=== PATIENT | male | born 1945 | race Caucasian/White ===

== ENCOUNTER 2019-01-04 09:28 | Emergency (ER) | payer BC ==
[2019-01-04 09:51] VITALS: BP 131/72
--- NOTE | 2019-01-04 10:51 | UC ---
Back Pain HPI - HPI Summary HPI Summary: For the past 2 weeks or so he's had gradually increasing symptoms. When he gets up and walks he gets a numbness in his right shoulder blade which quickly becomes pain. He does okay if he is sitting and resting. He has no weakness of his right hand or arm but it does aggravate it some to move it around. He has no other complaint. - History of Current Complaint Chief Complaint: UCUpperExtremity Stated Complaint: RIGHT SHOULDER PAIN Time Seen by Provider: 01/04/19 09:39 Hx Obtained From: Patient, Family/Mushroom Packer Onset/Duration: Gradual Onset Timing: Constant, Lasting Days Severity Initially: Mild Severity Currently: Moderate Pain Intensity: 5 Back Pain: Is Discrete @ - Right posterior shoulder blade Aggravating Factor(s): Movement, Walking Alleviating Factor(s): Rest Associated Signs And Symptoms: Positive: Negative - Allergies/Home Medications Allergies/Adverse Reactions: Allergies Allergy/AdvReac Type Severity Reaction Status Date / Time Ooylwex-Hfq-Ijn Reductase Allergy Muscle Ache Verified 01/04/19 09:51 Inhibitor Home Medications: Home Medications Carvedilol TAB* [Coreg TAB*] 3.125 mg PO BID 01/04/19 [History Confirmed ] Furosemide TAB* [Lasix TAB*] 20 mg PO BID 01/04/19 [History Confirmed 01/04/19] Lisinopril 20 mg PO DAILY 01/04/19 [History Confirmed 01/04/19] Warfarin TAB(*) [Coumadin TAB(*)] 5 mg PO DAILY 01/04/19 [History Confirmed 07/24] PMH/Surg Hx/FS Hx/Imm Hx Cardiovascular History: Cardiac Disease, Hypertension, Atrial Fibrillation - Surgical History Surgical History: None - Social History Alcohol Use: None Substance Use Type: None Smoking Status (MU): Former Smoker Type: Cigarettes Amount Used/How Often: 3 ppd Length of Time of Smoking/Using Tobacco: since age 13 When Did the Patient Quit Smoking/Using Tobacco: 2003 Review of Systems All Other Systems Reviewed And Are Negative: Yes Constitutional: Positive: Negative Skin: Positive: Negative Motor: Positive: Negative Neurovascular: Positive: Negative Musculoskeletal: Positive: Arthralgia, Other: Neurological: Positive: Negative Physical Exam - Summary Physical Exam Summary: Is nontoxic in appearance with stable vitals Triage Information Reviewed: Yes Appearance: Well-Appearing Vital Signs: Initial Vital Signs Temp 97.4 F 01/04/19 09:41 Pulse 86 01/04/19 09:41 Resp 24 01/04/19 09:41 BP 131/72 01/04/19 09:41 Pulse Ox 92 01/04/19 09:41 Vital Signs Reviewed: Yes Neck exam: Other - Some restricted movement Respiratory Exam: Normal Cardiovascular Exam: Normal Musculoskeletal Exam: Other - He's got some mild tenderness and spasm in the rhomboids on the right. Neurological Exam: Normal Diagnostics - Radiology CT cervical spine Radiology Interpretation Completed By: Radiologist Summary of Radiographic Findings: Significant degenerative disc disease. Back Pain Course/Dx - Course Course Of Treatment: I think this is a cervical radiculopathy and I'm going to give him a short steroid burst to try to give him some relief. - Differential Dx/Diagnosis Provider Diagnosis: Cervical radiculopathy Discharge - Sign-Out/Discharge Documenting (check all that apply): Patient Departure All imaging exams completed and their final reports reviewed: Yes - Discharge Plan Condition: Stable Disposition: HOME Patient Education Materials: Cervical Radiculopathy (ED) Referrals: Jacob Dalton MD [Primary Care Provider] - - Billing Disposition and Condition Condition: STABLE Disposition: Home
== END 2019-01-04 11:42 | disposition home or self-care (01) ==
LOC: UCCORT 09:28
DX: M54.12 Radiculopathy, cervical region (principal); I11.9 Hypertensive heart disease without heart failure; I48.91 Unspecified atrial fibrillation; Z79.01 Long term (current) use of anticoagulants; Z87.891 Personal history of nicotine dependence
CPT/HCPCS: 72125; 99202; G0463

== ENCOUNTER 2019-04-05 17:33 | Emergency (ER) | payer BC, MEDICARE ==
--- OUTSIDE RECORDS SUMMARY | 2019-04-05 18:03 | XMS REPORT | Summary of Care ---
:1945 Author Organization [facility] Address [address] [address] Care Team Providers Name Role Phone Jacob Dalton MD Primary Care Provider Reason for Referral MRI/CAT/PET Scan (Routine) Status Reason Specialty Diagnoses / Referred By Referred To Procedures Contact Contact Pending Review Diagnoses Acute midline thoracic back pain Magdi Tejeda MD Procedures MR THORACIC SPINE WO CONTRAST [address] [place] [address] [place] [address] Reason for Visit Reason Comments New Patient Right shoulder blade pain. DOI: Yrs Patient states 3-4 wks ago right shoulder pain got increasingly worse. CT of cervical spine on [facility]. Patient wanting to discuss injections. Refer to Department Only (Routine) Status Reason Specialty Diagnoses / Referred By Contact Referred To Contact Procedures Closed Orthopedics Diagnoses Acute pain of right shoulder Laquita Sim PA-C [address] [place] [address] Encounter Details Date Type Department Care Team Description 02/11/2019 Office Visit [facility] - Magdi Tejeda MD Acute midline thoracic back pain (Primary Dx); [address] Acute pain of right shoulder [address] [facility] [place], [place] [id number] [place] [address] [phone] Allergies Active Allergy Reactions Severity Noted Date Comments No Known Drug Allergy 07/25/2007 documented as of this encounter (statuses as of 02/11/2019) Medications Medication Sig Dispensed Refills Start Date End Date Status acetaminophen (TYLENOL) Take 650 mg by 0 Active 325 MG Oral Tab mouth EVERY FOUR HOURS NEEDED for Pain. lisinopril (PRINIVIL, TAKE ONE TABLET 90 Tab 1 09/07/2018 Active ZESTRIL) 20 MG Oral Tab BY MOUTH EVERY DAY furosemide (LASIX) 20 TAKE TWO TABLETS 120 Tab 1 10/09/2018 Active MG Oral Tab BY MOUTH EVERY DAY carvedilol (COREG) TAKE ONE TABLET 60 Tab 2 12/05/2018 Active 3.125 MG Oral Tab BY MOUTH TWICE A DAY warfarin (COUMADIN) 5 Take 0.5-1 Tabs 180 Tab 3 01/24/2019 Active MG Oral TabIndications: by mouth DAILY. Acute thromboembolism As directed which of deep veins of lower is 2.5mg Zoila. 5mg extremity, unspecified remaining days of laterality (HCC) week HYDROcodone-acetaminoph Take 1 Tab by 28 Tab 0 01/24/2019 Active en (NORCO) 5-325 MG mouth EVERY SIX Oral Tab HOURS NEEDED (shoulder pain). Max Daily Amount: 4 Tabs. HYDROcodone-acetaminoph Take 1 Tab by 40 Tab 0 01/31/2019 Active en (NORCO) 5-325 MG mouth EVERY SIX Oral Tab HOURS NEEDED (pain). Max Daily Amount: 4 Tabs. documented as of this encounter (statuses as of 02/11/2019) Active Problems Problem Noted Date Acute thromboembolism of deep veins of lower extremity, unspecified 09/22/2016 laterality Mixed hyperlipidemia 11/20/2011 Acute thromboembolism of deep veins of lower extremity 07/25/2007 Overview: On Coumadin Therapy. Update referral 3.10.10. 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 07/09/2007 Overview: Managed by: [facility] Referring Provider: Frank Indication: Acute thromboembolism of deep veins of lower extremity, unspecified laterality Target Range: 2.0-3.0 Duration: Indefinite Additional factors influencing anticoagulation: Tylenol increases warfarin effect Pt is at Q8W INR interval per MD order 09/14/12 09/08/17 Resume 1M INRs due to dose change Updated Referral: 04/16/14, 08/2015, 09/22/16, 11/2017, 11/07/18 Updated ACS Orders: 05/26/14, 09/02/15, 10/25/16, 11/16/17, 12/12/18 BMI 40.0-44.9, adult Overview: This patient's BMI This patient's BMI has been calculated and is above average, and BMI management plan is completed. General patient education discussion including: weight loss link to reduction of r isk factors for cardiac and other diseases, importance of long-term maintenance treatment in weight loss, and accomplish with exercise as tolerated and diet control documented as of this encounter (statuses as of 02/11/2019) Resolved Problems Problem Noted Date Resolved Date Encounter for therapeutic drug monitoring 01/12/2010 07/21/2010 Leg ulcer 01/13/2009 03/17/2010 Tobacco Abuse 07/25/2007 03/17/2010 Abnormal Chest X-Ray 07/25/2007 03/17/2010 Benign neoplasm of colon 07/25/2007 03/17/2010 documented as of this encounter (statuses as of 02/11/2019) Immunizations Name Administration Dates Next Due Influenza (IM) Preservative Free 02/27/2013 Influenza Vaccine High Dose 02/07/2018, 01/20/2017, 02/18/2016, 03/18/2015 Influenza Vaccine Whole 03/13/2014, 12/28/2010, 04/04/2009 Influenza Virus Vaccine - Whole 03/23/2007 Influenza Virus Vaccine Pres Free 6-35 03/17/2010 Months PNEUMOCOCCAL POLYSACCHARIDE VACCINE 11/07/2011 Pneumococcal Conjugate(13 Valent) 03/18/2015 ZOSTER (ZOSTAVAX) VACCINE 02/27/2013 documented as of this encounter Social History Tobacco Use Types Packs/Day Years Used Date Former Smoker Smokeless Tobacco: Never Used Alcohol Use Drinks/Week oz/Week Comments Not Asked Sex Assigned at Date Recorded Not on file Job Start Date Occupation Industry Not on file Not on file Not on file Travel History Travel Start Travel End No recent travel history available. documented as of this encounter Last Filed Vital Signs Vital Sign Reading Time Taken Comments Blood Pressure 125/74 02/11/2019 3:07 PM EDT Pulse 94 02/11/2019 3:07 PM EDT Temperature - - Respiratory Rate - - Oxygen Saturation - - Inhaled Oxygen Concentration - - Weight 142.4 kg (314 lb) 02/11/2019 3:07 PM EDT Height 180.3 cm (5' 11") 02/11/2019 3:07 PM EDT Body Mass Index 43.79 02/11/2019 3:07 PM EDT documented in this encounter Progress Notes Magdi Tejeda MD - 02/11/2019 3:15 PM EDT Name: Ranjit Barragan : 1945 Date of Service: 02/11/2019 Referring Provider: Laquita Sim Primary Care Provider: Jacob Dalton Chief Complaint Patient presents with New Patient Right shoulder blade pain. DOI: Yrs Patient states 3-4 wks ago right shoulder pain got increasingly worse. CT of cervical spine on [facility]. Patient wanting to discuss injections. 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 carvedilol (COREG) 3.125 MG Oral Tab TAKE ONE TABLET BY MOUTH TWICE A DAY furosemide (LASIX) 20 MG Oral Tab TAKE TWO TABLETS BY MOUTH EVERY DAY HYDROcodone-acetaminophen (NORCO) 5-325 MG Oral Tab Take 1 Tab by mouth EVERY SIX HOURS NEEDED (shoulder pain). Max Daily Amount: 4 Tabs. HYDROcodone-acetaminophen (NORCO) 5-325 MG Oral Tab Take 1 Tab by mouth EVERY SIX HOURS NEEDED (pain). Max Daily Amount: 4 Tabs. lisinopril (PRINIVIL, ZESTRIL) 20 MG Oral Tab TAKE ONE TABLET BY MOUTH EVERY DAY warfarin (COUMADIN) 5 MG Oral Tab Take 0.5-1 Tabs by mouth DAILY. As directed which is 2.5mg Zoila. 5mg remaining days of week No current facility-administered medications for this visit. Allergies Allergen Reactions No Known Drug Allergy Social History Socioeconomic History Marital status: Spouse name: Not on file Number of children: Not on file Years of education: Not on file Highest education level: Not on file Occupational History Not on file Social Needs Financial resource strain: Not on file Food insecurity: Worry: Not on file Inability: Not on file Transportation needs: Medical: Not on file Non-medical: Not on file Tobacco Use Smoking status: Former Smoker Smokeless tobacco: Never Used Substance and Sexual Activity Alcohol use: Not on file Drug use: Not on file Sexual activity: Not on file Lifestyle Physical activity: Days per week: Not on file Minutes per session: Not on file Stress: Not on file Relationships Social connections: Talks on phone: Not on file Gets together: Not on file Attends scientologist service: Not on file Active member of club or organization: Not on file Attends meetings of clubs or organizations: Not on file Relationship status: Not on file Intimate partner violence: Fear of current or ex partner: Not on file Emotionally abused: Not on file Physically abused: Not on file Forced sexual activity: Not on file Other Topics Concern Not on file Social History Narrative Not on file Family History Problem Relation Age of Onset Hypertension Unknown Breast Cancer Sister ROS: Review of systems intake completed by clinical staff. I have reviewed and agree with their documentation. 73-year-old man(goes by Juan) referred by Denisa Sim for evaluation of mid thoracic midline back pain with approximately 3 weeks of acute pain. Has had chronic pain in this region but has never been disabling. No radicular symptoms. Seen at [place] urgent [facility] where a CAT scan was done. This shows cervical spondylosis with foraminal stenosis. Extension increases the pain. No help from course of oral prednisone. On chronic anticoagulation for DVT.. No shortness of breath. Physical exam shows an overweight man in no acute distress. Alert and oriented. Thoracic spine grossly normal. No point tenderness. Good range of motion. Grossly no focal motor or sensory abnormalities. X-rays of the thoracic spine suggest possible compression fracture mid thoracic spine. Discussion: Unclear if etiology is primarily orthopedic. Will order MRI of thoracic spine. However, cannot rule out other etiology such as vascular or pulmonary . Impression: ICD-9-CM ICD-10-CM 1. Acute pain of right shoulder 719.41 M25.511 REFER TO ORTHOPEDICS Author: Magdi Tejeda MD 02/11/2019 15:23 This record contains sections created with voice recognition software. It has been electronically signed. A reasonable attempt at proofreading has been made. Please call with any questions or corrections. documented in this encounter Plan of Treatment Name Type Priority Associated Diagnoses Order Schedule MR THORACIC SPINE WO Imaging Routine Acute midline thoracic Expected: 02/11, CONTRAST back pain Expires: 02/11/2020 Health Maintenance Due Date Last Done Comments HIV SCREENING 1959 AAA SCREENING/SURVEILLANCE 2009 ZOSTER IMMUNIZATION SERIES 04/24/2013 02/27/2013 (2 of 3) MEDICARE ANNUAL WELLNESS 02/17/2017 02/18/2016, 02/18/2016, VISIT 02/18/2016, Additional history exists DEPRESSION SCREENING 03/24/2018 03/24/2017 INFLUENZA VACCINE (#1) 2019 02/07/2018, 01/20/2017, 02/18/2016, Additional history exists FALL RISK ASSESSMENT 06/19/2019 06/19/2018, 06/19/2018 LIPID DISORDER SCREENING 06/19/2019 06/19/2018, 02/18/2016, 01/13/2015, Additional history exists PNEUMOCOCCAL 65+YRS Completed 03/18/2015, 11/07/2011 HEPATITIS C SCREENING Completed 06/19/2018 HPV IMMUNIZATION SERIES Aged Out No longer eligible based on patient's age to complete this topic MENINGOCOCCAL VACCINE IMM Aged Out No longer eligible based on patient's age to complete this topic documented as of this encounter Goals Goal Patient Goal Associated Recent Patient-Stated? Author Type Problems Progress Blood Pressure Blood Pressure 125/74 No Krystle, < 150/90 (02/11/2019 MD Jacob 3:07 PM EDT) Note: This is an individualized treatment (blood pressure) goal for Ranjit Barragan: Displayed above (on the left) is your goal for blood pressure control. Your most recent blood pressure is also shown above, on the right. You should try to achieve blood pressures that are lower than your goal listed above (on the left). Unit - lb < 250 Result Component No Jacob Dalton MD Take all prescribed medications as directed Self-management No Jacob Dalton MD Note: This is an individualized self-management goal for Ranjit Barragan: Please take all prescribed medications as directed. 1. Do not skip doses. If you cannot afford your medications, talk with your doctor. 2. Use a pill reminder system such as a pill box if needed. Your pharmacist can help you with this. 3. Contact your Pharmacy 5 days before your medication runs out. If you cannot take your medications for any reasons, talk with your doctor. 4. Please bring all of your medication bottles and inhalers (or a list of all your medications/inhalers) with you to every visit. Potential barriers to meeting all of your care plan goals will continue to be addressed on an ongoing basis. documented as of this encounter Results Not on filedocumented in this encounter Visit Diagnoses Diagnosis Acute midline thoracic back pain - Primary Acute pain of right shoulder documented in this encounter Insurance Payer Benefit Plan / Subscriber ID Effective Dates Phone Address Type Group [employer] EX[employer]US xxxxxxxxxxxx 2015-Present [employer] MEDICARE BLUE PPO [phone] Guarantor Name Account Type Relation to Date of Phone Billing Address Patient PriRanjit bolanos Personal/Famil 1945 [address] (Home) [address] [phone] [place], [place] (Work) [id number] documented as of this encounter
--- OUTSIDE RECORDS SUMMARY | 2019-04-05 18:03 | XMS REPORT | Summary of Care ---
:1945 Author Organization [facility] Address [address] [place] [address] Care Team Providers Name Role Phone Jacob Dalton MD Primary Care Provider Reason for Referral MRI/CAT/PET Scan (Routine) Status Reason Specialty Diagnoses / Referred By Referred To Procedures Contact Contact Pending Review Diagnoses Lung mass Jacob Dalton MD Procedures CT CHEST WITHOUT IV CONTRAST [address] [place] [address] Reason for Visit Reason Comments Follow Up pt presents for follow up Breathing Problem pt still having SOB, worse for past month Encounter Details Date Type Department Care Team Description 02/19/2019 Office Visit [facility] Jacob Dalton MD Lung mass (Primary Dx); Practice [address] [facility] Edema, unspecified type ; [address] [place] [address] Neoplasm ; [place] [address] Chronic combined systolic and diastolic congestive heart failure (HCC); [phone] 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 lisinopril (PRINIVIL, TAKE ONE 90 Tab 1 09/07/2018 Active ZESTRIL) 20 MG Oral TABLET BY Tab MOUTH EVERY DAY carvedilol (COREG) TAKE ONE 60 Tab 2 12/05/2018 Active 3.125 MG Oral Tab TABLET BY MOUTH TWICE A DAY warfarin (COUMADIN) 5 Take 0.5-1 180 Tab 3 01/24/2019 Active MG Oral Tabs by mouth TabIndications: Acute DAILY. As thromboembolism of directed which deep veins of lower is 2.5mg Zoila. extremity, 5mg remaining unspecified days of week laterality (HCC) furosemide (LASIX) 20 TAKE TWO 120 Tab 1 02/18/2019 Active MG Oral Tab TABLETS BY MOUTH EVERY DAY morphine 15 MG Oral Take 1 Tab by 40 Tab 0 02/19/2019 Active Tab mouth EVERY SIX HOURS NEEDED (pain). Max Daily Amount: 60 mg. HYDROcodone-acetamino Take 1 Tab by 28 Tab 0 01/24/2019 Discontinued phen (NORCO) 5-325 MG mouth EVERY 9 Oral Tab SIX HOURS NEEDED (shoulder pain). Max Daily Amount: 4 Tabs. HYDROcodone-acetamino Take 1 Tab by 40 Tab 0 01/31/2019 Discontinued phen (NORCO) 5-325 MG mouth EVERY 9 Oral Tab SIX HOURS NEEDED (pain). Max Daily Amount: 4 Tabs. tramadol (ULTRAM) 50 Take 1-2 Tabs 42 Tab 0 02/11/2019 Discontinued MG Oral Tab by mouth EVERY 9 EIGHT HOURS NEEDED (back pain). Max Daily Amount: 300 mg. documented as of this encounter (statuses as of 02/19/2019) Active Problems Problem Noted Date Acute thromboembolism of deep veins of lower extremity, unspecified 09/22/2016 laterality Mixed hyperlipidemia 11/20/2011 Acute thromboembolism of deep veins of lower extremity 07/25/2007 Overview: On Coumadin Therapy. Update referral 3.10.10. 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 07/09/2007 Overview: Managed by: [facility] Referring Provider: Frank Indication: Acute thromboembolism of [...] as of this encounter (statuses as of 02/19/2019) Resolved Problems Problem Noted Date Resolved Date Encounter for therapeutic drug monitoring 01/12/2010 07/21/2010 Leg ulcer 01/13/2009 03/17/2010 Tobacco Abuse 07/25/2007 03/17/2010 Abnormal Chest X-Ray 07/25/2007 03/17/2010 Benign neoplasm of colon 07/25/2007 03/17/2010 documented as of this encounter (statuses as of 02/19/2019) Immunizations Name Administration Dates Next Due Influenza [...] Sign Reading Time Taken Comments Blood Pressure 108/62 02/19/2019 4:37 PM EDT Pulse 93 02/19/2019 4:37 PM EDT Temperature - - Respiratory Rate - - Oxygen Saturation 90% 02/19/2019 4:37 PM EDT Inhaled Oxygen Concentration - - Weight 139.7 kg (308 lb) 02/19/2019 4:37 PM EDT Height 180.3 cm (5' 11") 02/19/2019 4:37 PM EDT Body Mass Index 42.96 02/19/2019 4:37 PM EDT documented in this encounter Progress Notes Jacob Dalton MD - 02/19/2019 4:20 PM EDT PATIENT: Ranjit Barragan : 1945 DATE OF SERVICE: 02/19/2019 CHIEF COMPLAINT: Chief Complaint Patient presents with Follow Up pt presents for follow up Breathing Problem pt still having SOB, worse for past month Subjective HISTORY OF PRESENT ILLNESS: Ranjit Barragan is a 73-y.o. male. Been having right scapula pain for couple months First stop was ER and a CT c spine done Showing neuroforaminal narrowing and spinal stenosis . Saw PD and then Dr Tejeda last week who ordered a thoracic spine x ray Since it showed a RUL mass he asked me to follow up. It is fairly constant Feels numb , the recliner feels the best , . Can flare during his sleep , associated with SOB but that has been an ongoing issue blamed on fluid overload. He tried norco but after few days it makes him agitated, same with ultram. 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 carvedilol (COREG) 3.125 MG Oral Tab TAKE ONE TABLET BY MOUTH TWICE A DAY furosemide (LASIX) 20 MG Oral Tab TAKE TWO TABLETS BY MOUTH EVERY DAY lisinopril (PRINIVIL, ZESTRIL) 20 MG Oral Tab TAKE ONE TABLET BY MOUTH EVERY DAY morphine 15 MG Oral Tab Take 1 Tab by mouth EVERY SIX HOURS NEEDED ( pain). Max Daily Amount: 60 mg. warfarin (COUMADIN) 5 MG Oral Tab Take 0.5-1 Tabs by mouth DAILY. As directed which is 2.5mg Zoila. 5mg remaining days of week No current facility-administered medications for this visit. Allergies Allergen Reactions Statins Swelling No Known Drug Allergy Social History Socioeconomic [...] file Gets together: Not on file Attends confucianist service: Not on file Active member of [...] file Social History Narrative Not on file Over the last 2 weeks, have you been feeling down, depressed, anxious, or hopeless?: 1 Over the past 2 weeks, have you felt little interest or pleasure in doing things ?: 3 Trouble falling or staying asleep, or sleeping too much?: 3 Feeling tired or having little energy?: 3 Poor appetite or overeating?: 3 Feeling bad about yourself or that you are a failure or have let yourself or your family down?: 2 Trouble concentrating on things, such as reading the newspaper or watching TV?: 1 Moving or speaking so slowly that other people notice OR being fidgety and restless?: 3 Thoughts that you would be better off or of hurting yourself in some way?: 1 PHQ-9 TOTAL SCORE: 20 How difficult have these problems made it for you to do your work, take care of things at home or get along with people?: Extremely difficult In the past 2 years, have you felt depressed or sad most days, even if you felt ok?: No REVIEW OF SYSTEMS: ROS Objective PHYSICAL EXAM: VITALS: BP 108/62 (BP Location: Left arm, Patient Position: Sitting) | Pulse 93 | Ht 5' 11" (1.803 m) | Wt 308 lb (139.7 kg) | SpO2 90% | BMI 42.96 kg/m Body mass index is 42.96 kg/m. Physical Exam Constitutional: He does not appear ill. Neck: Neck supple. Cardiovascular: Normal rate and regular rhythm. Pulmonary/Chest: Effort normal. Crackles bases Musculoskeletal: Stasis changes edema is down Lymphadenopathy: He has no cervical adenopathy. Psychiatric: He has a normal mood and affect. Vitals reviewed. ASSESSMENT / IMPRESSION: ICD-9-CM ICD-10-CM 1. Lung mass suspect lung cancer as worse case scenario. No labs done yet Too late to do here today will do in [place] , will get a CT We discussed biopsy vs straight to oncology The issue is pain control He not tolerate the codeine and ultram perhaps will tolerate morphine . Advantage is help with anxiety and SOB. Also inexpensive. Fentanyl ? But that is $$ 786.[address] CHEST WITHOUT IV CONTRAST COMPREHENSIVE METABOLIC PANEL CBC WITH DIFFERENTIAL PROTHROMBIN TIME PARTIAL THROMBOPLASTIN TIME 2. Edema, unspecified type 782.3 R60.9 PROTHROMBIN TIME 3. Neoplasm 239.9 D49.9 PARTIAL THROMBOPLASTIN TIME 4. Chronic combined systolic and diastolic congestive heart failure (HCC) stay on diuretics for qoq473.42 I50.42 428.0 5. 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 V58.61 Z79.01 Plan Author: Jacob Dalton MD 02/19/2019 19:23 documented in this encounter Plan of Treatment Date Type Specialty Care Team Description 02/22/2019 Ancillary Procedure Radiology 02/22/2019 AntiCoag Anticoagulation 02/27/2019 Office Visit Orthopedics Magdi Tejeda MD [address] [place] [address] [phone] Name Type Priority Associated Diagnoses Order Schedule CT CHEST WITHOUT IV Imaging Routine Lung mass Expected: CONTRAST 02/19/2019, Expires: 02/19/2020 COMPREHENSIVE METABOLIC Lab Routine Lung mass Expected: PANEL 02/19/2019 (Approximate), Expires: 02/20/2020 CBC WITH DIFFERENTIAL Lab Routine Lung mass Expected: 02/19/2019 (Approximate), Expires: 02/20/2020 PROTHROMBIN TIME Lab Routine Edema, unspecified type Ordered: 02/19/2019 Lung mass PARTIAL THROMBOPLASTIN Lab Routine Neoplasm Ordered: 02/19/2019 TIME Lung mass Health Maintenance Due Date Last Done Comments HIV SCREENING 1959 AAA SCREENING/SURVEILLANCE 2009 ZOSTER IMMUNIZATION SERIES 04/24/2013 02/27/2013 (2 of 3) MEDICARE ANNUAL WELLNESS 02/17/2017 02/18/2016, 02/18/2016, VISIT 02/18/2016, Additional history exists INFLUENZA VACCINE (#1) 2019 02/07/2018, 01/20/2017, 02/18/2016, Additional history exists FALL RISK ASSESSMENT 06/19/2019 06/19/2018, 06/19/2018 LIPID DISORDER SCREENING 06/19/2019 06/19/2018, 02/18/2016, 01/13/2015, Additional history exists DEPRESSION SCREENING 02/20/2020 02/19/2019, 02/19/2019 PNEUMOCOCCAL 65+YRS Completed 03/18/2015, 11/07/2011 HEPATITIS C SCREENING Completed 06/19/2018 HPV IMMUNIZATION SERIES Aged Out No longer eligible based on patient's age to complete this topic MENINGOCOCCAL VACCINE IMM Aged Out No longer eligible based on patient's age to complete this topic documented as of this encounter Goals Goal Patient Goal Associated Recent Patient-Stated? Author Type Problems Progress Blood Pressure Blood Pressure 108/62 No Krystle, < 150/90 (02/19/2019 MD Jacob 4:37 PM EDT) Note: This is an individualized [...] filedocumented in this encounter Visit Diagnoses Diagnosis Lung mass - Primary Swelling, mass, or lump in chest Edema, unspecified type Neoplasm Neoplasm of unspecified nature, site unspecified Chronic combined systolic and diastolic congestive heart failure (HCC) Chronic combined systolic and diastolic heart failure [facility]DC current use of anticoagulant therapy documented in this encounter Insurance Payer Benefit Plan / Subscriber ID Effective Dates Phone Address Type Group [employer]US MEDICARE EXCELLUS xxxxxxxxxxxx 2015-Present [employer] MEDICARE BLUE PPO [phone]) Guarantor Name Account Type Relation to Date of Phone Billing Address Patient Ranjit Barragan Personal/Famil 1945 [place] [address] (Home) [address] [phone] [place], [place] (Work) [id number] documented as of this encounter
--- OUTSIDE RECORDS SUMMARY | 2019-04-05 18:03 | XMS REPORT | Continuity of Care Document ---
:1945 External Reference #:[id number] Author Name Thuy Laurent PA-C Address [address] [place] [address] Care Team Providers Name Role Phone Facundo Velasquez MD Care Team Information [employer] [phone] Jacob Dalton MD Care Team Information [employer] [phone] Problems Active Problems Provider Date Essential hypertension Thuy Laurent PA-C Onset: 03/24/2019 Dysphagia Thuy Laurent PA-C Onset: 03/13/2019 Social History Type Date Description Comments Sex Unknown Tobacco Use Start: Unknown End: Unknown Patient is a former smoker Smoking Status Reviewed: 03/13/19 Patient is a former smoker Allergies, Adverse Reactions, Alerts Active Allergies Reaction Severity Comments Date Statins 03/13/2019 Medications Active Medications SIG Qnty Indications Ordering Provider Date Fentanyl Kolton Meyers MD 25mcg/HR Patches 72HR Enoxaparin Sodium Inject 1 Syringe Unknown Two Times A Day 100mg/ml Solution For 30 Days Starting On 03/03/19 Celecoxib Take One Capsule Unknown 100mg By Mouth Twice A Capsules Day For 30 Days as Needed Gabapentin Facundo Velasquez MD 300mg Capsules Carvedilol Jacob Dalton MD 3.125mg Tablets Lisinopril Take One Tablet By Unknown 20mg Tablets Mouth Every Day Omeprazole 1 by mouth every Unknown 20mg day Capsules DR Cadet Description No Information Available Vital Signs Date Vital Result Comment 03/13/2019 2:21pm BP Systolic 120 mmHg BP Diastolic 78 mmHg Heart Rate 83 /min Results Test Date Facility Test Result H/L Range Note CMP(!) 02/20/2019 [facility] Sodium(!) <pending> Potassium(!) <pending> Chloride Serum/Plasma(!) <pending> Carbon Dioxide Ser/Plasm(!) <pending> BUN - Urea Nitrogen(!) <pending> Calcium Ser/Plasma Mass/Vol(!) <pending> Creatinine Serum Mass/Vol(!) <pending> Glucose Serum(!) <pending> BUN/Creatinine Ratio(!) <pending> Albumin Serum/Plasma(!) <pending> Alkaline Phosphatase(!) <pending> Bilirubin Total Mass/Vol(!) <pending> Ast - Sgot <pending> Alt - SGPT <pending> Protein Total <pending> Laboratory test 02/20/2019 [facility] Inr(!) <pending> finding CBC W/Auto 02/20/2019 [facility] White Blood Count <pending> Differential(!) Ser Auto CNT RBC Red Blood Count <pending> Hemoglobin Blood <pending> Hematocrit <pending> MCV (Corpuscular Volume) <pending> MCH (Corpuscular Hemoglobin) <pending> MCHC (Corpuscular Hemog Conc) <pending> RDW <pending> Platelet Count Blood Auto CNT <pending> MPV <pending> Lymph% <pending> Gulf% <pending> Neutrophil % <pending> Absolute Lymphocytes <pending> Absolute Monocytes <pending> Absolute Neutrophils <pending> Procedures Description No Information Available Medical Devices Description No Information Available Encounters Description No Information Available Assessments Date Code Description Provider 03/13/2019 R13.10 Dysphagia, unspecified Thuy Laurent PA-C Plan of Treatment No Information Available Functional Status Description No Information Available Mental Status Description No Information Available Referrals Description No Information Available
--- NOTE | 2019-04-05 18:13 | ED ---
HPI Chest Pain - HPI Summary HPI Summary: 73 year old male presents to the ED with a chief complaint of chest pressure and associated SOB starting 3 weeks ago, gradually worsening until it became unbearable today. Patient started chemo for his lung cancer 5 days ago. He has been doing cancer radiation every day for the last 5 days. Patient reports taking Lovenox. He denies fever. Patient has a history of HTN, lung cancer, [place], and anxiety. He quit smoking 15 years ago. He does not drink alcohol. Medications reviewed. Allergies noted. - History of Current Complaint Chief Complaint: EDChestWallPain Time Seen by Provider: 04/05/19 17:56 Hx Obtained From: Patient Onset/Duration: Started Weeks Ago Timing: Constant Initial Severity: Mild Current Severity: Severe Pain Intensity: 7 Pain Scale Used: 0-10 Numeric Chest Pain Location: Diffuse Chest Pain Radiates: No Character: Pressure/Squeezing Associated Signs and Symptoms: Positive: Chest Pain, Anxiety, Shortness of Breath. Negative: Fever - Allergy/Home Medications Allergies/Adverse Reactions: Allergies Allergy/AdvReac Type Severity Reaction Status Date / Time Rgcnmje-Mla-Brj Reductase Allergy Muscle Ache Verified 03/11/19 13:54 Inhibitor Home Medications: Home Medications Enoxaparin(*) [Lovenox(*)] 100 mg SUBCUT Q12HR 04/05/19 [History Confirmed 04/05] LORazepam TAB(*) [Ativan 0.5 MG TAB (*)] 0.5 mg PO ONCE PRN 04/05/19 [History Confirmed 04/05/19] Lisinopril TAB* [Prinivil TAB*] 20 mg PO DAILY 04/05/19 [History Confirmed 04/05] Omeprazole CAP (NF) [Prilosec CAP* 20 MG] 20 mg PO DAILY 04/05/19 [History Confirmed 04/05/19] Ondansetron TAB* [Zofran 4 MG Tab*] 4 mg PO Q4HR PRN 04/05/19 [History Confirmed 04/05/19] Prochlorperazine TAB* [Compazine Tab*] 10 mg PO Q8H PRN 04/05/19 [History Confirmed 04/05/19] fentaNYL PATCH 50 MCG/HR* [Duragesic PATCH 50 Mcg/Hr*] 50 mcg TRANSDERM Q72H [History Confirmed 04/05/19] oxyCODONE TAB* [Roxycodone TAB 5 mg*] 10 mg PO ONCE PRN 04/05/19 [History Confirmed 04/05/19] PMH/Surg Hx/FS Hx/Imm Hx Cardiovascular History: Reports: Hx Hypertension - Cancer History Cancer Type, Location and Year: SKIN CA Infectious Disease History: No Infectious Disease History: Denies: Traveled Outside the [place] in Last 30 Days - Family History Known Family History: Positive: Hypertension - Social History Alcohol Use: None Substance Use Type: Reports: None Smoking Status (MU): Former Smoker Type: Cigarettes Amount Used/How Often: 3 ppd Length of Time of Smoking/Using Tobacco: since age 13 Review of Systems Negative: Fever Positive: Chest Pain Positive: Shortness Of Breath All Other Systems Reviewed And Are Negative: Yes Physical Exam - Summary Physical Exam Summary: Constitutional: Well-developed, Well-nourished, Alert. (-) Distressed Skin: Warm, Dry HENT: Normocephalic; Atraumatic Eyes: Conjunctiva normal Neck: Musculoskeletal ROM normal neck. (-) JVD, (-) Stridor, (-) Tracheal deviation Cardio: Rhythm regular, rate tachycardic, Heart sounds normal; Intact distal pulses; Radial pulses are 2+ and symmetric. (-) Murmur Pulmonary/Chest wall: Effort normal. (-) Respiratory distress, (-) Wheezes, Crackles at bilateral bases. Abd: Soft, (-) tenderness, (-) Distension, (-) Guarding, (-) Rebound Musculoskeletal: (-) Edema Lymph: (-) Cervical adenopathy Neuro: Alert, Oriented x3 Psych: Mood and affect Normal Triage Information Reviewed: Yes Vital Signs On Initial Exam: Initial Vitals Temp Pulse Resp BP Pulse Ox 98.2 F 106 22 124/92 96 04/05/19 17:47 04/05/19 17:47 04/05/19 17:47 04/05/19 17:47 04/05/19 17:47 Vital Signs Reviewed: Yes Procedures - Sedation Patient Received Moderate/Deep Sedation with Procedure: No Diagnostics - Vital Signs Vital Signs Temp Pulse Resp BP Pulse Ox 04/05/19 17:47 98.2 F 106 22 124/92 96 - Laboratory Result Diagrams: 04/05/19 18:29 04/05/19 18:29 Lab Statement: Any lab studies that have been ordered have been reviewed, and results considered in the medical decision making process. - CT Chest/Thorax CTA CT Interpretation Completed By: Radiologist Summary of CT Findings: 1. No pulmonary emboli. 2. Intervally advanced stage IV primary lung carcinoma. An ED physician has reviewed this report. - EKG 1838 Cardiac Rate: Tachycardia - 103 bpm EKG Rhythm: Sinus Tachycardia Summary of EKG Findings: EKG at 1838 shows sinus tachycardia of 103 bpm. T-wave inversion at 2-3 and AVF. Chest Pain Course/Dx - Course Course Of Treatment: Patient is here with chest pain in the setting of lung cancer, starting chemotherapy, and radiation treatment. Patient's chest pain has been constant for 24 hours with a negative troponin and EKG for ischemia. Patient had a negative CTA for PE. I do not think patient needs a stress test emergently as he is currently undergoing chemotherapy and has a number session on Monday. Patient was encouraged to call his oncologist to let them know he was here. - Diagnoses Provider Diagnoses: Chest pain, Lung cancer Discharge ED - Sign-Out/Discharge Documenting (check all that apply): Patient Departure - discharge - Discharge Plan Condition: Stable Disposition: HOME Patient Education Materials: Chest Pain (ED) Referrals: Facundo Velasquez MD [Family Provider] - Additional Instructions: Follow up with Dr. Velasquez, Oncology, in 2-3 days. Return to the Emergency Department if you experience trouble breathing, fever, chest pain, or other worsened symptoms. - Billing Disposition and Condition Condition: STABLE Disposition: Home - Attestation Statements Document Initiated by Amelia: Yes Documenting Sabaibe: Muaricio Fernando Provider For Whom Amelia is Documenting (Include Credential): Clemente Gallo MD Scribe Attestation: Mauricio Singh, scribed for Clemente Gallo MD on 04/06/19 at 1942. Scribe Documentation Reviewed: Yes Provider Attestation: The documentation as recorded by the Mauricio chu accurately reflects the service I personally performed and the decisions made by me, Clemente Gallo MD Status of Scribe Document: Viewed
[2019-04-05] MEDS ORDERED: NS 0.9% 1000 ML** 1,000 ML IV ONE (18:31)
[2019-04-05 18:40] LABS: ABS Eosinophils 0.1 10^3/ul (0-0.6); ABS Lymphocytes 0.9 10^3/ul (1.0-4.8); ABS Monocytes 0.3 10^3/ul (0-0.8); ABS Neutrophils 6.1 10^3/ul (1.5-7.7); Hematocrit 46 % (42-52); Hemoglobin 15.1 g/dL (14.0-18.0); Mean Corpuscular HGB Conc 33 g/dL (31-36); Mean Corpuscular Hemoglobin 30 pg (27-31); Mean Corpuscular Volume 89 fL (80-94); Mean Platelet Volume 9.1 fL (7.4-10.4); Platelet Count 165 10^3/uL (150-450); Red Blood Count 5.12 10^6 /uL (4.18-5.48); Red Cell Distribution Width 16 % (10-15); White Blood Count 7.4 10^3/uL (3.5-10.8)
[2019-04-05 18:58] LABS: Troponin I 0.02 ng/mL (<0.04)
[2019-04-05 19:03] LABS: Albumin 3.3 g/dL (3.2-5.2); Albumin/Globulin Ratio 1.2 (1-3); BUN/Creatinine Ratio 17.6 (8-20); Calcium 9.6 mg/dL (8.6-10.3); EGFR African American 137.9 (>60); Globulin 2.7 g/dL (2-4); Potassium 4.2 mmol/L (3.5-5.0)
[2019-04-05] MEDS ORDERED: Iohexol 350* (CONTRAST) 500 ML MDV IV ONE (19:31)
[2019-04-05] MEDS ORDERED: Al Hydrox/Mg Hydrox/Simet LIQ* 30 ML UDC PO ONE (21:34)
[2019-04-05] MEDS ORDERED: Lidocaine 2% VISCOUS* 15 ML UDC PO ONE (21:34)
[2019-04-05 21:52] VITALS: BP 139/86
== END 2019-04-05 22:00 | disposition home or self-care (01) ==
LOC: ED 17:33
DX: R07.9 Chest pain, unspecified (principal); C34.90 Malignant neoplasm of unspecified part of unspecified bronchus or lung; I10 Essential (primary) hypertension; I25.2 Old myocardial infarction; F41.9 Anxiety disorder, unspecified; Z87.891 Personal history of nicotine dependence; Z85.828 Personal history of other malignant neoplasm of skin; Z79.01 Long term (current) use of anticoagulants; Z79.899 Other long term (current) drug therapy; Z88.8 Allergy status to other drugs, medicaments and biological substances
CPT/HCPCS: 36415; 71275; 80053; 83605; 84484; 85025; 87040; 93005; 96360; 99283; A9270-GY; Q9967

== ENCOUNTER 2019-04-22 14:09 | Inpatient (IN) | payer MEDICARE ==
[2019-04-22] MEDS ORDERED: Cefepime(*) 2 GM in NS 0.9% 50 ML* 50 ML IVPB ONE (14:25)
[2019-04-22] MEDS ORDERED: NS 0.9% 1000 ML** 1,000 ML IV.FLUID IV ONE (14:25)
[2019-04-22] MEDS ORDERED: Piperacillin/Tazobac ADVAN(*) 3.375 GM in NS 0.9% 100 ML* 100 ML IVPB ONE (14:25)
--- NOTE | 2019-04-22 14:26 | ED ---
Altered Mental Status - HPI Summary HPI Summary: Patient is a 73 y/o M presenting to the ED via EMS for a chief complaint of confusion. Patient is present with his . On 04/22/19, the patient had confusion and shortness of breath at rest so he was unable to receive chemotherapy or which he was scheduled at [facility], but did receive radiation therapy before symptom onset. Per EMS, patient was alert, but oriented and was unable to give a history. Patient was asymptomatic on the morning of 04/22/19. Patient has a PMHx of skin and lung cancer. Patient denies any aggravating or alleviating factors. HPI IS LIMITED DUE TO LEVEL 5 CAVEAT - CONFUSION. - History Of Current Complaint Chief Complaint: EDAltMentalStatus Stated Complaint: AMS PER EMS Time Seen by Provider: 04/22/19 14:24 Hx Obtained From: Patient, EMS Hx From Patient Unobtainable Due To: Altered Mental Status - LEVEL 5 CAVEAT - Confusion Onset/Duration: Still Present Severity Initially: Moderate Severity Currently: Moderate Character: Confusion Aggravating Factor(s): Nothing Alleviating Factor(s): Nothing Associated Signs And Symptoms: Positive: Negative - Allergies/Home Medications Allergies/Adverse Reactions: Allergies Allergy/AdvReac Type Severity Reaction Status Date / Time Ftlmfxn-Ymj-Iok Reductase Allergy Muscle Ache Verified 03/11/19 13:54 Inhibitor Home Medications: Home Medications Apixaban* [Eliquis*] 5 mg PO BID 04/22/19 [History Confirmed 04/22/19] Dexamethasone TAB* [Decadron TAB*] 8 mg PO DAILY 04/22/19 [History Confirmed ] Scopolamine 1.5 mg* PATCH* [Transderm-Scop 1.5 mg Patch*] 1 patch TRANSDERM Q72H 04/22/19 [History Confirmed 04/22/19] PMH/Surg Hx/FS Hx/Imm Hx Previously Healthy: No - LIMITED DUE TO LEVEL 5 CAVEAT - CONFUSION Endocrine/Hematology History: Denies: Hx Diabetes Cardiovascular History: Reports: Hx Hypertension Denies: Hx Hypercholesterolemia History: Denies: Hx Renal Disease Sensory History: Denies: Hx Legally Blind, Hx Deafness Opthamlomology History: Denies: Hx Legally Blind EENT History: Denies: Hx Deafness - Cancer History Cancer Type, Location and Year: SKIN CA, LUNG CA - Surgical History Surgical History: None Surgery Procedure, Year, and Place: None Infectious Disease History: No Infectious Disease History: Denies: Traveled Outside the [place] in Last 30 Days - Family History Known Family History: Positive: Hypertension - Social History Occupation: Retired Lives: With Family Alcohol Use: None Hx Substance Use: No Substance Use Type: Reports: None Hx Tobacco Use: Yes Smoking Status (MU): Former Smoker Type: Cigarettes Amount Used/How Often: 3 ppd Length of Time of Smoking/Using Tobacco: since age 13 Review of Systems - ROS Summary Review of Systems Summary: REVIEW OF SYSTEMS LIMITED DUE TO LEVEL 5 CAVEAT - CONFUSION Positive: Shortness Of Breath - At rest Neurological: Other - Positive confusion All Other Systems Reviewed And Are Negative: No Physical Exam - Summary Physical Exam Summary: PHYSICAL EXAM LIMITED DUE TO LEVEL 5 CAVEAT - CONFUSION VITAL SIGNS: Reviewed. GENERAL: Patient is a well-developed and obese MALE who is lying comfortable in the stretcher. Patient is not in any acute respiratory distress. HEAD AND FACE: No signs of trauma. No ecchymosis, hematomas or skull depressions. No sinus tenderness. EYES: PERRLA, EOMI x 2, No injected conjunctiva, no nystagmus. EARS: Hearing grossly intact. Ear canals and tympanic membranes are within normal limits. MOUTH: Oropharynx within normal limits. NECK: Supple, trachea is midline, no adenopathy, no JVD, no carotid bruit, no c- spine tenderness, neck with full ROM. CHEST: Symmetric, no tenderness at palpation. LUNGS: Clear to auscultation bilaterally. No wheezing. Crackles bilaterally in the bases. CVS: Regular rhythm, S1 and S2 present, no murmurs or gallops appreciated. Hypotensive. ABDOMEN: Soft, non-tender. No signs of distention. No rebound, no guarding, and no masses palpated. Bowel sounds are normal. EXTREMITIES: FROM in all major joints, no cyanosis or clubbing. 1+ edema in the bilateral LE. NEURO: No acute neurological deficits. Speech is normal and follows commands. Not oriented. SKIN: Dry and warm. Triage Information Reviewed: Yes Vital Signs On Initial Exam: Initial Vitals Temp Pulse Resp BP Pulse Ox 98.9 F 94 20 90/65 100 04/22/19 14:19 04/22/19 14:19 04/22/19 14:19 11/18/19 14:19 04/22/19 14:19 Vital Signs Reviewed: Yes Completion Of Physical Exam Limited Due To: Altered Mental Status - Confusion - Verónica Coma Scale Best Eye Response: 4 - Spontaneous Best Motor Response: 5 - Purposeful Movement Best Verbal Response: 5 - Oriented Coma Scale Total: 14 Procedures - Sedation Patient Received Moderate/Deep Sedation with Procedure: No Diagnostics - Vital Signs Vital Signs Temp Pulse Resp BP Pulse Ox 04/22/19 14:19 98.9 F 94 20 90/65 100 - Laboratory Result Diagrams: 04/22/19 14:45 04/22/19 14:45 Lab Statement: Any lab studies that have been ordered have been reviewed, and results considered in the medical decision making process. - Radiology Chest X-ray Radiology Interpretation Completed By: Radiologist Summary of Radiographic Findings: Chest X-ray IMPRESSION: 1. The mass in the right midlung zone is re-demonstrated but better characterized by comparison CT. There are similar degenerative osseous changes about the posterior right ribs. 2. No new focal airspace opacification. Reviewed by Dr. Osullivan. - CT Brain CT CT Interpretation Completed By: Radiologist Summary of CT Findings: Brain CT IMPRESSION: 1. NO EVIDENCE FOR ACUTE INTRACRANIAL ABNORMALITY. 2. FINDINGS SUGGESTIVE OF CHRONIC SMALL VESSEL ISCHEMIC CHANGES. 3. LIMITED STUDY. Reviewed by Dr. Osullivan. - EKG 14:32 Cardiac Rate: NL - 98 BPM EKG Rhythm: Sinus Rhythm ST Segment: Normal Ectopy: None Summary of EKG Findings: EKG at 14:32 shows 98 BPM with normal sinus rhythm, no ST elevations, Q wave inversions in lead III and aVF, no STEMI. Reviewed and interpreted by Dr. Osullivan. Re-Evaluation - Re-Evaluation First Eval Re-Evaluation Time: 15:06 Change: Unchanged Comment: At 15:06, patients states that the patient has skin cancer and lung cancer. Patients also states that the patient fell the morning of , but denies the patient hit his head. Second Eval Re-Evaluation Time: 15:13 Change: Unchanged Comment: At 15:13, patient is attempting to get out of bed and leave. I will give the patient Ativan. Third Eval Re-Evaluation Time: 16:22 Change: Unchanged Comment: At 16:22, patient is agitated, still has altered mental status, and is thrashing. Patient will be given 50 mcg of fentanyl and 2 mg of Ativan. Altered Mental Statu Course/Dx - Course Assessment/Plan: The patient is a 73-year-old male who presents to the emergency department via ambulance with a chief complaint of altered mental status and shortness of breath before he having a chemotherapy treatment. During the physical exam, the patient is alert, but not oriented. He is confused and unable to give a history. The patient is hypotensive and as per the nurses note, the patient is positive for sepsis criteria. Therefore I started with 30 ccs of KG and IV fluids, I gave the patient cefepime and Zosyn since the patient was complaining of shortness of breath, and during the physical exam the patient had bilateral crackles. Blood cultures and lactic acid was sent to the lab before antibiotics were given. CXR impression: mass in the right mid lung sounds is demonstrated by better characterized by comparison on CT. There are significant degenerative osseous changes about the posterior right ribs. No new focal airspace opacification. Blood work is without any significant abnormality except for INR 1.6, fibrinogen 453, sodium 133, chloride 93, glucose 152, lactic acid is 2.4, CRP is 24.7, total protein 5.7. The patient became very agitated for which the patient was given 2 mg of Ativan. The patient continues to be agitated, therefore, he was given fentanyl since he was complaining of some back pain earlier. He was also given an additional 2 mg of Ativan. At this point, we needed to get a CT of the brain in order to rule out any acute intracranial pathology. However, the patient was able to move all extremities, and he continued to be agitated. At the CT suite , the patient became more agitated, therefore, he was given 2 mg of Ativan and 2 mg of Versed. Head CT impression: No evidence for acute intracranial abnormality. Findings are suggestive for chronic small vessel ischemic changes. At this time, I discussed my physical exam findings and lab results with Briana Matthew NP from oncology and she later discussed the case with Dr. Velasquez. They recommend the patient be admitted to the hospital services. Therefore, I discussed my physical exam findings, and lab and imaging results with Dr. Bunn from the hospital services who accepted the patient for admission. - Diagnoses Provider Diagnoses: Altered mental status, Sepsis - Provider Notifications Discussed Care Of Patient With: Facundo Velasquez - At 16:25, Dr. Facundo Velasquez is agreeable to admission of the patient to [facility] [place] [place] with a diagnosis of AMS and sepsis. At 05:38, Dr. Shady Bunn agrees to admit the patient to [facility] [place] [place] with a diagnosis of AMS. Time Discussed With Above Provider: 16:25 Instructed by Provider To: Admit As Inpatient Discharge ED - Sign-Out/Discharge Documenting (check all that apply): Patient Departure - Admit - Discharge Plan Condition: Stable Disposition: ADMITTED TO [facility] Referrals: Jacob Dalton MD [Primary Care Provider] - - Billing Disposition and Condition Condition: STABLE Disposition: Admitted to [facility] - Attestation Statements Document Initiated by Amelia: Yes Documenting Scribe: Alexandra Jung Provider For Whom Amelia is Documenting (Include Credential): Sravan Osullivan MD Scribe Attestation: Alexandra Singh, scribed for Sravan Osullivan MD on 04/22/19 at 1831. Scribe Documentation Reviewed: Yes Provider Attestation: The documentation as recorded by the rubenibAlexandra anderson accurately reflects the service I personally performed and the decisions made by , Sravan Osullivan MD Status of Scribe Document: Viewed
[2019-04-22] MEDS ORDERED: NS 0.9% 50 ML* 50 ML ONE (14:49)
[2019-04-22 15:00] LABS: Hematocrit 43 % (42-52); Mean Corpuscular HGB Conc 33 g/dL (31-36); Mean Corpuscular Hemoglobin 29 pg (27-31); Mean Corpuscular Volume 90 fL (80-94); Platelet Count 212 10^3/uL (150-450); Red Blood Count 4.78 10^6 /uL (4.18-5.48); Red Cell Distribution Width 16 % (10-15); White Blood Count 5.5 10^3/uL (3.5-10.8)
[2019-04-22] MEDS ORDERED: LORazepam INJ* 2 MG/ML 1 ML VIAL IV PUSH ONE ×5 (15:13→17:06)
[2019-04-22] MEDS ORDERED: Lorazepam PYXIS KEY PRN ×5 (15:13→17:06)
[2019-04-22] MEDS ORDERED: Lorazepam PYXIS KEY ONE ×3 (15:15→17:07)
[2019-04-22 15:21] LABS: Troponin I 0.03 ng/mL (<0.04)
[2019-04-22 15:26] LABS: Albumin 3.2 g/dL (3.2-5.2); Albumin/Globulin Ratio 1.3 (1-3); C Reactive Protein 24.71 mg/L (<8.01); Calcium 9.4 mg/dL (8.6-10.3); EGFR African American 88.4 (>60); Globulin 2.5 g/dL (2-4); Potassium 4.5 mmol/L (3.5-5.0); Total Protein 5.7 g/dL (6.4-8.9)
[2019-04-22 15:39] LABS: Activated Partial Thrombo Time 29.1 seconds (26.0-38.0); INR 1.6 (0.82-1.09)
[2019-04-22 15:47] LABS: ABS Lymphocytes 0.2 10^3/ul (1.0-4.8); ABS Monocytes 0.4 10^3/ul (0-0.8); ABS Neutrophils 4.9 10^3/ul (1.5-7.7); Eosinophil % 0.1 %; Nucleated Red Blood Cells % 0.1
[2019-04-22] MEDS ORDERED: Cefepime 2 GM in Dextrose(*) 2 GM/50 ML BAG IV ONE (16:00)
[2019-04-22] MEDS ORDERED: fentaNYL* 50 MCG/ML 2 ML VIAL (100 MCG VIAL) IV SLOW PU ONE (16:15)
[2019-04-22 16:50] LABS: Urine Color Amber
[2019-04-22 16:51] LABS: Urine Appearance Clear; Urine Bilirubin Negative (Negative); Urine Blood 1+ (Negative); Urine Glucose Negative (Negative); Urine Ketones 1+ (Negative); Urine Nitrite Negative (Negative); Urine Protein 1+(30 mg/dL) (Negative); Urine Urobilinogen Negative (Negative)
[2019-04-22] MEDS ORDERED: Midazolam* 1 MG/ML 2 ML VIAL (2 MG) IV SLOW PU ONE (17:06)
[2019-04-22] MEDS ORDERED: Midazolam* 1 MG/ML 5 ML VIAL (5 MG) ONE (17:07)
[2019-04-22] MEDS ORDERED: LORazepam INJ* 2 MG/ML 1 ML VIAL ONE (17:08)
--- NOTE | 2019-04-22 17:46 | PN ---
Progress Note - Progress Note Date of Service: 04/22/19 SOAP: Subjective: []Mr. Barragan is currently followed by oncology for his unfortunate diagnosis of NSCLC with large RUL mass causing significant difficutly with full staging ( unable to lay flat for MRI or PET), therefore treatment initiated with definitive therapy for local control with concurrent chemo/RT. Cycle 1 Carbo/ Taxol weekly given 04/01. Per his , Mr. Barragan was his normal set this AM. She states he has been getting progressively weak and having some more difficulty getting up stairs, but that she is not aware of any new complaints over the last week. She states they went to RT (in [place] with Dr. Carrington) and then drove to the [facility] for chemotherapy and they had a regular conversation. However, upon arrival to the parking lot he appeared confused and then couldn't figure out how to open the building door. In the chemotherapy suite he was so agitated that EMS was activated and he was brought to the ER. In the ER Mr. Barragan received IV fluids and antibiotics due to elevated lactic acid. He has produced minimal UO, very concentrated. He has remained agitated , requiring significant doses of ativan. Upon my arrival at approx. 1700 he was given 2 mg and taking for CT of the head. His states that he has said he wouldn't want CPR, however she would like to discuss with her daughter. Objective: [] Vital Signs Temp Pulse Resp BP Pulse Ox 98.9 F 100 17 125/78 100 04/22/19 14:19 04/22/19 17:21 04/22/19 17:21 04/22/19 16:47 04/22/19 17:21 Sedated HRR LS dim. on right Hyperactive BS Lenny peripheral extremities Laboratory Results - last 24 hr 04/22/19 04/22/19 04/22/19 14:45 14:45 14:45 WBC 5.5 RBC 4.78 Hgb 14.0 Hct 43 MCV 90 MCH 29 MCHC 33 RDW 16 H Plt Count 212 MPV 8.0 Neut % (Auto) 89.3 Lymph % (Auto) 4.0 Glenn % (Auto) 6.4 Eos % (Auto) 0.1 Baso % (Auto) 0.2 Absolute Neuts (auto) 4.9 Absolute Lymphs (auto) 0.2 L Absolute Monos (auto) 0.4 Absolute Eos (auto) 0.0 Absolute Basos (auto) 0.0 Absolute Nucleated RBC 0.0 Nucleated RBC % 0.1 INR (Anticoag Therapy) 1.60 H APTT 29.1 Fibrinogen 453.0 H Sodium 133 L Potassium 4.5 Chloride 93 L Carbon Dioxide 31 Anion Gap 9 BUN 22 Creatinine 1.00 Est GFR ( Amer) 88.4 Est GFR (Non-Af Amer) 73.0 BUN/Creatinine Ratio 22.0 H Glucose 152 H Lactic Acid Calcium 9.4 Total Bilirubin 1.00 AST 23 ALT 37 Alkaline Phosphatase 55 Total Creatine Kinase 62 Troponin I 0.03 C-Reactive Protein 24.71 H B-Natriuretic Peptide Total Protein 5.7 L Albumin 3.2 Globulin 2.5 Albumin/Globulin Ratio 1.3 Urine Color Urine Appearance Urine pH Ur Specific Melrude Urine Protein Urine Ketones Urine Blood Urine Nitrate Urine Bilirubin Urine Urobilinogen Ur Leukocyte Esterase Urine Glucose 04/22/19 04/22/19 04/22/19 14:45 14:45 16:30 WBC RBC Hgb Hct MCV MCH MCHC RDW Plt Count MPV Neut % (Auto) Lymph % (Auto) Glenn % (Auto) Eos % (Auto) Baso % (Auto) Absolute Neuts (auto) Absolute Lymphs (auto) Absolute Monos (auto) Absolute Eos (auto) Absolute Basos (auto) Absolute Nucleated RBC Nucleated RBC % INR (Anticoag Therapy) APTT Fibrinogen Sodium Potassium Chloride Carbon Dioxide Anion Gap BUN Creatinine Est GFR ( Amer) Est GFR (Non-Af Amer) BUN/Creatinine Ratio Glucose Lactic Acid 2.4 H* Calcium Total Bilirubin AST ALT Alkaline Phosphatase Total Creatine Kinase Troponin I C-Reactive Protein B-Natriuretic Peptide 66 Total Protein Albumin Globulin Albumin/Globulin Ratio Urine Color Judith Urine Appearance Clear Urine pH 5.0 Ur Specific Melrude 1.010 Urine Protein 1+(30 mg/dl) A Urine Ketones 1+ A Urine Blood 1+ A Urine Nitrate Negative Urine Bilirubin Negative Urine Urobilinogen Negative Ur Leukocyte Esterase Negative Urine Glucose Negative Assessment/Plan: []73 yo male with locally advanced NSCLC (at least stage III though high concern for distant disease unable to be confirmed d/t inability to complete staging) currently receiving Carbo/Taxol/XRT, due for week 4 today, presenting with acute onset confusion of unclear etiology. His work-up in the ER thus far is negative for hemorrage and most likely indicates a metabolic encephalopathy. He has required significant doses of sedating meds d/t the degree of his agitation and I am concerned he will require more monitoring than is appropriate for oncology management. Case discussed with attending, Dr. Velasquez, and ER MD, Dr. Osullivan. We are requesting medicine consult and consider admission for further evaluation and management. Oncology will continue to follow and will likely take him onto our service tomorrow should he stabilize.
[2019-04-22 17:48] LABS: Erythrocyte Sed Rate 23 mm/Hr (0-19)
[2019-04-22] MEDS ORDERED: Albuterol/Ipratropium NEB.SOL* Albuterol 2.5 MG/Ipratropium 0.5 MG 3 ML INH PRN (18:41)
[2019-04-22 19:48] LABS: Influenza A Molecular NEGATIVE (Negative); Influenza B Molecular NEGATIVE (Negative)
--- NOTE | 2019-04-22 22:22 | HP ---
HISTORY AND PHYSICAL: DATE OF ADMISSION: 04/22/19 ADMITTING PROVIDER: Shady Bunn MD. PRIMARY CARE PROVIDER: Dr. Dalton. OUTPATIENT RADIATION ONCOLOGIST: Dr. Barillas. OUTPATIENT MAINTENANCE CUSTODIAN/ONCOLOGIST: Dr. Velasquez. CHIEF COMPLAINT: Severe aggression, altered mental status. HISTORY OF PRESENT ILLNESS: Ranjit Barragan is a 73-year-old male with past medical history of lvu-zupvc-liop lung cancer with invasion of fifth rib and chest wall, DVT, [place]/CAD, restless legs syndrome, likely COPD with recent chronic hypoxic respiratory failure, obesity, and hypertension. He went to his radiation oncologist appointment in [place] today and then, when driven back with his , he got very altered and confused in the car, was unable to figure out how to open the door from the inside. With assistance, he got into Dr. Velasquez's office, but was agitated, did not know who his or anyone else around him was. He was transported to [facility] [place] [facility] Emergency Room for further evaluation and was found to be still quite aggressively agitated. Initial workup included afebrile, tachycardic; currently 106, intermittently tachypneic up to 40 as much as 43, and blood pressure 90/65. He got a total of 8 mg of Ativan, 2mg of Versed to help sedate him to get a CT of the head, noncontrast, which showed no acute process, but suggestive of chronic small-vessel ischemic changes. He is currently deeply sedated. The , Danni, gives the rest of the history. He has been complaining of chills for the past couple of days. He has a chronic cough, chronic shortness of breath, nausea, and vomiting ever since a week after chemotherapy started, which was late March. He has had diarrhea for about a week that had followed a period of constipation, was having 3 to 4 bowel movements a day. He has had very poor appetite because of the vomiting and also the coughing up. He eventually would also describe coughing up "hot water" to his . He managed only a quarter of a scrambled egg this morning. He fell in the shower this morning, does not seem to have hit his head, but EMS had to help him up. He scraped his knees. Denies any fevers, headache, neck stiffness, chest pain, or abdominal pain. He was referred to the oncology service for admission, but given the high level of sedation he has required, they deferred to the hospitalist service for further management. He has had reduced amount of urination, but it had been very frequent and then over the last week with his reduced p.o. intake less so. His estimates he has drunk a total of only about 16 ounces of liquids every 3 days. PAST MEDICAL HISTORY: 1. Trf-xgdnk-tfeh lung cancer, on radiation and Carbo/Taxol since 03/24/18. 2. Hypertension. 3. DVTs. 4. [place] and CAD. 5. Likely COPD with 90 pack-years, quit some 14 years ago, but chronically on 3 L at home since a few weeks ago. He is notably on no inhalers, never seen a lung doctor or had pulmonary function tests done. 6. Obesity. FAMILY HISTORY: Sister had breast cancer. Uncle had ?cancer. SOCIAL HISTORY: The patient is a former smoker between the ages of 14 and 60s, 2 packs per day. No significant alcohol use. He is retired from [employer] and [employer]. His is in the room, Danni Barragan, and is his medical surrogate. He states that he would not want resuscitation. She is still considering how to fill out the [facility] form after she talks to their daughter, Jenna. REVIEW OF SYSTEMS: A complete 14-point review of systems is negative, except as per HPI. He has chronic back pain and wears a fentanyl patch. He is unable to lie down flat for full staging given his back pain and cough. PHYSICAL EXAMINATION GENERAL APPEARANCE: In no acute distress, but sedated. He does squeeze my hands bilaterally and perhaps wiggles his left toes on command; otherwise, just grunts. VITAL SIGNS: Temperature 98.9, pulse rate currently in the low 100s, blood pressure initially 90/65, respiratory rate between 17 and 43. HEENT: Normocephalic, atraumatic. Pupils equal, round, and reactive to light. Not following extraocular motion testing. LUNGS: Reduced anteriorly on the right lateral side and some faint rhonchi at the left lateral side. CARDIOVASCULAR: Regular rate and rhythm. No murmurs, rubs, or gallops. ABDOMEN: Soft, but distended. Some areas of induration near previous Lovenox shots and some ecchymosis. No flinching with deep palpation. EXTREMITIES: Warm, well perfused. Intact pulses. Purple discoloration. SKIN: Ecchymoses on anterior abdomen. There is some yeast infection suspected in his right abdominal fold. DIAGNOSTIC STUDIES/LAB DATA: Labs: White count 5.5, hemoglobin 14.0, hematocrit 43, platelets 212. ESR 23, INR 1.60, fibrinogen 453. Sodium 133, potassium 4.5, chloride 93, carbon dioxide 31, BUN 22, creatinine 1.00, glucose 152, lactic acid 2.4, calcium 9.4. Total bili 1.0, AST 23, ALT 37, alk phos 55. Troponin 0.03, CRP 24.7, BNP 66. Albumin 3.2. Urinalysis 1+ ketones, 1+ blood, 1+ protein. Imaging: CT head showed no acute process, but chronic small-vessel ischemic changes. It is a limited study. Chest x-ray demonstrated a mass in the right midlung zone. There are also degenerative osseous changes to the posterior right ribs. EKG demonstrated normal sinus rhythm, T waves inferiorly in II; III; aVF; V4 through V6. No ST elevations or depressions. ASSESSMENT AND PLAN: Ranjit Barragan is a 73-year-old male with past medical history of sgc-zqdux-gvwp lung cancer, on radiation and chemotherapy for the last 3-1/2 weeks presenting with acute aggression, signs of sepsis (altered mental status, tachypnea, tachycardia, and lactic acidosis, but no leukocytosis ) in the setting of immunosuppressing chemotherapy. He has got 8 mg of Ativan and 2 mg of Versed in the emergency room. These have been for his reported hyper aggression. He is being admitted to the ICU in case he needs a Precedex drip overnight or further neurological monitoring. Neuro checks q.2 hours. Repeating a lactic acid now. He has gotten cefepime and Zosyn in the emergency room and he will continue cefepime 2 g q.12 hours for sepsis of unclear origin, and given his history, he may be at risk for some sort of mucositis, but he is not cooperative with exam for me at the moment. We will have to evaluate his oropharynx when he is less altered. Otherwise, no localizing symptoms other than some nausea, vomiting, and diarrhea. We will order a C. diff test. There are some discrepancies with his degree of hypoxia. EMS documented much higher requirements, but on evaluation in the emergency room, he was quickly found to be satting 100% on decreased at 3 L (from the 6 L put on during the field) when the pulse ox meter was attached to the forehead. I do suspect that he has undiagnosed chronic obstructive pulmonary disease and I am adding on Dulera, Spiriva, and DuoNebs p.r.n. One potential etiology for altered mental status includes hypercapnic or hypoxic respiratory failure. An ABG could be obtained pending the clinical course. As mentioned, Precedex drip is available as a potential option versus IV benzodiazepines, Zyprexa or Haldol. His QTc is not prolonged. Follow blood cultures and urine culture. He is not safe for oral medications or food at this time. Physical therapy will be ordered. No reported neck stiffness, but could consider LP depending on clinical course if he were to decompensate. For his history of DVTs, on Eliquis, I am going to transition him to Lovenox 1 mg/kg b.i.d. for now. This will also serve as DVT prophylaxis. No report of bleed on the CT of the head. As mentioned, we will continue neuro checks q.2 hours and if decompensates, would repeat this study given his recent fall, though reportedly without head trauma. Per Danni, he will be a full code for now while Danni and daughter Jenna help determine what they want to ultimately do. He notably seemed to have wanted no resuscitation. [id number]/CPS #: [id number] MTDD
[2019-04-22] MEDS: fentaNYL PATCH 50 MCG/HR TRANSDERM SCH (22:23)
[2019-04-22] MEDS: Enoxaparin(*) 100 MG/ML SYR SUBCUT SCH (22:27)
[2019-04-22] MEDS: Scopolamine 1.5 mg* PATCH TRANSDERM SCH (23:48)
[2019-04-22] MEDS: Nystatin OINT* 15 GM TOPICAL SCH (23:49)
[2019-04-22] MEDS: NS 0.9% 1000 ML** 1,000 ML IV SCH (23:49)
[2019-04-23] MEDS: Mometasone/Formoter 200/5 MDI INH SCH ×3 (00:42→21:03)
[2019-04-23] MEDS ORDERED: Haloperidol INJ IV/IM* 5 MG/ML AMP ONE (02:40)
[2019-04-23] MEDS ORDERED: Acetaminophen IV 1GM/100ML * 100 ML IVPB ONE (03:00)
[2019-04-23 03:58] LABS: Urine Appearance Cloudy; Urine Bilirubin Negative (Negative); Urine Blood 2+ (Negative); Urine Color Yellow; Urine Glucose Negative (Negative); Urine Ketones Trace (Negative); Urine Nitrite Negative (Negative); Urine Protein Negative (Negative); Urine Specific Gravity 1.026 (1.010-1.030); Urine Urobilinogen Negative (Negative)
[2019-04-23 04:07] LABS: Urine Bacteria Absent (Absent); Urine Red Blood Cell 2+(6-10/hpf) (Absent); Urine Squamous Epithelial Cell Present (Absent); Urine White Blood Cell Absent (Absent)
[2019-04-23 05:48] LABS: ABS Lymphocytes 0.2 10^3/ul (1.0-4.8); ABS Monocytes 0.4 10^3/ul (0-0.8); ABS Neutrophils 3.6 10^3/ul (1.5-7.7); Eosinophil % 0.4 %; Hematocrit 40 % (42-52); Hemoglobin 12.9 g/dL (14.0-18.0); Lymphocyte % 4.3 %; Mean Corpuscular HGB Conc 33 g/dL (31-36); Mean Corpuscular Hemoglobin 30 pg (27-31); Mean Corpuscular Volume 91 fL (80-94); Mean Platelet Volume 7.4 fL (7.4-10.4); Nucleated Red Blood Cells % 0.2; Platelet Count 150 10^3/uL (150-450); Red Blood Count 4.38 10^6 /uL (4.18-5.48); Red Cell Distribution Width 16 % (10-15); White Blood Count 4.1 10^3/uL (3.5-10.8)
[2019-04-23] MEDS: Cefepime 2 GM in Dextrose(*) 2 GM/50 ML BAG IV SCH ×2 (05:52→18:16)
[2019-04-23 06:08] LABS: BUN/Creatinine Ratio 23.7 (8-20); Calcium 7.8 mg/dL (8.6-10.3); EGFR African American 121.3 (>60); EGFR Non-African American 100.3 (>60); Potassium 3.5 mmol/L (3.5-5.0)
[2019-04-23] MEDS: fentaNYL Patch Check Q Shift 1 NOTE FOLLOW UP SCH ×3 (07:17→21:04)
[2019-04-23] MEDS: NS 0.9% 1000 ML** 1,000 ML IV SCH ×3 (08:43→18:17)
[2019-04-23] MEDS: SPIRIVA Respimat* (tiotropium) 2.5 mcg/inh Inhaler INH SCH (09:38)
[2019-04-23] MEDS: Enoxaparin(*) 100 MG/ML SYR SUBCUT SCH ×2 (10:51→20:57)
[2019-04-23] MEDS: Nystatin OINT* 15 GM TOPICAL SCH ×2 (12:49→20:58)
[2019-04-23] MEDS: Dexamethasone TAB* 4 MG PO SCH (13:41)
[2019-04-23] MEDS ORDERED: LORazepam INJ* 2 MG/ML 1 ML VIAL IV PUSH ONE (15:55)
[2019-04-23] MEDS ORDERED: Lorazepam PYXIS KEY ONE (16:06)
[2019-04-23] MEDS ORDERED: LORazepam INJ* 2 MG/ML 1 ML VIAL ONE (16:06)
[2019-04-23] MEDS ORDERED: Lorazepam PYXIS KEY PRN (16:07)
[2019-04-23] MEDS ORDERED: Gadoteridol* (CONTRAST) 279.3 MG/ML 10 ML IV ONE (16:52)
[2019-04-24] MEDS: Cefepime 2 GM in Dextrose(*) 2 GM/50 ML BAG IV SCH ×2 (05:40→17:58)
[2019-04-24 06:02] LABS: Hematocrit 42 % (42-52); Hemoglobin 13.8 g/dL (14.0-18.0); Mean Corpuscular HGB Conc 33 g/dL (31-36); Mean Corpuscular Hemoglobin 30 pg (27-31); Mean Corpuscular Volume 91 fL (80-94); Mean Platelet Volume 7.8 fL (7.4-10.4); Platelet Count 171 10^3/uL (150-450); Red Blood Count 4.66 10^6 /uL (4.18-5.48); Red Cell Distribution Width 16 % (10-15); White Blood Count 4.7 10^3/uL (3.5-10.8)
[2019-04-24 06:37] LABS: BUN/Creatinine Ratio 24.2 (8-20); Calcium 8.6 mg/dL (8.6-10.3); EGFR African American 142.8 (>60); Potassium 3.9 mmol/L (3.5-5.0)
[2019-04-24] MEDS: fentaNYL Patch Check Q Shift 1 NOTE FOLLOW UP SCH ×2 (07:03→19:24)
[2019-04-24 07:35] LABS: ABS Lymphocytes 0.1 10^3/ul (1.0-4.8); ABS Monocytes 0.3 10^3/ul (0-0.8); ABS Neutrophils 4.3 10^3/ul (1.5-7.7); Eosinophil % 0.1 %; Lymphocyte % 2.4 %
[2019-04-24] MEDS: SPIRIVA Respimat* (tiotropium) 2.5 mcg/inh Inhaler INH SCH (08:13)
[2019-04-24] MEDS: Mometasone/Formoter 200/5 MDI INH SCH ×2 (08:14→22:28)
[2019-04-24] MEDS: NS 0.9% 1000 ML** 1,000 ML IV SCH (09:38)
[2019-04-24] MEDS ORDERED: Enoxaparin(*) 100 MG/ML SYR ONE (10:27)
[2019-04-24] MEDS: Dexamethasone TAB* 4 MG PO SCH (10:31)
[2019-04-24] MEDS: Nystatin OINT* 15 GM TOPICAL SCH ×2 (10:32→21:57)
[2019-04-24] MEDS: Enoxaparin(*) 100 MG/ML SYR SUBCUT SCH (10:42)
[2019-04-24] MEDS ORDERED: Enoxaparin(*) 100 MG/ML SYR SUBCUT ONE (11:00)
[2019-04-24] MEDS ORDERED: Iohexol 300* (CONTRAST) 10 ML SDV IV ONE (14:57)
[2019-04-24] MEDS ORDERED: Lorazepam PYXIS KEY PRN (15:27)
[2019-04-24] MEDS: LORazepam INJ* 2 MG/ML 1 ML VIAL IV PUSH ONE ×2 (17:04→17:05)
[2019-04-24] MEDS: Apixaban* 5 MG TAB PO SCH (21:57)
[2019-04-24] MEDS ORDERED: Ondansetron INJ* 2 MG/ML VIAL IV PRN (23:55)
[2019-04-25] MEDS: NS 0.9% 1000 ML** 1,000 ML IV SCH ×2 (00:17→10:50)
[2019-04-25] MEDS ORDERED: PROCHLORPERAZINE INJ 5 MG/ML 2 ML VIAL IV ONE (01:05)
[2019-04-25 05:43] LABS: Hematocrit 41 % (42-52); Hemoglobin 13.9 g/dL (14.0-18.0); Mean Corpuscular HGB Conc 34 g/dL (31-36); Mean Corpuscular Hemoglobin 30 pg (27-31); Mean Corpuscular Volume 89 fL (80-94); Mean Platelet Volume 7.6 fL (7.4-10.4); Platelet Count 179 10^3/uL (150-450); Red Blood Count 4.58 10^6 /uL (4.18-5.48); Red Cell Distribution Width 17 % (10-15); White Blood Count 5.2 10^3/uL (3.5-10.8)
[2019-04-25] MEDS: Cefepime 2 GM in Dextrose(*) 2 GM/50 ML BAG IV SCH ×2 (05:46→16:54)
[2019-04-25 06:01] LABS: BUN/Creatinine Ratio 31.4 (8-20); Calcium 8.9 mg/dL (8.6-10.3); EGFR African American 133.4 (>60); EGFR Non-African American 110.2 (>60); Potassium 3.4 mmol/L (3.5-5.0)
[2019-04-25 06:19] LABS: ABS Lymphocytes 0.2 10^3/ul (1.0-4.8); ABS Monocytes 0.5 10^3/ul (0-0.8); ABS Neutrophils 4.5 10^3/ul (1.5-7.7); Eosinophil % 0.1 %; Lymphocyte % 3.6 %; Nucleated Red Blood Cells % 0.2
[2019-04-25] MEDS: fentaNYL Patch Check Q Shift 1 NOTE FOLLOW UP SCH ×2 (07:47→18:52)
[2019-04-25] MEDS: SPIRIVA Respimat* (tiotropium) 2.5 mcg/inh Inhaler INH SCH (09:18)
[2019-04-25] MEDS: Mometasone/Formoter 200/5 MDI INH SCH ×2 (09:18→20:30)
[2019-04-25] MEDS: Dexamethasone TAB* 4 MG PO SCH (09:48)
[2019-04-25] MEDS: Apixaban* 5 MG TAB PO SCH ×2 (09:48→21:11)
[2019-04-25] MEDS: Nystatin OINT* 15 GM TOPICAL SCH ×2 (09:51→22:33)
--- NOTE | 2019-04-25 10:39 | PN ---
Progress Note - Progress Note Date of Service: 04/25/19 SOAP: Subjective: []Marked improved mentation. States the last thing he remembers was leaving radiation on 04/22 and then started to become more alert by 04/23 afternoon. Remains extremely weak. Has been having nausea and vomiting since starting therapy. Also approx. 1 week after starting therapy developed diarrhea that has been difficult to manage. He denies overt cramping and states it smells bad, but not severe. Pain with swallowing. Medications: Albuterol/Ipratropium (Duoneb (Albuterol 2.5 Mg/Ipratropium 0.5 Mg)) 1 neb INH Q6H PRN PRN Reason: SOB/WHEEZING Apixaban (Eliquis*) 5 mg PO BID [facility] Last Admin: 04/25/19 09:48 Dose: 5 mg Dexamethasone (Decadron Tab*) 4 mg PO DAILY [facility] Fentanyl (Duragesic Patch 50 Mcg/Hr*) 50 mcg TRANSDERM Q72H [facility] Last Admin: 04/22/19 22:23 Dose: 50 mcg Cefepime HCl (Maxipime 2 Gm In Dextrose Duplex (*)) 2 gm in 50 mls @ 100 mls/ hr IV Q12H [facility] Last Admin: 04/25/19 05:46 Dose: 100 mls/hr Sodium Chloride (Ns 0.9% 1000 Ml) 1,000 mls @ 50 mls/hr IV PER RATE [facility] Miscellaneous (Ativan Pyxis Landrum) 1 ea N/A .PYXIS LANDRUM PRN PRN Reason: PER PROTOCOL Mometasone Furoate/Formoterol Fumar (Dulera 200/5 Mdi*) 2 puff INH BID [facility] Last Admin: 04/25/19 09:18 Dose: Not Given Nystatin (Nystatin Oint*) 1 applic TOPICAL BID [facility] Last Admin: 04/25/19 09:51 Dose: 1 applic Ondansetron HCl (Zofran Inj*) 4 mg IV Q6H PRN PRN Reason: NAUSEA Last Admin: 04/25/19 00:04 Dose: 4 mg Pharmacy Profile Note (Scopolamine Patch Remove*) 1 note PATCH OFF Q72H [facility] Pharmacy Profile Note (Fentanyl Patch Check Q Shift) 1 note FOLLOW UP 0700, 1900 [facility] Last Admin: 04/25/19 07:47 Dose: 1 note Scopolamine (Transderm-Scop 1.5 Mg Patch*) 1 patch TRANSDERM Q72H [facility] Last Admin: 04/22/19 23:48 Dose: Not Given Tiotropium [place] (Spiriva Respimat 2.5 Mcg) 2 puff INH DAILY [facility] Last Admin: 04/25/19 09:18 Dose: Not Given Objective: [] Vital Signs Temp Pulse Resp BP Pulse Ox 97.5 F 58 18 119/83 95 04/25/19 03:10 04/25/19 08:00 04/25/19 08:00 04/25/19 03:10 04/25/19 08:00 A&Ox4, slow responses but involved in conversation and plan HRI, S1S2 - appears to have switched into A.Fib this AM as SR initially and then appearing to be A.Fib on tele now LS dim. bilat. +BS, abd. soft, obese, mildly tender Laboratory Results - last 24 hr 04/25/19 04/25/19 05:33 05:34 WBC 5.2 RBC 4.58 Hgb 13.9 L Hct 41 L MCV 89 MCH 30 MCHC 34 RDW 17 H Plt Count 179 MPV 7.6 Neut % (Auto) 86.1 Lymph % (Auto) 3.6 [place] % (Auto) 10.1 Eos % (Auto) 0.1 Baso % (Auto) 0.1 Absolute Neuts (auto) 4.5 Absolute Lymphs (auto) 0.2 L Absolute Monos (auto) 0.5 Absolute Eos (auto) 0.0 Absolute Basos (auto) 0.0 Absolute Nucleated RBC 0.0 Nucleated RBC % 0.2 Sodium 139 Potassium 3.4 L Chloride 106 Carbon Dioxide 25 Anion Gap 8 BUN 22 Creatinine 0.70 Est GFR ( Amer) 133.4 Est GFR (Non-Af Amer) 110.2 BUN/Creatinine Ratio 31.4 H Glucose 135 H Calcium 8.9 Assessment: []73 yo male with locally advanced NSCLC started on definitive Carbo/Taxol/XRT on 04/01/19, due for week 4 04/22 when he presented ot the clinic with acute onset confusion. NETWORK TECHNICAL ANALYST process ruled out and while no growth on cultures suspect this represents Acute onset delerium secondary to metabolic encephalopathy related to sepsis, now resolved. Plan: []1. Metabolic Encephalopathy: improving daily, continue re-orientation and OOB activities - weakness is multiple factorial and will need rehab 2. Sepsis: resolved, completing day 4 IV abx. this afternoon, start decreasing stress steroids 3. Diarrhea: may be source of sepsis r/t duodenonitis and colitis (though the later has not been radiologically confirmed and I see no indication for imaging now), we will continue symptomatic management with a trial of lomotil (x1 today only d/t hx. of constipation and will re-eval. tomorrow) 4. Radiation induced esophagitis: magic mouth wash 5. A.Fib: already anticoagulated and asymptomatic - check EKG now and consider beta stephanie Dispo: improving and if stable overnight will be ready for d/c however requires rehab, case management involved
[2019-04-25] MEDS ORDERED: Diphenoxylat/Atrop 2.5-0.025M* 1 TAB PO PRN (11:21)
[2019-04-25] MEDS: Magic Mouth Was-BEN/MAAL/LIDO SWISH SWAL SCH ×3 (12:22→21:12)
[2019-04-25] MEDS ORDERED: Metoprolol Tartrate IV* 1 MG/ML 5 ML VIAL IV ONE (12:25)
[2019-04-25] MEDS ORDERED: Scopolamine PATCH Remove* 1 NOTE MISC PATCH OFF SCH (20:30)
[2019-04-25] MEDS: Scopolamine 1.5 mg* PATCH TRANSDERM SCH (21:16)
[2019-04-25] MEDS: fentaNYL PATCH 50 MCG/HR TRANSDERM SCH (21:20)
[2019-04-25] MEDS ORDERED: LORazepam INJ* 2 MG/ML 1 ML VIAL IV PUSH ONE (23:00)
[2019-04-26 06:10] LABS: ABS Lymphocytes 0.2 10^3/ul (1.0-4.8); ABS Monocytes 0.6 10^3/ul (0-0.8); ABS Neutrophils 3.8 10^3/ul (1.5-7.7); Hematocrit 38 % (42-52); Hemoglobin 12.2 g/dL (14.0-18.0); Lymphocyte % 3.7 %; Mean Corpuscular HGB Conc 32 g/dL (31-36); Mean Corpuscular Hemoglobin 29 pg (27-31); Mean Corpuscular Volume 91 fL (80-94); Mean Platelet Volume 7.8 fL (7.4-10.4); Nucleated Red Blood Cells % 0.4; Platelet Count 140 10^3/uL (150-450); Red Blood Count 4.17 10^6 /uL (4.18-5.48); Red Cell Distribution Width 16 % (10-15); White Blood Count 4.6 10^3/uL (3.5-10.8)
[2019-04-26 06:41] LABS: BUN/Creatinine Ratio 30.4 (8-20); Calcium 8.6 mg/dL (8.6-10.3); EGFR African American 135.6 (>60); EGFR Non-African American 112.1 (>60); Potassium 3.7 mmol/L (3.5-5.0)
[2019-04-26] MEDS: fentaNYL Patch Check Q Shift 1 NOTE FOLLOW UP SCH ×2 (07:14→18:42)
[2019-04-26] MEDS: SPIRIVA Respimat* (tiotropium) 2.5 mcg/inh Inhaler INH SCH (07:23)
[2019-04-26] MEDS: Mometasone/Formoter 200/5 MDI INH SCH ×2 (07:23→20:17)
[2019-04-26] MEDS: Magic Mouth Was-BEN/MAAL/LIDO SWISH SWAL SCH ×4 (09:43→22:01)
[2019-04-26] MEDS: Apixaban* 5 MG TAB PO SCH ×2 (09:44→20:16)
[2019-04-26] MEDS: Nystatin OINT* 15 GM TOPICAL SCH ×2 (09:44→20:20)
[2019-04-26] MEDS: Dexamethasone TAB* 4 MG PO SCH (09:44)
[2019-04-26] MEDS: oxyCODONE TAB* 5 MG TAB PO PRN (11:19)
[2019-04-26] MEDS: NS 0.9% 1000 ML** 1,000 ML IV SCH (14:19)
--- NOTE | 2019-04-26 17:06 | PN ---
Progress Note - Progress Note Date of Service: 04/26/19 SOAP: Subjective: [Mentation continues to improve. Complaining of L sided CP, worse with eating and consistent with esophagitis related to RT. He remains very weak, needs assistance to transfer out of bed. Diarrhea has improved to ~3 times daily. No nausea, but poor appetite. He vomited the IV contrast for the CT scan yesterday.] Objective: [ Vital Signs: Temp Pulse Resp BP Pulse Ox 97.3 F 104 20 123/81 98 04/26/19 12:00 04/26/19 12:00 04/26/19 12:00 04/26/19 12:00 04/26/19 12:00 Albuterol/Ipratropium (Duoneb (Albuterol 2.5 Mg/Ipratropium 0.5 Mg)) 1 neb INH Q6H PRN PRN Reason: SOB/WHEEZING Apixaban (Eliquis*) 5 mg PO BID [facility] Last Admin: 04/26/19 09:44 Dose: 5 mg Dexamethasone (Decadron Tab*) 4 mg PO DAILY [facility] Last Admin: 04/26/19 09:44 Dose: 4 mg Diphenoxylate HCl/Atropine (Lomotil Tab*) 1 tab PO DAILY PRN PRN Reason: DIARRHEA Fentanyl (Duragesic Patch 50 Mcg/Hr*) 50 mcg TRANSDERM Q72H [facility] Last Admin: 04/25/19 21:20 Dose: 50 mcg Sodium Chloride (Ns 0.9% 1000 Ml) 1,000 mls @ 50 mls/hr IV PER RATE [facility] Last Admin: 04/26/19 14:19 Dose: 50 mls/hr Miscellaneous (Ativan Pyxis Landrum) 1 ea N/A .PYXIS LANDRUM PRN PRN Reason: PER PROTOCOL Mometasone Furoate/Formoterol Fumar (Dulera 200/5 Mdi*) 2 puff INH BID [facility] Last Admin: 04/26/19 07:23 Dose: Not Given Multi-Ingredient Mouthwash/Gargle (Magic Mouth Was-Kalen/Maal/Lido*) 10 ml SWISH SWAL 0700,1100,1630,2200 [facility] Last Admin: 04/26/19 11:21 Dose: 10 ml Nystatin (Nystatin Oint*) 1 applic TOPICAL BID [facility] Last Admin: 04/26/19 09:44 Dose: 1 applic Ondansetron HCl (Zofran Inj*) 4 mg IV Q6H PRN PRN Reason: NAUSEA Last Admin: 04/25/19 00:04 Dose: 4 mg Oxycodone HCl (Roxycodone Tab*) 5 mg PO Q6H PRN PRN Reason: PAIN - MODERATE Last Admin: 04/26/19 11:19 Dose: 5 mg Pharmacy Profile Note (Scopolamine Patch Remove*) 1 note PATCH OFF Q72H [facility] Last Admin: 04/25/19 21:12 Dose: 1 patch Pharmacy Profile Note (Fentanyl Patch Check Q Shift) 1 note FOLLOW UP 0700, 1900 [facility] Last Admin: 04/26/19 07:14 Dose: 1 note Scopolamine (Transderm-Scop 1.5 Mg Patch*) 1 patch TRANSDERM Q72H [facility] Last Admin: 04/25/19 21:16 Dose: 1 patch Tiotropium [place] (Spiriva Respimat 2.5 Mcg) 2 puff INH DAILY [facility] Last Admin: 04/26/19 07:23 Dose: Not Given Laboratory Results - last 24 hr 04/26/19 04/26/19 05:47 05:47 WBC 4.6 RBC 4.17 L Hgb 12.2 L Hct 38 L MCV 91 MCH 29 MCHC 32 RDW 16 H Plt Count 140 L MPV 7.8 Neut % (Auto) 82.8 Lymph % (Auto) 3.7 [place] % (Auto) 13.5 Eos % (Auto) 0.0 Baso % (Auto) 0.0 Absolute Neuts (auto) 3.8 Absolute Lymphs (auto) 0.2 L Absolute Monos (auto) 0.6 Absolute Eos (auto) 0.0 Absolute Basos (auto) 0.0 Absolute Nucleated RBC 0.0 Nucleated RBC % 0.4 Sodium 142 Potassium 3.7 Chloride 110 Carbon Dioxide 27 Anion Gap 5 BUN 21 Creatinine 0.69 Est GFR ( Amer) 135.6 Est GFR (Non-Af Amer) 112.1 BUN/Creatinine Ratio 30.4 H Glucose 123 H Calcium 8.6 Exam: Gen: chronically ill appearing 73 yo male who appears slightly uncomfortable, accompanied by his HEENT: MMM CV: RRR, no m/r/g Resp: CTA, no w/c/r Abd: soft, nonTTP Ext: trace edema [Assessment: []73 yo male with locally advanced NSCLC started on definitive Carbo/Taxol/XRT on 04/01/19, due for week 4 04/22 when he presented ot the clinic with acute onset confusion. DIRECTOR COMMERCIAL SALES process ruled out and while no growth on cultures suspect this represents Acute onset delerium secondary to metabolic encephalopathy related to sepsis, now improving. Plan: [] 1. Metabolic Encephalopathy: improving daily - weakness is multiple factorial and will need rehab 2. Sepsis: possible GI source, ?viral - resolved - cultures negative and no radiologic source identified, completed 4d of IV abx after which they were stopped - cont to monitor of abx - resumed home steroid dosing 3. Diarrhea: may be source of sepsis r/t duodenonitis and colitis - stool negative for C.diff - cont lomotil, increase to twice daily and imodium prn 4. Radiation induced esophagitis: - magic mouth wash - resume oxycodone prn now that mentation is improved 5. A.Fib: - this appears to be new this admission - mildly tachycardic - chronically anticoagulated with eliquis - start 12.5 mg metoprolol tartrate bid - ordered echocardiogram 6. NSCLC - currently receiving concurrent XRT with carbo/taxol - he has completed 16 of the planned 33 fractions but unfortunately XRT has been interrupted with this hospitalization as his radiation oncologist is located in [place] - spoke with Dr Carrington today who would like to resume XRT ROSA MARIA, he is planning to treat patients Mon through Mon next week to accomodate the Dispo: clinically improving, but remains too weak to return home as he is requiring significant assistance to transfer to a chair. He would benefit from LUIS, but this complicates his ability to complete planned treatment for his NSCLC as he will require daily XRT for an additional 17 fractions and weekly chemotherapy. CM involved and discussed with JUAN who has sent referrals. Ideally, patient will resume XRT Sun 04/28 and chemotherapy likely the following week.
[2019-04-26 17:31] LABS: Magnesium 1.8 mg/dL (1.9-2.7)
[2019-04-26] MEDS: fentaNYL PATCH 50 MCG/HR TRANSDERM SCH (19:25)
[2019-04-26] MEDS: Diphenoxylat/Atrop 2.5-0.025M* 1 TAB PO SCH (20:16)
[2019-04-26] MEDS: Metoprolol Tartrate TAB* 25 MG PO SCH (20:17)
[2019-04-26] MEDS: LORazepam INJ* 2 MG/ML 1 ML VIAL IV PUSH PRN (21:56)
[2019-04-27] MEDS: Scopolamine 1.5 mg* PATCH TRANSDERM SCH ×2 (00:37→00:47)
[2019-04-27] MEDS: fentaNYL PATCH 50 MCG/HR TRANSDERM SCH (00:46)
[2019-04-27 06:09] LABS: Calcium 8.5 mg/dL (8.6-10.3); Magnesium 1.6 mg/dL (1.9-2.7); Potassium 3.5 mmol/L (3.5-5.0)
[2019-04-27 06:14] LABS: BUN/Creatinine Ratio 33.9 (8-20); EGFR African American 162.5 (>60); EGFR Non-African American 134.3 (>60)
[2019-04-27 06:26] LABS: Hematocrit 37 % (42-52); Mean Corpuscular HGB Conc 33 g/dL (31-36); Mean Corpuscular Hemoglobin 29 pg (27-31); Mean Corpuscular Volume 90 fL (80-94); Mean Platelet Volume 7.7 fL (7.4-10.4); Platelet Count 118 10^3/uL (150-450); Red Cell Distribution Width 17 % (10-15); White Blood Count 4.3 10^3/uL (3.5-10.8)
[2019-04-27] MEDS: Magic Mouth Was-BEN/MAAL/LIDO SWISH SWAL SCH ×4 (06:47→20:59)
[2019-04-27] MEDS: fentaNYL Patch Check Q Shift 1 NOTE FOLLOW UP SCH ×2 (06:48→19:33)
[2019-04-27 07:12] LABS: ABS Lymphocytes 0.3 10^3/ul (1.0-4.8); ABS Monocytes 0.5 10^3/ul (0-0.8); ABS Neutrophils 3.5 10^3/ul (1.5-7.7); Eosinophil % 0.1 %; Lymphocyte % 6.1 %; Nucleated Red Blood Cells % 0.3
[2019-04-27] MEDS: SPIRIVA Respimat* (tiotropium) 2.5 mcg/inh Inhaler INH SCH (07:55)
[2019-04-27] MEDS: Mometasone/Formoter 200/5 MDI INH SCH ×2 (07:55→19:51)
[2019-04-27] MEDS ORDERED: Magnesium Sulf 4 GM/100 ML IV* 4,000 MG/100 ML BAG IVPB ONE (08:00)
[2019-04-27] MEDS: Diphenoxylat/Atrop 2.5-0.025M* 1 TAB PO SCH ×2 (08:36→21:24)
[2019-04-27] MEDS: Metoprolol Tartrate TAB* 25 MG PO SCH ×2 (08:37→21:24)
[2019-04-27] MEDS: Dexamethasone TAB* 4 MG PO SCH (08:38)
[2019-04-27] MEDS: Apixaban* 5 MG TAB PO SCH ×2 (08:38→21:25)
[2019-04-27] MEDS: Nystatin OINT* 15 GM TOPICAL SCH ×2 (08:48→21:33)
[2019-04-27] MEDS ORDERED: Pantoprazole TAB * 40 MG TAB PO ONE (10:09)
--- NOTE | 2019-04-27 10:19 | PN ---
Progress Note - Progress Note Date of Service: 04/27/19 SOAP: Subjective: []He is alert and at baseline MS. Primary complaint is pain on left side. Feels like bubble on chest, pressure. Has had for some time. Worse when eating. Not increased with exertion, no associated symptoms. The right sided back pain is better. Still cannot lay flat b/c of chronic sinus pain. Can lay flat for 15 - [address]/MRI scans. Albuterol/Ipratropium (Duoneb (Albuterol 2.5 Mg/Ipratropium 0.5 Mg)) 1 neb INH Q6H PRN PRN Reason: SOB/WHEEZING Apixaban (Eliquis*) 5 mg PO BID [facility] Last Admin: 04/27/19 08:38 Dose: 5 mg Dexamethasone (Decadron Tab*) 4 mg PO DAILY [facility] Last Admin: 04/27/19 08:38 Dose: 4 mg Diphenoxylate HCl/Atropine (Lomotil Tab*) 1 tab PO BID [facility] Last Admin: 04/27/19 08:36 Dose: 1 tab Fentanyl (Duragesic Patch 50 Mcg/Hr*) 50 mcg TRANSDERM Q72H [facility] Last Admin: 04/27/19 00:46 Dose: 50 mcg Potassium Chloride/Sodium Chloride (Ns 0.9% W/ 40 Meq Kcl 1000 Ml*) 1,000 mls @ 100 mls/hr IV PER RATE [facility] Magnesium Sulfate (Magnesium Sulf 4 Gm/100 Ml Iv*) 4,000 mg in 100 mls @ 33.333 mls/hr IVPB ONCE ONE Stop: 04/27/19 10:59 Last Admin: 04/27/19 08:27 Dose: 33.333 mls/hr Lorazepam (Ativan Inj*) 1 mg IV PUSH DAILY PRN PRN Reason: CHEST PAIN Last Admin: 04/26/19 21:56 Dose: 1 mg Metoprolol Tartrate (Lopressor Tab*) 12.5 mg PO Q12HR [facility] Last Admin: 04/27/19 08:37 Dose: 12.5 mg Miscellaneous (Ativan Pyxis Landrum) 1 ea N/A .PYXIS [place] PRN PRN Reason: PER PROTOCOL Mometasone Furoate/Formoterol Fumar (Dulera 200/5 Mdi*) 2 puff INH BID [facility] Last Admin: 04/27/19 07:55 Dose: Not Given Multi-Ingredient Mouthwash/Gargle (Magic Mouth Was-Kalen/Maal/Lido*) 10 ml SWISH SWAL 0700,1100,1630,2200 [facility] Last Admin: 04/27/19 06:47 Dose: 10 ml Nystatin (Nystatin Oint*) 1 applic TOPICAL BID [facility] Last Admin: 04/27/19 08:48 Dose: 1 applic Ondansetron HCl (Zofran Inj*) 4 mg IV Q6H PRN PRN Reason: NAUSEA Last Admin: 04/25/19 00:04 Dose: 4 mg Oxycodone HCl (Roxycodone Tab*) 5 mg PO Q6H PRN PRN Reason: PAIN - MODERATE Last Admin: 04/26/19 11:19 Dose: 5 mg Pantoprazole Sodium (Protonix Tab*) 40 mg PO ONCE ONE Stop: 04/27/19 10:10 Pharmacy Profile Note (Fentanyl Patch Check Q Shift) 1 note FOLLOW UP 0700, 1900 [facility] Last Admin: 04/27/19 06:48 Dose: 1 note Pharmacy Profile Note (Scopolamine Patch Remove*) 1 note PATCH OFF Q72H [facility] Scopolamine (Transderm-Scop 1.5 Mg Patch*) 1 patch TRANSDERM Q72H [facility] Last Admin: 04/27/19 00:47 Dose: 1 patch Tiotropium [place] (Spiriva Respimat 2.5 Mcg) 2 puff INH DAILY [facility] Last Admin: 04/27/19 07:55 Dose: Not Given Objective: [] Vital Signs Temp Pulse Resp BP Pulse Ox 97.7 F 79 17 135/84 95 04/27/19 03:10 04/27/19 03:10 04/27/19 08:36 04/27/19 03:10 04/27/19 03:10 Exam: Gen: chronically ill appearing 73 yo male who appears slightly uncomfortable, accompanied by his HEENT: MMM CV: RRR, no m/r/g Resp: CTA, no w/c/r Abd: soft, nonTTP Ext: trace edema CT scan: decrease in size of chest wall mass 71 x 84 to 52 x 75 mm. No metastatic disease. MRI brain, no cancer. [Assessment: []73 yo male with locally advanced NSCLC, T4, Nx, M0, started on definitive Carbo/Taxol/XRT on 04/01/19, due for week 4 04/22 when he presented ot the clinic with acute onset confusion. WATCH CRYSTAL MOLDER process ruled out and while no growth on cultures suspect this represents Acute onset delerium secondary to metabolic encephalopathy related to sepsis, now improving. He has improved back pain after radiation but with left sided chest pain, ddx radiation esophogitis is most likely, concerned for angina. Plan: [1. Metabolic Encephalopathy is resolved - weakness is multiple factorial and will need rehab 2. Sepsis: possible GI source, ?viral - resolved - cultures negative and no radiologic source identified, completed 4d of IV abx after which they were stopped - cont to monitor of abx - resumed home steroid dosing 3. Diarrhea. - stool negative for C.diff - cont lomotil bid and imodium prn 4. Left sided chest pain. Branden radiation induced esophagitis - magic mouth wash - Oxycodone PRN - Protonix 40 po daily - EKG with borderline T waves. If persistent consider EST once he improves. 5. A.Fib: - this appears to be new this admission - SR today. - chronically anticoagulated with eliquis - etoprolol tartrate 12.5 bid - echocardiogram pending (re-order Monday if no report) 6. NSCLC - currently receiving concurrent XRT with carbo/taxol - he has completed 16 of the planned 33 fractions, XRT held during admission. - resume with Dr Charissa CRANE, treating Sun through Mon next week to accomodate the holiday - XRT take priority over continued chemotherapy. 7. Disposition. Will need sub acute re-hab. [facility] ID in [place] to continue XRT -continue working with PT.
[2019-04-27] MEDS: NS 0.9% w/ 40 Meq KCL 1000 ML* 1,000 ML IV SCH (12:02)
[2019-04-27] MEDS: oxyCODONE TAB* 5 MG TAB PO PRN (21:32)
[2019-04-28] MEDS: NS 0.9% w/ 40 Meq KCL 1000 ML* 1,000 ML IV SCH ×2 (03:32→15:23)
[2019-04-28] MEDS: Magic Mouth Was-BEN/MAAL/LIDO SWISH SWAL SCH ×4 (07:27→21:06)
[2019-04-28] MEDS: fentaNYL Patch Check Q Shift 1 NOTE FOLLOW UP SCH ×2 (07:29→22:10)
[2019-04-28 07:32] LABS: ABS Lymphocytes 0.2 10^3/ul (1.0-4.8); ABS Monocytes 0.5 10^3/ul (0-0.8); ABS Neutrophils 3.8 10^3/ul (1.5-7.7); Eosinophil % 0.5 %; Hematocrit 36 % (42-52); Hemoglobin 11.9 g/dL (14.0-18.0); Lymphocyte % 4.5 %; Mean Corpuscular HGB Conc 33 g/dL (31-36); Mean Corpuscular Hemoglobin 30 pg (27-31); Mean Corpuscular Volume 90 fL (80-94); Mean Platelet Volume 7.8 fL (7.4-10.4); Nucleated Red Blood Cells % 0.1; Platelet Count 109 10^3/uL (150-450); Red Blood Count 3.98 10^6 /uL (4.18-5.48); Red Cell Distribution Width 16 % (10-15); White Blood Count 4.5 10^3/uL (3.5-10.8)
[2019-04-28 07:38] LABS: Albumin 2.5 g/dL (3.2-5.2); Calcium 8.3 mg/dL (8.6-10.3); Potassium 4.2 mmol/L (3.5-5.0); Total Bilirubin 0.5 mg/dL (0.2-1.0)
[2019-04-28 07:44] LABS: Albumin/Globulin Ratio 1.3 (1-3); BUN/Creatinine Ratio 27.4 (8-20); EGFR African American 153.4 (>60); EGFR Non-African American 126.8 (>60); Total Protein 4.5 g/dL (6.4-8.9)
[2019-04-28] MEDS: Mometasone/Formoter 200/5 MDI INH SCH ×2 (07:46→20:15)
[2019-04-28] MEDS: SPIRIVA Respimat* (tiotropium) 2.5 mcg/inh Inhaler INH SCH (07:47)
[2019-04-28] MEDS: Apixaban* 5 MG TAB PO SCH ×2 (09:06→21:49)
[2019-04-28] MEDS: Dexamethasone TAB* 4 MG PO SCH (09:06)
[2019-04-28] MEDS: Diphenoxylat/Atrop 2.5-0.025M* 1 TAB PO SCH ×2 (09:07→21:50)
[2019-04-28] MEDS: Metoprolol Tartrate TAB* 25 MG PO SCH ×2 (09:07→21:49)
[2019-04-28] MEDS: Nystatin OINT* 15 GM TOPICAL SCH ×2 (09:09→21:55)
--- NOTE | 2019-04-28 14:40 | PN ---
Subjective Date of Service: 04/28/19 Interval History: Mr. Barragan is feeling better today. He feels he has more energy. Left hand has been swelling a bit (IV is in that arm). Feels most comfortable sitting upright , but he has not been able to lay down comfortably for a long time. Denies CP, SOB, N/V. Good appetite. Family at bedside - questions addressed. No concerns from nursing. Family History: Unchanged from Admission Social History: Unchanged from Admission Past Medical History: Unchanged from Admission Objective Active Medications: Albuterol/Ipratropium (Duoneb (Albuterol 2.5 Mg/Ipratropium 0.5 Mg)) 1 neb INH Q6H PRN SOB/WHEEZING Apixaban (Eliquis*) 5 mg PO BID [facility] Dexamethasone (Decadron Tab*) 4 mg PO DAILY [facility] Diphenoxylate HCl/Atropine (Lomotil Tab*) 1 tab PO BID [facility] Fentanyl (Duragesic Patch 50 Mcg/Hr*) 50 mcg TRANSDERM Q72H [facility] Potassium Chloride/Sodium Chloride (Ns 0.9% W/ 40 Meq Kcl 1000 Ml*) 1,000 mls @ 100 mls/hr IV PER RATE [facility] Lorazepam (Ativan Inj*) 1 mg IV PUSH DAILY PRN CHEST PAIN Metoprolol Tartrate (Lopressor Tab*) 12.5 mg PO Q12HR [facility] Mometasone Furoate/Formoterol Fumar (Dulera 200/5 Mdi*) 2 puff INH BID [facility] Multi-Ingredient Mouthwash/Gargle (Magic Mouth Was-Kalen/Maal/Lido*) 10 ml SWISH SWAL 0700,1100,1630,2200 [facility] Nystatin (Nystatin Oint*) 1 applic TOPICAL BID [facility] Ondansetron HCl (Zofran Inj*) 4 mg IV Q6H PRN NAUSEA Oxycodone HCl (Roxycodone Tab*) 5 mg PO Q6H PRN PAIN - MODERATE Scopolamine (Transderm-Scop 1.5 Mg Patch*) 1 patch TRANSDERM Q72H [facility] Tiotropium [place] (Spiriva Respimat 2.5 Mcg) 2 puff INH DAILY [facility] Vital Signs - 8 hr 04/28/19 04/28/19 04/28/19 08:00 09:07 11:55 Temperature 98.1 F Pulse Rate 91 Respiratory 18 17 18 Rate Blood Pressure 136/75 (mmHg) O2 Sat by Pulse 100 Oximetry 04/28/19 12:00 Temperature 98.1 F Pulse Rate 73 Respiratory 20 Rate Blood Pressure 127/75 (mmHg) O2 Sat by Pulse 98 Oximetry Oxygen Devices in Use Now: Nasal Cannula - 1.5L Appearance: Elderly male sitting in bed in NAD Neck: NL Appearance and Movements; NL JVP, Trachea Midline Respiratory: Symmetrical Chest Expansion and Respiratory Effort, Clear to Auscultation Cardiovascular: NL Sounds; No Murmurs; No JVD, RRR Abdominal: NL Sounds; No Tenderness; No Distention Extremities: - - +2 pitting bilat ankles Neurological: Alert and Oriented x 3 - Forgetful Lines/Tubes/Other Access: Clean, Dry and Intact Peripheral IV Nutrition: Taking PO's Result Diagrams: 04/28/19 07:05 04/28/19 07:05 Assess/Plan/Problems-Billing Assessment: 73 yo male with locally advanced NSCLC, T4, Nx, M0, started on definitive Carbo /Taxol/XRT on 04/01/19, due for week 4 04/22 when he presented to the clinic with acute onset confusion. INVESTMENT FUND MANAGER process ruled out and while no growth on cultures suspect this represents Acute onset delerium secondary to metabolic encephalopathy related to sepsis, now improving. He has improved back pain after radiation but with left sided chest pain, ddx radiation esophogitis is most likely, concerned for angina. Plan: 1. Metabolic Encephalopathy is resolved - weakness is multiple factorial and will need rehab 2. Sepsis: possible GI source, ?viral - resolved - cultures negative and no radiologic source identified, completed 4d of IV abx after which they were stopped - cont to monitor of abx - resumed home steroid dosing 3. Diarrhea - stool negative for C.diff - cont lomotil bid and imodium prn 4. Left sided chest pain - likely radiation induced esophagitis - magic mouth wash - Oxycodone PRN - Protonix 40 po daily - EKG with borderline T waves. If persistent consider EST once he improves. 5. A.Fib: - this appears to be new this admission - SR today - chronically anticoagulated with eliquis - etoprolol tartrate 12.5 bid - echocardiogram pending (re-order Monday if no report) 6. NSCLC - currently receiving concurrent XRT with carbo/taxol - he has completed 16 of the planned 33 fractions, XRT held during admission. - resume with Dr Charissa CRANE, treating Sun through Mon next week to accomodate the holiday - XRT take priority over continued chemotherapy. 7. Disposition - will need sub acute re-hab. Johana [place] in [place] to continue XRT -continue working with PT Attending: Ovi Haji
[2019-04-28] MEDS: oxyCODONE TAB* 5 MG TAB PO PRN (21:50)
[2019-04-29] MEDS: NS 0.9% w/ 40 Meq KCL 1000 ML* 1,000 ML IV SCH (02:34)
[2019-04-29] MEDS: oxyCODONE TAB* 5 MG TAB PO PRN ×2 (04:29→20:47)
[2019-04-29 06:07] LABS: CO2 Carbon Dioxide 31 mmol/L (22-32); Calcium 8.5 mg/dL (8.6-10.3); Chloride 111 mmol/L (101-111); Potassium 4.5 mmol/L (3.5-5.0); Sodium 142 mmol/L (135-145)
[2019-04-29 06:13] LABS: BUN/Creatinine Ratio 20.3 (8-20); Blood Urea Nitrogen 13 mg/dL (6-24); EGFR African American 147.9 (>60); EGFR Non-African American 122.2 (>60); Glucose 100 mg/dL (70-100)
[2019-04-29 06:15] LABS: Hematocrit 35 % (42-52); Hemoglobin 11.7 g/dL (14.0-18.0); Mean Corpuscular HGB Conc 34 g/dL (31-36); Mean Corpuscular Hemoglobin 30 pg (27-31); Mean Corpuscular Volume 89 fL (80-94); Red Blood Count 3.93 10^6 /uL (4.18-5.48); Red Cell Distribution Width 17 % (10-15); White Blood Count 3.9 10^3/uL (3.5-10.8)
[2019-04-29] MEDS: fentaNYL Patch Check Q Shift 1 NOTE FOLLOW UP SCH ×2 (06:38→18:59)
[2019-04-29 07:46] LABS: ABS Lymphocytes 0.2 10^3/ul (1.0-4.8); ABS Monocytes 0.5 10^3/ul (0-0.8); ABS Neutrophils 3.1 10^3/ul (1.5-7.7); Eosinophil % 0.3 %; Lymphocyte % 5.6 %; Mean Platelet Volume 7.7 fL (7.4-10.4); Nucleated Red Blood Cells % 0.2; Platelet Count 105 10^3/uL (150-450)
[2019-04-29] MEDS: SPIRIVA Respimat* (tiotropium) 2.5 mcg/inh Inhaler INH SCH (07:54)
[2019-04-29] MEDS: Mometasone/Formoter 200/5 MDI INH SCH (07:54)
[2019-04-29] MEDS: Magic Mouth Was-BEN/MAAL/LIDO SWISH SWAL SCH ×4 (08:19→22:14)
[2019-04-29] MEDS: LORazepam INJ* 2 MG/ML 1 ML VIAL IV PUSH PRN (08:20)
[2019-04-29] MEDS: Metoprolol Tartrate TAB* 25 MG PO SCH ×2 (08:20→20:47)
[2019-04-29] MEDS: Diphenoxylat/Atrop 2.5-0.025M* 1 TAB PO SCH (08:20)
[2019-04-29] MEDS: Apixaban* 5 MG TAB PO SCH ×2 (08:20→20:47)
[2019-04-29] MEDS: Dexamethasone TAB* 4 MG PO SCH (08:20)
[2019-04-29] MEDS: Nystatin OINT* 15 GM TOPICAL SCH ×2 (08:20→22:16)
--- NOTE | 2019-04-29 12:57 | PN ---
Progress Note - Progress Note Date of Service: 04/29/19 SOAP: Subjective: [Reports that is slowly getting better, but still needing a lot of assistance. Diarrhea stopped, then he became constipated, then had 2 loose stools after a laxative. No abd cramping, n/v. Appetite improving. L sided CP is slightly improved and able to eat more. R sided CP associated with his malignancy has nearly resolved. ] Objective: [ Vital Signs: Temp Pulse Resp BP Pulse Ox 98.3 F 85 18 129/79 97 04/29/19 11:22 04/29/19 11:22 04/29/19 12:20 04/29/19 11:22 04/29/19 11:22 Albuterol/Ipratropium (Duoneb (Albuterol 2.5 Mg/Ipratropium 0.5 Mg)) 1 neb INH Q6H PRN PRN Reason: SOB/WHEEZING Apixaban (Eliquis*) 5 mg PO BID [facility] Last Admin: 04/29/19 08:20 Dose: 5 mg Dexamethasone (Decadron Tab*) 4 mg PO DAILY [facility] Last Admin: 04/29/19 08:20 Dose: 4 mg Fentanyl (Duragesic Patch 50 Mcg/Hr*) 50 mcg TRANSDERM Q72H [facility] Last Admin: 04/27/19 00:46 Dose: 50 mcg Lorazepam (Ativan Inj*) 1 mg IV PUSH DAILY PRN PRN Reason: CHEST PAIN Last Admin: 04/29/19 08:20 Dose: 1 mg Metoprolol Tartrate (Lopressor Tab*) 12.5 mg PO Q12HR [facility] Last Admin: 04/29/19 08:20 Dose: 12.5 mg Miscellaneous (Ativan Pyxis Landrum) 1 ea N/A .PYXIS LANDRUM PRN PRN Reason: PER PROTOCOL Mometasone Furoate/Formoterol Fumar (Dulera 200/5 Mdi*) 2 puff INH BID [facility] Last Admin: 04/29/19 07:54 Dose: Not Given Multi-Ingredient Mouthwash/Gargle (Magic Mouth Was-Kalen/Maal/Lido*) 10 ml SWISH SWAL 0700,1100,1630,2200 [facility] Last Admin: 04/29/19 12:20 Dose: 10 ml Nystatin (Nystatin Oint*) 1 applic TOPICAL BID [facility] Last Admin: 04/29/19 08:20 Dose: 1 applic Ondansetron HCl (Zofran Inj*) 4 mg IV Q6H PRN PRN Reason: NAUSEA Last Admin: 04/25/19 00:04 Dose: 4 mg Oxycodone HCl (Roxycodone Tab*) 5 mg PO Q6H PRN PRN Reason: PAIN - MODERATE Last Admin: 04/29/19 04:29 Dose: 5 mg Pharmacy Profile Note (Fentanyl Patch Check Q Shift) 1 note FOLLOW UP 0700, 1900 [facility] Last Admin: 04/29/19 06:38 Dose: 1 note Pharmacy Profile Note (Scopolamine Patch Remove*) 1 note PATCH OFF Q72H [facility] Scopolamine (Transderm-Scop 1.5 Mg Patch*) 1 patch TRANSDERM Q72H [facility] Last Admin: 04/27/19 00:47 Dose: 1 patch Tiotropium [place] (Spiriva Respimat 2.5 Mcg) 2 puff INH DAILY [facility] Last Admin: 04/29/19 07:54 Dose: Not Given Laboratory Results - last 24 hr 04/29/19 04/29/19 05:36 05:36 WBC 3.9 RBC 3.93 L Hgb 11.7 L Hct 35 L MCV 89 MCH 30 MCHC 34 RDW 17 H Plt Count 105 L MPV 7.7 Neut % (Auto) 80.1 Lymph % (Auto) 5.6 [place] % (Auto) 13.8 Eos % (Auto) 0.3 Baso % (Auto) 0.2 Absolute Neuts (auto) 3.1 Absolute Lymphs (auto) 0.2 L Absolute Monos (auto) 0.5 Absolute Eos (auto) 0.0 Absolute Basos (auto) 0.0 Absolute Nucleated RBC 0.0 Nucleated RBC % 0.2 Hem Pathologist Commnt Cancelled Sodium 142 Potassium 4.5 Chloride 111 Carbon Dioxide 31 BUN 13 Creatinine 0.64 L Est GFR ( Amer) 147.9 Est GFR (Non-Af Amer) 122.2 BUN/Creatinine Ratio 20.3 H Glucose 100 Calcium 8.5 L Exam Gen: chronically ill, but overall improved appearing and in NAD, accompanied by his HEENT: MMM, no m/r/g CV: RRR, no m/r/g Resp: CTA, no w/c/r Abd: soft, nonTTP Ext: chronic stasis changes with 1+ edema] Assessment: [Exam: Gen: chronically ill appearing 73 yo male who appears slightly uncomfortable, accompanied by his HEENT: MMM CV: RRR, no m/r/g Resp: CTA, no w/c/r Abd: soft, nonTTP Ext: trace edema CT scan: decrease in size of chest wall mass 71 x 84 to 52 x 75 mm. No metastatic disease. MRI brain, no cancer. [Assessment: []73 yo male with locally advanced NSCLC, T4, Nx, M0, started on definitive Carbo/Taxol/XRT on 04/01/19, due for week 4 04/22 when he presented to the clinic with acute onset confusion. P[employer] process ruled out and while no growth on cultures suspect this represents Acute onset delerium secondary to metabolic encephalopathy related to sepsis, now improving. He has improved back pain after radiation but with left sided chest pain, ddx radiation esophagitis is most likely. Plan: [1. Metabolic Encephalopathy - resolved - weakness is multiple factorial and will need rehab 2. Sepsis: possible GI source, ?viral - resolved - cultures negative and no radiologic source identified, completed 4d of IV abx after which they were stopped - cont to monitor of abx - resumed home steroid dosing 3. Diarrhea. - stool negative for C.diff - diarrhea resolved, stop bowel meds 4. Left sided chest pain. Likely radiation induced esophagitis - magic mouth wash - Oxycodone PRN - Protonix 40 po daily 5. A.Fib: - chronic - SR today. - anticoagulated with eliquis - metoprolol tartrate 12.5 bid - echocardiogram pending (re-order Monday if no report) 6. NSCLC - currently receiving concurrent XRT with carbo/taxol - he has completed 16 of the planned [address] Carrington, XRT held during admission. (last dose 04/22) - XRT take priority over continued chemotherapy, goal to resume XRT [facility] - working to transfer treatment to [facility] - upon review of imaging with Dr Goldstein it appears that he has 2 SQ nodules (L scapula and R chest wall along midaxillary line) - there does not appear to be a correlate on physical exam - plan US of each area and bx if it appears suspicious - if positive this would represent metastatic disease and plan of care would change - dexamethasone started as an outpt for appetite stimulation - will start to taper off 7. Disposition. - Will need sub acute re-hab. Per CM/SW billing at [facility] precludes completing XRT with Dr Carrington. Will need to transfer XRT here and pursue [facility] in [place] or consider swing status
[2019-04-29] MEDS ORDERED: Scopolamine PATCH Remove* 1 NOTE MISC PATCH OFF SCH (23:59)
[2019-04-30] MEDS: Mometasone/Formoter 200/5 MDI INH SCH ×3 (00:08→19:47)
[2019-04-30] MEDS: fentaNYL PATCH 50 MCG/HR TRANSDERM SCH (00:12)
[2019-04-30] MEDS: Scopolamine 1.5 mg* PATCH TRANSDERM SCH (00:15)
[2019-04-30] MEDS: fentaNYL Patch Check Q Shift 1 NOTE FOLLOW UP SCH ×2 (07:01→18:24)
[2019-04-30] MEDS: Magic Mouth Was-BEN/MAAL/LIDO SWISH SWAL SCH ×4 (08:35→20:52)
[2019-04-30] MEDS: Metoprolol Tartrate TAB* 25 MG PO SCH ×2 (08:36→20:47)
[2019-04-30] MEDS: Dexamethasone TAB* 4 MG PO SCH (08:38)
[2019-04-30] MEDS: Apixaban* 5 MG TAB PO SCH ×2 (08:39→20:48)
[2019-04-30] MEDS: Nystatin OINT* 15 GM TOPICAL SCH ×2 (08:41→20:52)
[2019-04-30] MEDS: SPIRIVA Respimat* (tiotropium) 2.5 mcg/inh Inhaler INH SCH (08:46)
--- NOTE | 2019-04-30 10:43 | PN ---
Progress Note - Progress Note Date of Service: 04/30/19 SOAP: Subjective: []Feeling well today. Still some LCW discomfort, but nothing severe and has been laying comfortably. No confusion in several days. Intermittent constipation and diarrhea. Tells me he prefers diarrhea "as I don' t want to get backed up." Several questions regarding plan of care. Medications: Albuterol/Ipratropium (Duoneb (Albuterol 2.5 Mg/Ipratropium 0.5 Mg)) 1 neb INH Q6H PRN PRN Reason: SOB/WHEEZING Apixaban (Eliquis*) 5 mg PO BID [facility] Last Admin: 04/30/19 08:39 Dose: 5 mg Dexamethasone (Decadron Tab*) 2 mg PO DAILY [facility] Last Admin: 04/30/19 08:38 Dose: 2 mg Fentanyl (Duragesic Patch 50 Mcg/Hr*) 50 mcg TRANSDERM Q72H [facility] Last Admin: 04/30/19 00:12 Dose: 50 mcg Lorazepam (Ativan Inj*) 1 mg IV PUSH DAILY PRN PRN Reason: CHEST PAIN Last Admin: 04/29/19 08:20 Dose: 1 mg Metoprolol Tartrate (Lopressor Tab*) 12.5 mg PO Q12HR [facility] Last Admin: 04/30/19 08:36 Dose: 12.5 mg Miscellaneous (Ativan Pyxis Landrum) 1 ea N/A .PYXIS LANDRUM PRN PRN Reason: PER PROTOCOL Mometasone Furoate/Formoterol Fumar (Dulera 200/5 Mdi*) 2 puff INH BID [facility] Last Admin: 04/30/19 08:25 Dose: Not Given Multi-Ingredient Mouthwash/Gargle (Magic Mouth Was-Kalen/Maal/Lido*) 10 ml SWISH SWAL 0700,1100,1630,2200 [facility] Last Admin: 04/30/19 11:02 Dose: 10 ml Nystatin (Nystatin Oint*) 1 applic TOPICAL BID [facility] Last Admin: 04/30/19 08:41 Dose: 1 applic Ondansetron HCl (Zofran Inj*) 4 mg IV Q6H PRN PRN Reason: NAUSEA Last Admin: 04/25/19 00:04 Dose: 4 mg Oxycodone HCl (Roxycodone Tab*) 5 mg PO Q6H PRN PRN Reason: PAIN - MODERATE Last Admin: 04/29/19 20:47 Dose: 5 mg Pharmacy Profile Note (Fentanyl Patch Check Q Shift) 1 note FOLLOW UP 0700, 1900 [facility] Last Admin: 04/30/19 07:01 Dose: 1 note Pharmacy Profile Note (Scopolamine Patch Remove*) 1 note PATCH OFF Q72H [facility] Last Admin: 04/30/19 00:11 Dose: 1 patch Scopolamine (Transderm-Scop 1.5 Mg Patch*) 1 patch TRANSDERM Q72H [facility] Last Admin: 04/30/19 00:15 Dose: 1 patch Tiotropium [place] (Spiriva Respimat 2.5 Mcg) 2 puff INH DAILY [facility] Last Admin: 04/30/19 08:46 Dose: Not Given Objective: [] Vital Signs Temp Pulse Resp BP Pulse Ox 97.4 F 104 20 130/98 100 04/30/19 08:01 04/30/19 08:01 04/30/19 08:01 04/30/19 08:01 04/30/19 08:01 A&Ox3, EOMI, neuro grossly non-focal HRR, SR today, was in ST for short period LS dim L>R +BS, abd. obese, soft, and non-tender Left chest wall axillary mass just barely felt (firmness at site of marker) Bilat. LE daisy, +2 edema, firm Assessment: []73 yo male with locally advanced NSCLC, T4, Nx, M0, started on definitive Carbo/Taxol/XRT on 04/01/19, due for week 4 04/22 when he presented to the clinic with acute onset confusion. LAW [employer] process ruled out and while no growth on cultures suspect this represents Acute onset delerium secondary to metabolic encephalopathy related to sepsis, now resolved. He is stable for discharge but will need [facility]. In planning this it was determined that insurance would only cover hospital based clinics therefore he would need his RT plan transitioned from Dr. Carrington to Dr. Goldstein, a complicated and involved process. As such a re-evaluation of local vs. metastatic disease is warranted as his current RT dose would constitute a palliative dose of which he has received clinical benefit (improved back pain and resp. status). As such we will proceed with US guided biopsy of the left chest wall, as if this is negative we need to proceed with resumption of therapy ROSA MARIA. Plan: []1. Metabolic Encephalopathy - resolved - weakness is multiple factorial and will need rehab 2. Sepsis: possible GI source, ?viral - resolved - cultures negative and no radiologic source identified, completed 4d of IV abx after which they were stopped and no recurrent symptoms have arise - variable bowels, cont. symptom management with PRNs 3. Radiation induced esophagitis - magic mouth wash - Oxycodone PRN - Protonix 40 po daily 4. A.Fib: SR today - anticoagulated with eliquis - metoprolol tartrate 12.5 bid - echocardiogram pending (re-order Monday if no report) 5. NSCLC - biopsy as above to determine tx. plan Disposition: LUIS, requests sent out
[2019-04-30] MEDS ORDERED: Perflutren Lipid Microsphere* 3 ML VIAL ONE (14:24)
--- NOTE | 2019-04-30 16:54 | ECHO ---
*[facility]* [place] [address] Fax #: [phone] Transthoracic Echocardiogram Patient: Ranjit Barragan : 1945 Study Date: 04/30/2019 Age: 73 Gender: M HR: 100 bpm Height: 68 in /172.7 cm BSA: 2.34 m^2 Weight: 274.4 lb /124.7 kg BMI: 41.8 kg/m^2 *Station Supervisor: * Alexandra Contreras [facility] *Referring Physician: * Kate MatthewReading Physician: * Rajeev Daniels MD Indications: Abnormal EKG. History: Lung cancer. Coronary artery disease. Chronic obstructive pulmonary disease. PMH: Myocardial infarction. Risk factors: Former tobacco use. Hypertension. Conclusions Summary: - Overall poor acustic images. Poor apical and subcostal views. - Left ventricle: Systolic function is normal. The estimated ejection fraction is 50-55%. Although no diagnostic regional wall motion abnormality is identified, this possibility cannot be completely excluded on the basis of this study. - Right ventricle: The cavity size is normal. Wall thickness is mildly increased. Systolic function is mildly reduced. - Mitral valve: There is no significant regurgitation. - Aortic valve: The findings are consistent with moderate stenosis. The mean systolic gradient is 12.0 mm Hg. The LVOT to aortic valve VTI ratio is 0.3. The valve area by the peak velocity method is 1.10 cm^2. - Tricuspid valve: There is no significant regurgitation. - Pulmonary arteries: Systolic pressure can not be accurately estimated. - Study data: No prior study is available for comparison. Study data: Transthoracic echocardiogram. Procedure: Transthoracic echocardiography was performed. Image quality was adequate. Intravenous Definity , 3 mlswas administered. Complete 2D, spectral Doppler, and color flow Doppler. Location: Bedside. Patient status: Inpatient. Patient room number: 442 01. No prior study is available for comparison. Rhythm: Normal sinus rhythm. Findings Left ventricle: The cavity size is normal. Wall thickness is mildly to moderately increased. Systolic function is normal. The estimated ejection fraction is 50-55%. Although no diagnostic regional wall motion abnormality is identified, this possibility cannot be completely excluded on the basis of this study. There is no consistent Doppler evidence of clinically significant diastolic dysfunction. Right ventricle: The cavity size is normal. Wall thickness is mildly increased. Systolic function is mildly reduced. Left atrium: Not well visualized. The atrium is normal in size. Right atrium: Not well visualized. The atrium is normal in size. Mitral valve: The Mitral valve annulus appears calcified. The leaflets are normal thickness. There is no evidence of stenosis. There is no significant regurgitation. Aortic valve: The valve is trileaflet. The leaflets are moderately thickened. The findings are consistent with moderate stenosis. There is no significant regurgitation. Tricuspid valve: The leaflets are normal thickness. There is no evidence of stenosis. There is no significant regurgitation. Pulmonic valve: The leaflets are normal thickness. There is trace regurgitation. Aorta: Aortic root: The aortic root is mildly dilated. Ascending aorta: The ascending aorta is mildly dilated. Aortic arch: The aortic arch is appears normal. Pericardium: There is no significant pericardial effusion. Pulmonary arteries: Systolic pressure can not be accurately estimated. Systemic veins: Inferior vena cava: The vessel is dilated. There is (< 50%) respiratory change in the IVC dimension. Measurements Left ventricle Value Ref Aortic valve continued Value Ref GIL, LAX 4.3 cm 4.2 - 5.8 JEANINE, VTI 0.94 cm^2 ---- ESD, LAX 3.0 cm 2.5 - 4.0 JEANINE, Vmax 1.10 cm^2 ---- FS, LAX 29 % 25 - 43 PW, ED, LAX (H) 1.4 cm 0.6 - 1.0 Mitral valve Value Ref EF 56 % 52 - 72 Peak E 0.58 m/sec ---- E', med curtis, TDI 10.2 cm/sec >=7.0 Peak A 0.97 m/sec -- -- E/e', med curtis, TDI 6 --------- Decel time 69 ms ---- PHT 42 ms ---- LVOT Value Ref Mean grad, D 2.0 mm Hg ---- Diam, S 2.00 cm --------- Peak grad, D 3.0 mm Hg ---- Peak brady, S 0.81 m/sec --------- Peak E/A ratio 0.6 ---- VTI, S 13.0 cm --------- MVA, PHT 5.2 cm^2 ---- Mean grad, S 1 mm Hg --------- SV 40 ml --------- Pulmonic valve Value Ref Peak v, S 0.55 m/sec ---- Ventricular septum Value Ref Peak grad, S 1.0 mm Hg ---- IVS, ED (H) 1.4 cm 0.6 - 1.0 Aortic root Value Ref Right ventricle Value Ref Root diam 3.6 cm <4.4 GIL, LAX 2.2 cm --------- Ascending aorta Value Ref Right atrium Value Ref AAo AP diam, S 3.5 cm ---- Estimated RAP 8 mm Hg --------- Aortic arch Value Ref Aortic valve Value Ref Arch diam 3.1 cm ---- Curtis diam, ED 2.4 cm --------- Peak v, S 2.4 m/sec --------- Decending aorta Value Ref VTI, S 43.5 cm --------- Pippa peak brady 0.32 m/sec ---- Mean grad, S 12.0 mm Hg --------- Peak grad, S 23.0 mm Hg --------- Inferior vena cava Value Ref LVOT/AV, VTI ratio 0.3 --------- Diam 2.6 cm ---- Legend: (L) and (H) kalie values outside specified reference range. Prepared and electronically signed by Rajeev Daniels MD 04/30/2019 16:53
[2019-04-30] MEDS: oxyCODONE TAB* 5 MG TAB PO PRN (18:43)
[2019-05-01] MEDS: fentaNYL Patch Check Q Shift 1 NOTE FOLLOW UP SCH (06:25)
[2019-05-01] MEDS: SPIRIVA Respimat* (tiotropium) 2.5 mcg/inh Inhaler INH SCH (08:44)
[2019-05-01] MEDS: Mometasone/Formoter 200/5 MDI INH SCH (08:44)
[2019-05-01] MEDS: Metoprolol Tartrate TAB* 25 MG PO SCH (08:47)
[2019-05-01] MEDS: Nystatin OINT* 15 GM TOPICAL SCH (08:47)
[2019-05-01] MEDS: Dexamethasone TAB* 4 MG PO SCH (08:48)
[2019-05-01] MEDS: Apixaban* 5 MG TAB PO SCH (08:48)
[2019-05-01] MEDS: oxyCODONE TAB* 5 MG TAB PO PRN (08:49)
[2019-05-01] MEDS: Magic Mouth Was-BEN/MAAL/LIDO SWISH SWAL SCH ×2 (08:50→12:17)
[2019-05-01] MEDS ORDERED: LORazepam INJ* 2 MG/ML 1 ML VIAL IV PUSH ONE (11:00)
--- NOTE | 2019-05-01 14:05 | PN ---
Progress Note - Progress Note Date of Service: 05/01/19 SOAP: Subjective: [Feeling ok today. No new complaints. Little to no pain and eating well. Has a productive cough, no SOB. Working with incentive spirometer. ] Objective: [ Vital Signs: Temp Pulse Resp BP Pulse Ox 97.9 F 87 18 109/77 98 05/01/19 11:36 05/01/19 11:36 05/01/19 11:48 05/01/19 11:36 05/01/19 08:00 Albuterol/Ipratropium (Duoneb (Albuterol 2.5 Mg/Ipratropium 0.5 Mg)) 1 neb INH Q6H PRN PRN Reason: SOB/WHEEZING Apixaban (Eliquis*) 5 mg PO BID [facility] Last Admin: 05/01/19 08:48 Dose: 5 mg Dexamethasone (Decadron Tab*) 2 mg PO DAILY [facility] Last Admin: 05/01/19 08:48 Dose: 2 mg Fentanyl (Duragesic Patch 50 Mcg/Hr*) 50 mcg TRANSDERM Q72H [facility] Last Admin: 04/30/19 00:12 Dose: 50 mcg Lorazepam (Ativan Inj*) 1 mg IV PUSH DAILY PRN PRN Reason: CHEST PAIN Last Admin: 04/29/19 08:20 Dose: 1 mg Metoprolol Tartrate (Lopressor Tab*) 12.5 mg PO Q12HR [facility] Last Admin: 05/01/19 08:47 Dose: 12.5 mg Miscellaneous (Ativan Pyxis Landrum) 1 ea N/A .PYXIS LANDRUM PRN PRN Reason: PER PROTOCOL Mometasone Furoate/Formoterol Fumar (Dulera 200/5 Mdi*) 2 puff INH BID [facility] Last Admin: 05/01/19 08:44 Dose: Not Given Multi-Ingredient Mouthwash/Gargle (Magic Mouth Was-Kalen/Maal/Lido*) 10 ml SWISH SWAL 0700,1100,1630,2200 [facility] Last Admin: 05/01/19 12:17 Dose: 10 ml Nystatin (Nystatin Oint*) 1 applic TOPICAL BID [facility] Last Admin: 05/01/19 08:47 Dose: 1 applic Ondansetron HCl (Zofran Inj*) 4 mg IV Q6H PRN PRN Reason: NAUSEA Last Admin: 04/25/19 00:04 Dose: 4 mg Oxycodone HCl (Roxycodone Tab*) 5 mg PO Q6H PRN PRN Reason: PAIN - MODERATE Last Admin: 05/01/19 08:49 Dose: 5 mg Pharmacy Profile Note (Fentanyl Patch Check Q Shift) 1 note FOLLOW UP 0700, 1900 [facility] Last Admin: 05/01/19 06:25 Dose: 1 note Pharmacy Profile Note (Scopolamine Patch Remove*) 1 note PATCH OFF Q72H [facility] Last Admin: 04/30/19 00:11 Dose: 1 patch Scopolamine (Transderm-Scop 1.5 Mg Patch*) 1 patch TRANSDERM Q72H [facility] Last Admin: 04/30/19 00:15 Dose: 1 patch Tiotropium [place] (Spiriva Respimat 2.5 Mcg) 2 puff INH DAILY [facility] Last Admin: 05/01/19 08:44 Dose: Not Given Exam: A&Ox3, EOMI, neuro grossly non-focal MMM, no thrush RRR, no m/r/g lungs are CTA, no w/c/r on limited exam +BS, abd. obese, soft, and non-tender Left chest wall axillary mass just barely felt (firmness at site of marker) Bilat. LE daisy, +2 edema, firm Assessment: []73 yo male with locally advanced NSCLC, T4, Nx, M0, started on definitive Carbo/Taxol/XRT on 04/01/19, due for week 4 04/22 when he presented to the clinic with acute onset confusion. 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 He is stable for discharge but will need [facility]IS. In planning this it was determined that insurance would only cover hospital based clinics therefore he would need his RT plan transitioned from Dr. Carrington to Dr. Goldstein, a complicated and involved process. As such a re-evaluation of local vs. metastatic disease is warranted as his current RT dose would constitute a palliative dose of which he has received clinical benefit (improved back pain and resp. status). As such we will proceed with biopsy of the left chest wall mass noted on CT, as if this is negative we need to proceed with resumption of radiation therapy ROSA MARIA. Plan: []1. Metabolic Encephalopathy - resolved - weakness is multiple factorial and will need rehab 2. Sepsis: possible GI source, ?viral - resolved - cultures negative and no radiologic source identified, completed 4d of IV abx after which they were stopped and no recurrent symptoms have arise - variable bowels, cont. symptom management with PRNs 3. Radiation induced esophagitis - magic mouth wash - Oxycodone PRN - Protonix 40 po daily 4. A.Fib: SR today - anticoagulated with eliquis - metoprolol tartrate 12.5 bid - echocardiogram WNL 5. NSCLC - biopsy as above to determine tx. plan (pending for today) Disposition: plan to transition to swing status following biopsy today
[2019-05-01 15:15] VITALS: BP 103/74
--- NOTE | 2019-05-01 18:58 | DS ---
CC: Dr. Jacob Dalton; Dr. Barillas; Dr. Goldstein; Dr. Facundo Velasquez. * DISCHARGE SUMMARY FROM ACUTE CARE AND ADMISSION H AND P TO SWING STATUS: DATE OF ADMISSION: 04/22/19 DATE OF TRANSITION TO SWING STATUS: 05/01/19 PRIMARY CARE PROVIDER: Dr. Jacob Dalton. PRIMARY ONCOLOGIST: Dr. Facundo Velasquez. ATTENDING PHYSICIAN: Dr. Kolton Meyers.* (DICTATED BY JUSTIN POLK) DISCHARGING PROVIDER: JUSTIN Polk. DISCHARGE DIAGNOSES/ACTIVE PROBLEMS: 1. Acute delirium secondary to metabolic encephalopathy related to sepsis, now resolved. 2. Sepsis, likely a GI source and possibly viral, now resolved with negative cultures. 3. Radiation induced esophagitis. 4. Paroxysmal atrial fibrillation. 5. Non-small cell lung carcinoma receiving concurrent chemotherapy and radiation with question of newly recognized metastatic focus with biopsy of left chest wall subcutaneous mass pending at the time of this dictation. CURRENT MEDICATIONS: 1. Dexamethasone 2 mg p.o. daily. 2. Dulera 2 puffs inhaled twice daily. 3. Fentanyl patch 50 mcg transdermal changed every 72 hours. 4. Eliquis 5 mg p.o. twice daily. 5. Metoprolol tartrate 12.5 mg p.o. twice daily. 6. Magic mouthwash 10 mL swish and swallow 4 times daily. 7. Nystatin ointment applied twice daily to inguinal and abdominal folds. 8. Spiriva Respimat 2 puffs inhaled daily. 9. Scopolamine patch applied transdermally and changed every 72 hours. 10. DuoNeb 1 neb inhaled every 6 hours as needed for shortness of breath or wheezing. 11. Oxycodone 5 mg p.o. q.6 hours as needed for pain. 12. Zofran 4 mg IV q.6 hours as needed for nausea. HOSPITAL IMAGIN. Chest x-ray, 04/22/19, shows a mass in the right mid lung zone, no new focal airspace opacification. 2. CT brain, 04/22/19, shows no acute abnormalities. 3. MRI brain, 01/21/19, shows no evidence of metastatic disease, no acute intracranial abnormality, moderate chronic small vessel ischemic disease is likely, but no acute findings. 4. CT chest and abdomen shows a stable right upper lobe mass invading the right chest wall measuring 8 x 5.1 cm suspicious for malignancy and a stable 7 mm right upper lobe pulmonary nodule. Stable appearance of local invasion into the posterior aspect of the right fourth through sixth ribs via mass and worsening of additional lytic metastasis in the lateral aspect of the right fourth rib with new pathologic fracture and dislocation. A stable subcutaneous nodule of the dorsal right upper back which may represent a sebaceous cyst and an additional nodule on the anterior aspect of the left latissimus dorsi muscle measuring approximately 2.4 cm. Within the abdomen, there is mild wall thickening and subtle fat stranding of the proximal duodenum, cannot not exclude mild duodenitis, no other pathology noted or mass within the abdomen. 5. Soft tissue ultrasound shows a hypoechoic mass in the left chest wall measuring 1.5 x 1.6 x 1.7 cm. 6. Transthoracic echocardiogram shows ejection fraction of 50% to 55% with evidence of moderate aortic stenosis, no other valvular disease or other abnormalities noted. HOSPITAL COURSE: This is a 73-year-old gentleman with non-small cell lung cancer with a large right lower lobe mass, but no known metastatic disease, receiving concurrent radiation therapy with Dr. Barillas out [facility] and weekly chemotherapy under the guidance of Dr. Velasquez, who presented for routine chemotherapy appointment and appeared to be acutely confused and somewhat agitated, subsequently referred to the emergency department. The patient's reports that he was acting normally up until Monday morning, the date of admission, at which point he seemed to be mildly confused and severely weak. He had been experiencing severe nausea, vomiting, and diarrhea for several days prior to this, but no recorded fevers. He presented to his scheduled radiation appointment and completed treatment as scheduled and then proceeded to medical oncology office for chemotherapy. She noticed a change while they were driving and he seemed to be somewhat confused. She had difficulty getting him out of the car and was asked to have nursing staff meet her in the parking lot. He was quite agitated and had difficulty following directions and subsequently an ambulance was called to transport him to the emergency department. Upon reaching the emergency department, the patient was very agitated and unable or willing to cooperative with a medical exam. He required multiple doses of IV Ativan to cooperate with placement of an IV and collection of labs and imaging. Initial labs showed an elevated lactic acid to 2.4, but otherwise unremarkable. His chest x-ray did not show any new infiltrate. Initial CT of the brain was negative and the patient required further sedation with Versed to complete an MRI due to the concern for possible metastatic disease or CVA, neither of which were confirmed on imaging. The patient was mildly hypotensive , but otherwise vital signs were within normal limits. Due to significant sedation required in the emergency department, the patient was initially admitted to ICU and empirically treated with broad-spectrum antibiotics. He remained afebrile and his mental status slowly improved. Blood cultures remained negative. Imaging of the chest and abdomen were completed, which showed some mild fat stranding around the proximal duodenum, but no other notable pathology to explain his symptoms. The patient's mental status improved over the first few days of his hospitalization and this was presumed to be a metabolic encephalopathy secondary to sepsis, improved with IV hydration and antibiotics. The patient had stool studies which were negative for C. diff or other identifiable pathogens and was treated with antidiarrheal medications and his diarrhea eventually resolved. The patient was severely deconditioned as a result of this acute event. At baseline, he is ambulatory with the use of a walker, but at this time is requiring assistance for transfer from out of bed and into a chair. The patient is requiring subacute rehab due to this degree of deconditioning. Due to insurance restrictions, the patient is unable to complete radiation therapy with Dr. Barillas and requires transferring the remainder of his radiation therapy to Dr. Goldstein. Upon review of CT imaging with Dr. Godlstein, there is noted to be a new left chest wall mass that in retrospect is identifiable but much smaller on initial staging scans from February and had substantially increased in size over that period of time. This brought up a concern for a possible metastatic focus. He has otherwise been classified and treated as limited stage disease, although he does have significant chest wall invasion and symptomatic from this. He has noted significant improvement in his right- sided chest pain since initiating radiation therapy. Plan was made to biopsy the subcutaneous mass to help to differentiate whether this represents a metastatic focus, at which point treatment would take more palliative focus rather than continuing with a curative intent in mind. Due to the logistical restrictions of this hospitalization, his radiation has been interrupted, receiving 16 of the planned 33 fractions. His last treatment was on 04/22/19. DISPOSITION AND FURTHER TREATMENT PLAN: The patient is being transferred from acute status to [facility] status while he continues to work with Physical Therapy. Biopsy of the left chest wall mass was completed by Dr. Carrera earlier today and biopsy results will be available early next week. Dr. Goldstein is in the process of transferring his radiation plan to [facility] with tentative plans to complete the remaining fractions of his scheduled radiation therapy. Whether chemotherapy will be continued is yet to be determined, but at the very least we will hold for the immediate future and likely continue with radiation alone. JUSTIN POLK [id number]/[facility] #: [id number] MTDD
== END 2019-05-01 15:14 | disposition swing bed (61) | DRG 871 ==
LOC: ED 14:09 → ICU 18:38 → MEDTELE 04-23 19:15
PROVIDERS: ADMIT Internal Medicine; ATTEND Internal Medicine Hematology & Oncology
PROC: 0JB63ZX Excision of Chest Subcutaneous Tissue and Fascia, Percutaneous Approach, Diagnostic (ICD-10-PCS; principal; 2019-05-01)
DX: A41.89 Other specified sepsis (principal); G93.41 Metabolic encephalopathy; J96.11 Chronic respiratory failure with hypoxia; C34.90 Malignant neoplasm of unspecified part of unspecified bronchus or lung; F05 Delirium due to known physiological condition; E87.2 Acidosis; C79.89 Secondary malignant neoplasm of other specified sites; Z68.41 Body mass index [BMI] 40.0-44.9, adult; I25.10 Atherosclerotic heart disease of native coronary artery without angina pectoris; G25.81 Restless legs syndrome; E66.9 Obesity, unspecified; K20.8 Other esophagitis; I48.91 Unspecified atrial fibrillation; I35.0 Nonrheumatic aortic (valve) stenosis; Y84.2 Radiological procedure and radiotherapy as the cause of abnormal reaction of the patient, or of later complication, without mention of misadventure at the time of the procedure; I48.0 Paroxysmal atrial fibrillation; I10 Essential (primary) hypertension; G89.29 Other chronic pain; M54.9 Dorsalgia, unspecified; R19.7 Diarrhea, unspecified; Z66 Do not resuscitate; J44.9 Chronic obstructive pulmonary disease, unspecified; I25.2 Old myocardial infarction; Z86.718 Personal history of other venous thrombosis and embolism; Z92.21 Personal history of antineoplastic chemotherapy; Z87.891 Personal history of nicotine dependence; Z92.3 Personal history of irradiation; Z85.828 Personal history of other malignant neoplasm of skin; Z88.8 Allergy status to other drugs, medicaments and biological substances; Y92.9 Unspecified place or not applicable; Z79.01 Long term (current) use of anticoagulants; Z79.52 Long term (current) use of systemic steroids; Z79.899 Other long term (current) drug therapy; Z79.51 Long term (current) use of inhaled steroids; Z99.81 Dependence on supplemental oxygen; Z28.21 Immunization not carried out because of patient refusal
CPT/HCPCS: 10021; 36415; 70450; 70553; 71045; 71260; 74160; 76604; 80048; 80053; 81003; 81015; 82550; 83605; 83735; 83880; 84484; 85025; 85384; 85610; 85652; 85730; 86140; 87040; 87493; 87641; 88172; 88173; 88305; 93005; 93306; 94640; 96365; 99232; 99233; 99285; A9270-GY; A9579; C8929; G8978-GP-CN; G8979-GP-CK; J0692; J0780; J1630; J1650; J2060; J2250; J2405; J2543; J3010; J3475; J3490; J3535; J8540; Q9967

== ENCOUNTER 2019-05-01 15:17 | Inpatient (IN) | payer MEDICARE ==
[2019-05-01] MEDS ORDERED: Acetaminophen TAB* 325 MG PO PRN (15:37)
[2019-05-01] MEDS ORDERED: Albuterol/Ipratropium NEB.SOL* Albuterol 2.5 MG/Ipratropium 0.5 MG 3 ML INH PRN (15:58)
[2019-05-01] MEDS: Magic M W2 Ben/Maal/Nyst/Lido* 240 ML MOUTHWASH (alt formulation) SWISH SWAL SCH ×2 (17:29→20:28)
[2019-05-01] MEDS: fentaNYL Patch Check Q Shift 1 NOTE FOLLOW UP SCH (19:20)
[2019-05-01] MEDS: Mometasone/Formoter 200/5 MDI INH SCH (20:04)
[2019-05-01] MEDS: oxyCODONE TAB* 5 MG TAB PO PRN (20:23)
[2019-05-01] MEDS: Apixaban* 5 MG TAB PO SCH (20:23)
[2019-05-01] MEDS: Carvedilol TAB* 3.125 MG PO SCH (20:23)
[2019-05-01] MEDS: Nystatin OINT* 15 GM TOPICAL SCH (20:29)
[2019-05-02] MEDS: Magic M W2 Ben/Maal/Nyst/Lido* 240 ML MOUTHWASH (alt formulation) SWISH SWAL SCH ×4 (06:12→20:44)
[2019-05-02] MEDS: fentaNYL Patch Check Q Shift 1 NOTE FOLLOW UP SCH ×2 (06:47→18:47)
[2019-05-02 07:04] LABS: Albumin 2.7 g/dL (3.2-5.2); Albumin/Globulin Ratio 1.3 (1-3); BUN/Creatinine Ratio 18.8 (8-20); Calcium 8.6 mg/dL (8.6-10.3); EGFR African American 147.9 (>60); EGFR Non-African American 122.2 (>60); Globulin 2.1 g/dL (2-4); Potassium 3.8 mmol/L (3.5-5.0); Total Bilirubin 0.6 mg/dL (0.2-1.0); Total Protein 4.8 g/dL (6.4-8.9)
[2019-05-02 07:10] LABS: ABS Lymphocytes 0.3 10^3/ul (1.0-4.8); ABS Monocytes 0.4 10^3/ul (0-0.8); ABS Neutrophils 3.7 10^3/ul (1.5-7.7); Eosinophil % 0.6 %; Hematocrit 36 % (42-52); Hemoglobin 11.9 g/dL (14.0-18.0); Lymphocyte % 7.1 %; Mean Corpuscular HGB Conc 33 g/dL (31-36); Mean Corpuscular Hemoglobin 30 pg (27-31); Mean Corpuscular Volume 90 fL (80-94); Mean Platelet Volume 7.7 fL (7.4-10.4); Nucleated Red Blood Cells % 0.1; Platelet Count 92 10^3/uL (150-450); Red Blood Count 4.01 10^6 /uL (4.18-5.48); Red Cell Distribution Width 17 % (10-15); White Blood Count 4.4 10^3/uL (3.5-10.8)
[2019-05-02] MEDS: SPIRIVA Respimat* (tiotropium) 2.5 mcg/inh Inhaler INH SCH (07:27)
[2019-05-02] MEDS: Mometasone/Formoter 200/5 MDI INH SCH ×2 (07:29→19:14)
[2019-05-02] MEDS: Apixaban* 5 MG TAB PO SCH ×2 (10:09→20:42)
[2019-05-02] MEDS: Dexamethasone TAB* 1 MG PO SCH (10:10)
[2019-05-02] MEDS: Carvedilol TAB* 3.125 MG PO SCH ×2 (10:10→20:42)
[2019-05-02] MEDS: Lisinopril TAB* 10 MG PO SCH (10:10)
[2019-05-02] MEDS: Nystatin OINT* 15 GM TOPICAL SCH ×2 (10:11→20:46)
[2019-05-02] MEDS: oxyCODONE TAB* 5 MG TAB PO PRN (10:17)
[2019-05-02] MEDS: LORazepam TAB(*) 0.5 MG PO PRN (20:42)
[2019-05-03] MEDS: Ondansetron TAB* 4 MG PO PRN ×3 (02:11→20:26)
[2019-05-03] MEDS: LORazepam TAB(*) 0.5 MG PO PRN (02:11)
[2019-05-03] MEDS: fentaNYL Patch Check Q Shift 1 NOTE FOLLOW UP SCH ×2 (06:45→18:57)
[2019-05-03] MEDS: SPIRIVA Respimat* (tiotropium) 2.5 mcg/inh Inhaler INH SCH (07:19)
[2019-05-03] MEDS: Mometasone/Formoter 200/5 MDI INH SCH ×2 (07:19→19:24)
[2019-05-03] MEDS: Magic M W2 Ben/Maal/Nyst/Lido* 240 ML MOUTHWASH (alt formulation) SWISH SWAL SCH ×4 (07:26→20:26)
--- NOTE | 2019-05-03 09:53 | PN ---
Progress Note - Progress Note Date of Service: 05/03/19 SOAP: Subjective: []Pain on left side is better. Still feels at night. Right sided pain is improved. He has been walking to bathroom, working with PT. Had nausea through night last night, some nausea this am. Refused PT. No fevers Acetaminophen (Tylenol Tab*) 650 mg PO Q4H PRN PRN Reason: mild pain/fever Albuterol/Ipratropium (Duoneb (Albuterol 2.5 Mg/Ipratropium 0.5 Mg)) 1 neb INH Q4H PRN PRN Reason: SOB/WHEEZING Apixaban (Eliquis*) 5 mg PO BID [facility] Last Admin: 05/02/19 20:42 Dose: 5 mg Carvedilol (Coreg Tab*) 3.125 mg PO BID [facility] Last Admin: 05/02/19 20:42 Dose: 3.125 mg Fentanyl (Duragesic Patch 50 Mcg/Hr*) 50 mcg TRANSDERM Q72H [facility] Lisinopril (Prinivil Tab*) 20 mg PO DAILY [facility] Last Admin: 05/02/19 10:10 Dose: 20 mg Lorazepam (Ativan Tab(*)) 0.5 mg PO Q4H PRN PRN Reason: ANXIETY Last Admin: 05/03/19 02:11 Dose: 0.5 mg Mometasone Furoate/Formoterol Fumar (Dulera 200/5 Mdi*) 2 puff INH BID [facility] Last Admin: 05/03/19 07:19 Dose: Not Given Multi-Ingredient Mouthwash/Gargle (Magic M W2 Kalen/Maal/Nyst/Lido*) 5 ml SWISH SWAL 0700,1100,1630,2100 [facility] Last Admin: 05/03/19 07:26 Dose: 5 ml Nystatin (Nystatin Oint*) 1 applic TOPICAL BID [facility] Last Admin: 05/02/19 20:46 Dose: 1 applic Ondansetron HCl (Zofran Tab*) 4 mg PO Q4HR PRN PRN Reason: NAUSEA/VOMITING Last Admin: 05/03/19 02:11 Dose: 4 mg Oxycodone HCl (Roxycodone Tab*) 5 mg PO Q4H PRN PRN Reason: PAIN - MODERATE Last Admin: 05/02/19 10:17 Dose: 5 mg Pharmacy Profile Note (Fentanyl Patch Check Q Shift) 1 note FOLLOW UP 0700, 1900 [facility] Last Admin: 05/03/19 06:45 Dose: 1 note Pharmacy Profile Note (Scopolamine Patch Remove*) 1 note PATCH OFF .AFTER 72 HOURS [facility] Scopolamine (Transderm-Scop 1.5 Mg Patch*) 1 patch TRANSDERM Q72H [facility] Tiotropium [place] (Spiriva Respimat 2.5 Mcg) 2 puff INH DAILY [facility] Last Admin: 05/03/19 07:19 Dose: Not Given Objective: [] Vital Signs Temp Pulse Resp BP Pulse Ox 97.8 F 89 18 97/67 98 05/03/19 07:32 05/03/19 07:32 05/03/19 07:32 05/03/19 07:32 05/03/19 07:32 HEENT_: OM moist, no lesions pale CTA no pain to palpation chest wall, mass feels smaller obese, +BS NT ND Ext +1 MAYE Bx SQ nodule pending. Assessment: []73 year old with SCLC right side chest wall, T4 cN0 Mx, with sq nodules on CT scan. Admission after 1/2 course of XRT to chest wall mass for MS changes. 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 Pain on R side improved, new chest pressure likely XRT SE, also improving. Plan: []1. Lung cancer. - Bx satellite lesion pending. If negative proceed with an additional 2 weeks XRT. Pain is better and if positive, hold XRT and consider systemic therapy. 2. Pain control improved. 3. Planing [facility], continue to work with PT 4. Nausea this am, has not yet had Zofran. - Call is Zofran not effective - Continue Scopalamine. 5. Swing, follow up when we have pathology.
[2019-05-03] MEDS: Dexamethasone TAB* 1 MG PO SCH (10:01)
[2019-05-03] MEDS: Apixaban* 5 MG TAB PO SCH ×2 (10:02→20:26)
[2019-05-03] MEDS: Lisinopril TAB* 10 MG PO SCH (10:03)
[2019-05-03] MEDS: Carvedilol TAB* 3.125 MG PO SCH ×2 (10:03→20:26)
[2019-05-03] MEDS: Nystatin OINT* 15 GM TOPICAL SCH ×2 (10:04→20:26)
[2019-05-03] MEDS: Scopolamine 1.5 mg* PATCH TRANSDERM SCH (15:44)
[2019-05-03] MEDS: fentaNYL PATCH 50 MCG/HR TRANSDERM SCH (15:52)
[2019-05-03] MEDS ORDERED: Scopolamine PATCH Remove* 1 NOTE MISC PATCH OFF SCH (16:00)
[2019-05-03] MEDS: oxyCODONE TAB* 5 MG TAB PO PRN (20:26)
[2019-05-04] MEDS: Magic M W2 Ben/Maal/Nyst/Lido* 240 ML MOUTHWASH (alt formulation) SWISH SWAL SCH ×4 (06:45→20:16)
[2019-05-04] MEDS: fentaNYL Patch Check Q Shift 1 NOTE FOLLOW UP SCH ×2 (06:47→18:32)
[2019-05-04] MEDS: Lisinopril TAB* 10 MG PO SCH (07:52)
[2019-05-04] MEDS: Carvedilol TAB* 3.125 MG PO SCH ×2 (07:52→21:09)
[2019-05-04] MEDS: Mometasone/Formoter 200/5 MDI INH SCH (08:14)
[2019-05-04] MEDS: SPIRIVA Respimat* (tiotropium) 2.5 mcg/inh Inhaler INH SCH (08:15)
[2019-05-04] MEDS: Apixaban* 5 MG TAB PO SCH ×2 (08:56→20:16)
[2019-05-04] MEDS: Nystatin OINT* 15 GM TOPICAL SCH ×2 (08:56→20:16)
[2019-05-04] MEDS: oxyCODONE TAB* 5 MG TAB PO PRN (19:51)
[2019-05-04] MEDS: Ondansetron TAB* 4 MG PO PRN (19:51)
[2019-05-05] MEDS: Mometasone/Formoter 200/5 MDI INH SCH ×3 (05:04→19:11)
[2019-05-05] MEDS: Magic M W2 Ben/Maal/Nyst/Lido* 240 ML MOUTHWASH (alt formulation) SWISH SWAL SCH ×4 (06:19→22:13)
[2019-05-05] MEDS: fentaNYL Patch Check Q Shift 1 NOTE FOLLOW UP SCH ×3 (06:44→19:11)
[2019-05-05] MEDS: SPIRIVA Respimat* (tiotropium) 2.5 mcg/inh Inhaler INH SCH (07:49)
[2019-05-05] MEDS: Apixaban* 5 MG TAB PO SCH ×2 (08:52→21:47)
[2019-05-05] MEDS: Nystatin OINT* 15 GM TOPICAL SCH ×2 (08:52→22:39)
[2019-05-05] MEDS: Lisinopril TAB* 10 MG PO SCH (08:52)
[2019-05-05] MEDS: Carvedilol TAB* 3.125 MG PO SCH ×3 (08:52→22:04)
[2019-05-05] MEDS: oxyCODONE TAB* 5 MG TAB PO PRN ×2 (13:50→22:56)
[2019-05-05] MEDS: Ondansetron TAB* 4 MG PO PRN (17:00)
[2019-05-06] MEDS ORDERED: guaiFENesin ER TAB 600 MG PO PRN (03:30)
[2019-05-06] MEDS: Polyethylene Glycol 3350* 17 GM PACKET PO PRN (06:02)
[2019-05-06] MEDS: fentaNYL Patch Check Q Shift 1 NOTE FOLLOW UP SCH ×2 (07:19→18:11)
[2019-05-06] MEDS: Mometasone/Formoter 200/5 MDI INH SCH ×2 (07:44→19:54)
[2019-05-06] MEDS: SPIRIVA Respimat* (tiotropium) 2.5 mcg/inh Inhaler INH SCH (07:44)
[2019-05-06] MEDS: Lisinopril TAB* 10 MG PO SCH (09:54)
[2019-05-06] MEDS: Carvedilol TAB* 3.125 MG PO SCH ×2 (10:04→21:43)
[2019-05-06] MEDS: Nystatin OINT* 15 GM TOPICAL SCH ×2 (10:05→21:44)
[2019-05-06] MEDS: Apixaban* 5 MG TAB PO SCH ×2 (10:05→21:43)
[2019-05-06] MEDS: Magic M W2 Ben/Maal/Nyst/Lido* 240 ML MOUTHWASH (alt formulation) SWISH SWAL SCH ×4 (10:06→21:46)
[2019-05-06] MEDS: Ondansetron TAB* 4 MG PO PRN ×2 (14:26→18:31)
[2019-05-06] MEDS: fentaNYL PATCH 50 MCG/HR TRANSDERM SCH (15:48)
[2019-05-06] MEDS: Scopolamine 1.5 mg* PATCH TRANSDERM SCH (15:51)
[2019-05-07] MEDS: fentaNYL Patch Check Q Shift 1 NOTE FOLLOW UP SCH ×2 (06:00→18:39)
[2019-05-07] MEDS: Mometasone/Formoter 200/5 MDI INH SCH ×2 (08:04→19:40)
[2019-05-07] MEDS: SPIRIVA Respimat* (tiotropium) 2.5 mcg/inh Inhaler INH SCH (08:04)
[2019-05-07] MEDS: Magic M W2 Ben/Maal/Nyst/Lido* 240 ML MOUTHWASH (alt formulation) SWISH SWAL SCH ×5 (08:12→20:28)
[2019-05-07] MEDS: Apixaban* 5 MG TAB PO SCH ×2 (08:12→20:25)
[2019-05-07] MEDS: Nystatin OINT* 15 GM TOPICAL SCH ×2 (08:12→20:27)
[2019-05-07] MEDS: Polyethylene Glycol 3350* 17 GM PACKET PO PRN (08:12)
[2019-05-07] MEDS: Ondansetron TAB* 4 MG PO PRN (08:12)
[2019-05-07] MEDS: Carvedilol TAB* 3.125 MG PO SCH ×2 (08:12→20:25)
--- NOTE | 2019-05-07 12:37 | PN ---
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 Patient reports he is doing relatively well. Appetite and energy seem to be waxing and waning. No significant pain. Continues to be quite limited physically.] Objective: [ Vital Signs: Temp Pulse Resp BP Pulse Ox 97.1 F 96 16 95/64 92 05/07/19 11:00 05/07/19 11:00 05/07/19 11:00 05/07/19 11:00 05/07/19 11:00 Acetaminophen (Tylenol Tab*) 650 mg PO Q4H PRN PRN Reason: mild pain/fever Albuterol/Ipratropium (Duoneb (Albuterol 2.5 Mg/Ipratropium 0.5 Mg)) 1 neb INH Q4H PRN PRN Reason: SOB/WHEEZING Apixaban (Eliquis*) 5 mg PO BID [facility] Last Admin: 05/07/19 08:12 Dose: 5 mg Carvedilol (Coreg Tab*) 3.125 mg PO BID [facility] Last Admin: 05/07/19 08:12 Dose: 3.125 mg Fentanyl (Duragesic Patch 50 Mcg/Hr*) 50 mcg TRANSDERM Q72H [facility] Last Admin: 05/06/19 15:48 Dose: 50 mcg Guaifenesin (Mucinex*) 600 mg PO BID PRN PRN Reason: THROAT MUCUS Last Admin: 05/06/19 06:02 Dose: 600 mg Lorazepam (Ativan Tab(*)) 0.5 mg PO Q4H PRN PRN Reason: ANXIETY Last Admin: 05/03/19 02:11 Dose: 0.5 mg Mometasone Furoate/Formoterol Fumar (Dulera 200/5 Mdi*) 2 puff INH BID [facility] Last Admin: 05/07/19 08:04 Dose: Not Given Multi-Ingredient Mouthwash/Gargle (Magic M W2 Kalen/Maal/Nyst/Lido*) 5 ml SWISH SWAL 0700,1100,1630,2100 [facility] Last Admin: 05/07/19 10:36 Dose: 5 ml Nystatin (Nystatin Oint*) 1 applic TOPICAL BID [facility] Last Admin: 05/07/19 08:12 Dose: 1 applic Ondansetron HCl (Zofran Tab*) 4 mg PO Q4HR PRN PRN Reason: NAUSEA/VOMITING Last Admin: 05/07/19 08:12 Dose: 4 mg Oxycodone HCl (Roxycodone Tab*) 5 mg PO Q4H PRN PRN Reason: PAIN - MODERATE Last Admin: 05/05/19 22:56 Dose: 5 mg Pharmacy Profile Note (Fentanyl Patch Check Q Shift) 1 note FOLLOW UP 0700, 1900 [facility] Last Admin: 05/07/19 06:00 Dose: 1 note Pharmacy Profile Note (Scopolamine Patch Remove*) 1 note PATCH OFF .AFTER 72 HOURS [facility] Polyethylene Glycol/Electrolytes (Miralax*) 17 gm PO DAILY PRN PRN Reason: CONSTIPATION Last Admin: 05/07/19 08:12 Dose: 17 gm Scopolamine (Transderm-Scop 1.5 Mg Patch*) 1 patch TRANSDERM Q72H [facility] Last Admin: 05/06/19 15:51 Dose: 1 patch Tiotropium [place] (Spiriva Respimat 2.5 Mcg) 2 puff INH DAILY [facility] Last Admin: 05/07/19 08:04 Dose: Not Given Exam: Gen: 73 yo male who appears mildly fatigued, but is in NAD HEENT: MMM CV: RRR, no m/r/g Abd: soft, nonTTP Ext: trace LE edema] [Assessment: []73 year old with SCLC right side chest wall, T4 cN0 Mx, with sq nodules on CT scan. Admission after 1/2 course of XRT to chest wall mass for MS changes. 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 He was transitioned to swing status last week while awaiting results of biopsy from L chest wall to determine further treatment direction. Biopsy has now been resulted as benign. Plan: [1. NSCLC - L chest wall mass is benign, likely represents a lipoma - plan to resume RT, questioning whether to resume concurrent chemotherapy due to compromised performance status, pt and his would like to try resuming chemotherapy with a low threshold to stop - RT plan has been transferred to Dr Goldstein from Dr Carrington in [place] with hopes to resume later this week - 17 fractions of RT remaining with weekly carboplatin and taxol x 4 cycles 2. Encephalopathy - resolved 3. Afib - anticoagulated with Eliquis - generally rate controlled or sinus 4. Deconditioning - cont to work with PT, dispo to [facility] ]
--- OUTSIDE RECORDS SUMMARY | 2019-05-07 14:04 | XMS REPORT | Continuity of Care Document ---
:1945 External Reference #:[id number] Author Name Adal Billings M.D. (transmitted by agent of provider Bren Kessler) Address [address] 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 Problems Description No Information Available Social History Type Date Description Comments Sex Unknown Allergies, Adverse Reactions, Alerts Description No Information Available Medications Description No Information Available Immunizations Description No Information Available Vital Signs Description No Information Available Results Description No Information Available Procedures Description No Information Available Medical Devices Description No Information Available Encounters Type Date Location Provider Dx Diagnosis Office Visit 04/09/2019 [facility] Facundo Velasquez, C34.91 Malignant neoplasm 12:40p [facility] part of [place] right bronchus or lung I48.91 Unspecified atrial fibrillation Z79.01 group home (current) use of anticoagulants Assessments Date Code Description Provider 04/09/2019 C34.91 Malignant neoplasm of unspecified part of right Facundo Velasquez M.D. bronchus or lung 04/09/2019 I48.91 Unspecified atrial fibrillation Facundo Velasquez M.D. 04/09/2019 Z79.01 group home (current) use of anticoagulants Facundo Velasquez M.D. Plan of Treatment No Information Available Functional Status Description No Information Available Mental Status Description No Information Available Referrals Description No Information Available
--- OUTSIDE RECORDS SUMMARY | 2019-05-07 14:04 | XMS REPORT | Continuity of Care Document ---
:1945 External Reference #:[id number] Author Name Adal Billings M.D. 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 [phone] Problems Description No Information Available Social History Type Date Description Comments Sex Unknown Allergies, Adverse Reactions, Alerts Description No Information Available Medications Description No Information Available Immunizations Description No Information Available Vital Signs Description No Information Available Results Description No Information Available Procedures Description No Information Available Medical Devices Description No Information Available Encounters Type Date Location Provider Dx Diagnosis Office Visit 04/09/2019 [facility] Facundo Velasquez, C34.91 Malignant neoplasm 12:40p [facility] part of [place] right bronchus or lung I48.91 Unspecified atrial fibrillation Z79.01 [facility] (current[facility] use of anticoagulants Assessments Date Code Description Provider 04/09/2019 C34.91 Malignant neoplasm of unspecified part of right Facundo Velasquez M.D. bronchus or lung 04/09/2019 I48.91 Unspecified atrial fibrillation Facundo Velasquez M.D. 04/09/2019 Z79.01 jail (current[facility] use of anticoagulants Facundo Velasquez M.D. Plan of Treatment No Information Available Functional Status Description No Information Available Mental Status Description No Information Available Referrals Description No Information Available
[2019-05-07] MEDS: Ondansetron INJ* 2 MG/ML VIAL IV PRN (21:09)
[2019-05-08] MEDS: fentaNYL Patch Check Q Shift 1 NOTE FOLLOW UP SCH (06:48)
[2019-05-08] MEDS: Ondansetron INJ* 2 MG/ML VIAL IV PRN (06:57)
[2019-05-08] MEDS: LORazepam TAB(*) 0.5 MG PO PRN (06:57)
[2019-05-08] MEDS: Mometasone/Formoter 200/5 MDI INH SCH (07:24)
[2019-05-08] MEDS: SPIRIVA Respimat* (tiotropium) 2.5 mcg/inh Inhaler INH SCH (07:24)
[2019-05-08] MEDS ORDERED: Adenosine* 3 MG/ML VIAL IV PUSH PRN (08:41)
[2019-05-08] MEDS ORDERED: Adenosine* 3 MG/ML VIAL IV PUSH ONE (08:41)
[2019-05-08 08:52] LABS: ABS Lymphocytes 0.4 10^3/ul (1.0-4.8); ABS Monocytes 0.3 10^3/ul (0-0.8); ABS Neutrophils 3.2 10^3/ul (1.5-7.7); Hematocrit 37 % (42-52); Hemoglobin 12.3 g/dL (14.0-18.0); Lymphocyte % 10.6 %; Mean Corpuscular HGB Conc 33 g/dL (31-36); Mean Corpuscular Hemoglobin 30 pg (27-31); Mean Corpuscular Volume 90 fL (80-94); Mean Platelet Volume 7.4 fL (7.4-10.4); Nucleated Red Blood Cells % 0.1; Platelet Count 83 10^3/uL (150-450); Red Blood Count 4.15 10^6 /uL (4.18-5.48); Red Cell Distribution Width 17 % (10-15); White Blood Count 3.9 10^3/uL (3.5-10.8)
[2019-05-08 09:09] LABS: ALT 19 U/L (7-52); AST 23 U/L (13-39); Albumin/Globulin Ratio 1.1 (1-3); Alkaline Phosphatase 64 U/L (34-104); Anion Gap 9 mmol/L (2-11); BUN/Creatinine Ratio 24.1 (8-20); Blood Urea Nitrogen 21 mg/dL (6-24); CO2 Carbon Dioxide 33 mmol/L (22-32); Calcium 8.7 mg/dL (8.6-10.3); Chloride 94 mmol/L (101-111); EGFR African American 103.8 (>60); EGFR Non-African American 85.8 (>60); Globulin 2.7 g/dL (2-4); Glucose 157 mg/dL (70-100); Potassium 4.4 mmol/L (3.5-5.0); Sodium 136 mmol/L (135-145); Total Protein 5.7 g/dL (6.4-8.9)
[2019-05-08] MEDS ORDERED: NS 0.9% 250 ML* 250 ML IV ONE (09:09)
[2019-05-08 09:13] LABS: Troponin I 2.67 ng/mL (<0.03)
[2019-05-08] MEDS ORDERED: Midazolam* 1 MG/ML 5 ML VIAL (5 MG) ONE (09:53)
[2019-05-08] MEDS ORDERED: Naloxone* 0.4 MG/ML 1 ML VIAL ONE (09:54)
[2019-05-08] MEDS ORDERED: fentaNYL* 50 MCG/ML 2 ML VIAL (100 MCG VIAL) ONE (09:54)
[2019-05-08] MEDS ORDERED: Flumazenil* 0.1 MG/ML 5 ML MDV ONE (09:54)
--- NOTE | 2019-05-08 10:05 | OP ---
Operative Report - Blank - Operative Report Date of Operation: 05/08/19 - Prelim procedure note Note: The pt was in atrial flutter, RVR, hypotensive. Given 2 mg versed, succesful electrical CV to NSR BP improved from 80-90 systolic to 98 systolic, currently in NSR 100 bpm. Plan: transfer to ICU Full dictation to follow.
[2019-05-08 10:56] VITALS: BP 99/66
--- NOTE | 2019-05-08 11:32 | CONS ---
CONSULTATION REPORT: DATE OF CONSULT: 05/08/19 ATTENDING PHYSICIAN: Dr. Evi Noriega * (DICTATED BY ALEXA DASILVA NP) PRIMARY PHYSICIAN: Dr. Dalton. PRIMARY AFTER SCHOOL PROGRAM TEACHER: None. CHIEF COMPLAINT: Lightheadedness. HISTORY OF PRESENT ILLNESS: This is a pleasant 73-year-old male patient with a notable history of moderate aortic stenosis; recurrent DVTs, on Eliquis therapy ; lung cancer with large right upper lobe mass; hypertension; reported TX and CAD, medically treated per patient. The patient presented to [facility] on 05/04/19 due to altered mental status that occurred at his radiation oncologist appointment. The patient was admitted for altered mental status and sepsis. I spoke to Vic Guevara, a physician carpenter's assistant with Hematology/Oncology, who states that source of infection was felt to be GI. The patient has been admitted since and has been awaiting placement. There is medical documentation stating that he has a history of paroxysmal AFib; however, the patient's deny any history of AFib. We were asked to see the patient urgently in consultation due to tachyarrhythmia with hypotension. The patient's only complaint is lightheadedness and dizziness. He is alert and oriented with his at bedside. Denies chest pain. He states that his breathing is slightly labored with any type of activity, but not profound. Denies edema. Denies palpitations or sensation of heart racing, thus we are asked to see the patient in consultation. Last echocardiogram was on 04/30/19. At that time, LVEF was 50 to 55% per report, moderate aortic stenosis. There was no diagnostic regional wall motion abnormality; however, the possibility could not be ruled out completely by this echocardiogram study per report. Mild ascending aortic dilatation. Last ischemic evaluation per patient. He denies any history of cardiac catheterization, unable to inform me whether or not he has had a stress test in the past 5 years. PAST MEDICAL HISTORY: 1. Non-small cell lung cancer, on radiation and carboplatin/Taxol since . 2. Hypertension. 3. Reported TX and coronary artery disease, treated medically. 4. Recurrent DVTs, on Eliquis therapy. 5. Likely COPD. 6. Obesity. 7. Moderate aortic stenosis. 8. Mild transthoracic ascending aortic dilatation per echo report. PAST SURGICAL HISTORY: Include pilonidal cyst removal. HOME MEDICATIONS: According to admission med rec: 1. Coreg 3.125 mg p.o. b.i.d. 2. Eliquis 5 mg p.o. b.i.d. 3. Oxycodone 10 mg once p.r.n. 4. Fentanyl 50 mcg p.o. q.32 h. 5. Scopolamine 1.5 mg transdermal patch q.72 h. 6. Zofran 4 mg p.o. q.4 h. p.r.n. 7. Lisinopril 20 mg a day 8. Ativan 0.5 mg a day. 9. Decadron 8 mg a day. ALLERGIES: Listed include STATINS and SEASONAL ALLERGIES. FAMILY HISTORY: Sister had breast cancer, uncle had possible cancer, otherwise noncontributory. SOCIAL HISTORY: The patient is a former smoker between ages 14 and 59, 2 packs per day. Denies significant alcohol use. He is retired and and lives at home with his . He is a DNR. REVIEW OF SYSTEMS: All systems have been reviewed and otherwise negative except as mentioned in the HPI. PHYSICAL EXAM: The patient is sitting upright in bed, appears in no apparent distress. He is alert and oriented x3, although complaining of dizziness, lightheadedness. His is at bedside. HEENT: Head is atraumatic, normocephalic. Oral mucosa is moist. Tongue is midline. Neck is supple. Trachea midline. No JVD. No carotid bruits. Cardiac: Tachycardic. S1, S2. Irregular rate and regular rhythm. No murmur, gallop, or rub noted. Lungs: Auscultated posteriorly, diffuse rales noted throughout. Respirations are nonlabored. The patient is on nasal cannula oxygen. Abdomen: Obese, nontender , hypoactive bowel sounds x4, unable to assess for hepatomegaly due to the patient's body habitus. Extremities: Trace pretibial edema noted bilaterally, otherwise no clubbing, no cyanosis. Skin: Intact. No jaundice, rashes, or ecchymosis. DIAGNOSTIC STUDIES/LAB DATA: Blood work from 05/02/19: Sodium 142, potassium 3.8, chloride 103, carbon dioxide 37, creatinine 0.64, troponin negative x3. White count from 05/08/19 is 3.9, hemoglobin 12.3, hematocrit 37, platelets 83, 000. Chest x-ray from 05/08/19 per report, mass in right hemithorax is re- demonstrated, no evidence of pulmonary edema, hypoinflated lungs with no focal airspace opacification. ECG, 05/08/19; reviewed. Supraventricular tachycardia with minimal anterolateral ST-segment depression. I reviewed telemetry when heart rate was 110, interval was irregular concerning for probable underlying AFib. ECG from 04/25/19 reviewed, AFib/flutter, rate 112 with isolated PVCs. ASSESSMENT AND PLAN: 1. Symptomatic tachyarrhythmia; it appears that patient is having underlying AFib/flutter when the ventricular rate slowed down to 110 to 112 beats per minute. ECG from 04/25/19 revealed atrial flutter, rate 111. He has been on Eliquis therapy uninterrupted for at least a week and half per Hematology/ Oncology. He is hemodynamically unstable, systolic pressure is 61 manifesting with symptoms of lightheadedness, dizziness. We will give 250 cc bolus of normal saline. Plan for cardioversion today, patient is n.p.o. We will cycle isoenzymes and follow closely. 2. Sepsis, probable GI source; defer to primary team, white count is normal. The patient is afebrile. 3. Thrombocytopenia. Platelets today are 83,000. Prior to his 04/25/19 admission, platelet count had been normal. He is on Eliquis therapy. We will defer to primary team. 4. History of moderate aortic stenosis. He appears compensated on physical examination. 5. History of non-small cell lung cancer, on radiation and carboplatin/Taxol since 03/24/19, defer to primary team. 6. Disposition: Pending course. The patient is DNR. We will plan for cardioversion today. We will follow closely given patient is currently hemodynamically unstable with tachyarrhythmia concerning for AFib with rapid ventricular rate response, on Eliquis therapy. Dr. Evi Noriega agrees with the above assessment and plan. ALEXA DASILVA, MUSHROOM SPAWN MAKER [id number]/[facility] #: [id number] [facility]
--- NOTE | 2019-05-10 10:57 | CONS ---
CC: Dr. Kuldip Carrington; Dr. Facundo Velasquez; Dr. Noah Goldstein; Dr. Jacob Dalton; Dr. vEi Noriega * RADIATION ONCOLOGY INPATIENT CONSULTATION NOTE: DATE OF SERVICE: 05/07/19 RADIATION ONCOLOGY: Dr. Kuldip Carrington, [place]. DIAGNOSIS: Kgy-[id number]-[id number] lung cancer, AJCC stage III. REFERRING PHYSICIAN: Dr. Facundo Velasquez. PERFORMANCE STATUS: ECOG 3. HISTORY OF PRESENT ILLNESS: Ranjit Barragan is a 73-year-old gentleman who presented with right subscapular pain and found to have extensive right upper lung mass with invasion into the ribs and chest wall posteriorly. 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 He initiated chemotherapy as well as thoracic radiation therapy under the care of Dr. Carrington in [place]. He received 16 of 33 planned radiation treatments through 04/22/19. He had hospital admission and treatment was interrupted, but has stabilized and is referred for radiation oncology consultation, although he cannot be discharged from the hospital at this point and I am asked to see him for continuation of thoracic radiation therapy. He reports that his pain is somewhat improved. His breathing is stable. He feels extremely tired and weak, but has no other symptomatic complaints or concerns reported. PAST MEDICAL HISTORY: 1. Twr-[id number] lung cancer as in history of present illness. 2. History of COPD. 3. Atrial fibrillation. 4. DVT. 5. Myocardial infarction. MEDICATIONS: As per the inpatient record. ALLERGIES: STATINS. FAMILY HISTORY: Significant for his sister with breast cancer. SOCIAL HISTORY: He is a former smoker. REVIEW OF SYSTEMS: As in history of present illness; otherwise, complete review of systems as per the patient without additional significant findings reported. PHYSICAL EXAM: General: He is awake, alert, oriented, and in no acute distress. Vital Signs: Temperature 98.5, pulse rate 99, respiratory rate 21, oxygen saturation 95% on oxygen 2 L, blood pressure 97/68. HEENT: Normocephalic, atraumatic. Sclerae anicteric. Neck: Supple. Full range of motion, midline trachea. No masses palpable in the neck or thyroid. Lungs: With distant breath sounds and coarse rhonchi, scattered. Relatively symmetric air entry bilaterally. Cardiovascular: S1, S2, regular. Abdomen: Soft and nontender. No mass, no organomegaly. Extremities: Bilateral lower extremity edema. ASSESSMENT AND PLAN: Ranjit Barragan is a 73-year-old gentleman receiving thoracic radiation therapy with concurrent chemotherapy for amx-esree-hvza lung cancer with treatment interruption due to hospitalization and intercurrent illness. I did review with the patient consideration of continuation of thoracic radiation therapy as he does seem to be responding with improvement in pain control and medically has become relatively stable. I explained the risks , benefits, and alternatives to additional radiation therapy and answered his questions to the best of my ability. He is inclined to proceed with additional thoracic radiation therapy as discussed and did sign informed consent. I will continue his initial treatment plan to deliver an additional 3400 cGy at 200 cGy per fraction for a cumulative planned thoracic radiation dose of 6600 cGy at 200 cGy per fraction. Thank you for giving me the opportunity to participate in the care of this very pleasant gentleman. [id number]/[facility] #: [id number] MTDD
== END 2019-05-08 09:40 | disposition short-term general hospital (02) | DRG 181 ==
LOC: MEDTELE 15:17 → ICU 05-08 09:38 → MEDTELE 05-08 09:38
PROVIDERS: ADMIT Physician Assistant; ATTEND Internal Medicine Hematology & Oncology
PROC: 5A2204Z Restoration of Cardiac Rhythm, Single (ICD-10-PCS; principal; 2019-05-08 09:45)
DX: C34.91 Malignant neoplasm of unspecified part of right bronchus or lung (principal); I48.92 Unspecified atrial flutter; Z68.41 Body mass index [BMI] 40.0-44.9, adult; I48.0 Paroxysmal atrial fibrillation; I10 Essential (primary) hypertension; I25.10 Atherosclerotic heart disease of native coronary artery without angina pectoris; J44.9 Chronic obstructive pulmonary disease, unspecified; E66.9 Obesity, unspecified; I48.91 Unspecified atrial fibrillation; R11.0 Nausea; I35.0 Nonrheumatic aortic (valve) stenosis; J30.2 Other seasonal allergic rhinitis; D69.6 Thrombocytopenia, unspecified; Z66 Do not resuscitate; I95.9 Hypotension, unspecified; Z79.01 Long term (current) use of anticoagulants; Z79.899 Other long term (current) drug therapy; Z86.718 Personal history of other venous thrombosis and embolism; I25.2 Old myocardial infarction; Z87.891 Personal history of nicotine dependence; Z99.81 Dependence on supplemental oxygen; Z92.21 Personal history of antineoplastic chemotherapy; Z88.8 Allergy status to other drugs, medicaments and biological substances; Z28.21 Immunization not carried out because of patient refusal
CPT/HCPCS: 36415; 71045; 80053; 83605; 84484; 85025; 92960; 93005; 99156; 99232; A9270-GY; G8978-GP-CL; J0153; J2250; J2310; J2405; J3010

== ENCOUNTER 2019-05-08 12:12 | Inpatient (IN) | payer MEDICARE ==
[2019-05-08] MEDS ORDERED: Albuterol/Ipratropium NEB.SOL* Albuterol 2.5 MG/Ipratropium 0.5 MG 3 ML INH PRN (12:40)
[2019-05-08] MEDS ORDERED: Polyethylene Glycol 3350* 17 GM PACKET PO PRN (12:40)
[2019-05-08] MEDS ORDERED: guaiFENesin ER TAB 600 MG PO PRN (12:41)
[2019-05-08] MEDS: fentaNYL PATCH 50 MCG/HR TRANSDERM SCH (13:29)
[2019-05-08] MEDS: LORazepam TAB(*) 0.5 MG PO PRN (13:30)
[2019-05-08 15:35] LABS: Troponin I 5.05 ng/mL (<0.03)
[2019-05-08 16:13] LABS: Magnesium 1.9 mg/dL (1.9-2.7)
[2019-05-08] MEDS ORDERED: Magnesium Sulfate 2 GM IV* 2 GM/50 ML BAG IVPB ONE (16:21)
[2019-05-08] MEDS: Magic Mouth Was-BEN/MAAL/LIDO SWISH SWAL SCH (17:44)
[2019-05-08] MEDS: Scopolamine 1.5 mg* PATCH TRANSDERM SCH (17:48)
--- NOTE | 2019-05-08 18:06 | HP ---
CC: Dr. Dalton; Dr. Velasquez; Dr. Goldstein; Dr. Barillas; Dr. Noriega * DISCHARGE SUMMARY FROM SWING STATUS/ADMISSION HISTORY AND PHYSICAL TO ACUTE CARE STATUS: DATE OF ADMISSION TO SWING STATUS: 05/01/19 DATE OF DISCHARGE FROM SWING STATUS AND ADMISSION TO ACUTE CARE: 05/08/19 PRIMARY CARE PROVIDER: Dr. Dalton. PRIMARY ONCOLOGIST: Dr. Velasquez. RADIATION ONCOLOGISTS: Dr. Goldstein and Dr. Barillas. CONSULTING NON DESTRUCTIVE TESTING SCIENTIST: Dr. Noriega. ATTENDING PHYSICIAN: Dr. Li Loredo.* (DICTATED BY JUSTIN POLK) DISCHARGING/ADMITTING PROVIDER: JUSTIN Polk. PRIMARY DISCHARGE DIAGNOSES/ACUTE CONCERNS AT THE TIME OF ADMISSION: 1. Rapid atrial flutter/fibrillation, status post cardioversion. 2. Recent history of encephalopathy secondary to sepsis from a gastrointestinal source, now resolved. 3. Web-hawxh-lcxz lung cancer, receiving concurrent chemotherapy and radiation. 4. Chronic obstructive pulmonary disease. MEDICATIONS AT THE TIME OF ADMISSION TO ACUTE CARE: 1. Acetaminophen 650 mg p.o. q.4 hours as needed for mild pain or fever. 2. DuoNeb 1 neb inhaled every 4 hours as needed for shortness of breath. 3. Apixaban 5 mg p.o. twice daily. 4. Carvedilol 3.125 mg p.o. twice daily. 5. Fentanyl patch 50 mcg applied transdermally and changed every 72 hours. 6. Guaifenesin 600 mg p.o. twice daily as needed for congestion. 7. Lorazepam 0.5 mg p.o. q.4 hours as needed for anxiety. 8. Magic mouthwash 5 mL swish and swallow 4 times a day. 9. Dulera 2 puffs inhaled twice daily. 10. Nystatin ointment applied topically twice daily. 11. Ondansetron 4 mg IV q.4 hours as needed for nausea and vomiting. 12. Oxycodone 5 mg p.o. q.4 hours as needed for pain. 13. MiraLAX 17 g p.o. daily as needed for constipation. 14. Scopolamine patch 1 patch applied transdermally and changed every 72 hours. 15. Spiriva 2 puffs inhaled daily. RECENT HOSPITAL IMAGING: Chest x-ray, 05/08/19, shows low lung volumes and noted right-sided lung mass, but no evidence of pulmonary edema or pleural effusion. HOSPITAL COURSE/HISTORY OF PRESENT ILLNESS: This is a 73-year-old gentleman with lnt-yysld-ifpm lung cancer of the right lower lobe who has been receiving concurrent chemotherapy and radiation under the guidance of Dr. Velasquez and Dr. Barillas. The patient was admitted due to altered mental status on 04/22/19. He was ruled out for primary PEC[employer] CLE[employer]ER pathology or acute ischemic event and eventually thought to have encephalopathy secondary to sepsis of a likely GI source that resolved with antibiotics and other supportive care measures. The patient was left significantly weak from that episode and unable to return home. Since that time, he has been on swing status at the hospital awaiting for appropriate placement, which has been complicated by the fact that he is in the middle of his chemotherapy and radiation and due to payment issues has needed to transfer his radiation treatment from Dr. Barillas in [place] to Dr. Goldstein here in our facility. Also noted, there was a left chest wall subcutaneous nodule that was suspicious for possible metastatic disease and up until this point has been treated as a limited-stage disease. 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 Plan was to resume concurrent chemotherapy and radiation. This morning, acutely, the patient became dizzy, lightheaded, and somewhat anxious when he was transferred from bed to the [facility]. He was found to be in a rapid rhythm on telemetry with heart rates between 150 and 170 beats per minute. Blood pressure was difficult to take, but systolic pressures were approximately 60 mmHg and the patient's mentation was intact, although somewhat slowed. He denied any complaints of chest pain at that time. He was transferred back to bed. Initial EKG appeared to be consistent with SVT with regular narrow complex QRS and clear P waves. Attempts were made at vagal stimulation including Valsalva maneuver, a cold washcloth to the face, and carotid massage. These attempts slowed his heart rates temporarily, but he continued to have a very fast rhythm and hypotensive. Cardiology was subsequently consulted and noted that when his heart rate was slowed, it appeared to be more consistent with atrial flutter or fibrillation as opposed to true SVT. Due to the patient's hemodynamic instability, decision was made to cardiovert him. He was taken to the cardiology suite by Dr. Noriega , who successfully cardioverted him to a normal sinus rhythm and the patient was transferred to ICU following the procedure. Upon reevaluation, the patient reports that he is feeling slightly better and reports that his dizziness, lightheadedness, and feelings of anxiety have resolved. Of note, the patient's initial EKG did not show any ischemic changes. His initial troponin was 2.67, thought to most likely be related to his tachycardia. Repeat troponin is 5.05. Again, the patient denies any chest pain. PAST MEDICAL HISTORY: 1. Lqc-tvvyu-vsni lung cancer. 2. COPD. 3. History of DVTs. 4. Paroxysmal AFib. 5. History of [place]. FAMILY HISTORY: Sister had breast cancer. Uncle had an unspecified type of cancer. SOCIAL HISTORY: The patient is a former smoker, approximately 43-[id number]-[id number] history. Denies any significant alcohol use. He lives at home with his . REVIEW OF SYSTEMS: A complete 14-point review of systems is negative, except as per HPI, please refer. PLAN: 1. Continue to cycle troponins and obtain limited to echo to evaluate for regional wall motion abnormalities that may indicate an acute ischemic event. 2. Continue telemetry monitoring in the ICU, but we will consider transfer out of ICU tomorrow morning if he remains stable. 3. Plan to maintain beta blockade with carvedilol and potassium greater than 4 , magnesium greater than 2. 4. Plan to continue with plans to resume radiation therapy and we will consider whether the patient is medically fit to resume concurrent chemotherapy. DISPOSITION: The patient has been admitted to ICU from swing status and has anticipated length of stay to be greater than 2 midnights. The patient will eventually require discharge to subacute rehab and Case Management has been involved in this process. JUSTIN POLK [id number]/[facility] #: [id number] ALEXANDRA
[2019-05-08 18:29] LABS: Troponin I 5.52 ng/mL (<0.03)
--- NOTE | 2019-05-08 19:08 | CONSULT ---
Subjective Date of Service: 05/08/19 - CC: dizzy, in atrial flutter. Interval History: Full consult note being dictated by OBGYN NURSE Amparo Dudley. I was asked to see patient for acute onset of SVT. Pt unaware of rapid heart beat, but feels dizzy since getting off comode (see Vic Mejia's note). No CP, no acute change in chronic SOB. Family History: Unchanged from Admission Social History: Unchanged from Admission Past Medical History: Unchanged from Admission - Includes non small cell lung CA , poss. CAD base on chart hx, HTN, DVT's, COPD, Medications Active Medications: Acetaminophen (Tylenol Tab*) 650 mg PO Q4H PRN PRN Reason: mild pain/fever Albuterol/Ipratropium (Duoneb (Albuterol 2.5 Mg/Ipratropium 0.5 Mg)) 1 neb INH Q4H PRN PRN Reason: SOB/WHEEZING Apixaban (Eliquis*) 5 mg PO BID [facility] Carvedilol (Coreg Tab*) 3.125 mg PO BID [facility] Fentanyl (Duragesic Patch 50 Mcg/Hr*) 50 mcg TRANSDERM Q72H [facility] Last Admin: 05/08/19 13:29 Dose: 50 mcg Guaifenesin (Mucinex*) 600 mg PO BID PRN PRN Reason: mucous Lorazepam (Ativan Tab(*)) 0.5 mg PO Q4H PRN PRN Reason: ANXIETY Last Admin: 05/08/19 13:30 Dose: 0.5 mg Mometasone Furoate/Formoterol Fumar (Dulera 200/5 Mdi*) 2 puff INH BID [facility] Multi-Ingredient Mouthwash/Gargle (Magic Mouth Was-Kalen/Maal/Lido*) 5 ml SWISH SWAL 0700,1100,1630,2100 [facility] Last Admin: 05/08/19 17:44 Dose: 5 ml Nystatin (Nystatin Oint*) 1 applic TOPICAL BID [facility] Ondansetron HCl (Zofran Inj*) 4 mg IV Q4H PRN PRN Reason: NAUSEA/VOMITING Oxycodone HCl (Roxycodone Tab*) 5 mg PO Q4H PRN PRN Reason: PAIN - MODERATE Pharmacy Profile Note (Fentanyl Patch Check Q Shift) 1 note FOLLOW UP 0700, 1900 [facility] Pharmacy Profile Note (Scopolamine Patch Remove*) 1 note PATCH OFF Q72H [facility] Polyethylene Glycol/Electrolytes (Miralax*) 17 gm PO DAILY PRN PRN Reason: CONSTIPATION Scopolamine (Transderm-Scop 1.5 Mg Patch*) 1 patch TRANSDERM Q72H [facility] Last Admin: 05/08/19 17:48 Dose: 1 patch Tiotropium [place] (Spiriva Respimat 2.5 Mcg) 2 puff INH DAILY [facility] Home Medications: Carvedilol TAB* [Coreg TAB*] 3.125 mg PO BID 01/04/19 [History Confirmed ] LORazepam TAB(*) [Ativan 0.5 MG TAB (*)] 0.5 mg PO ONCE PRN 04/05/19 [History Confirmed 05/01/19] Lisinopril TAB* [Prinivil TAB*] 20 mg PO DAILY 04/05/19 [History Confirmed 05/01] Ondansetron TAB* [Zofran 4 MG Tab*] 4 mg PO Q4HR PRN 04/05/19 [History Confirmed 05/01/19] fentaNYL PATCH 50 MCG/HR* [Duragesic PATCH 50 Mcg/Hr*] 50 mcg TRANSDERM Q72H [History Confirmed 05/01/19] oxyCODONE TAB* [Roxycodone TAB 5 mg*] 10 mg PO ONCE PRN 04/05/19 [History Confirmed 05/01/19] Apixaban* [Eliquis*] 5 mg PO BID 04/22/19 [History Confirmed 05/01/19] Dexamethasone TAB* [Decadron TAB*] 8 mg PO DAILY 04/22/19 [History Confirmed ] Scopolamine 1.5 mg* PATCH* [Transderm-Scop 1.5 mg Patch*] 1 patch TRANSDERM Q72H 04/22/19 [History Confirmed 05/01/19] Review of Systems - Measurements Intake and Output: Intake and Output Last 24 Hours 05/06/19 05/07/19 05/08/19 05/09/19 04:59 04:59 04:59 04:59 Intake Total 0 Output Total 0 Balance 0 Weight 264 lb 1.82 oz Intake: IV Fluids 0 NS (0.9%) 0 Oral 0 Output: Urine 0 - Review of Systems General Comments: No palpitations, no CP, +dizzy/lightheaded and weak. +orthopnea, chronic. Review of Systems Statement: All other review of systems negative, unless stated above. Objective Vital Signs: Temp Pulse Resp BP Pulse Ox 98.9 F 91 18 92/55 98 05/08/19 16:17 05/08/19 17:30 05/08/19 18:00 05/08/19 17:30 05/08/19 17:30 Vital Signs 05/08/19 05/08/19 05/08/19 11:25 13:00 13:07 Temperature 98.5 F Pulse Rate 99 100 Respiratory 21 24 25 Rate Blood Pressure 97/68 (mmHg) O2 Sat by Pulse 92 95 Oximetry 05/08/19 05/08/19 05/08/19 13:29 13:30 14:00 Temperature Pulse Rate 101 Respiratory 24 22 18 Rate Blood Pressure 87/61 (mmHg) O2 Sat by Pulse 94 Oximetry 05/08/19 05/08/19 05/08/19 14:23 14:26 14:30 Temperature Pulse Rate 97 98 Respiratory 19 18 27 Rate Blood Pressure 97/66 90/68 (mmHg) O2 Sat by Pulse 97 97 Oximetry 05/08/19 05/08/19 05/08/19 15:00 15:29 15:30 Temperature Pulse Rate 100 97 99 Respiratory 20 18 16 Rate Blood Pressure 93/66 95/62 (mmHg) O2 Sat by Pulse 94 99 100 Oximetry 05/08/19 05/08/19 05/08/19 16:00 16:17 16:30 Temperature 97.5 F 98.9 F Pulse Rate 98 Respiratory 26 20 Rate Blood Pressure 87/54 (mmHg) O2 Sat by Pulse 96 Oximetry 05/08/19 05/08/19 05/08/19 16:54 16:55 17:00 Temperature Pulse Rate 98 98 96 Respiratory 19 19 18 Rate Blood Pressure 84/57 87/58 90/59 (mmHg) O2 Sat by Pulse 96 97 98 Oximetry 05/08/19 05/08/19 17:30 18:00 Temperature Pulse Rate 91 Respiratory 16 18 Rate Blood Pressure 92/55 (mmHg) O2 Sat by Pulse 98 Oximetry Oxygen Devices in Use Now: Nasal Cannula Appearance: Very overweight male, calm, appears chronically ill. Eyes: No Scleral Icterus Ears/Nose/Mouth/Throat: Clear Oropharnyx Neck: Trachea Midline, No Thyroid Enlargement, Masses Respiratory: - - rhonchorous cough and breath sounds Cardiovascular: - - irregular and tachycardic. Abdominal: - - obese, normal bowel sounds, non tender. Laboratory Results: 05/08/19 05/08/19 15:05 18:00 Troponin I 5.05 H* 5.52 H* Laboratory Results - last 24 hr 05/08/19 05/08/19 05/08/19 15:05 16:12 18:00 Lactic Acid 1.7 1.3 Magnesium 1.9 Troponin I 5.05 H* 05/08/19 18:00 Lactic Acid Magnesium Troponin I 5.52 H* [facility] 05/08/19 reviewed, unable to import, K+ 4.4 Diagnostic Imaging: *[facility]* [place] [address] Fax #: [phone] Transthoracic Echocardiogram Patient: Ranjit Barragan : 1945 Study Date: 04/30/2019 Age: 73 Gender: M HR: 100 bpm Height: 68 in /172.7 cm BSA: 2.34 m^2 Weight: 274.4 lb /124.7 kg BMI: 41.8 kg/m^2 *Loom Operator Apprentice: Alexandra Rocha [facility] *Referring Physician: * Kate Matthew *Reading Physician: * Rajeev Daniels MD Indications: Abnormal EKG. History: Lung cancer. Coronary artery disease. Chronic obstructive pulmonary disease. PMH: Myocardial infarction. Risk factors: Former tobacco use. Hypertension. Conclusions Summary: - Overall poor acustic images. Poor apical and subcostal views. - Left ventricle: Systolic function is normal. The estimated ejection fraction is 50-55%. Although no diagnostic regional wall motion abnormality is identified, this possibility cannot be completely excluded on the basis of this study. - Right ventricle: The cavity size is normal. Wall thickness is mildly increased. Systolic function is mildly reduced. - Mitral valve: There is no significant regurgitation. - Aortic valve: The findings are consistent with moderate stenosis. The mean systolic gradient is 12.0 mm Hg. The LVOT to aortic valve VTI ratio is 0.3. The valve area by the peak velocity method is 1.10 cm^2. - Tricuspid valve: There is no significant regurgitation. - Pulmonary arteries: Systolic pressure can not be accurately estimated. This report is only to be considered final once signed by the Provider(s) as displayed in the "<Electronically Signed by >" field (s). Absence of a signature indicates the report is in a draft status and still needs to be finalized. In the event this document was created by someone other than the signing Provider, the individual initiating the document will be listed in the "Entered by:" or "Dictated by:" andre. EKG Data: ECG show atrial flutter, RVR Post CV: NSR 90's, no significant ST changes. Assessment/Plan 73 yo with lung CA, acute onset of dizziness transferring from the commode with ECG show new atrial flutter, RVR. With this he was hypotensive. Cardioverted this AM with improvement in BP but still under 100 systolic. Atrial flutter: -Continue with anticoagulation for stroke prevention -Continue with Coreg for now. -Would benefit from and antiarrhythmics, but with possible CAD options of Sotalol, Multac, amiodarone and Tikosyn. Multaq might be the safest but is the least effective. Could lower/stop Coreg, try Sotalol 40 BID. Holding for now due to low BP, can initiate in AM. 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 Troponin elevation: CAD large vessel vs demand ischemia from flutter, hypotension vs ischemia from flutter alone and decrease in perfusion. Would stress only if he were an interventional candidate, would need to discuss with oncology. High risk for false + or - study due to body habitus. No cath planned at this time. Recommend medical management of risks. I ordered lipid profile. Low BP post CV: Update echo, although image quality suboptimal, EF may have dropped.
[2019-05-08] MEDS: fentaNYL Patch Check Q Shift 1 NOTE FOLLOW UP SCH (19:33)
[2019-05-08] MEDS: Apixaban* 5 MG TAB PO SCH (20:49)
[2019-05-08] MEDS: Nystatin OINT* 15 GM TOPICAL SCH (20:49)
[2019-05-08] MEDS: Carvedilol TAB* 3.125 MG PO SCH (20:52)
[2019-05-08] MEDS ORDERED: Carvedilol TAB* 3.125 MG PO SCH (21:00)
[2019-05-08] MEDS: Mometasone/Formoter 200/5 MDI INH SCH (21:35)
[2019-05-08] MEDS: NS 0.9% 1000 ML** 1,000 ML IV SCH (23:45)
[2019-05-09] MEDS: Magic Mouth Was-BEN/MAAL/LIDO SWISH SWAL SCH ×5 (00:34→21:44)
[2019-05-09 03:40] LABS: Urine Appearance Cloudy; Urine Bilirubin Negative (Negative); Urine Blood 1+ (Negative); Urine Color Amber; Urine Glucose Negative (Negative); Urine Ketones Negative (Negative); Urine Nitrite Negative (Negative); Urine Protein 1+(30 mg/dL) (Negative); Urine Specific Gravity 1.021 (1.010-1.030); Urine Urobilinogen Negative (Negative)
[2019-05-09 03:42] LABS: Urine Bacteria Absent (Absent); Urine Red Blood Cell Trace(0-2/hpf) (Absent); Urine White Blood Cell Trace(0-5/hpf) (Absent)
[2019-05-09 04:55] LABS: ABS Lymphocytes 0.2 10^3/ul (1.0-4.8); ABS Monocytes 0.1 10^3/ul (0-0.8); ABS Neutrophils 1.6 10^3/ul (1.5-7.7); Eosinophil % 0.7 %; Hematocrit 32 % (42-52); Hemoglobin 10.4 g/dL (14.0-18.0); Lymphocyte % 10.6 %; Mean Corpuscular HGB Conc 33 g/dL (31-36); Mean Corpuscular Hemoglobin 30 pg (27-31); Mean Corpuscular Volume 92 fL (80-94); Mean Platelet Volume 7.9 fL (7.4-10.4); Nucleated Red Blood Cells % 0.1; Platelet Count 83 10^3/uL (150-450); Red Blood Count 3.49 10^6 /uL (4.18-5.48); Red Cell Distribution Width 17 % (10-15); White Blood Count 1.9 10^3/uL (3.5-10.8)
[2019-05-09 05:07] LABS: Albumin 2.3 g/dL (3.2-5.2); Calcium 8.1 mg/dL (8.6-10.3); Magnesium 2.3 mg/dL (1.9-2.7); Potassium 4.1 mmol/L (3.5-5.0); Total Bilirubin 0.7 mg/dL (0.2-1.0)
[2019-05-09 05:13] LABS: Albumin/Globulin Ratio 1.2 (1-3); EGFR African American 150.6 (>60); EGFR Non-African American 124.5 (>60); HDL Cholesterol 24.2 mg/dL; Total Protein 4.3 g/dL (6.4-8.9)
[2019-05-09] MEDS: fentaNYL Patch Check Q Shift 1 NOTE FOLLOW UP SCH ×2 (07:10→18:57)
[2019-05-09] MEDS: Mometasone/Formoter 200/5 MDI INH SCH ×2 (07:32→19:04)
[2019-05-09] MEDS: SPIRIVA Respimat* (tiotropium) 2.5 mcg/inh Inhaler INH SCH (07:32)
[2019-05-09] MEDS ORDERED: Piperacillin/Tazobac ADVAN(*) 3.375 GM in NS 0.9% 100 ML* 100 ML IVPB ONE (08:42)
[2019-05-09] MEDS ORDERED: Zosyn per Pharmacy* NOTE FOLLOW UP SCH (09:00)
--- NOTE | 2019-05-09 09:01 | PN ---
Progress Note - Progress Note Date of Service: 05/09/19 SOAP: Subjective: [Patient reports that he had a good night. Denies CP, or SOB. No abd pain. Some loose stool. Noted to be persistently hypotensive overnight (sBP ~90 mmHG) . He has maintained a NSR with HR 80-90 bpm. He was finding it difficult to urinate and subsequently had a bladder scan showing ~500 ml of urine so a Frausto catheter was placed. Urine output has been low ~30ml/h. Maintenance fluids at 75ml/h have been started. ] Objective: [ Vital Signs: Temp Pulse Resp BP Pulse Ox 98.4 F 84 10 94/55 100 05/09/19 07:30 05/09/19 07:30 05/09/19 07:30 05/09/19 07:30 05/09/19 07:30 Acetaminophen (Tylenol Tab*) 650 mg PO Q4H PRN PRN Reason: mild pain/fever Albuterol/Ipratropium (Duoneb (Albuterol 2.5 Mg/Ipratropium 0.5 Mg)) 1 neb INH Q4H PRN PRN Reason: SOB/WHEEZING Apixaban (Eliquis*) 5 mg PO BID [facility] Last Admin: 05/08/19 20:49 Dose: 5 mg Carvedilol (Coreg Tab*) 3.125 mg PO BID [facility] Last Admin: 05/08/19 20:52 Dose: Not Given Fentanyl (Duragesic Patch 50 Mcg/Hr*) 50 mcg TRANSDERM Q72H [facility] Last Admin: 05/08/19 13:29 Dose: 50 mcg Guaifenesin (Mucinex*) 600 mg PO BID PRN PRN Reason: mucous Sodium Chloride (Ns 0.9% 1000 Ml) 1,000 mls @ 75 mls/hr IV PER RATE [facility] Last Admin: 05/08/19 23:45 Dose: 75 mls/hr Piperacillin Sod/Tazobactam (Sod 3.375 gm/ Sodium Chloride) 100 mls @ 200 mls/ hr IVPB ONCE ONE Stop: 05/09/19 09:11 Lorazepam (Ativan Tab(*)) 0.5 mg PO Q4H PRN PRN Reason: ANXIETY Last Admin: 05/08/19 13:30 Dose: 0.5 mg Mometasone Furoate/Formoterol Fumar (Dulera 200/5 Mdi*) 2 puff INH BID [facility] Last Admin: 05/09/19 07:32 Dose: Not Given Multi-Ingredient Mouthwash/Gargle (Magic Mouth Was-Kalen/Maal/Lido*) 5 ml SWISH SWAL 0700,1100,1630,2100 [facility] Last Admin: 05/09/19 08:27 Dose: 5 ml Nystatin (Nystatin Oint*) 1 applic TOPICAL BID [facility] Last Admin: 05/08/19 20:49 Dose: 1 applic Ondansetron HCl (Zofran Inj*) 4 mg IV Q4H PRN PRN Reason: NAUSEA/VOMITING Oxycodone HCl (Roxycodone Tab*) 5 mg PO Q4H PRN PRN Reason: PAIN - MODERATE Pharmacy Consult (Zosyn Per Pharmacy*) 1 note FOLLOW UP .ZOSYN PER PHARMACY [facility] Pharmacy Profile Note (Fentanyl Patch Check Q Shift) 1 note FOLLOW UP 0700, 1900 [facility] Last Admin: 05/09/19 07:10 Dose: 1 note Pharmacy Profile Note (Scopolamine Patch Remove*) 1 note PATCH OFF Q72H [facility] Polyethylene Glycol/Electrolytes (Miralax*) 17 gm PO DAILY PRN PRN Reason: CONSTIPATION Scopolamine (Transderm-Scop 1.5 Mg Patch*) 1 patch TRANSDERM Q72H [facility] Last Admin: 05/08/19 17:48 Dose: 1 patch Tiotropium [place] (Spiriva Respimat 2.5 Mcg) 2 puff INH DAILY [facility] Last Admin: 05/09/19 07:32 Dose: Not Given Laboratory Results - last 24 hr 05/08/19 05/08/19 05/08/19 15:05 16:12 18:00 WBC RBC Hgb Hct MCV MCH MCHC RDW Plt Count MPV Neut % (Auto) Lymph % (Auto) [place] % (Auto) Eos % (Auto) Baso % (Auto) Absolute Neuts (auto) Absolute Lymphs (auto) Absolute Monos (auto) Absolute Eos (auto) Absolute Basos (auto) Absolute Nucleated RBC Nucleated RBC % Sodium Potassium Chloride Carbon Dioxide Anion Gap BUN Creatinine Est GFR ( Amer) Est GFR (Non-Af Amer) BUN/Creatinine Ratio Glucose Lactic Acid 1.7 1.3 Calcium Magnesium 1.9 Total Bilirubin AST ALT Alkaline Phosphatase Troponin I 5.05 H* Total Protein Albumin Globulin Albumin/Globulin Ratio Triglycerides Cholesterol LDL Cholesterol HDL Cholesterol Urine Color Urine Appearance Urine pH Ur Specific [place] Urine Protein Urine Ketones Urine Blood Urine Nitrate Urine Bilirubin Urine Urobilinogen Ur Leukocyte Esterase Urine WBC (Auto) Urine RBC (Auto) Urine Bacteria Urine Glucose 05/08/19 05/08/19 05/08/19 18:00 21:09 21:09 WBC RBC Hgb Hct MCV MCH MCHC RDW Plt Count MPV Neut % (Auto) Lymph % (Auto) [place] % (Auto) Eos % (Auto) Baso % (Auto) Absolute Neuts (auto) Absolute Lymphs (auto) Absolute Monos (auto) Absolute Eos (auto) Absolute Basos (auto) Absolute Nucleated RBC Nucleated RBC % Sodium Potassium Chloride Carbon Dioxide Anion Gap BUN Creatinine Est GFR ( Amer) Est GFR (Non-Af Amer) BUN/Creatinine Ratio Glucose Lactic Acid 0.9 Calcium Magnesium Total Bilirubin AST ALT Alkaline Phosphatase Troponin I 5.52 H* 5.20 H* Total Protein Albumin Globulin Albumin/Globulin Ratio Triglycerides Cholesterol LDL Cholesterol HDL Cholesterol Urine Color Urine Appearance Urine pH Ur Specific [place] Urine Protein Urine Ketones Urine Blood Urine Nitrate Urine Bilirubin Urine Urobilinogen Ur Leukocyte Esterase Urine WBC (Auto) Urine RBC (Auto) Urine Bacteria Urine Glucose 05/09/19 05/09/19 05/09/19 03:20 04:18 04:18 WBC 1.9 L RBC 3.49 L Hgb 10.4 L Hct 32 L MCV 92 MCH 30 MCHC 33 RDW 17 H Plt Count 83 L MPV 7.9 Neut % (Auto) 81.8 Lymph % (Auto) 10.6 [place] % (Auto) 6.8 Eos % (Auto) 0.7 Baso % (Auto) 0.1 Absolute Neuts (auto) 1.6 Absolute Lymphs (auto) 0.2 L Absolute Monos (auto) 0.1 Absolute Eos (auto) 0.0 Absolute Basos (auto) 0.0 Absolute Nucleated RBC 0.0 Nucleated RBC % 0.1 Sodium 138 Potassium 4.1 Chloride 99 L Carbon Dioxide 33 H Anion Gap 6 BUN 17 Creatinine 0.63 L Est GFR ( Amer) 150.6 Est GFR (Non-Af Amer) 124.5 BUN/Creatinine Ratio 27.0 H Glucose 115 H Lactic Acid Calcium 8.1 L Magnesium 2.3 Total Bilirubin 0.70 AST 28 ALT 15 Alkaline Phosphatase 57 Troponin I Total Protein 4.3 L Albumin 2.3 L Globulin 2.0 Albumin/Globulin Ratio 1.2 Triglycerides 78 Cholesterol 135 LDL Cholesterol 95 HDL Cholesterol 24.2 Urine Color [place] Urine Appearance Cloudy Urine pH 5.0 Ur Specific [place] 1.021 Urine Protein 1+(30 mg/dl) A Urine Ketones Negative Urine Blood 1+ A Urine Nitrate Negative Urine Bilirubin Negative Urine Urobilinogen Negative Ur Leukocyte Esterase Negative Urine WBC (Auto) Trace(0-5/hpf) Urine RBC (Auto) Trace(0-2/hpf) Urine Bacteria Absent Urine Glucose Negative Exam: Gen: mildly ill appearing, but much improved over yesterday. NAD, accompanied by his HEENT: MMM CV: RRR, 2/6 murmur appreciated Resp: somewhat limited exam, but CTA Abd: soft, nonTTP with active BS Ext: no edema, chronic venous stasis changes noted Skin: no rashes, multiple bruises from IV starts and lab draws Assessment: [This is a 73 yo male with NSCLC receiving concurrent chemotherapy and radiation admitted with AMS found to be encephalopathy secondary to sepsis since improved. He was on swing status awaiting LUIS when he entered rapid afib with hypotension requiring urgent cardioversion. He has now maintained NSR, but still mildly hypotensive with low urine output and new pancytopenia concerning for new occult infection which may have also driven his tachyarrythmia yesterday as well.] Plan: [1. Rapid afib - successfully cardioverted, maintained in NSR - goal to keep K >4, Mg >2 - cont carvedilol - cardiology input is greatly appreciated 2. Elevated troponin - now peaked, favors demand ischemia - repeat limited echo is pending to eval for WMA, but low suspicion for ACS 3. Pancytopenia - unlikely to be chemotherapy related bone marrow suppression as he is atleast 3 weeks out from his last weekly dose of carbo/taxol - concerning for occult infection although clinically he has no signs of localized infection - plan to draw blood cultures for surveillance and empirically treat with Zosyn - follow closely - CT completed for RT sim yesterday shows subtle basilar infiltrate v atelectasis, but no lg PNA - UA is relatively benign with culture pending 4. NSCLC - plan to resume RT Mon 05/[address] Goldstein, unlikely that he will be medically fit to resume concurrent chemotherapy - L chest wall mass benign, no evidence of metastatic disease Dispo: medically stable for transfer back to telemetry floor today]
[2019-05-09] MEDS: Apixaban* 5 MG TAB PO SCH ×2 (09:18→21:40)
[2019-05-09] MEDS: Carvedilol TAB* 3.125 MG PO SCH ×2 (09:19→21:40)
[2019-05-09] MEDS ORDERED: Perflutren Lipid Microsphere* 3 ML VIAL ONE (09:58)
[2019-05-09] MEDS: Nystatin OINT* 15 GM TOPICAL SCH ×2 (10:00→21:40)
[2019-05-09] MEDS: ZOSYN 3.375 GM Q8H per EXTENDED INFUSION IVPB SCH ×4 (13:33→21:39)
--- NOTE | 2019-05-09 14:05 | ECHO ---
*[facility], [place]* [place] [address] Fax #: [phone] Limited Transthoracic Echocardiogram Patient: Ranjit Barragan : 1945 Study Date: 05/09/2019 Age: 73 Gender: M HR: 92 bpm Height: 70 in /177.8 cm BSA: 1.92 m^2 Weight: 164 lb /74.5 kg BMI: 23.6 kg/m^2 *Winch Runner: * Shira Loera RDCS RN *Referring Physician: * Vic Guevara *Reading Physician: * John Armenta MD Indications: Abnormal EKG. History: Lung cancer. Coronary artery disease. Chronic obstructive pulmonary disease. PMH: Myocardial infarction. Risk factors: Former tobacco use. Hypertension. Obese. Conclusions Summary: - Left ventricle: Systolic function is normal. The estimated ejection fraction is 55-60%. Study remains difficult despite use of definity some apical segments appear akinetic. - Right ventricle: The cavity size is mildly dilated. Systolic function is moderately reduced. Recommendations: Limited study only, see full study from 04/30/2019. Study data: Transthoracic echocardiogram. This is a LIMITED exam to reassess LVEF S/P cardioversion from Atrial flutter to NSR. The patient had a complete echocardiogram on 04/30/2019. Procedure: Transthoracic echocardiography was performed. Image quality was adequate. Apical views were difficult. Intravenous Definity 3 ml was administered to enhance imaging. Location: ICU Patient status: Inpatient. Patient room number: ICU 1. Rhythm: Normal sinus rhythm. Findings Left ventricle: Systolic function is normal. The estimated ejection fraction is 55-60%. Study remains difficult despite use of definity some apical segments appear akinetic. Right ventricle: The cavity size is mildly dilated. Systolic function is moderately reduced. Prepared and electronically signed by John Armenta MD 05/09/2019 14:05
--- NOTE | 2019-05-09 15:19 | PN ---
Subjective Date of Service: 05/09/19 Interval History: f/u atrial flutter s/p cardioversion patient has no current chest discomfort or change in breathing patient was told 2 years ago based on ekg he had a prior TN tele sinus rhythm Medications Active Medications: Acetaminophen (Tylenol Tab*) 650 mg PO Q4H PRN PRN Reason: mild pain/fever Albuterol/Ipratropium (Duoneb (Albuterol 2.5 Mg/Ipratropium 0.5 Mg)) 1 neb INH Q4H PRN PRN Reason: SOB/WHEEZING Apixaban (Eliquis*) 5 mg PO BID [facility] Last Admin: 05/09/19 09:18 Dose: 5 mg Carvedilol (Coreg Tab*) 3.125 mg PO BID [facility] Last Admin: 05/09/19 09:19 Dose: 3.125 mg Dronedarone (Multaq Tab*) 400 mg PO BID [facility] Fentanyl (Duragesic Patch 50 Mcg/Hr*) 50 mcg TRANSDERM Q72H [facility] Last Admin: 05/08/19 13:29 Dose: 50 mcg Guaifenesin (Mucinex*) 600 mg PO BID PRN PRN Reason: mucous Sodium Chloride (Ns 0.9% 1000 Ml) 1,000 mls @ 75 mls/hr IV PER RATE [facility] Last Admin: 05/08/19 23:45 Dose: 75 mls/hr Piperacillin Sod/Tazobactam (Sod 3.375 gm/ Sodium Chloride) 100 mls @ 25 mls/ hr IVPB Q8H [facility] Lorazepam (Ativan Tab(*)) 0.5 mg PO Q4H PRN PRN Reason: ANXIETY Last Admin: 05/08/19 13:30 Dose: 0.5 mg Mometasone Furoate/Formoterol Fumar (Dulera 200/5 Mdi*) 2 puff INH BID [facility] Last Admin: 05/09/19 07:32 Dose: Not Given Multi-Ingredient Mouthwash/Gargle (Magic Mouth Was-Kalen/Maal/Lido*) 5 ml SWISH SWAL 0700,1100,1630,2100 [facility] Last Admin: 05/09/19 08:27 Dose: 5 ml Nystatin (Nystatin Oint*) 1 applic TOPICAL BID [facility] Last Admin: 05/08/19 20:49 Dose: 1 applic Ondansetron HCl (Zofran Inj*) 4 mg IV Q4H PRN PRN Reason: NAUSEA/VOMITING Oxycodone HCl (Roxycodone Tab*) 5 mg PO Q4H PRN PRN Reason: PAIN - MODERATE Pharmacy Consult (Zosyn Per Pharmacy*) 1 note FOLLOW UP .ZOSYN PER PHARMACY [facility] Pharmacy Profile Note (Fentanyl Patch Check Q Shift) 1 note FOLLOW UP 0700, 1900 [facility] Last Admin: 05/09/19 07:10 Dose: 1 note Pharmacy Profile Note (Scopolamine Patch Remove*) 1 note PATCH OFF Q72H [facility] Polyethylene Glycol/Electrolytes (Miralax*) 17 gm PO DAILY PRN PRN Reason: CONSTIPATION Scopolamine (Transderm-Scop 1.5 Mg Patch*) 1 patch TRANSDERM Q72H [facility] Last Admin: 05/08/19 17:48 Dose: 1 patch Tiotropium [place] (Spiriva Respimat 2.5 Mcg) 2 puff INH DAILY [facility] Last Admin: 05/09/19 07:32 Dose: Not Given Objective Vital Signs: Temp Pulse Resp BP Pulse Ox 99.7 F 90 20 108/66 97 05/09/19 15:00 05/09/19 15:00 05/09/19 15:00 05/09/19 15:00 05/09/19 15:00 Oxygen Devices in Use Now: Nasal Cannula Appearance: patient is very pleasant, appears chronically ill appearing Eyes: No Scleral Icterus Ears/Nose/Mouth/Throat: Clear Oropharnyx Neck: Trachea Midline Respiratory: - - diffuse crackles and wheeze with mild increased work of breathing Cardiovascular: - - rrr, distant, no obvious murmur noted Abdominal: - - obese, normal bowel sounds, non tender. Neurological: Alert and Oriented x 3 Laboratory Results: 05/09/19 04:18 05/09/19 04:18 Total Bilirubin 0.70 mg/dL (0.2-1.0) 05/09/19 04:18 AST 28 U/L (13-39) 05/09/19 04:18 ALT 15 U/L (7-52) 05/09/19 04:18 Alkaline Phosphatase 57 U/L (34-104) 05/09/19 04:18 Total Protein 4.3 g/dL (6.4-8.9) L 05/09/19 04:18 Albumin 2.3 g/dL (3.2-5.2) L 05/09/19 04:18 Globulin 2.0 g/dL (2-4) 05/09/19 04:18 Albumin/Globulin Ratio 1.2 (1-3) 05/09/19 04:18 Triglycerides 78 mg/dL 05/09/19 04:18 Cholesterol 135 mg/dL 05/09/19 04:18 LDL Cholesterol 95 mg/dL 05/09/19 04:18 HDL Cholesterol 24.2 mg/dL 05/09/19 04:18 05/08/19 05/08/19 05/08/19 15:05 18:00 21:09 Troponin I 5.05 H* 5.52 H* 5.20 H* Diagnostic Imaging: Transthoracic Echocardiogram Study Date: 04/30/2019 - Overall poor acustic images. Poor apical and subcostal views. - Left ventricle: Systolic function is normal. The estimated ejection fraction is 50-55%. Although no diagnostic regional wall motion abnormality is identified, this possibility cannot be completely excluded on the basis of this study. - Right ventricle: The cavity size is normal. Wall thickness is mildly increased. Systolic function is mildly reduced. - Mitral valve: There is no significant regurgitation. - Aortic valve: The findings are consistent with moderate stenosis. The mean systolic gradient is 12.0 mm Hg. The LVOT to aortic valve VTI ratio is 0.3. The valve area by the peak velocity method is 1.10 cm^2. - Tricuspid valve: There is no significant regurgitation. - Pulmonary arteries: Systolic pressure can not be accurately estimated. Exam Date: 05/08/19 CT CHEST SIMULATION Comparison: May 08, 2019 chest radiograph. April 24, [address] Technique: Radiation simulation CT. 2.5 mm contiguous axial sections were obtained through the thorax and upper abdomen. Report: Approximate 5.5 x 5.5 cm mass at the apical segment of the RIGHT upper lobe with chest wall invasion appears mildly decreased in size compared with the April 24, 2019 exam. Bilateral dependent atelectasis. Trace pleural effusions. 1.2 cm short axis RIGHT paratracheal lymph node is grossly unchanged. Cardiomegaly. Negative for pericardial effusion. Unchanged 1.3 cm probable sebaceous cyst at the RIGHT posterior upper back. Unchanged 2.3 cm irregularly margined soft tissue nodule at the anterior margin of the LEFT latissimus dorsi muscle. Grossly unchanged 0.7 cm nodule superficial to the medial margin of the RIGHT scapula and similar morphology nodule adjacent to the posterior margin of the RIGHT serratus anterior muscle. IMPRESSION: #. Radiation planning CT thorax. EKG Data: ekg 05/06/2019 old inferior TN poor r wave progression 05/09/2019: rapid atrial flutter, inferior TN, given prior ekg's would call injury pattern, ivcd, poor r wave progression ekg 05/09/2019 NSr, old IWMI, qtc difficult to estimated given hr 96 bpm compared to 04/05/2019, new st/t changes 1/avL Assessment/Plan 1. Atrial flutter rapid - Probably symptomatic - s/p cardioversion 05/08/2019 2. Acute TN - Uncertain mechanism - All available evidence suggests underlying epicardial atheroscerotic CAD with probable prior inferoapical TN based on EKG's and echo but not certain - Overall LVEF normal 3. Non-small cell lung ca - on chemo and radiation 4. COPD 5. Hx DVT's 6. Recent encephalopathy secondary to GI sepsis - continue coreg 3.125 mg po bid, would like to uptitrate in near future pending BP trends - coninute eliquis 5 mg po bid - start multaq 400 mg po bid with food and check ekg tomorrow (ordered). - Statin intolerant, consider adding zetia - Hold off on AceI/ARB given lower BP's and addition of multiple new medications - can transfer to telemetry from a cardiac standpoint
[2019-05-09] MEDS: NS 0.9% 1000 ML** 1,000 ML IV SCH (15:31)
[2019-05-09] MEDS: Dronedarone TAB* 400 MG PO SCH (18:01)
[2019-05-10 04:22] LABS: ABS Lymphocytes 0.3 10^3/ul (1.0-4.8); ABS Monocytes 0.2 10^3/ul (0-0.8); ABS Neutrophils 1.4 10^3/ul (1.5-7.7); Eosinophil % 1.6 %; Hematocrit 32 % (42-52); Hemoglobin 10.4 g/dL (14.0-18.0); Lymphocyte % 14.9 %; Mean Corpuscular HGB Conc 33 g/dL (31-36); Mean Corpuscular Hemoglobin 30 pg (27-31); Mean Corpuscular Volume 91 fL (80-94); Mean Platelet Volume 7.1 fL (7.4-10.4); Nucleated Red Blood Cells % 0.2; Platelet Count 79 10^3/uL (150-450); Red Blood Count 3.49 10^6 /uL (4.18-5.48); Red Cell Distribution Width 17 % (10-15); White Blood Count 1.8 10^3/uL (3.5-10.8)
[2019-05-10 04:35] LABS: Albumin 2.4 g/dL (3.2-5.2); Albumin/Globulin Ratio 0.9 (1-3); BUN/Creatinine Ratio 21.9 (8-20); Calcium 8.2 mg/dL (8.6-10.3); EGFR African American 147.9 (>60); EGFR Non-African American 122.2 (>60); Globulin 2.6 g/dL (2-4); Magnesium 2.1 mg/dL (1.9-2.7); Potassium 4.1 mmol/L (3.5-5.0); Total Bilirubin 0.6 mg/dL (0.2-1.0)
[2019-05-10] MEDS: NS 0.9% 1000 ML** 1,000 ML IV SCH ×2 (05:42→22:01)
[2019-05-10] MEDS: ZOSYN 3.375 GM Q8H per EXTENDED INFUSION IVPB SCH ×6 (05:46→22:00)
[2019-05-10] MEDS: fentaNYL Patch Check Q Shift 1 NOTE FOLLOW UP SCH ×2 (06:36→18:43)
[2019-05-10] MEDS: Ondansetron INJ* 2 MG/ML VIAL IV PRN (08:22)
[2019-05-10] MEDS: Magic Mouth Was-BEN/MAAL/LIDO SWISH SWAL SCH ×5 (08:29→22:08)
[2019-05-10] MEDS: Apixaban* 5 MG TAB PO SCH ×2 (08:31→22:00)
[2019-05-10] MEDS: Acetaminophen TAB* 325 MG PO PRN ×2 (08:32→22:02)
[2019-05-10] MEDS: Carvedilol TAB* 3.125 MG PO SCH ×2 (08:32→22:00)
[2019-05-10] MEDS: Mometasone/Formoter 200/5 MDI INH SCH ×2 (08:36→20:58)
[2019-05-10] MEDS: SPIRIVA Respimat* (tiotropium) 2.5 mcg/inh Inhaler INH SCH (08:36)
[2019-05-10] MEDS: Dronedarone TAB* 400 MG PO SCH ×2 (09:03→16:25)
--- NOTE | 2019-05-10 10:04 | PN ---
Subjective Date of Service: 05/10/19 Interval History: f/u atrial flutter s/p cardioversion, IA Had long conversation with patient and at bedside regarding patients cardiac condition in context of other health problems patient has no current chest discomfort or change in breathing less wheezing on exam Medications Active Medications: Acetaminophen (Tylenol Tab*) 650 mg PO Q4H PRN PRN Reason: mild pain/fever Last Admin: 05/10/19 08:32 Dose: 650 mg Albuterol/Ipratropium (Duoneb (Albuterol 2.5 Mg/Ipratropium 0.5 Mg)) 1 neb INH Q4H PRN PRN Reason: SOB/WHEEZING Apixaban (Eliquis*) 5 mg PO BID [facility] Last Admin: 05/10/19 08:31 Dose: 5 mg Carvedilol (Coreg Tab*) 3.125 mg PO BID [facility] Last Admin: 05/10/19 08:32 Dose: 3.125 mg Dronedarone (Multaq Tab*) 400 mg PO BID WITH MEALS [facility] Last Admin: 05/10/19 09:03 Dose: 400 mg Fentanyl (Duragesic Patch 50 Mcg/Hr*) 50 mcg TRANSDERM Q72H [facility] Last Admin: 05/08/19 13:29 Dose: 50 mcg Guaifenesin (Mucinex*) 600 mg PO BID PRN PRN Reason: mucous Sodium Chloride (Ns 0.9% 1000 Ml) 1,000 mls @ 75 mls/hr IV PER RATE [facility] Last Admin: 05/10/19 05:42 Dose: 75 mls/hr Piperacillin Sod/Tazobactam (Sod 3.375 gm/ Sodium Chloride) 100 mls @ 25 mls/ hr IVPB Q8H [facility] Last Admin: 05/10/19 05:46 Dose: 25 mls/hr Lorazepam (Ativan Tab(*)) 0.5 mg PO Q4H PRN PRN Reason: ANXIETY Last Admin: 05/08/19 13:30 Dose: 0.5 mg Mometasone Furoate/Formoterol Fumar (Dulera 200/5 Mdi*) 2 puff INH BID [facility] Last Admin: 05/10/19 08:36 Dose: Not Given Multi-Ingredient Mouthwash/Gargle (Magic Mouth Was-Kalen/Maal/Lido*) 5 ml SWISH SWAL 0700,1100,1630,2100 [facility] Last Admin: 05/10/19 08:29 Dose: 5 ml Nystatin (Nystatin Oint*) 1 applic TOPICAL BID [facility] Last Admin: 05/09/19 21:40 Dose: 1 applic Ondansetron HCl (Zofran Inj*) 4 mg IV Q4H PRN PRN Reason: NAUSEA/VOMITING Last Admin: 05/10/19 08:22 Dose: 4 mg Oxycodone HCl (Roxycodone Tab*) 5 mg PO Q4H PRN PRN Reason: PAIN - MODERATE Pharmacy Consult (Zosyn Per Pharmacy*) 1 note FOLLOW UP .ZOSYN PER PHARMACY [facility] Pharmacy Profile Note (Fentanyl Patch Check Q Shift) 1 note FOLLOW UP 0700, 1900 [facility] Last Admin: 05/10/19 06:36 Dose: 1 note Pharmacy Profile Note (Scopolamine Patch Remove*) 1 note PATCH OFF Q72H [facility] Polyethylene Glycol/Electrolytes (Miralax*) 17 gm PO DAILY PRN PRN Reason: CONSTIPATION Scopolamine (Transderm-Scop 1.5 Mg Patch*) 1 patch TRANSDERM Q72H [facility] Last Admin: 05/08/19 17:48 Dose: 1 patch Tiotropium [place] (Spiriva Respimat 2.5 Mcg) 2 puff INH DAILY [facility] Last Admin: 05/10/19 08:36 Dose: Not Given Objective Vital Signs: Temp Pulse Resp BP Pulse Ox 98.1 F 71 19 98/59 100 05/10/19 07:00 05/10/19 07:00 05/10/19 08:00 05/10/19 07:00 05/10/19 07:00 Oxygen Devices in Use Now: Nasal Cannula Appearance: patient is very pleasant, appears chronically ill appearing Eyes: No Scleral Icterus Ears/Nose/Mouth/Throat: Clear Oropharnyx Neck: Trachea Midline Respiratory: Symmetrical Chest Expansion and Respiratory Effort, Clear to Auscultation Cardiovascular: - - rrr, distant, no obvious murmur noted Abdominal: - - obese, normal bowel sounds, non tender. Neurological: Alert and Oriented x 3 Laboratory Results: 05/10/19 04:03 05/10/19 03:56 Total Bilirubin 0.60 mg/dL (0.2-1.0) 05/10/19 03:56 AST 18 U/L (13-39) 05/10/19 03:56 ALT 13 U/L (7-52) 05/10/19 03:56 Alkaline Phosphatase 52 U/L (34-104) 05/10/19 03:56 Total Protein 5.0 g/dL (6.4-8.9) L 05/10/19 03:56 Albumin 2.4 g/dL (3.2-5.2) L 05/10/19 03:56 Globulin 2.6 g/dL (2-4) 05/10/19 03:56 Albumin/Globulin Ratio 0.9 (1-3) L 05/10/19 03:56 Triglycerides 78 mg/dL 05/09/19 04:18 Cholesterol 135 mg/dL 05/09/19 04:18 LDL Cholesterol 95 mg/dL 05/09/19 04:18 HDL Cholesterol 24.2 mg/dL 05/09/19 04:18 05/08/19 05/08/19 05/08/19 15:05 18:00 21:09 Troponin I 5.05 H* 5.52 H* 5.20 H* Diagnostic Imaging: Transthoracic Echocardiogram Study Date: 04/30/2019 - Overall poor acustic images. Poor apical and subcostal views. - Left ventricle: Systolic function is normal. The estimated ejection fraction is 50-55%. Although no diagnostic regional wall motion abnormality is identified, this possibility cannot be completely excluded on the basis of this study. - Right ventricle: The cavity size is normal. Wall thickness is mildly increased. Systolic function is mildly reduced. - Mitral valve: There is no significant regurgitation. - Aortic valve: The findings are consistent with moderate stenosis. The mean systolic gradient is 12.0 mm Hg. The LVOT to aortic valve VTI ratio is 0.3. The valve area by the peak velocity method is 1.10 cm^2. - Tricuspid valve: There is no significant regurgitation. - Pulmonary arteries: Systolic pressure can not be accurately estimated. Exam Date: 05/08/19 CT CHEST SIMULATION Comparison: May 08, 2019 chest radiograph. April 24, [address] Technique: Radiation simulation CT. 2.5 mm contiguous axial sections were obtained through the thorax and upper abdomen. Report: Approximate 5.5 x 5.5 cm mass at the apical segment of the RIGHT upper lobe with chest wall invasion appears mildly decreased in size compared with the April 24, 2019 exam. Bilateral dependent atelectasis. Trace pleural effusions. 1.2 cm short axis RIGHT paratracheal lymph node is grossly unchanged. Cardiomegaly. Negative for pericardial effusion. Unchanged 1.3 cm probable sebaceous cyst at the RIGHT posterior upper back. Unchanged 2.3 cm irregularly margined soft tissue nodule at the anterior margin of the LEFT latissimus dorsi muscle. Grossly unchanged 0.7 cm nodule superficial to the medial margin of the RIGHT scapula and similar morphology nodule adjacent to the posterior margin of the RIGHT serratus anterior muscle. IMPRESSION: #. Radiation planning CT thorax. EKG Data: ekg 05/06/2019 old inferior IA poor r wave progression 05/09/2019: rapid atrial flutter, inferior IA, given prior ekg's would call injury pattern, ivcd, poor r wave progression ekg 05/09/2019 NSr, old IWMI, qtc difficult to estimated given hr 96 bpm compared to 04/05/2019, new st/t changes 1/avL ekg 05/10/2019 NSR 66 bpm, noraml qtc, old IWMI, ivcd, poor r wave progression, t waves now upright 1 and avl Assessment/Plan 1. Atrial flutter rapid - Probably symptomatic - s/p cardioversion 05/08/2019 2. Acute IA - Uncertain mechanism - All available evidence suggests underlying epicardial atheroscerotic CAD with probable prior inferoapical/apical IA based on EKG's and echo but not certain - Overall LVEF normal 3. Non-small cell lung ca - on chemo and radiation 4. COPD 5. Hx DVT's 6. Recent encephalopathy secondary to GI sepsis 7. 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 I do not think he would benefit from revascularization in addition to medical therapy at this time. If platelets remain stable or expected to improve would add aspirin 81 mg po daily to eliquis in the near future. - Timing of restarting radiation therapy/chemotherapy as per Oncology - Needs costa out, oob, would d/c ivf in near future now that eating better - Will sign off for this hospitalization, will need outpatient f/u with Dr. Noriega. Please reconsult as needed
[2019-05-10] MEDS ORDERED: NS 0.9% 1000 ML** 1,000 ML IV ONE (10:08)
[2019-05-10] MEDS: Nystatin OINT* 15 GM TOPICAL SCH ×2 (10:59→22:00)
[2019-05-10] MEDS: CMC:Pravastatin (NF) 20 MG TAB PO SCH (16:25)
[2019-05-11] MEDS: ZOSYN 3.375 GM Q8H per EXTENDED INFUSION IVPB SCH ×6 (05:20→22:38)
[2019-05-11] MEDS: fentaNYL Patch Check Q Shift 1 NOTE FOLLOW UP SCH ×2 (07:38→19:19)
[2019-05-11] MEDS: Mometasone/Formoter 200/5 MDI INH SCH ×2 (08:39→22:54)
[2019-05-11] MEDS: SPIRIVA Respimat* (tiotropium) 2.5 mcg/inh Inhaler INH SCH (08:39)
[2019-05-11] MEDS: Magic Mouth Was-BEN/MAAL/LIDO SWISH SWAL SCH ×4 (09:32→20:27)
[2019-05-11] MEDS: Apixaban* 5 MG TAB PO SCH ×2 (09:34→20:24)
[2019-05-11] MEDS: Dronedarone TAB* 400 MG PO SCH ×2 (09:35→17:25)
[2019-05-11] MEDS: Carvedilol TAB* 3.125 MG PO SCH ×2 (09:35→20:24)
[2019-05-11] MEDS: Nystatin OINT* 15 GM TOPICAL SCH ×2 (09:36→22:54)
[2019-05-11] MEDS: Ondansetron INJ* 2 MG/ML VIAL IV PRN ×2 (13:18→17:25)
[2019-05-11] MEDS: fentaNYL PATCH 50 MCG/HR TRANSDERM SCH (13:44)
[2019-05-11] MEDS: Scopolamine PATCH Remove* 1 NOTE MISC PATCH OFF SCH (13:52)
[2019-05-11] MEDS: Saline NASAL SPRAY 0.65%* BTL BOTH NARES PRN (13:52)
[2019-05-11] MEDS: Scopolamine 1.5 mg* PATCH TRANSDERM SCH (13:53)
[2019-05-11] MEDS: CMC:Pravastatin (NF) 20 MG TAB PO SCH (17:26)
[2019-05-11] MEDS: oxyCODONE TAB* 5 MG TAB PO PRN (22:39)
[2019-05-11] MEDS: NS 0.9% 1000 ML** 1,000 ML IV SCH (22:39)
[2019-05-12] MEDS: ZOSYN 3.375 GM Q8H per EXTENDED INFUSION IVPB SCH ×6 (04:58→20:12)
[2019-05-12] MEDS: fentaNYL Patch Check Q Shift 1 NOTE FOLLOW UP SCH ×2 (07:49→18:31)
[2019-05-12] MEDS: Ondansetron INJ* 2 MG/ML VIAL IV PRN (08:07)
[2019-05-12] MEDS: Magic Mouth Was-BEN/MAAL/LIDO SWISH SWAL SCH ×4 (08:08→20:20)
[2019-05-12] MEDS: SPIRIVA Respimat* (tiotropium) 2.5 mcg/inh Inhaler INH SCH (08:10)
[2019-05-12] MEDS: Mometasone/Formoter 200/5 MDI INH SCH ×2 (08:10→20:18)
[2019-05-12] MEDS: Dronedarone TAB* 400 MG PO SCH ×2 (10:29→18:36)
[2019-05-12] MEDS: Apixaban* 5 MG TAB PO SCH ×2 (10:31→20:11)
[2019-05-12] MEDS: Carvedilol TAB* 3.125 MG PO SCH ×2 (10:31→20:11)
[2019-05-12] MEDS: Nystatin OINT* 15 GM TOPICAL SCH ×2 (10:32→20:22)
[2019-05-12] MEDS: CMC:Pravastatin (NF) 20 MG TAB PO SCH (18:35)
[2019-05-12] MEDS: NS 0.9% 1000 ML** 1,000 ML IV SCH (18:51)
[2019-05-12] MEDS: Saline NASAL SPRAY 0.65%* BTL BOTH NARES PRN (20:12)
[2019-05-13] MEDS: ZOSYN 3.375 GM Q8H per EXTENDED INFUSION IVPB SCH ×2 (05:05)
[2019-05-13] MEDS: fentaNYL Patch Check Q Shift 1 NOTE FOLLOW UP SCH ×2 (06:42→19:22)
[2019-05-13] MEDS: SPIRIVA Respimat* (tiotropium) 2.5 mcg/inh Inhaler INH SCH (07:19)
[2019-05-13] MEDS: Mometasone/Formoter 200/5 MDI INH SCH ×2 (07:19→20:34)
[2019-05-13] MEDS: Carvedilol TAB* 3.125 MG PO SCH ×2 (07:55→20:34)
[2019-05-13] MEDS: Dronedarone TAB* 400 MG PO SCH ×2 (07:55→17:11)
[2019-05-13] MEDS: Apixaban* 5 MG TAB PO SCH ×2 (07:55→20:33)
[2019-05-13] MEDS: Ondansetron INJ* 2 MG/ML VIAL IV PRN ×2 (07:55→17:11)
[2019-05-13] MEDS: Magic Mouth Was-BEN/MAAL/LIDO SWISH SWAL SCH ×4 (07:56→20:34)
[2019-05-13] MEDS: Saline NASAL SPRAY 0.65%* BTL BOTH NARES PRN ×2 (08:07→20:35)
[2019-05-13] MEDS: Nystatin OINT* 15 GM TOPICAL SCH ×2 (08:08→20:34)
[2019-05-13] MEDS: LORazepam TAB(*) 0.5 MG PO PRN (08:10)
--- NOTE | 2019-05-13 09:43 | PN ---
Progress Note - Progress Note Date of Service: 05/13/19 SOAP: Subjective: []Cough better, no congestion Has not been SOB, on oxygen not eating much, continued nausea up and walking a few feet buy that is about it. Starting XRT today 7 fractions planned. Acetaminophen (Tylenol Tab*) 650 mg PO Q4H PRN PRN Reason: mild pain/fever Last Admin: 05/10/19 22:02 Dose: 650 mg Albuterol/Ipratropium (Duoneb (Albuterol 2.5 Mg/Ipratropium 0.5 Mg)) 1 neb INH Q4H PRN PRN Reason: SOB/WHEEZING Apixaban (Eliquis*) 5 mg PO BID [facility] Last Admin: 05/13/19 07:55 Dose: 5 mg Carvedilol (Coreg Tab*) 3.125 mg PO BID [facility] Last Admin: 05/13/19 07:55 Dose: 3.125 mg Dronedarone (Multaq Tab*) 400 mg PO BID WITH MEALS [facility] Last Admin: 05/13/19 07:55 Dose: 400 mg Fentanyl (Duragesic Patch 50 Mcg/Hr*) 50 mcg TRANSDERM Q72H [facility] Last Admin: 05/11/19 13:44 Dose: 50 mcg Guaifenesin (Mucinex*) 600 mg PO BID PRN PRN Reason: mucous Last Admin: 05/11/19 20:24 Dose: 600 mg Sodium Chloride (Ns 0.9% 1000 Ml) 1,000 mls @ 75 mls/hr IV PER RATE [facility] Last Admin: 05/12/19 18:51 Dose: 75 mls/hr Piperacillin Sod/Tazobactam (Sod 3.375 gm/ Sodium Chloride) 100 mls @ 25 mls/ hr IVPB Q8H [facility] Last Admin: 05/13/19 05:05 Dose: 25 mls/hr Lorazepam (Ativan Tab(*)) 0.5 mg PO Q4H PRN PRN Reason: ANXIETY Last Admin: 05/13/19 08:10 Dose: 0.5 mg Mometasone Furoate/Formoterol Fumar (Dulera 200/5 Mdi*) 2 puff INH BID [facility] Last Admin: 05/13/19 07:19 Dose: Not Given Multi-Ingredient Mouthwash/Gargle (Magic Mouth Was-Kalen/Maal/Lido*) 5 ml SWISH SWAL 0700,1100,1630,2100 [facility] Last Admin: 05/13/19 07:56 Dose: 5 ml Nystatin (Nystatin Oint*) 1 applic TOPICAL BID [facility] Last Admin: 05/13/19 08:08 Dose: 1 applic Ondansetron HCl (Zofran Inj*) 4 mg IV Q4H PRN PRN Reason: NAUSEA/VOMITING Last Admin: 05/13/19 07:55 Dose: 4 mg Oxycodone HCl (Roxycodone Tab*) 5 mg PO Q4H PRN PRN Reason: PAIN - MODERATE Last Admin: 05/11/19 22:39 Dose: 5 mg Pharmacy Consult (Zosyn Per Pharmacy*) 1 note FOLLOW UP .ZOSYN PER PHARMACY [facility] Pharmacy Profile Note (Fentanyl Patch Check Q Shift) 1 note FOLLOW UP 0700, 1900 [facility] Last Admin: 05/13/19 06:42 Dose: 1 note Pharmacy Profile Note (Scopolamine Patch Remove*) 1 note PATCH OFF Q72H [facility] Last Admin: 05/11/19 13:52 Dose: 1 patch Polyethylene Glycol/Electrolytes (Miralax*) 17 gm PO DAILY PRN PRN Reason: CONSTIPATION Pravastatin Sodium (Pravachol (Nf)) 10 mg PO 1700 [facility] Last Admin: 05/12/19 18:35 Dose: 10 mg Scopolamine (Transderm-Scop 1.5 Mg Patch*) 1 patch TRANSDERM Q72H [facility] Last Admin: 05/11/19 13:53 Dose: 1 patch Sodium Chloride (Sodium Chloride 0.65% Nasal [place]*) 1 spray BOTH NARES .PRN PRN PRN Reason: CONGESTION/DRYNESS Last Admin: 05/13/19 08:07 Dose: 1 spray Tiotropium [place] (Spiriva Respimat 2.5 Mcg) 2 puff INH DAILY [facility] Last Admin: 05/13/19 07:19 Dose: Not Given Objective: Exam: Gen: mildly ill appearing, but much improved over yesterday. NAD, accompanied by his HEENT: MMM CV: RRR, 2/6 murmur appreciated Resp: good air movement , end exp wheezing. Abd: soft, nonTTP with active BS Ext: no edema, chronic venous stasis changes noted Skin: no rashes, multiple bruises from IV starts and lab draws Assessment: [This is a 73 yo male with NSCLC receiving concurrent chemotherapy and radiation admitted with AMS found to be encephalopathy secondary to sepsis since improved. Course subsequently c/b rapid afib. He has localized disease after Bx of chest wall nodule w/o metastatic disease. Re-starting XRT today with 17 fractions planned to complete course. Plan: [1. Rapid afib - successfully cardioverted, maintained in NSR - goal to keep K >4, Mg >2 - cont carvedilol, eliquis 2. Congestion improved, no infection. - Stop antibiotics 3. Pancytopenia - unlikely to be chemotherapy related bone marrow suppression as he is atleast 3 weeks out from his last weekly dose of carbo/taxol - may be secondary to antibiotics - Check B12, SPEP - No evidence of enlarged spleen, liver disease on CT 4. NSCLC - 17 Fractions XRT starting today - Will re-start Carbo/Taxol this week - Check CBC today 5. Nausea - Hold antibiotics and decrease Fentanyl - If not improved tomorrow, add olazapine. 6. Placement in [place]
[2019-05-13 10:37] LABS: Hematocrit 30 % (42-52); Hemoglobin 9.8 g/dL (14.0-18.0); Mean Corpuscular HGB Conc 32 g/dL (31-36); Mean Corpuscular Hemoglobin 30 pg (27-31); Mean Corpuscular Volume 91 fL (80-94); Mean Platelet Volume 6.7 fL (7.4-10.4); Platelet Count 165 10^3/uL (150-450); Red Blood Count 3.33 10^6 /uL (4.18-5.48); Red Cell Distribution Width 18 % (10-15); White Blood Count 2.7 10^3/uL (3.5-10.8)
[2019-05-13 10:51] LABS: Albumin 2.3 g/dL (3.2-5.2); Albumin/Globulin Ratio 0.8 (1-3); BUN/Creatinine Ratio 10.9 (8-20); Calcium 8.4 mg/dL (8.6-10.3); EGFR African American 176.2 (>60); EGFR Non-African American 145.6 (>60); Globulin 2.9 g/dL (2-4); Potassium 3.6 mmol/L (3.5-5.0); Total Bilirubin 0.5 mg/dL (0.2-1.0); Total Protein 5.2 g/dL (6.4-8.9)
[2019-05-13 10:59] LABS: ABS Eosinophils 0.1 10^3/ul (0-0.6); ABS Lymphocytes 0.3 10^3/ul (1.0-4.8); ABS Monocytes 0.2 10^3/ul (0-0.8); Eosinophil % 4.8 %; Lymphocyte % 12.2 %; Nucleated Red Blood Cells % 0.1
[2019-05-13] MEDS: fentaNYL PATCH 25 MCG/HR TRANSDERM SCH (13:27)
[2019-05-13] MEDS: CMC:Pravastatin (NF) 20 MG TAB PO SCH (17:11)
[2019-05-14] MEDS: fentaNYL Patch Check Q Shift 1 NOTE FOLLOW UP SCH ×2 (06:20→18:48)
[2019-05-14] MEDS: Dronedarone TAB* 400 MG PO SCH ×2 (07:46→16:24)
[2019-05-14] MEDS: Magic Mouth Was-BEN/MAAL/LIDO SWISH SWAL SCH ×4 (07:46→23:08)
[2019-05-14] MEDS: Carvedilol TAB* 3.125 MG PO SCH ×2 (07:46→23:07)
[2019-05-14] MEDS: Apixaban* 5 MG TAB PO SCH ×2 (07:46→23:02)
[2019-05-14] MEDS: Nystatin OINT* 15 GM TOPICAL SCH ×2 (07:46→23:08)
[2019-05-14] MEDS: Mometasone/Formoter 200/5 MDI INH SCH ×2 (08:20→19:43)
[2019-05-14] MEDS: SPIRIVA Respimat* (tiotropium) 2.5 mcg/inh Inhaler INH SCH (08:21)
[2019-05-14] MEDS: LORazepam TAB(*) 0.5 MG PO PRN (09:38)
[2019-05-14] MEDS: Scopolamine PATCH Remove* 1 NOTE MISC PATCH OFF SCH (11:54)
[2019-05-14] MEDS: Scopolamine 1.5 mg* PATCH TRANSDERM SCH (11:54)
[2019-05-14] MEDS: CMC:Pravastatin (NF) 20 MG TAB PO SCH (16:24)
[2019-05-15] MEDS: fentaNYL Patch Check Q Shift 1 NOTE FOLLOW UP SCH ×2 (06:46→20:45)
[2019-05-15] MEDS: Magic Mouth Was-BEN/MAAL/LIDO SWISH SWAL SCH ×2 (07:20→12:42)
[2019-05-15] MEDS: Nystatin OINT* 15 GM TOPICAL SCH ×2 (07:23→20:45)
[2019-05-15] MEDS: Mometasone/Formoter 200/5 MDI INH SCH ×2 (08:07→21:00)
[2019-05-15] MEDS: SPIRIVA Respimat* (tiotropium) 2.5 mcg/inh Inhaler INH SCH (08:07)
[2019-05-15] MEDS: Saline NASAL SPRAY 0.65%* BTL BOTH NARES PRN (08:14)
[2019-05-15] MEDS: Apixaban* 5 MG TAB PO SCH ×2 (08:15→22:46)
[2019-05-15] MEDS: Dronedarone TAB* 400 MG PO SCH ×2 (08:15→17:27)
[2019-05-15] MEDS: Carvedilol TAB* 3.125 MG PO SCH ×2 (08:15→22:46)
--- NOTE | 2019-05-15 11:58 | PN ---
Progress Note - Progress Note Date of Service: 05/15/19 SOAP: Subjective: []Not feeling well. Cough continues and ears plugged. Up to chair but not walking, has not worked with PT in several days per . Eating fine. Breathing is fine. No fevers or chills. Acetaminophen (Tylenol Tab*) 650 mg PO Q4H PRN PRN Reason: mild pain/fever Last Admin: 05/10/19 22:02 Dose: 650 mg Albuterol/Ipratropium (Duoneb (Albuterol 2.5 Mg/Ipratropium 0.5 Mg)) 1 neb INH Q4H PRN PRN Reason: SOB/WHEEZING Apixaban (Eliquis*) 5 mg PO BID [facility] Last Admin: 05/15/19 08:15 Dose: 5 mg Carvedilol (Coreg Tab*) 3.125 mg PO BID [facility] Last Admin: 05/15/19 08:15 Dose: 3.125 mg Dronedarone (Multaq Tab*) 400 mg PO BID WITH MEALS [facility] Last Admin: 05/15/19 08:15 Dose: 400 mg Fentanyl (Duragesic Patch 25 Mcg/Hr*) 25 mcg TRANSDERM Q72H [facility] Last Admin: 05/13/19 13:27 Dose: 25 mcg Lorazepam (Ativan Tab(*)) 0.5 mg PO Q4H PRN PRN Reason: ANXIETY Last Admin: 05/14/19 09:38 Dose: 0.5 mg Mometasone Furoate/Formoterol Fumar (Dulera 200/5 Mdi*) 2 puff INH BID [facility] Last Admin: 05/15/19 08:07 Dose: Not Given Multi-Ingredient Mouthwash/Gargle (Magic Mouth Was-Kalen/Maal/Lido*) 5 ml SWISH SWAL 0700,1100,1630,2100 [facility] Last Admin: 05/15/19 07:20 Dose: 5 ml Nystatin (Nystatin Oint*) 1 applic TOPICAL BID [facility] Last Admin: 05/15/19 07:23 Dose: 1 applic Ondansetron HCl (Zofran Inj*) 4 mg IV Q4H PRN PRN Reason: NAUSEA/VOMITING Last Admin: 05/13/19 17:11 Dose: 4 mg Oxycodone HCl (Roxycodone Tab*) 5 mg PO Q4H PRN PRN Reason: PAIN - MODERATE Last Admin: 05/11/19 22:39 Dose: 5 mg Pharmacy Profile Note (Fentanyl Patch Check Q Shift) 1 note FOLLOW UP 0700, 1900 [facility] Last Admin: 05/15/19 06:46 Dose: 1 note Pharmacy Profile Note (Scopolamine Patch Remove*) 1 note PATCH OFF Q72H [facility] Last Admin: 05/14/19 11:54 Dose: 1 patch Polyethylene Glycol/Electrolytes (Miralax*) 17 gm PO DAILY PRN PRN Reason: CONSTIPATION Last Admin: 05/15/19 08:13 Dose: 17 gm Pravastatin Sodium (Pravachol (Nf)) 10 mg PO 1700 [facility] Last Admin: 05/14/19 16:24 Dose: 10 mg Scopolamine (Transderm-Scop 1.5 Mg Patch*) 1 patch TRANSDERM Q72H [facility] Last Admin: 05/14/19 11:54 Dose: 1 patch Sodium Chloride (Sodium Chloride 0.65% Nasal [place]*) 1 spray BOTH NARES .PRN PRN PRN Reason: CONGESTION/DRYNESS Last Admin: 05/15/19 08:14 Dose: 1 spray Tiotropium [place] (Spiriva Respimat 2.5 Mcg) 2 puff INH DAILY [facility] Last Admin: 05/15/19 08:07 Dose: Not Given Objective: []Vital Signs Temp Pulse Resp BP Pulse Ox 97.6 F 87 16 122/72 93 05/15/19 07:53 05/15/19 07:53 05/15/19 07:53 05/15/19 07:53 05/15/19 07:53 Exam: Gen: mildly ill appearing, but much improved over yesterday. NAD, accompanied by his HEENT: MMM CV: RRR, 2/6 murmur appreciated Resp: good air movement , end exp wheezing. Abd: soft, nonTTP with active BS Ext: no edema, chronic venous stasis changes noted Skin: no rashes, multiple bruises from IV starts and lab draws Assessment: [This is a 73 yo male with NSCLC receiving concurrent chemotherapy and radiation admitted with AMS found to be encephalopathy secondary to sepsis since improved. Course subsequently c/b rapid afib. He has localized disease after Bx of chest wall nodule w/o metastatic disease. Re-starting XRT with 17 fractions planned to complete course. Plan: [1. Rapid afib - successfully cardioverted, maintained in NSR - goal to keep K >4, Mg >2 - cont carvedilol, Dronedarone, eliquis 2. Congestion and cough - No antibiotics - Tessalon pearls 4. NSCLC - 17 Fractions XRT starting today - Will re-start Carbo/Taxol this week - Check CBC q week 5.PT daily 6. Placement in [place]
[2019-05-15] MEDS: Ondansetron INJ* 2 MG/ML VIAL IV PRN ×2 (12:34→17:26)
[2019-05-15] MEDS: LORazepam TAB(*) 0.5 MG PO PRN (12:51)
[2019-05-15 16:53] LABS: Albumin 1.9 g/dL (3.4-4.7); Albumin/Globulin Ratio 0.68; Gamma Globulin 0.6 g/dL (0.6-1.6); Total Protein(PEP) 4.7 g/dL (6.3 - 7.9)
[2019-05-15] MEDS: CMC:Pravastatin (NF) 20 MG TAB PO SCH (17:27)
[2019-05-15] MEDS ORDERED: PROCHLORPERAZINE INJ 5 MG/ML 2 ML VIAL IV ONE (22:00)
[2019-05-15] MEDS: Acetaminophen TAB* 325 MG PO PRN (22:46)
[2019-05-16] MEDS: fentaNYL Patch Check Q Shift 1 NOTE FOLLOW UP SCH ×2 (06:17→19:04)
[2019-05-16] MEDS: Mometasone/Formoter 200/5 MDI INH SCH ×2 (07:01→22:35)
[2019-05-16] MEDS: SPIRIVA Respimat* (tiotropium) 2.5 mcg/inh Inhaler INH SCH (07:01)
[2019-05-16] MEDS: Carvedilol TAB* 3.125 MG PO SCH ×2 (07:46→22:35)
[2019-05-16] MEDS: oxyCODONE TAB* 5 MG TAB PO PRN (07:46)
[2019-05-16] MEDS: Apixaban* 5 MG TAB PO SCH ×2 (07:46→22:35)
[2019-05-16] MEDS: Dronedarone TAB* 400 MG PO SCH ×2 (07:46→16:30)
[2019-05-16] MEDS: Ondansetron INJ* 2 MG/ML VIAL IV PRN (07:46)
[2019-05-16] MEDS: fentaNYL PATCH 25 MCG/HR TRANSDERM SCH (09:01)
[2019-05-16] MEDS: Nystatin OINT* 15 GM TOPICAL SCH ×2 (09:04→22:35)
[2019-05-16 09:29] LABS: Hematocrit 31 % (42-52); Hemoglobin 10.2 g/dL (14.0-18.0); Mean Corpuscular HGB Conc 33 g/dL (31-36); Mean Corpuscular Hemoglobin 30 pg (27-31); Mean Corpuscular Volume 90 fL (80-94); Platelet Count 297 10^3/uL (150-450); Red Blood Count 3.42 10^6 /uL (4.18-5.48); Red Cell Distribution Width 17 % (10-15); White Blood Count 3.9 10^3/uL (3.5-10.8)
[2019-05-16 09:31] LABS: ABS Eosinophils 0.1 10^3/ul (0-0.6); ABS Lymphocytes 0.3 10^3/ul (1.0-4.8); ABS Monocytes 0.3 10^3/ul (0-0.8); ABS Neutrophils 3.2 10^3/ul (1.5-7.7); Eosinophil % 2.2 %; Lymphocyte % 8.1 %; Nucleated Red Blood Cells % 0.3
[2019-05-16 09:45] LABS: Albumin 2.5 g/dL (3.2-5.2); Albumin/Globulin Ratio 0.9 (1-3); BUN/Creatinine Ratio 18.3 (8-20); Calcium 8.9 mg/dL (8.6-10.3); EGFR African American 159.4 (>60); EGFR Non-African American 131.7 (>60); Globulin 2.7 g/dL (2-4); Magnesium 1.9 mg/dL (1.9-2.7); Potassium 3.6 mmol/L (3.5-5.0); Total Bilirubin 0.4 mg/dL (0.2-1.0); Total Protein 5.2 g/dL (6.4-8.9)
--- NOTE | 2019-05-16 10:08 | PN ---
Progress Note - Progress Note Date of Service: 05/16/19 SOAP: Subjective: []No change, seeing PT today. Had vomiting yesterday after lunch and has continued nausea. No pain today. Breathing is stable, still cough. No fevers. Acetaminophen (Tylenol Tab*) 650 mg PO Q4H PRN PRN Reason: mild pain/fever Last Admin: 05/15/19 22:46 Dose: 650 mg Albuterol/Ipratropium (Duoneb (Albuterol 2.5 Mg/Ipratropium 0.5 Mg)) 1 neb INH Q4H PRN PRN Reason: SOB/WHEEZING Apixaban (Eliquis*) 5 mg PO BID [facility] Last Admin: 05/16/19 07:46 Dose: 5 mg Benzonatate (Tessalon Cap*) 100 mg PO BID PRN PRN Reason: COUGH Carvedilol (Coreg Tab*) 3.125 mg PO BID [facility] Last Admin: 05/16/19 07:46 Dose: 3.125 mg Dronedarone (Multaq Tab*) 400 mg PO BID [facility] Last Admin: 05/16/19 07:46 Dose: 400 mg Fentanyl (Duragesic Patch 25 Mcg/Hr*) 25 mcg TRANSDERM Q72H [facility] Last Admin: 05/16/19 09:01 Dose: 25 mcg Lorazepam (Ativan Tab(*)) 0.5 mg PO Q6H PRN PRN Reason: ANXIETY Last Admin: 05/15/19 12:51 Dose: 0.5 mg Magnesium Oxide (Magox 400 Tab*) 400 mg PO BID [facility] Mometasone Furoate/Formoterol Fumar (Dulera 200/5 Mdi*) 2 puff INH BID [facility] Last Admin: 05/16/19 07:01 Dose: Not Given Nystatin (Nystatin Oint*) 1 applic TOPICAL BID [facility] Last Admin: 05/16/19 09:04 Dose: 1 applic Ondansetron HCl (Zofran Inj*) 8 mg IV TID [facility] Oxycodone HCl (Roxycodone Tab*) 5 mg PO Q4H PRN PRN Reason: PAIN - MODERATE Last Admin: 05/16/19 07:46 Dose: 5 mg Pharmacy Profile Note (Fentanyl Patch Check Q Shift) 1 note FOLLOW UP 0700, 1900 [facility] Last Admin: 05/16/19 06:17 Dose: 1 note Pharmacy Profile Note (Scopolamine Patch Remove*) 1 note PATCH OFF Q72H [facility] Last Admin: 05/14/19 11:54 Dose: 1 patch Polyethylene Glycol/Electrolytes (Miralax*) 17 gm PO DAILY PRN PRN Reason: CONSTIPATION Last Admin: 05/15/19 08:13 Dose: 17 gm Potassium Chloride (Klor Con Er Tab*) 20 meq PO DAILY [facility] Pravastatin Sodium (Pravachol (Nf)) 10 mg PO 1700 [facility] Last Admin: 05/15/19 17:27 Dose: 10 mg Scopolamine (Transderm-Scop 1.5 Mg Patch*) 1 patch TRANSDERM Q72H [facility] Last Admin: 05/14/19 11:54 Dose: 1 patch Sodium Chloride (Sodium Chloride 0.65% Nasal [place]*) 1 spray BOTH NARES .PRN PRN PRN Reason: CONGESTION/DRYNESS Last Admin: 05/15/19 08:14 Dose: 1 spray Tiotropium [place] (Spiriva Respimat 2.5 Mcg) 2 puff INH DAILY [facility] Last Admin: 05/16/19 07:01 Dose: Not Given Objective: [] Vital Signs Temp Pulse Resp BP Pulse Ox 98.0 F 86 20 122/73 93 05/16/19 07:15 05/16/19 07:15 05/16/19 09:42 05/16/19 07:15 05/16/19 07:15 Exam: HEENT: MMM CV: RRR, 2/6 murmur appreciated Resp: good air movement , end exp wheezing. Abd: soft, nonTTP with active BS Ext: no edema, chronic venous stasis changes noted Skin: no rashes, multiple bruises from IV starts and lab draws Assessment: [This is a 73 yo male with NSCLC receiving concurrent chemotherapy and radiation admitted with AMS found to be encephalopathy secondary to sepsis since improved. Course subsequently c/b rapid afib. He has localized disease after Bx of chest wall nodule w/o metastatic disease. Re-starting XRT with 17 fractions planned to complete course. Plan: [1. Rapid afib - successfully cardioverted, maintained in NSR - goal to keep K >4, Mg >2 - cont carvedilol, Dronedarone, eliquis 2. Congestion and cough - No antibiotics - Tessalon pearls 4. NSCLC - 17 Fractions XRT starting today - Will re-start Carbo/Taxol this week - Check CBC q week 5.PT daily 6. Placement in [place], may go to [place] tomorrow.
[2019-05-16] MEDS: Potassium Chlor TAB* 20 MEQ TAB.ER PO SCH (10:23)
[2019-05-16] MEDS ORDERED: Famotidine IV* 10 MG/ML 2 ML (20 mg) IV SLOW PU ONE (13:00)
[2019-05-16] MEDS ORDERED: Dexamethasone IV* 4 MG/ML 1 ML (4 MG) IV SLOW PU ONE (13:00)
[2019-05-16] MEDS: Ondansetron INJ* 2 MG/ML VIAL IV SCH ×2 (13:06→22:35)
[2019-05-16] MEDS ORDERED: diPHENhydraMINE IV* 50 MG/ML 1 ml VIAL (BENADRYL) SLOW PUSH ONE (13:15)
[2019-05-16] MEDS ORDERED: NS 0.9% IVPB ONE ×2 (13:30→14:30)
[2019-05-16] MEDS ORDERED: PACLITAXEL IVPB ONE (13:30)
[2019-05-16] MEDS ORDERED: CARBOPLATIN IVPB ONE (14:30)
[2019-05-16] MEDS: CMC:Pravastatin (NF) 20 MG TAB PO SCH (16:30)
[2019-05-16] MEDS: Acetaminophen TAB* 325 MG PO PRN (22:34)
[2019-05-16] MEDS: Magnesium Oxide TAB* 400 MG PO SCH (22:35)
[2019-05-17 06:00] LABS: Hematocrit 28 % (42-52); Hemoglobin 9.6 g/dL (14.0-18.0); Mean Corpuscular HGB Conc 34 g/dL (31-36); Mean Corpuscular Hemoglobin 31 pg (27-31); Mean Corpuscular Volume 90 fL (80-94); Mean Platelet Volume 7.2 fL (7.4-10.4); Platelet Count 304 10^3/uL (150-450); Red Blood Count 3.14 10^6 /uL (4.18-5.48); Red Cell Distribution Width 17 % (10-15)
[2019-05-17 06:19] LABS: Albumin 2.3 g/dL (3.2-5.2); Albumin/Globulin Ratio 0.9 (1-3); Calcium 7.9 mg/dL (8.6-10.3); EGFR African American 150.6 (>60); EGFR Non-African American 124.5 (>60); Globulin 2.7 g/dL (2-4); Magnesium 1.8 mg/dL (1.9-2.7); Potassium 3.6 mmol/L (3.5-5.0); Total Bilirubin 0.4 mg/dL (0.2-1.0)
[2019-05-17] MEDS: fentaNYL Patch Check Q Shift 1 NOTE FOLLOW UP SCH ×2 (06:36→19:14)
[2019-05-17] MEDS: Ondansetron INJ* 2 MG/ML VIAL IV SCH ×3 (07:47→21:26)
[2019-05-17] MEDS: Potassium Chlor TAB* 20 MEQ TAB.ER PO SCH (07:48)
[2019-05-17] MEDS: Apixaban* 5 MG TAB PO SCH ×2 (07:48→21:25)
[2019-05-17] MEDS: Carvedilol TAB* 3.125 MG PO SCH ×2 (07:48→21:25)
[2019-05-17] MEDS: Dronedarone TAB* 400 MG PO SCH ×2 (07:48→16:34)
[2019-05-17] MEDS: Nystatin OINT* 15 GM TOPICAL SCH ×2 (07:49→21:25)
[2019-05-17] MEDS: Magnesium Oxide TAB* 400 MG PO SCH ×2 (07:49→21:24)
[2019-05-17] MEDS: Acetaminophen TAB* 325 MG PO PRN (08:29)
[2019-05-17] MEDS: Benzonatate CAP* 100 MG PO PRN (08:29)
[2019-05-17 08:30] LABS: ABS Lymphocytes 0.2 10^3/ul (1.0-4.8); ABS Monocytes 0.2 10^3/ul (0-0.8); ABS Neutrophils 2.6 10^3/ul (1.5-7.7); Eosinophil % 0.1 %; Lymphocyte % 7.2 %; Nucleated Red Blood Cells % 0.5
[2019-05-17] MEDS: Mometasone/Formoter 200/5 MDI INH SCH ×2 (08:44→20:55)
[2019-05-17] MEDS: SPIRIVA Respimat* (tiotropium) 2.5 mcg/inh Inhaler INH SCH (08:44)
[2019-05-17] MEDS: Scopolamine PATCH Remove* 1 NOTE MISC PATCH OFF SCH (13:00)
[2019-05-17] MEDS: Scopolamine 1.5 mg* PATCH TRANSDERM SCH (13:00)
[2019-05-17] MEDS: LORazepam TAB(*) 0.5 MG PO PRN (13:01)
[2019-05-17] MEDS: CMC:Pravastatin (NF) 20 MG TAB PO SCH (16:34)
[2019-05-18] MEDS: fentaNYL Patch Check Q Shift 1 NOTE FOLLOW UP SCH ×2 (06:18→19:11)
[2019-05-18] MEDS: Apixaban* 5 MG TAB PO SCH ×2 (07:49→21:36)
[2019-05-18] MEDS: Benzonatate CAP* 100 MG PO PRN ×2 (07:49→17:11)
[2019-05-18] MEDS: Acetaminophen TAB* 325 MG PO PRN (07:50)
[2019-05-18] MEDS: Magnesium Oxide TAB* 400 MG PO SCH ×2 (07:52→21:36)
[2019-05-18] MEDS: Dronedarone TAB* 400 MG PO SCH ×2 (07:52→17:11)
[2019-05-18] MEDS: Potassium Chlor TAB* 20 MEQ TAB.ER PO SCH (07:54)
[2019-05-18] MEDS: Carvedilol TAB* 3.125 MG PO SCH ×2 (07:57→21:36)
[2019-05-18] MEDS: Nystatin OINT* 15 GM TOPICAL SCH ×2 (07:58→21:53)
[2019-05-18] MEDS: Ondansetron INJ* 2 MG/ML VIAL IV SCH ×3 (07:58→21:47)
[2019-05-18] MEDS: SPIRIVA Respimat* (tiotropium) 2.5 mcg/inh Inhaler INH SCH (08:06)
[2019-05-18] MEDS: Mometasone/Formoter 200/5 MDI INH SCH ×2 (08:06→21:01)
[2019-05-18] MEDS ORDERED: Magnesium Sulfate IV* 3 GM in NS 0.9% 100 ML* 100 ML IVPB ONE (10:00)
[2019-05-18] MEDS: oxyCODONE TAB* 5 MG TAB PO PRN ×2 (10:54→21:52)
--- NOTE | 2019-05-18 12:23 | PN ---
Progress Note - Progress Note Date of Service: 05/18/19 SOAP: Subjective: []Doing well this am. Still not walking but doing bed exercises with PT. Tolerated chemotherapy and tolerating radiation. Still nausea, particularly in the am with breakfast. Breathing is fine, chest pain is better. Acetaminophen (Tylenol Tab*) 650 mg PO Q4H PRN PRN Reason: mild pain/fever Last Admin: 05/18/19 07:50 Dose: 650 mg Albuterol/Ipratropium (Duoneb (Albuterol 2.5 Mg/Ipratropium 0.5 Mg)) 1 neb INH Q4H PRN PRN Reason: SOB/WHEEZING Apixaban (Eliquis*) 5 mg PO BID [facility] Last Admin: 05/18/19 07:49 Dose: 5 mg Benzonatate (Tessalon Cap*) 100 mg PO BID PRN PRN Reason: COUGH Last Admin: 05/18/19 07:49 Dose: 100 mg Carvedilol (Coreg Tab*) 3.125 mg PO BID [facility] Last Admin: 05/18/19 07:57 Dose: 3.125 mg Dronedarone (Multaq Tab*) 400 mg PO BID WITH MEALS [facility] Last Admin: 05/18/19 07:52 Dose: 400 mg Fentanyl (Duragesic Patch 25 Mcg/Hr*) 25 mcg TRANSDERM Q72H [facility] Last Admin: 05/16/19 09:01 Dose: 25 mcg Lorazepam (Ativan Tab(*)) 0.5 mg PO Q6H PRN PRN Reason: ANXIETY Last Admin: 05/17/19 13:01 Dose: 0.5 mg Magnesium Oxide (Magox 400 Tab*) 400 mg PO BID [facility] Last Admin: 05/18/19 07:52 Dose: 400 mg Mometasone Furoate/Formoterol Fumar (Dulera 200/5 Mdi*) 2 puff INH BID [facility] Last Admin: 05/18/19 08:06 Dose: Not Given Nystatin (Nystatin Oint*) 1 applic TOPICAL BID [facility] Last Admin: 05/18/19 07:58 Dose: 1 applic Ondansetron HCl (Zofran Inj*) 8 mg IV TID [facility] Last Admin: 05/18/19 07:58 Dose: 8 mg Oxycodone HCl (Roxycodone Tab*) 5 mg PO Q4H PRN PRN Reason: PAIN - MODERATE Last Admin: 05/18/19 10:54 Dose: 5 mg Pharmacy Profile Note (Fentanyl Patch Check Q Shift) 1 note FOLLOW UP 0700, 1900 [facility] Last Admin: 05/18/19 06:18 Dose: 1 note Pharmacy Profile Note (Scopolamine Patch Remove*) 1 note PATCH OFF Q72H [facility] Last Admin: 05/17/19 13:00 Dose: 1 patch Polyethylene Glycol/Electrolytes (Miralax*) 17 gm PO DAILY PRN PRN Reason: CONSTIPATION Last Admin: 05/15/19 08:13 Dose: 17 gm Potassium Chloride (Klor Con Er Tab*) 20 meq PO DAILY [facility] Last Admin: 05/18/19 07:54 Dose: 20 meq Pravastatin Sodium (Pravachol (Nf)) 10 mg PO 1700 [facility] Last Admin: 05/17/19 16:34 Dose: 10 mg Scopolamine (Transderm-Scop 1.5 Mg Patch*) 1 patch TRANSDERM Q72H [facility] Last Admin: 05/17/19 13:00 Dose: 1 patch Sodium Chloride (Sodium Chloride 0.65% Nasal [place]*) 1 spray BOTH NARES .PRN PRN PRN Reason: CONGESTION/DRYNESS Last Admin: 05/15/19 08:14 Dose: 1 spray Tiotropium Brave (Spiriva Respimat 2.5 Mcg) 2 puff INH DAILY [facility] Last Admin: 05/18/19 08:06 Dose: Not Given Objective: [] Vital Signs Temp Pulse Resp BP Pulse Ox 98.3 F 85 22 119/76 98 05/18/19 11:13 05/18/19 11:13 05/18/19 11:13 05/18/19 11:13 05/18/19 11:13 Exam: HEENT: MMM CV: RRR, 2/6 murmur appreciated Resp: good air movement , end exp wheezing. Abd: soft, nonTTP with active BS Ext: no edema, chronic venous stasis changes noted Skin: no rashes, multiple bruises from IV starts and lab draws Frausto in place Assessment: [This is a 73 yo male with NSCLC receiving concurrent chemotherapy and radiation admitted with AMS found to be encephalopathy secondary to sepsis since improved. Course subsequently c/b rapid afib. He has localized disease after Bx of chest wall nodule w/o metastatic disease. Now restarted XRT and weekly chemotherapy. long-term posstive pathway is to complete XRT and chemotherapy first week of June. Work through [place] with rehab to improve mobility. Hope to have him home in June and can proceed with adjuvant immunotherapy. Plan: [1. Afib. Has been rate controlled and asymptomatic. - goal to keep K >4, Mg >2. Give IV Mg today. - cont carvedilol, Dronedarone, eliquis 2. Congestion and cough - No antibiotics - Cameron barton 4. NSCLC - 17 Fractions XRT starting today - Carbo/Taxol weekly. - Check CBC q week 5.PT daily 6. Placement in [place], may go to [facility] Monday
[2019-05-18] MEDS: CMC:Pravastatin (NF) 20 MG TAB PO SCH (17:11)
[2019-05-19 05:44] LABS: ABS Eosinophils 0.1 10^3/ul (0-0.6); ABS Lymphocytes 0.3 10^3/ul (1.0-4.8); ABS Monocytes 0.2 10^3/ul (0-0.8); Eosinophil % 1.9 %; Hematocrit 29 % (42-52); Hemoglobin 9.7 g/dL (14.0-18.0); Lymphocyte % 7.3 %; Mean Corpuscular HGB Conc 33 g/dL (31-36); Mean Corpuscular Hemoglobin 30 pg (27-31); Mean Corpuscular Volume 91 fL (80-94); Mean Platelet Volume 7.6 fL (7.4-10.4); Nucleated Red Blood Cells % 0.5; Platelet Count 319 10^3/uL (150-450); Red Blood Count 3.22 10^6 /uL (4.18-5.48); Red Cell Distribution Width 18 % (10-15); White Blood Count 3.6 10^3/uL (3.5-10.8)
[2019-05-19 06:01] LABS: Albumin 2.5 g/dL (3.2-5.2); Calcium 8.4 mg/dL (8.6-10.3); EGFR African American 131.2 (>60); EGFR Non-African American 108.4 (>60); Globulin 2.6 g/dL (2-4); Magnesium 2.4 mg/dL (1.9-2.7); Potassium 3.9 mmol/L (3.5-5.0); Total Bilirubin 0.5 mg/dL (0.2-1.0); Total Protein 5.1 g/dL (6.4-8.9)
[2019-05-19] MEDS: Ondansetron INJ* 2 MG/ML VIAL IV SCH ×4 (06:56→21:41)
[2019-05-19] MEDS: Mometasone/Formoter 200/5 MDI INH SCH ×2 (07:17→19:40)
[2019-05-19] MEDS: Benzonatate CAP* 100 MG PO PRN (07:17)
[2019-05-19] MEDS: SPIRIVA Respimat* (tiotropium) 2.5 mcg/inh Inhaler INH SCH (07:17)
[2019-05-19] MEDS: fentaNYL Patch Check Q Shift 1 NOTE FOLLOW UP SCH ×2 (07:29→19:08)
[2019-05-19] MEDS ORDERED: Potassium Chlor TAB* 20 MEQ TAB.ER PO ONE (07:37)
--- NOTE | 2019-05-19 08:39 | PN ---
Subjective Date of Service: 05/19/19 Interval History: Hospitalist coverage for heme/onc team today. Patient reports nausea despite scopolamine patch and zofran. He is able to keep down water. Vomited small volume after eating small bites of cream of wheat. Denies fever/chills/rigors, difficulty breathing, chest pain, tachycardia, palpitations, abd pain. In afternoon, notified of black/tarry BM with streak of tia blood present. Patient denies hx of hemorrhoids. Objective Active Medications: Acetaminophen (Tylenol Tab*) 650 mg PO Q4H PRN PRN Reason: mild pain/fever Last Admin: 05/18/19 07:50 Dose: 650 mg Albuterol/Ipratropium (Duoneb (Albuterol 2.5 Mg/Ipratropium 0.5 Mg)) 1 neb INH Q4H PRN PRN Reason: SOB/WHEEZING Apixaban (Eliquis*) 5 mg PO BID [facility] Last Admin: 05/18/19 21:36 Dose: 5 mg Benzonatate (Tessalon Cap*) 100 mg PO BID PRN PRN Reason: COUGH Last Admin: 05/19/19 07:17 Dose: 100 mg Carvedilol (Coreg Tab*) 3.125 mg PO BID [facility] Last Admin: 05/18/19 21:36 Dose: 3.125 mg Dronedarone (Multaq Tab*) 400 mg PO BID WITH MEALS [facility] Last Admin: 05/18/19 17:11 Dose: 400 mg Fentanyl (Duragesic Patch 25 Mcg/Hr*) 25 mcg TRANSDERM Q72H [facility] Last Admin: 05/16/19 09:01 Dose: 25 mcg Lorazepam (Ativan Tab(*)) 0.5 mg PO Q6H PRN PRN Reason: ANXIETY Last Admin: 05/17/19 13:01 Dose: 0.5 mg Magnesium Oxide (Magox 400 Tab*) 400 mg PO BID [facility] Last Admin: 05/18/19 21:36 Dose: 400 mg Mometasone Furoate/Formoterol Fumar (Dulera 200/5 Mdi*) 2 puff INH BID [facility] Last Admin: 05/19/19 07:17 Dose: Not Given Nystatin (Nystatin Oint*) 1 applic TOPICAL BID [facility] Last Admin: 05/18/19 21:53 Dose: 1 applic Ondansetron HCl (Zofran Inj*) 8 mg IV TID [facility] Last Admin: 05/19/19 06:56 Dose: 8 mg Oxycodone HCl (Roxycodone Tab*) 5 mg PO Q4H PRN PRN Reason: PAIN - MODERATE Last Admin: 05/18/19 21:52 Dose: 5 mg Pharmacy Profile Note (Fentanyl Patch Check Q Shift) 1 note FOLLOW UP 0700, 1900 [facility] Last Admin: 05/19/19 07:29 Dose: 1 note Pharmacy Profile Note (Scopolamine Patch Remove*) 1 note PATCH OFF Q72H [facility] Last Admin: 05/17/19 13:00 Dose: 1 patch Polyethylene Glycol/Electrolytes (Miralax*) 17 gm PO DAILY PRN PRN Reason: CONSTIPATION Last Admin: 05/15/19 08:13 Dose: 17 gm Potassium Chloride (Klor Con Er Tab*) 20 meq PO DAILY [facility] Last Admin: 05/18/19 07:54 Dose: 20 meq Pravastatin Sodium (Pravachol (Nf)) 10 mg PO 1700 [facility] Last Admin: 05/18/19 17:11 Dose: 10 mg Scopolamine (Transderm-Scop 1.5 Mg Patch*) 1 patch TRANSDERM Q72H [facility] Last Admin: 05/17/19 13:00 Dose: 1 patch Sodium Chloride (Sodium Chloride 0.65% Nasal [place]*) 1 spray BOTH NARES .PRN PRN PRN Reason: CONGESTION/DRYNESS Last Admin: 05/15/19 08:14 Dose: 1 spray Tiotropium [place] (Spiriva Respimat 2.5 Mcg) 2 puff INH DAILY [facility] Last Admin: 05/19/19 07:17 Dose: Not Given Vital Signs - 8 hr 05/19/19 05/19/19 03:15 07:15 Temperature 97.5 F 98.6 F Pulse Rate 101 99 Respiratory 18 22 Rate Blood Pressure 117/77 119/71 (mmHg) O2 Sat by Pulse 95 95 Oximetry Oxygen Devices in Use Now: Nasal Cannula Appearance: Obese, elderly, white male, sitting in chair, appearing comfortable and in NAD; at bedside Eyes: No Scleral Icterus, - - PERRL Ears/Nose/Mouth/Throat: Mucous Membranes Moist Neck: Trachea Midline Respiratory: Symmetrical Chest Expansion and Respiratory Effort, Clear to Auscultation Cardiovascular: NL Sounds; No Murmurs; No JVD, RRR Abdominal: - - abd soft, nontender, nondistended Extremities: No Clubbing, Cyanosis, - - trace edema to bilateral ankles and chronic skin color changes consistent with vascular insufficieincy Skin: No Rash or Ulcers Neurological: Alert and Oriented x 3, NL Muscle Strength and Tone - Nutrition: Malnutrition Diagnosis/Plan Malnutrition Assessment by Registered Dietitian: Malnutrition Assessment Clinical Characteristics Chronic,Severe Malnutrition Assessment: Inadequate Oral Intake - Pt continues w/ Criteria variable intake; consumed 5-90% all meals x2 days - Anticipate meeting <75% nutrient needs > 1 mo (severe) Unintentional Weight Loss - Pt continues to have wt loss; current wt 264lb, prev wt per [facility] 302lb (03/2019) - 12.6% loss x2 mos (severe) Malnutrition Assessment: Nutritional Supplementals/Nourishments - Will Interventions continue to send Ensure Enlive (350kcal, 20g prot/serv) x4 wkly, though pt not amenable to more upon visit today; encouraged pt to make prefences known and request foods as desired; pt receptive Textures Modification - Will continue to send mechanical ground textures for ease of chewing; will monitor tolerance and make recommendations as indicated GI Related - Recommend continuing pain mgmt, antiemetics, and bowel meds PRN; will continue to monitor intakes and offer nourishments/ supplements as indicated Malnutrition Assessment: Goals 1) Adequate po intake to support lean body mass , wound healing, and hydration status 2) Maintain fluid/electrolyte balance w/ adequate po intake 3) Maintain bowel regularity w/ adequate po intake and bowel meds w/o development of diarrhea/constipation Result Diagrams: 05/19/19 05:12 05/19/19 05:12 Microbiology and Other Data: Microbiology 05/09/19 12:10 Aerobic Blood Culture - Final Blood Venous No Growth Day 5 Anaerobic Blood Culture - Final No Growth Day 5 05/09/19 11:45 Aerobic Blood Culture - Final Blood Venous No Growth Day 5 Anaerobic Blood Culture - Final No Growth Day 5 05/09/19 03:20 Urine Culture - Final Urine No Growth (<1,000 CFU/mL) Assess/Plan/Problems-Billing Assessment: 73 yo white male with PMHx NSCLC receiving XRT and chemo, Afib, COPD, and recent sepsis 2/2 GI cause, was found to be in Afib with RVR while swing status and switched to acute inpatient status, cardioverted on 05/08/19, and found to have acute WY. No intervention for WY pursued due to comorbidities. - Patient Problems (1) Melena Current Visit: Yes Status: Acute Code(s): K92.1 - MELENA SNOMED Code(s): 5707657 Comment: -melena with small streak of tia blood reported this afternoon -checking H&H q8h and will continue to monitor -no hx of hemorrhoids -starting protonix (2) Afib Current Visit: Yes Status: Acute Code(s): I48.91 - UNSPECIFIED ATRIAL FIBRILLATION SNOMED Code(s): 79227386 Comment: -minimally tachycardic but not symptomatic, BP stable -will continue to monitor -replacing with additional KCl to keep K>4 and Mg>2 -continue multaq, coreg, and eliquis (3) Nausea Current Visit: Yes Status: Acute Code(s): R11.0 - NAUSEA SNOMED Code(s): 276636929 Comment: -has been persistent today -discussed MINDI of chemo -is keeping down fluids -continue scopolomine patch and prn zofran, perhraps ativan would be beneficial (4) Non-small cell lung cancer Current Visit: Yes Status: Acute Code(s): C34.90 - MALIGNANT NEOPLASM OF UNSP PART OF UNSP BRONCHUS OR LUNG SNOMED Code(s): 444521865 Comment: -XRT and chemo -neutropenia resolved today, plts wnl -mgmt per heme/onc team (5) DVT prophylaxis Current Visit: Yes Status: Acute Code(s): Z29.9 - ENCOUNTER FOR PROPHYLACTIC MEASURES, UNSPECIFIED SNOMED Code(s): 630482435 Comment: -SCDs (6) DNR (do not resuscitate) Current Visit: Yes Status: Acute Status and Disposition: awaiting [facility] placement
[2019-05-19] MEDS: Dronedarone TAB* 400 MG PO SCH ×2 (09:58→19:00)
[2019-05-19] MEDS: Magnesium Oxide TAB* 400 MG PO SCH ×2 (09:58→21:40)
[2019-05-19] MEDS: LORazepam TAB(*) 0.5 MG PO PRN (09:58)
[2019-05-19] MEDS: Apixaban* 5 MG TAB PO SCH ×2 (09:59→21:40)
[2019-05-19] MEDS: Carvedilol TAB* 3.125 MG PO SCH ×2 (09:59→21:41)
[2019-05-19] MEDS: fentaNYL PATCH 25 MCG/HR TRANSDERM SCH (14:41)
[2019-05-19] MEDS: Potassium Chlor TAB* 20 MEQ TAB.ER PO SCH (14:50)
[2019-05-19] MEDS: Nystatin OINT* 15 GM TOPICAL SCH ×2 (16:04→21:41)
[2019-05-19 16:24] LABS: Hematocrit 29 % (42-52); Hemoglobin 9.5 g/dL (14.0-18.0)
[2019-05-19] MEDS: Pantoprazole IV* 40 MG IV SCH (18:19)
[2019-05-19] MEDS: CMC:Pravastatin (NF) 20 MG TAB PO SCH (18:20)
[2019-05-20 01:14] LABS: Hematocrit 26 % (42-52); Hemoglobin 8.6 g/dL (14.0-18.0)
[2019-05-20] MEDS: LORazepam TAB(*) 0.5 MG PO PRN (02:29)
[2019-05-20] MEDS: oxyCODONE TAB* 5 MG TAB PO PRN (02:49)
[2019-05-20 05:51] LABS: ABS Eosinophils 0.1 10^3/ul (0-0.6); ABS Lymphocytes 0.2 10^3/ul (1.0-4.8); ABS Monocytes 0.2 10^3/ul (0-0.8); Eosinophil % 2.5 %; Hematocrit 25 % (42-52); Hemoglobin 8.3 g/dL (14.0-18.0); Lymphocyte % 9.2 %; Mean Corpuscular HGB Conc 33 g/dL (31-36); Mean Corpuscular Hemoglobin 30 pg (27-31); Mean Corpuscular Volume 91 fL (80-94); Mean Platelet Volume 7.1 fL (7.4-10.4); Nucleated Red Blood Cells % 0.2; Platelet Count 288 10^3/uL (150-450); Red Blood Count 2.76 10^6 /uL (4.18-5.48); Red Cell Distribution Width 18 % (10-15); White Blood Count 2.5 10^3/uL (3.5-10.8)
[2019-05-20 06:06] LABS: BUN/Creatinine Ratio 22.8 (8-20); Calcium 8.2 mg/dL (8.6-10.3); EGFR Non-African American 95.9 (>60); Magnesium 2.2 mg/dL (1.9-2.7); Potassium 4.3 mmol/L (3.5-5.0)
[2019-05-20] MEDS: fentaNYL Patch Check Q Shift 1 NOTE FOLLOW UP SCH ×2 (06:47→19:16)
[2019-05-20] MEDS: Mometasone/Formoter 200/5 MDI INH SCH ×2 (07:19→22:55)
[2019-05-20] MEDS: SPIRIVA Respimat* (tiotropium) 2.5 mcg/inh Inhaler INH SCH (07:19)
[2019-05-20] MEDS: Ondansetron INJ* 2 MG/ML VIAL IV SCH ×3 (09:10→21:02)
[2019-05-20] MEDS: Nystatin OINT* 15 GM TOPICAL SCH ×2 (09:10→20:58)
[2019-05-20] MEDS: Pantoprazole IV* 40 MG IV SCH (09:10)
[2019-05-20] MEDS: Carvedilol TAB* 3.125 MG PO SCH ×2 (09:10→21:01)
[2019-05-20] MEDS: Magnesium Oxide TAB* 400 MG PO SCH ×2 (09:11→21:01)
[2019-05-20] MEDS: Dronedarone TAB* 400 MG PO SCH ×2 (09:11→17:01)
[2019-05-20] MEDS: Potassium Chlor TAB* 20 MEQ TAB.ER PO SCH (09:11)
--- NOTE | 2019-05-20 11:08 | PN ---
Progress Note - Progress Note Date of Service: 05/20/19 SOAP: Subjective: []Feeling crummy today, no specific complaint. Still coughing and bringing up yellow sputum. Back and "bum" hurt. Denies SOB. Nausea has been fairly persistent, can't tell when meds help though both he and feel ativan works best. Medications: Acetaminophen (Tylenol Tab*) 650 mg PO Q4H PRN PRN Reason: mild pain/fever Last Admin: 05/18/19 07:50 Dose: 650 mg Albuterol/Ipratropium (Duoneb (Albuterol 2.5 Mg/Ipratropium 0.5 Mg)) 1 neb INH Q4H PRN PRN Reason: SOB/WHEEZING Last Admin: 05/19/19 15:07 Dose: 1 neb Benzonatate (Tessalon Cap*) 100 mg PO BID PRN PRN Reason: COUGH Last Admin: 05/19/19 07:17 Dose: 100 mg Carvedilol (Coreg Tab*) 3.125 mg PO BID [facility] Last Admin: 05/20/19 09:10 Dose: 3.125 mg Dronedarone (Multaq Tab*) 400 mg PO BID WITH MEALS [facility] Last Admin: 05/20/19 09:11 Dose: 400 mg Fentanyl (Duragesic Patch 25 Mcg/Hr*) 25 mcg TRANSDERM Q72H [facility] Last Admin: 05/19/19 14:41 Dose: 25 mcg Lorazepam (Ativan Tab(*)) 0.5 mg PO Q6H PRN PRN Reason: ANXIETY Last Admin: 05/20/19 02:29 Dose: 0.5 mg Magnesium Oxide (Magox 400 Tab*) 400 mg PO BID [facility] Last Admin: 05/20/19 09:11 Dose: 400 mg Mometasone Furoate/Formoterol Fumar (Dulera 200/5 Mdi*) 2 puff INH BID [facility] Last Admin: 05/20/19 07:19 Dose: Not Given Nystatin (Nystatin Oint*) 1 applic TOPICAL BID [facility] Last Admin: 05/20/19 09:10 Dose: 1 applic Ondansetron HCl (Zofran Inj*) 8 mg IV TID [facility] Last Admin: 05/20/19 09:10 Dose: 8 mg Oxycodone HCl (Roxycodone Tab*) 5 mg PO Q4H PRN PRN Reason: PAIN - MODERATE Last Admin: 05/20/19 02:49 Dose: 5 mg Pantoprazole Sodium (Protonix Iv*) 40 mg IV DAILY [facility] Last Admin: 05/20/19 09:10 Dose: 40 mg Pharmacy Profile Note (Fentanyl Patch Check Q Shift) 1 note FOLLOW UP 0700, 1900 [facility] Last Admin: 05/20/19 06:47 Dose: 1 note Pharmacy Profile Note (Scopolamine Patch Remove*) 1 note PATCH OFF Q72H [facility] Last Admin: 05/17/19 13:00 Dose: 1 patch Polyethylene Glycol/Electrolytes (Miralax*) 17 gm PO DAILY PRN PRN Reason: CONSTIPATION Last Admin: 05/15/19 08:13 Dose: 17 gm Potassium Chloride (Klor Con Er Tab*) 20 meq PO DAILY [facility] Last Admin: 05/20/19 09:11 Dose: 20 meq Pravastatin Sodium (Pravachol (Nf)) 10 mg PO 1700 [facility] Last Admin: 05/19/19 18:20 Dose: 10 mg Scopolamine (Transderm-Scop 1.5 Mg Patch*) 1 patch TRANSDERM Q72H [facility] Last Admin: 05/17/19 13:00 Dose: 1 patch Sodium Chloride (Sodium Chloride 0.65% Nasal [place]*) 1 spray BOTH NARES .PRN PRN PRN Reason: CONGESTION/DRYNESS Last Admin: 05/15/19 08:14 Dose: 1 spray Tiotropium [place] (Spiriva Respimat 2.5 Mcg) 2 puff INH DAILY [facility] Last Admin: 05/20/19 07:19 Dose: Not Given Objective: [] Vital Signs Temp Pulse Resp BP Pulse Ox 97.8 F 75 18 104/62 97 05/20/19 06:55 05/20/19 06:55 05/20/19 08:00 05/20/19 06:55 05/20/19 06:55 A&Ox3, neuro grossly non-focal HRR, distant heart sounds LS + crackles, dim. bases +BS, soft and non-tender, obese Boaz LE Laboratory Results - last 24 hr 05/19/19 05/20/19 05/20/19 16:10 01:09 05:42 WBC RBC Hgb 9.5 L 8.6 L Hct 29 L 26 L MCV MCH MCHC RDW Plt Count MPV Neut % (Auto) Lymph % (Auto) [place] % (Auto) Eos % (Auto) Baso % (Auto) Absolute Neuts (auto) Absolute Lymphs (auto) Absolute Monos (auto) Absolute Eos (auto) Absolute Basos (auto) Absolute Nucleated RBC Nucleated RBC % Sodium 140 Potassium 4.3 Chloride 106 Carbon Dioxide 31 Anion Gap 3 BUN 18 Creatinine 0.79 Est GFR ( Amer) 116.0 Est GFR (Non-Af Amer) 95.9 BUN/Creatinine Ratio 22.8 H Glucose 116 H Calcium 8.2 L Magnesium 2.2 05/20/19 05:43 WBC 2.5 L RBC 2.76 L Hgb 8.3 L Hct 25 L MCV 91 MCH 30 MCHC 33 RDW 18 H Plt Count 288 MPV 7.1 L Neut % (Auto) 81.8 Lymph % (Auto) 9.2 [place] % (Auto) 6.2 Eos % (Auto) 2.5 Baso % (Auto) 0.3 Absolute Neuts (auto) 2.0 Absolute Lymphs (auto) 0.2 L Absolute Monos (auto) 0.2 Absolute Eos (auto) 0.1 Absolute Basos (auto) 0.0 Absolute Nucleated RBC 0.0 Nucleated RBC % 0.2 Sodium Potassium Chloride Carbon Dioxide Anion Gap BUN Creatinine Est GFR ( Amer) Est GFR (Non-Af Amer) BUN/Creatinine Ratio Glucose Calcium Magnesium Assessment: []This is a 73 yo male with NSCLC receiving concurrent chemotherapy and radiation admitted with AMS found to be encephalopathy secondary to sepsis since improved. Course subsequently c/b rapid afib. He has localized disease after Bx of chest wall nodule w/o metastatic disease. Now restarted XRT and weekly chemotherapy. New concern for GI bleed with melena noted by nursing yesterday and 1 gram drop in hmg over 24 hours. Plan: []1. Possible GI bleed - guaiac pending - repeat hmg ~1400 today, if cont.'d drop will consult GI - eliquis held - cont. IV protonix - OK to eat for now 2. Afib. Has been rate controlled and asymptomatic, HRR today - goal to keep K >4, Mg >2, check labs daily for now - cont carvedilol & Dronedarone - eliquis held today d/t concern for GI bleed will resume once no evidence for bleeding 3. Congestion and cough likely r/t tumor degredation - check chest x-ray today to be cautious 4. NSCLC - day 6 XRT - Carbo/Taxol weekly (due ) - fairly persistent nausea, will add ativan 0.5 mg PO BID scheduled as pt. feels this works best 5. PT daily 6. Placement in [place], swing tomorrow if no further concern for bleeding
[2019-05-20] MEDS: LORazepam TAB(*) 0.5 MG PO SCH ×2 (11:59→17:01)
[2019-05-20] MEDS: Scopolamine 1.5 mg* PATCH TRANSDERM SCH (12:00)
[2019-05-20] MEDS: Scopolamine PATCH Remove* 1 NOTE MISC PATCH OFF SCH (12:00)
[2019-05-20 14:56] LABS: Hematocrit 30 % (42-52); Hemoglobin 9.8 g/dL (14.0-18.0)
[2019-05-20] MEDS: CMC:Pravastatin (NF) 20 MG TAB PO SCH (17:01)
[2019-05-20] MEDS: Apixaban* 5 MG TAB PO SCH (21:01)
[2019-05-21] MEDS: fentaNYL Patch Check Q Shift 1 NOTE FOLLOW UP SCH ×2 (06:27→18:37)
[2019-05-21] MEDS: Pantoprazole IV* 40 MG IV SCH (07:50)
[2019-05-21] MEDS: Ondansetron INJ* 2 MG/ML VIAL IV SCH ×3 (07:51→20:58)
[2019-05-21] MEDS: LORazepam TAB(*) 0.5 MG PO SCH ×2 (07:51→17:08)
[2019-05-21] MEDS: Magnesium Oxide TAB* 400 MG PO SCH ×2 (07:52→20:56)
[2019-05-21] MEDS: Dronedarone TAB* 400 MG PO SCH ×2 (07:52→17:09)
[2019-05-21] MEDS: Potassium Chlor TAB* 20 MEQ TAB.ER PO SCH (07:52)
[2019-05-21] MEDS: Apixaban* 5 MG TAB PO SCH ×2 (07:52→20:56)
[2019-05-21] MEDS: Carvedilol TAB* 3.125 MG PO SCH ×2 (07:52→20:57)
[2019-05-21] MEDS: Nystatin OINT* 15 GM TOPICAL SCH ×2 (07:53→21:01)
[2019-05-21] MEDS: Mometasone/Formoter 200/5 MDI INH SCH ×2 (08:47→19:35)
[2019-05-21] MEDS: SPIRIVA Respimat* (tiotropium) 2.5 mcg/inh Inhaler INH SCH (08:47)
[2019-05-21 12:28] LABS: Hematocrit 27 % (42-52); Hemoglobin 8.8 g/dL (14.0-18.0)
[2019-05-21] MEDS: LORazepam TAB(*) 0.5 MG PO PRN (13:06)
--- NOTE | 2019-05-21 14:02 | DS ---
CC: Dr. Dalton; Dr. Velasquez; Dr. Noriega * DISCHARGE SUMMARY: DATE OF ADMISSION: From [facility], 05/08/19. DATE OF DISCHARGE: To subacute rehab, 05/21/19. PRIMARY CARE PROVIDER: Dr. Dalton. CONSULTING OCEANOLOGY TEACHER: Dr. Noriega. ATTENDING PHYSICIAN: Dr. Meyers.* (DICTATED BY JUSTIN POLK) PRIMARY ONCOLOGIST: Dr. Velasquez. DISCHARGING PROVIDER: JUSTIN Polk. PRIMARY DISCHARGE DIAGNOSES: 1. Rapid atrial fibrillation - hemodynamically unstable, requiring cardioversion. 2. Pancytopenia, now improved. 3. Severe deconditioning. 4. Limited-stage [id number] lung cancer, receiving concurrent chemotherapy and radiation. 5. Demand-related ischemia in the setting of rapid atrial fibrillation. DISCHARGE MEDICATIONS: 1. Eliquis 5 mg p.o. twice daily. 2. Carvedilol 3.125 mg p.o. twice daily. 3. Ativan 0.5 mg p.o. q.6 hours as needed for anxiety. 4. Zofran 4 mg p.o. q.6 hours as needed for nausea or vomiting. 5. Oxycodone 5 mg p.o. q.4 hours as needed for pain. 6. Scopolamine patch 1 patch apply transdermally every 72 hours. 7. DuoNeb 1 neb inhaled every 4 hours as needed for shortness of breath. 8. Multaq 400 mg p.o. twice daily. 9. Fentanyl patch 25 mcg apply transdermally every 72 hours. 10. Magnesium oxide 400 mg p.o. twice daily. 11. Dulera 2 puffs inhaled twice daily. 12. Protonix 40 mg p.o. daily. 13. Potassium chloride 20 mEq p.o. daily. 14. Pravastatin 10 mg p.o. daily. HOSPITAL IMAGIN. Chest x-ray, 05/20/19, shows no acute findings. There is an unchanged right upper lobe lung mass. 2. Transthoracic echocardiogram, 05/09/19, demonstrates an ejection fraction of 55% to 60%, apical segments appear akinetic, right ventricle has moderately reduced systolic function. HOSPITAL COURSE: This is a 73-year-old gentleman with limited-stage non-small- cell lung cancer, more remote history of known coronary artery disease and COPD , who had been receiving concurrent chemotherapy and radiation. He presented to the chemotherapy suite acutely confused on 04/22/19. He was transported to the emergency department at that time and subsequently admitted for encephalopathy thought to be secondary to sepsis from a GI source as he was having severe diarrhea, vomiting, and abdominal discomfort at that time. 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 He received supportive care measures and his mental status returned to baseline, but he remained extremely weak and was unable to return home. The patient was subsequently transitioned to a swing status on 04/29/19 while looking for rehab placement. On 05/08/19, the patient became acutely hypotensive with what initially looked to be SVT with altered mental status. Underlying rhythm appeared to be atrial flutter as opposed to SVT and due to his hemodynamic instability, he was subsequently cardioverted and this was completed successfully by Dr. Noriega. He had an initial troponin drawn of 5.05. He was not complaining of any chest pain or other cardiac symptoms at that time and improved significantly following cardioversion. His troponin was followed to peak at 5.5 and he underwent limited echocardiogram, which showed apical hypokinesis, which did appear to be new when compared to his prior echocardiogram. The patient was not felt to be an appropriate cardiac catheterization candidate at that time due to limited revascularization options and instead was managed medically. The patient remained in normal sinus rhythm following cardioversion. He did develop pancytopenia for unspecified reasons including neutrophil count that alisia- ed at 1400, platelets of 79,000, and hemoglobin between 9 and 10 g/dL. His counts spontaneously improved and they did not seem to be appropriately related to his prior chemotherapy due to the timing of this, but may have been due to a transient occult infection. Blood cultures were collected, which showed no growth. The patient was empirically treated with antibiotics and his counts spontaneously improved. Due to the patient's inability to return home and obstacles due to insurance reimbursement, the patient's radiation plan was transitioned to Dr. Goldstein during this hospital stay. After an approximate 3-week interruption in treatment, he resumed chemotherapy and radiation on , 05/16/19. Plan is to continue a total of 17 fractions of radiation to take him through to 06/07. He will receive continued concurrent carboplatin and Taxol on a weekly basis through this period of time. DISPOSITION AND FOLLOWUP PLAN: The patient is being discharged to [facility] in stable condition. He will continue radiation and chemotherapy as outlined above. He requires outpatient cardiology followup, which will be arranged with Dr. Noriega. JUSTIN POLK [id number]/CPS #: [id number] ALEXANDRA
[2019-05-21] MEDS: CMC:Pravastatin (NF) 20 MG TAB PO SCH (17:09)
[2019-05-22] MEDS: fentaNYL Patch Check Q Shift 1 NOTE FOLLOW UP SCH (06:56)
[2019-05-22] MEDS: SPIRIVA Respimat* (tiotropium) 2.5 mcg/inh Inhaler INH SCH (07:45)
[2019-05-22] MEDS: Mometasone/Formoter 200/5 MDI INH SCH (07:46)
[2019-05-22] MEDS: fentaNYL PATCH 25 MCG/HR TRANSDERM SCH (09:17)
[2019-05-22] MEDS: Pantoprazole IV* 40 MG IV SCH (09:21)
[2019-05-22] MEDS: Potassium Chlor TAB* 20 MEQ TAB.ER PO SCH (09:21)
[2019-05-22] MEDS: LORazepam TAB(*) 0.5 MG PO SCH (09:21)
[2019-05-22] MEDS: Ondansetron INJ* 2 MG/ML VIAL IV SCH ×2 (09:22→13:29)
[2019-05-22] MEDS: Nystatin OINT* 15 GM TOPICAL SCH (09:22)
[2019-05-22] MEDS: Apixaban* 5 MG TAB PO SCH (09:22)
[2019-05-22] MEDS: Dronedarone TAB* 400 MG PO SCH (09:22)
[2019-05-22] MEDS: Carvedilol TAB* 3.125 MG PO SCH (09:22)
[2019-05-22] MEDS: Magnesium Oxide TAB* 400 MG PO SCH (09:22)
--- NOTE | 2019-05-22 11:00 | DS ---
- Discharge Summary Addendum to DC summary: Discharge was delayed due to insurance authorization. Authorization has now been confirmed this morning. Patient will be discharged following radiation today. He is leaving in stable condition to [facility]. No overnight events. Vital Signs: Temp Pulse Resp BP Pulse Ox 97.5 F 89 20 122/72 98 05/22/19 03:15 05/22/19 03:15 05/22/19 09:21 05/22/19 03:15 05/22/19 03:15
[2019-05-22] MEDS: LORazepam TAB(*) 0.5 MG PO PRN (13:29)
[2019-05-22 15:04] VITALS: BP 102/62
== END 2019-05-22 14:53 | DRG 309 ==
LOC: ICU 12:28 → MEDTELE 05-10 13:55
PROVIDERS: ADMIT Physician Assistant; ATTEND Internal Medicine Hematology & Oncology
PROC: 5A2204Z Restoration of Cardiac Rhythm, Single (ICD-10-PCS; principal; 2019-05-08)
PROC: DBY27ZZ Contact Radiation of Lung (ICD-10-PCS; 2019-05-08)
DX: I48.92 Unspecified atrial flutter (principal); C34.90 Malignant neoplasm of unspecified part of unspecified bronchus or lung; K92.1 Melena; I24.8 Other forms of acute ischemic heart disease; D61.818 Other pancytopenia; I25.10 Atherosclerotic heart disease of native coronary artery without angina pectoris; I10 Essential (primary) hypertension; J44.9 Chronic obstructive pulmonary disease, unspecified; I35.0 Nonrheumatic aortic (valve) stenosis; I95.9 Hypotension, unspecified; R79.89 Other specified abnormal findings of blood chemistry; F41.9 Anxiety disorder, unspecified; I48.0 Paroxysmal atrial fibrillation; Z66 Do not resuscitate; R11.0 Nausea; Z86.718 Personal history of other venous thrombosis and embolism; Z28.21 Immunization not carried out because of patient refusal; Z79.01 Long term (current) use of anticoagulants; Z79.899 Other long term (current) drug therapy; I25.2 Old myocardial infarction; Z87.891 Personal history of nicotine dependence
CPT/HCPCS: 36415; 71046; 77014; 80048; 80053; 80061; 81003; 81015; 82607; 83605; 83735; 84155; 84165; 84484; 85014; 85018; 85025; 87040; 87086; 93005; 93308; 94640; 99232; 99233; 99236; 99239; A9270-GY; C8924; G8978-GP-CL; G8979-GP-CJ; J0780; J1100; J1200; J2405; J2543; J3475; J3535; J9045; J9267

== ENCOUNTER 2019-06-10 12:26 | Inpatient (IN) | payer MEDICARE, OTHER ==
[2019-06-10] MEDS ORDERED: NS 0.9% 1000 ML** 2,000 ML IV ONE (12:29)
--- NOTE | 2019-06-10 12:36 | ED ---
Complex/Multi-Sys Presentation - HPI Summary HPI Summary: 73 y/o male presented to [facility] from [facility] this morning for lethargy and hypotension. He receives radiation therapy and chemotherapy for his small cell lung cancer which is not metastatic. He is normally wheelchair-bound. Pt perfers to keep his eyes closed but opens his eyes and answers questions appropriately. Pt verbalizes no complaints at this time. Level 5 Caveat secondary to AMS. - History Of Current Complaint Time Seen by Provider: 06/10/19 12:29 Hx Obtained From: Patient, Family/Customer Support Advisor - [facility] staff Hx From Patient Unobtainable Due To: Altered Mental Status - Level 5 Caveat Onset/Duration: Still Present Associated Signs And Symptoms: Positive: Other - lethargy - Allergies/Home Medications Allergies/Adverse Reactions: Allergies Allergy/AdvReac Type Severity Reaction Status Date / Time Acwhmib-Bet-Pgk Reductase Allergy Muscle Ache Verified 03/11/19 13:54 Inhibitor Home Medications: Home Medications Benzonatate CAP* [Tessalon 100 MG CAP*] 100 mg PO TID PRN 06/10/19 [History Confirmed 06/10/19] Dronabinol CAP* [Marinol CAP*] 2.5 mg PO BID 06/10/19 [History Confirmed ] Dronedarone TAB* [Multaq TAB*] 400 mg PO BID 06/10/19 [History Confirmed ] GuaiFENesin DM 100 mg/10 mg [Robitussin DM 100 mg/10 mg in 5 ml] 10 ml PO Q12H PRN 06/10/19 [History Confirmed 06/10/19] Lanolin/Mineral Oil [Eucerin Original Lotion] 1 applic TOPICAL BID 06/10/19 [ History Confirmed 06/10/19] Lidocaine 2% VISCOUS* [Xylocaine 2% Viscous*] 30 ml SWISH SPIT Q4H 06/10/19 [ History Confirmed 06/10/19] Loperamide CAP* [Imodium CAP*] 2 mg PO BID 06/10/19 [History Confirmed 06/10/19] Mometasone/Formoter 200/5 MDI* [Dulera 200/5 MDI*] 2 puff INH Q12H 06/10/19 [ History Confirmed 06/10/19] Oxymetazoline 0.05% NASAL SPR* [Afrin 0.05% NASAL SPRAY*] 2 spray BOTH NARES BID PRN 06/10/19 [History Confirmed 06/10/19] Pravastatin (NF) [Pravachol (NF)] 10 mg PO DAILY 06/10/19 [History Confirmed 11/22] PMH/Surg Hx/FS Hx/Imm Hx Endocrine/Hematology History: Denies: Hx Diabetes Cardiovascular History: Reports: Hx Deep Vein Thrombosis, Hx Hypertension, Hx Peripheral Vascular Disease Denies: Hx Hypercholesterolemia, Hx Pacemaker/ICD Respiratory History: Reports: Hx Chronic Obstructive Pulmonary Disease (COPD), Hx Lung Cancer History: Denies: Hx Renal Disease Sensory History: Reports: Hx Contacts or Glasses Denies: Hx Legally Blind, Hx Deafness, Hx Hearing Aid Opthamlomology History: Reports: Hx Contacts or Glasses Denies: Hx Legally Blind Psychiatric History: Denies: Hx Panic Disorder - Cancer History Cancer Type, Location and Year: small cell Lung cancer Hx Chemotherapy: Yes Hx Radiation Therapy: Yes - Surgical History Surgical History: Yes Surgery Procedure, Year, and Place: orbital fracture to left eye repair. cancer removed from forehead Infectious Disease History: Reports: Traveled Outside the [place] in Last 30 Days - Family History Known Family History: Positive: Hypertension - Social History Alcohol Use: None Hx Substance Use: No Substance Use Type: Reports: None Hx Tobacco Use: Yes Smoking Status (MU): Former Smoker Type: Cigarettes Amount Used/How Often: 3 ppd Length of Time of Smoking/Using Tobacco: since age 13 Have You Smoked in the Last Year: No Review of Systems Positive: Other - lethargy Neurological: Other - AMS All Other Systems Reviewed And Are Negative: No - Comments Additional Review of Systems Comments: Pt is a level 5 caveat secondary to AMS Physical Exam - Summary Physical Exam Summary: Appearance: The patient is well-nourished in no acute distress and in no acute pain. Skin: There is slight tenting of the skin. HEENT: The head is normocephalic and atraumatic. The pupils are equal and reactive. The conjunctivae are clear and without drainage. Nares are patent and without drainage. Mouth reveals dry mucous membranes, and the throat is without erythema and exudate. The external ears are intact. The ear canals are patent and without drainage. The tympanic membranes are intact. Neck: The neck is supple with full range of motion and non-tender. There are no carotid bruits. There is no neck vein distension. Respiratory: Chest is non-tender. Lungs are clear to auscultation and breath sounds are symmetrical and equal. Cardiovascular: Heart is tachycardic with regular rhythm. There is no murmur or rub auscultated. There is no peripheral edema and pulses are symmetrical and equal. Abdomen: The abdomen is soft and non-tender. There are normal bowel sounds heard in all four quadrants and there is no organomegaly palpated. Musculoskeletal: There is no back tenderness noted. Extremities are non-tender with full range of motion. There is good capillary refill. There is no peripheral edema or calf tenderness elicited. Neurological: Patient is alert and oriented to person, place and time. The patient has symmetrical motor strength in all four extremities. Cranial nerves are grossly intact. Deep tendon reflexes are symmetrical and equal in all four extremities. The patient opens his eyes and answers questions appropriately. GCS : 14 (see scale). Psychiatric: The patient has an appropriate affect and does not exhibit any anxiety or depression. Triage Information Reviewed: Yes Vital Signs Reviewed: Yes Completion Of Physical Exam Limited Due To: Altered Mental Status, Level 5 - [place] Coma Scale Best Eye Response: 3 - To Speech Best Motor Response: 6 - Obeys Commands Best Verbal Response: 5 - Oriented Coma Scale Total: 14 Procedures - Sedation Patient Received Moderate/Deep Sedation with Procedure: No Diagnostics - Laboratory Result Diagrams: 06/10/19 12:38 06/10/19 12:38 Lab Statement: Any lab studies that have been ordered have been reviewed, and results considered in the medical decision making process. - Radiology CXR Radiology Interpretation Completed By: Radiologist Summary of Radiographic Findings: IMPRESSION: 1. Known right upper lung zone mass. 2. Linear bibasilar airspace opacification is likely accounts receivable representative of atelectasis,. infiltrate could have similar appearance. (Lateral view, it by poor inspiration). This report was reviewed by the ED physician. - CT Brain CT CT Interpretation Completed By: Radiologist Summary of CT Findings: IMPRESSION: No acute intracranial abnormality. This report was reviewed by the ED physician. - EKG 1318 Cardiac Rate: NL - 96 bpm EKG Rhythm: Sinus Rhythm Summary of EKG Findings: Normal sinus rhythm at 96bpm. Nonspecific anterior and inferior changes consistent with prior. No STEMI. This EKG was reviewed and interpreted by the ED physician. Complex Multi-Symp Course/Dx Course Of Treatment: Mr. Barragan and no complaints on arrival to the emergency department. He preferred to keep his eyes closed but would open them and respond to questions well. He specifically denied shortness of breath or chest pain. He looked to be quite dehydrated and an IV was established and he was given IV fluids while labs were being obtained. His troponin was found to be 8. His last admission a couple months ago his troponin was 5 and thought to be demand ischemia from tachycardia. He is not tachycardic after his first liter. I spoke with Dr. Daniels felt that medical management was appropriate. I spoke with Kate Matthew operations label clerk for Dr. Velasquez. She discussed it with Dr. Velasquez and then spoke with Dr. Hooker for hospitalist admission. Patient was given an aspirin here as he is already on Eliquis. - Diagnoses Provider Diagnoses: NSTEMI (non-ST elevated myocardial infarction) - Physician Notifications Discussed Care Of Patient With: Rajeev Daniels Time Discussed With Above Provider: 13:30 Instructed by Provider To: Other - Pt case was discussed with Dr. Daniels, who stated that the pt does not have to go to the mechanical laboratory technician. At 1335, Kate Matthew speaking for Dr. Velasquez recommends admission, but the oncology office will speak with the hospitalist. - Critical Care Time Critical Care Time: 30-74 min Discharge ED - Sign-Out/Discharge Documenting (check all that apply): Patient Departure - Patient accepted for admission. - Discharge Plan Condition: Stable Disposition: ADMITTED TO [facility] - Billing Disposition and Condition Condition: STABLE Disposition: Admitted to [facility] - Attestation Statements Document Initiated by Amelia: Yes Documenting Scribe: Valery Hill Provider For Whom Amelia is Documenting (Include Credential): MD Saba Hongibe Attestation: I, Valery Hill, scribed for Dr. Zoran Kumar MD on 06/10/19 at 1954. Scribe Documentation Reviewed: Yes Provider Attestation: The documentation as recorded by the Valery chu accurately reflects the service I personally performed and the decisions made by me, Dr. Zoran Kumar MD Status of Scribe Document: Viewed
[2019-06-10 12:56] LABS: Hematocrit 32 % (42-52); Hemoglobin 10.5 g/dL (14.0-18.0); Mean Corpuscular HGB Conc 33 g/dL (31-36); Mean Corpuscular Hemoglobin 31 pg (27-31); Mean Corpuscular Volume 93 fL (80-94); Mean Platelet Volume 8.6 fL (7.4-10.4); Platelet Count 130 10^3/uL (150-450); Red Blood Count 3.43 10^6 /uL (4.18-5.48); Red Cell Distribution Width 20 % (10-15); White Blood Count 0.8 10^3/uL (3.5-10.8)
[2019-06-10 12:58] LABS: INR 2.07 (0.82-1.09)
[2019-06-10 13:03] LABS: ALT 10 U/L (7-52); AST 31 U/L (13-39); Albumin 3.5 g/dL (3.2-5.2); Albumin/Globulin Ratio 1.1 (1-3); Alkaline Phosphatase 71 U/L (34-104); BUN/Creatinine Ratio 26.9 (8-20); Blood Urea Nitrogen 29 mg/dL (6-24); CO2 Carbon Dioxide 29 mmol/L (22-32); Calcium 9.4 mg/dL (8.6-10.3); Chloride 101 mmol/L (101-111); EGFR African American 80.9 (>60); EGFR Non-African American 66.8 (>60); Globulin 3.3 g/dL (2-4); Glucose 183 mg/dL (70-100); Sodium 140 mmol/L (135-145); Total Protein 6.8 g/dL (6.4-8.9)
[2019-06-10 13:11] LABS: Anion Gap 10 mmol/L (2-11); Potassium 5.6 mmol/L (3.5-5.0)
[2019-06-10 13:12] LABS: Troponin I 8.35 ng/mL (<0.03)
[2019-06-10] MEDS ORDERED: Aspirin TAB* 325 MG PO ONE (13:41)
[2019-06-10 13:58] LABS: ABS Lymphocytes 0.1 10^3/ul (1.0-4.8); ABS Neutrophils 0.7 10^3/ul (1.5-7.7); ABS Nucleated RBC 0.1 10^3/ul; Eosinophil % 0.5 %; Lymphocyte % 10.7 %; Nucleated Red Blood Cells % 6.1
[2019-06-10] MEDS ORDERED: Aspirin 81 mg CHEW TAB* 81 MG TAB.CHEW ONE (14:24)
[2019-06-10] MEDS ORDERED: Aspirin 81 mg CHEW TAB* 81 MG TAB.CHEW PO ONE (14:24)
[2019-06-10 14:35] LABS: C Reactive Protein 203.78 mg/L (<8.01)
[2019-06-10] MEDS ORDERED: Albuterol/Ipratropium NEB.SOL* Albuterol 2.5 MG/Ipratropium 0.5 MG 3 ML INH PRN (16:32)
[2019-06-10] MEDS ORDERED: NS 0.9% 1000 ML** 1,000 ML IV SCH (16:45)
[2019-06-10] MEDS ORDERED: Iohexol 350* (CONTRAST) 500 ML MDV IV ONE (16:45)
[2019-06-10] MEDS ORDERED: Heparin DRIP 25,000 UNITS(*) 25,000 UNITS/500 ML BAG IV SCH ×2 (17:15)
[2019-06-10] MEDS ORDERED: Cefepime 2 GM in Dextrose(*) 2 GM/50 ML BAG IV ONE (17:30)
[2019-06-10] MEDS ORDERED: Heparin DRIP 25,000 UNITS(*) 25,000 UNITS/500 ML BAG ONE (17:31)
[2019-06-10] MEDS ORDERED: Heparin VIAL(*) 5000 UNITS/ML VIAL (FIVE THOUSAND) IV SCH (18:00)
[2019-06-10 18:29] LABS: Troponin I 14.14 ng/mL (<0.03)
--- NOTE | 2019-06-10 18:32 | CONS ---
CC: Dr. Jacob Dalton; Dr. Velasquez * CARDIOLOGY CONSULTATION: DATE OF CONSULT: 06/10/19 INDICATION FOR CONSULTATION: Abnormal troponin level, abnormal EKG. HISTORY OF PRESENT ILLNESS: The patient is a 73-year-old gentleman with a history of known moderate aortic stenosis, DVTs, right upper lobe mass, squamous cell carcinoma of the lung, who has been getting chemotherapy and radiation treatment for the last number of months. He was admitted to the hospital in the beginning of May with lightheadedness. At that time, he was found to be in atrial fibrillation. He underwent cardioversion at that time. Today, the patient was at radiation therapy and was noted to be less responsive , unable to answer questions, generalized weakness. He was brought over to the emergency room. In the emergency room, there were no obvious abnormalities on exam; however, his troponin level was registered as 8.4. His EKG did show _ mm of ST segment elevations in lead III and ST segment depressions in lead V4 and V5. In speaking with the patient, he is unable to give me an accurate history of what is happening over the last day or so. The patient is somewhat confused. The patient's family including his and daughter has stated that he has been doing well, but at radiation today, he just became less coherent and less responsive. There was no diaphoresis. There was no shortness of breath. There were no palpitations, no tachycardia. Again, the patient was admitted to the emergency room and found to have an elevated troponin level. The patient did have an echocardiogram 6 weeks ago, which showed low normal LV systolic function, moderate aortic stenosis, and mildly dilated ascending aorta. PAST MEDICAL HISTORY: Significant for non-small cell lung cancer, treated with radiation and chemotherapy; hypertension; DVTs; COPD; obesity; moderate aortic stenosis. PAST SURGICAL HISTORY: Unknown. OUTPATIENT MEDICATIONS: 1. Coreg 3.125 mg b.i.d. 2. Zofran 4 mg 3 times a day as needed. 3. Eliquis 5 mg b.i.d. 4. Scopolamine patch. 5. Fentanyl patch. 6. Lorazepam 0.5 mg q.6 hours p.r.n. 7. Magnesium 400 mg a day. 8. Oxycodone as needed. 9. Pantoprazole 40 mg a day. 10. Potassium 20 mEq a day. 11. Tessalon Perles. 12. Loperamide 2 mg b.i.d. 13. Multaq 400 mg b.i.d. 14. Dulera inhaler as needed. 15. Pravastatin 10 mg a day. ALLERGIES: To STATIN MEDICATION. FAMILY HISTORY: No family history of early coronary artery disease or cardiac arrhythmias. SOCIAL HISTORY: He lives with his . He is retired. He denies tobacco or alcohol use. He is not getting any regular exercise. REVIEW OF SYSTEMS: Positive for fatigue. Negative for changes in bowel or bladder habits. Negative for change in weight. Other 12-point review is unremarkable. PHYSICAL EXAM: Temperature 97.9, heart rate is 98, blood pressure 100/70, oxygen saturation 98% on 6 L, respiratory rate 24. Sclerae anicteric. Oropharynx is pink without erythema. Carotids are 2+ with soft bilateral bruits. JVD is normal. Thyroid is normal. Cardiac Exam: S1, S2 with a 2/6 systolic ejection murmur heard best at the right upper sternal border. PMI is normal. Lungs have mildly decreased breath sounds. No obvious rhonchi or rales. Abdomen is soft, nontender, nondistended with normoactive bowel sounds. Extremities show minimal edema. He has 2+ pulses throughout. The patient is awake and alert, unclear whether he is oriented. The patient moves his upper and lower extremities in the bed equally. The patient did not ambulate. DIAGNOSTIC STUDIES/LAB DATA: White count 0.8, hemoglobin 10, hematocrit 32, platelet count 130. Chemistries within normal limits. BUN 29, creatinine 0.2, lactic acid 2.2. AST and ALT are normal. C-reactive protein is elevated at 203. Again, troponin level was 8.3. INR is elevated at 2.07. EKG as described above. IMPRESSION AND PLAN: This is a 73-year-old gentleman with a history of non- small cell lung cancer, being treated with chemotherapy and radiation, who was brought to the emergency room just because of fatigue and change in sensorium. The patient does have a slight change in his EKG with minimal ST-segment elevation in lead III and ST-segment depression in V4 and V5, with an elevated troponin level of 8.3. At this point, given the fact that the patient's white blood cell count is 0.8 and he is pain-free, I do not think the patient needs to go to the cardiac dairy and food laboratory assistant today. The patient will continue on his maximum medical therapy. He will stay on an aspirin a day. He will continue his Eliquis. The patient will get a CTA of his chest to rule out deep venous thromboses and pulmonary emboli. The patient will get an echocardiogram in the morning to evaluate focal wall motion abnormalities. In general, I think the patient will be treated medically given his overall medical condition. Further recommendations during this hospitalization. [id number]/[facility] #: [id number]
[2019-06-10] MEDS: DOXYcycline IV* 100 MG in NS 0.9% 250 ML* 250 ML IVPB SCH (18:43)
[2019-06-10] MEDS: NS 0.9% 1000 ML** 1,000 ML IV SCH (18:45)
[2019-06-10] MEDS ORDERED: Sodium Polystyrene ORAL.SOL* 15 GM/60 ML BTL PO ONE (18:49)
[2019-06-10] MEDS: Metoclopramide IV* 5 MG/ML 2 ML VIAL IV PRN (20:05)
[2019-06-10] MEDS: Mometasone/Formoter 200/5 MDI INH SCH (20:21)
[2019-06-10] MEDS: Acetaminophen TAB* 325 MG PO PRN (21:11)
[2019-06-10] MEDS: Dronabinol CAP* 2.5 MG PO SCH (21:17)
[2019-06-10 21:45] LABS: Troponin I 13.72 ng/mL (<0.03)
[2019-06-10] MEDS: fentaNYL PATCH 25 MCG/HR TRANSDERM SCH (22:23)
[2019-06-10] MEDS ORDERED: NS 0.9% 1000 ML** 1,000 ML IV ONE (22:33)
[2019-06-10] MEDS ORDERED: Norepinephrine 16MCG/ML IVPRE* 4,000 MCG/250 ML BAG IV SCH ×2 (23:00→23:45)
--- NOTE | 2019-06-10 23:30 | HP ---
CC: Dr. Velasquez; Dr. Dalton; Dr. Daniels * HISTORY AND PHYSICAL: DATE OF ADMISSION: 06/10/19 PROVIDER: Dede Judge NP PRIMARY CARE PROVIDER: Dr. Dalton. ATTENDING PHYSICIAN WHILE IN THE HOSPITAL: Dr. Marya Hooker * (dictated by Dede Judge NP). CHIEF COMPLAINT: Weakness. HISTORY OF PRESENT ILLNESS: Mr. Barragan is a 73-year-old male with a past medical history significant for atrial fibrillation and history of PE, on chronic anticoagulation with Eliquis; non-small cell lung carcinoma; COPD; CAD; hypertension; obstructive sleep apnea, wears a CPAP; GERD; hyperlipidemia, who presented to the emergency room from Radiation Oncology due to weakness and hypotension. The patient reported to Radiation Oncology today for radiation treatment and he was found to be weak and confused with hypotension, so he was brought to the emergency room for further evaluation. Upon arrival to the emergency room, the patient's blood pressure was 100/70 and trended downward to 80/59. The patient does report that he finished chemo approximately 1 week ago and is due to have 3 to 4 more radiation treatments for his lung cancer. The patient reports he does not recall having any chest pain today. He does report being weak. While in the emergency room, the patient had routine lab work drawn. He was found to be neutropenic with a white count of 0.8 and neutrophils of 0.7. His hemoglobin and hematocrit was 10.5 and 32. INR 2.07. He did have a potassium of 5.6 and initial lactic acid was 2.2. His initial troponin was 8.35, a repeat was 14.14. He did have a C-reactive protein of 203.78. His initial chest x-ray was concerning for bilateral airspace opacification, could be indicative of an infiltrate. Due to the patient's hypotension, neutropenia, and elevated troponin, Hospital Medicine was asked to see and evaluate the patient for admission. PAST MEDICAL HISTORY: Significant for: 1. Atrial fibrillation, on chronic anticoagulation with Eliquis. 2. Non-small cell lung carcinoma, currently receiving radiation, just finishing chemo. 3. COPD. 4. CAD. 5. Hypertension. 6. Obstructive sleep apnea. 7. GERD. 8. Hyperlipidemia. 9. History of pulmonary embolism. PAST SURGICAL HISTORY: Skin cancer removed from his forehead. No other pre- reported surgical history. MEDICATIONS: Home medications include: 1. Lanolin topically b.i.d. 2. Multaq 400 mg p.o. b.i.d. 3. Dulera 2 puffs q.12 hours as needed for shortness of breath. 4. Magnesium oxide 400 mg p.o. b.i.d. 5. Oxycodone 5 mg p.o. q.4 hours as needed. 6. Potassium 20 mEq p.o. daily. 7. Pantoprazole 40 mg p.o. daily. 8. Pravastatin 10 mg p.o. daily. 9. Carvedilol 3.125 mg p.o. b.i.d. 10. Apixaban 5 mg p.o. b.i.d. 11. Scopolamine 1.5 mg transdermally every 3 days. 12. Fentanyl 25 mcg every 72 hours. 13. Ativan 0.5 mg every 6 hours as needed. 14. Viscous lidocaine swish and spit q.4 hours. 15. Afrin nasal spray, 2 sprays both nares b.i.d. p.r.n. 16. Guaifenesin 10 mL q.12 hours p.r.n. cough. 17. Tessalon Perles 100 mg p.o. t.i.d. p.r.n. 18. Marinol 2.5 mg p.o. b.i.d. 19. Zofran 4 mg t.i.d. 20. Loperamide 2 mg p.o. b.i.d. 21. Albuterol neb 1 inhaled every 4 hours as needed. ALLERGIES: To STATIN that causes muscle aches. FAMILY HISTORY: Father at the age of 57 of an ID. Mother with history of diabetes, sister with breast cancer. SOCIAL HISTORY: The patient quit smoking. He is a former smoker. Denies any alcohol or illicit drug use. He is . He currently lives at [facility]. Surrogate decision maker in the event he is unable to make his own decisions is his . He is a full code. REVIEW OF SYSTEMS: He denies any fever or unintended weight loss. Denies any chest pain or edema. He does report chronic cough. He denies any hemoptysis or shortness of breath. No nausea, vomiting, diarrhea, abdominal pain, gross hematuria, dysuria, focal weakness. Denies any visual complaints, dysphagia, arthralgias, or myalgias. He does complain of soreness to his coccyx. Denies any psychosis or anxiety. PHYSICAL EXAMINATION GENERAL: At this time, Mr. Barragan is a 73-year-old male. He is alert, resting on the stretcher in the emergency room. He is in no acute distress. VITAL SIGNS: Blood pressure 111/62, heart rate 88, respirations 16, O2 saturation is 99% on 3 L nasal cannula, temperature is 98.5. HEENT: Head is atraumatic, normocephalic. Eyes: EOMs are intact. Sclerae anicteric and not pale. Oral mucosa is moist. NECK: Supple. LUNGS: Diminished with few scattered rhonchi in the bases. Respirations are even and easy. CARDIAC: S1, S2. Regular rate and rhythm. No rubs or gallops. ABDOMEN: Obese, soft, nontender. Bowel sounds are active x4. EXTREMITIES: He is able to move all 4 extremities. He does have slight edema noted to bilateral lower extremities with brownish discoloration. Pedal pulses are +1. NEUROLOGIC: He is awake, alert, and oriented x3. Speech is clear. Thought process is intact. There is no gross focal deficits. SKIN: He does have brownish discoloration noted to bilateral lower extremities. LABORATORY DATA AND DIAGNOSTIC STUDIES: WBCs are 0.8, RBCs 3.43, hemoglobin 10.5, hematocrit is 32, platelet count 130, absolute neutrophils are 0.7. INR is 2.07, APTT was 35.0. Sodium 140, potassium 5.6, chloride 101, carbon dioxide was 29, anion gap was 10, BUN 29, creatinine 1.08, glucose 183, lactic acid 2.2 and repeat was 1.4. Calcium 9.4. ASTs were 31, ALTs were 10, alkaline phosphatase was 71. Troponin was 8.35, repeat was 14.14. C-reactive protein 203. He did have a CT of the brain, radiologist's impression: No acute intracranial abnormality. 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 He did have a CTA of the chest, radiologist's impression: No pulmonary arterial filling defect to suggest pulmonary embolism, stable right lung mass with extension into the posterior chest and associated presumably pathologic fracture. Bilateral basilar atelectasis and bronchial atelectasis. He did have an electrocardiogram, which showed sinus rhythm at a rate of 96. He does have T-wave inversions in V2, V3, V4 with flatten Ts in V5 and V6. He does have mild ST elevation in lead III and ST depression in lead II. ASSESSMENT AND PLAN: Mr. Barragan is a 73-year-old male with past medical history significant for non-small cell lung carcinoma, recently finishing chemo, currently receiving radiation; atrial fibrillation, on chronic anticoagulation; chronic obstructive pulmonary disease; coronary artery disease; hypertension; obstructive sleep apnea; gastroesophageal reflux disease; hyperlipidemia; history of pulmonary embolism, who presented to the emergency room from Radiation Oncology due to weakness and hypotension. He was found to be neutropenic with an elevated troponin. He will be admitted inpatient to the intensive care unit for: 1. Severe sepsis. The patient does meet sepsis with neutropenia, elevated lactic acid, hypotension, and tachycardia and a white count of 0.8. It is unclear of his source of sepsis at this time. He does have a moist congestive cough with bibasilar atelectasis, bronchial atelectasis. I am going to treat him with cefepime and doxycycline to cover neutropenia. The patient is afebrile at this time. Urine is currently pending. Blood cultures have been sent and are currently pending. I will send a urine for legionella and Strep pneumonia as well. The patient did receive 3000 cc of normal saline bolus. His blood pressure did improve after bolus and his heart rate did improve downward into the 80s. We will continue him on IV hydration normal saline at 125 cc an hour and bolus as needed for systolic blood pressure less than 85, If patient remains hypotensive may require pressors for blood pressure support. 2. Elevated troponin. The patient does have an elevated troponin, initially was 8.35, repeat was 14.14. The patient did receive aspirin 324 mg in the emergency. I will place him on heparin drip. I have consulted Cardiology who will see the patient in consultation. We will get a transthoracic echocardiogram in the a.m. and continue to trend his troponin. He will also have a repeat EKG in the a.m. as per Cardiology's recommendations. I will hold his Eliquis. Last documented dose of Eliquis was 06/09/2019 at 5 p.m. 3. Non-small cell lung cancer. The patient is currently followed by Hematology /Oncology. The patient is noted to be neutropenic. I will place him on neutropenic precautions and Oncology has been consulted and will see the patient in consultation. They have recommended due to this neutropenia placing him on cefepime. 4. Hyperkalemia. The patient is hyperkalemic with potassium of 5.6. I will hold his supplemental potassium and give him a dose of Kayexalate. Repeat a BMP in the a.m. 5. Weakness. The patient's initial complaint was weakness and hypotension. I suspect this is related to his underlying sepsis of unknown origin at this time , likely respiratory. The patient will receive IV fluids and IV antibiotics and I suspect his weakness should improve with hydration. 6. Atrial fibrillation. The patient does have a history of atrial fibrillation. He is currently in sinus rhythm. I will continue him on Coreg as able and he is currently on a heparin drip due to his elevated troponin. 7. Chronic obstructive pulmonary disease. I will continue him on his Dulera and nebulizers as needed for shortness of breath. 8. Gastroesophageal reflux disease. He will continue on pantoprazole 40 mg p.o. daily. 9. Coccyx ulceration. The patient does have 3 open areas noted to his coccyx. I would recommend frequent turning and repositioning and barrier cream. There is no surrounding erythema. These appear to be stage 2 ulcerations. 10. FEN: He can have a heart healthy, no caffeine diet. 11. Code status: He is a full code. 12. DVT prophylaxis: He will be on a heparin drip. TIME SPENT: Time spent on this admission was 75 minutes, greater than half of that time was spent at the bedside reviewing events leading thus far to his hospitalization, performing physical exam, and reviewing my plan of care. I have discussed this with my attending, Dr. Marya Hooker, she is in agreement with my plan. EDDE JUDGE, KARRIE [id number]/[facility] #: [id number] [facility] HOSPITALRosio
[2019-06-10] MEDS: Benzonatate CAP* 100 MG PO PRN (23:33)
[2019-06-10] MEDS: Scopolamine 1.5 mg* PATCH TRANSDERM SCH (23:33)
--- NOTE | 2019-06-11 00:02 | PN ---
Hospitalist Progress Note Date of Service: 06/10/19 Cross Cover Note: 73M [facility] SCC Lung, DVT, COPD, CAD, CHEN on CPAP mod , Afib admitted with neutropenic fever and sepsis thought to be from pulm source, and NSTEMI. Called 2/2 to persistent hypotension despite adequate sepsis bolus. PE: Pt is mentating, AOx3, coughing well appearing Irreg distant Lungs course rhonchi throughout Belly soft NT ND Ext warm and well perfused 1+ pitting edema Plan for active issues: #Hypotension: Likely 2/2 to sepsis, possibly with cardiac component though warm and well perfused on exam, no e/o shock, s/p total of 4L, start peripheral levophed low dose for goal MAP 65, does not have port -Monitor UOP -Lactic acid in AM #NSTEMI: Remains on heparin gtt, trop tended -Cardiology following #Neutropenic fever: Appropriately on cefipime, on Doxy for MRSA coverage, could broaden PRN
[2019-06-11] MEDS: oxyCODONE/Acetamin 5/325 MG* TAB PO PRN ×2 (00:04→17:47)
[2019-06-11] MEDS: Cefepime 2 GM in Dextrose(*) 2 GM/50 ML BAG IV SCH ×3 (01:44→17:47)
[2019-06-11] MEDS: NS 0.9% 1000 ML** 1,000 ML IV SCH ×3 (04:43→22:15)
[2019-06-11] MEDS: DOXYcycline IV* 100 MG in NS 0.9% 250 ML* 250 ML IVPB SCH ×2 (06:27→18:58)
[2019-06-11 07:01] LABS: Hematocrit 21 % (42-52); Mean Corpuscular HGB Conc 34 g/dL (31-36); Mean Corpuscular Hemoglobin 31 pg (27-31); Mean Corpuscular Volume 93 fL (80-94); Mean Platelet Volume 8.6 fL (7.4-10.4); Platelet Count 92 10^3/uL (150-450); Red Blood Count 2.23 10^6 /uL (4.18-5.48); Red Cell Distribution Width 20 % (10-15)
[2019-06-11 07:02] LABS: ABS Neutrophils 0.8 10^3/ul (1.5-7.7)
[2019-06-11 07:07] LABS: CO2 Carbon Dioxide 25 mmol/L (22-32); Calcium 7.5 mg/dL (8.6-10.3); Potassium 4.2 mmol/L (3.5-5.0); Sodium 143 mmol/L (135-145)
[2019-06-11 07:08] LABS: Anion Gap 6 mmol/L (2-11); Chloride 112 mmol/L (101-111)
[2019-06-11 07:13] LABS: BUN/Creatinine Ratio 31.9 (8-20); Blood Urea Nitrogen 22 mg/dL (6-24); Cholesterol 118 mg/dL; EGFR African American 135.6 (>60); EGFR Non-African American 112.1 (>60); Glucose 128 mg/dL (70-100); HDL Cholesterol 30.9 mg/dL; LDL Cholesterol 65 mg/dL; Triglycerides 109 mg/dL
[2019-06-11] MEDS: fentaNYL Patch Check Q Shift 1 NOTE FOLLOW UP SCH ×2 (07:16→18:59)
[2019-06-11 07:20] LABS: Troponin I 6.94 ng/mL (<0.03)
[2019-06-11] MEDS: CMCS: Pravastatin (NF) 20 MG TAB PO SCH (08:09)
[2019-06-11] MEDS: Dronabinol CAP* 2.5 MG PO SCH ×2 (08:09→21:09)
[2019-06-11] MEDS: Pantoprazole TAB * 40 MG TAB PO SCH (08:09)
[2019-06-11] MEDS: Aspirin EC TAB* 81 MG TAB.EC PO SCH (08:09)
[2019-06-11 08:14] LABS: ABS Lymphocytes 0.1 10^3/ul (1.0-4.8); Eosinophil % 1.2 %; Lymphocyte % 9.6 %; Nucleated Red Blood Cells % 1.2
[2019-06-11] MEDS: Carvedilol TAB* 3.125 MG PO SCH ×2 (08:14→21:09)
[2019-06-11] MEDS ORDERED: Carvedilol TAB* 3.125 MG PO SCH (09:00)
[2019-06-11] MEDS ORDERED: Perflutren Lipid Microsphere* 3 ML VIAL ONE (09:01)
[2019-06-11] MEDS: Mometasone/Formoter 200/5 MDI INH SCH ×2 (09:40→19:21)
[2019-06-11 10:36] LABS: Urine Appearance Cloudy; Urine Bilirubin Negative (Negative); Urine Blood Negative (Negative); Urine Color Yellow; Urine Glucose Negative (Negative); Urine Ketones Negative (Negative); Urine Nitrite Negative (Negative); Urine Protein Negative (Negative); Urine Specific Gravity 1.028 (1.010-1.030); Urine Urobilinogen Negative (Negative)
[2019-06-11 10:53] LABS: Urine Bacteria 2+ (Absent); Urine Red Blood Cell Trace(0-2/hpf) (Absent); Urine White Blood Cell 2+(11-20/hpf) (Absent)
--- NOTE | 2019-06-11 11:12 | ECHO ---
*[facility]* [place] [address] Fax #: [phone] Transthoracic Echocardiogram Patient: Ranjit Barragan : 1945 Study Date: 06/11/2019 Age: 73 Gender: M HR: 61 bpm Height: 72 in /182.9 cm BSA: 2.29 m^2 Weight: 236.5 lb /107.5 kg BMI: 32.1 kg/m^2 *Change Release Manager: * Estephania Weaver [facility] *Referring Physician: * Dede Judge *Reading Physician: * Rajeev Daniels MD Indications: Abnormal EKG. History: Atrial fibrillation. Coronary artery disease. Deep vein thrombosis. Chronic obstructive pulmonary disease. The patient has a lung malignancy and is undergoing chemotherapy and radiation. Functional status: Following treatment plan for sleep apnea. Risk factors: Hypertension. Obese. Hyperlipidemia. Conclusions Summary: - Left ventricle: Systolic function is at the lower limits of normal. The estimated ejection fraction is 50-55%. Hypokinesis of the basal-midinferior and inferoseptal myocardium. Hypokinesis of the basalinferolateral myocardium. - Right ventricle: Systolic function is moderately to severely reduced. - Ventricular septum: There is septal flattening of the interventricular septum consistent with RV volume or pressure overload. - Mitral valve: There is trace regurgitation. - Aortic valve: The valve is trileaflet. The leaflets are mildly calcified. The findings are consistent with mild to moderate stenosis. - Tricuspid valve: There is mild regurgitation. - Pericardium, extracardiac: There is no significant pericardial effusion. - Pulmonary arteries: Systolic pressure is at the upper limits of normal. - Compared to study of 04/30/19, the left ventricle function is lower and the regional wall motion abnormalities are new. Valve structures are the same. Study data: Transthoracic echocardiogram. Procedure: Transthoracic echocardiography was performed. Image quality was suboptimal. Intravenous Definity , 4 mlswas administered. Complete 2D, spectral Doppler, and color flow Doppler. Location: Bedside. Patient status: Inpatient. Patient room number: ICU-02. Rhythm: Normal sinus rhythm. Findings Left ventricle: The cavity size is normal. Wall thickness is mildly increased. Systolic function is at the lower limits of normal. The estimated ejection fraction is 50-55%. Regional wall motion abnormalities: Hypokinesis of the basal-midinferior and inferoseptal myocardium. Hypokinesis of the basalinferolateral myocardium. Doppler parameters are consistent with abnormal left ventricular relaxation (grade 1 diastolic dysfunction). Right ventricle: The cavity size is severely dilated. Wall thickness is mildly increased. Systolic function is moderately to severely reduced. Ventricular septum: There is septal flattening of the interventricular septum consistent with RV volume or pressure overload. Left atrium: The atrium is mildly dilated. Right atrium: The atrium is normal in size. Mitral valve: The leaflets are mildly thickened. There is no evidence of stenosis. There is trace regurgitation. Aortic valve: The valve is trileaflet. The leaflets are mildly calcified. The findings are consistent with mild to moderate stenosis. There is no significant regurgitation. Tricuspid valve: The leaflets are normal thickness. There is no evidence of stenosis. There is mild regurgitation. Pulmonic valve: The leaflets are normal thickness. There is no evidence of stenosis. There is trace regurgitation. Aorta: Aortic root: The aortic root is mildly dilated. Ascending aorta: The ascending aorta is moderately dilated. Aortic arch: The aortic arch is appears normal. Pericardium: A prominent pericardial fat pad is present. There is no significant pericardial effusion. Pulmonary arteries: The main pulmonary artery is normal-sized. Systolic pressure is at the upper limits of normal. Systemic veins: Inferior vena cava: Not well visualized. Measurements Left ventricle Value Ref Aortic valve Value Ref GIL, LAX 5.2 cm 4.2 - 5.8 Curtis diam, ED 1.9 cm ----- ESD, LAX 4.0 cm 2.5 - 4.0 Peak v, S 2.5 m/sec ----- FS, LAX (L) 24 % 25 - 43 VTI, S 56.3 cm ----- PW, ED, LAX 0.9 cm 0.6 - 1.0 Mean grad, S 14.0 mm Hg ----- FS (L) 24 % 25 - 43 Peak grad, S 25.0 mm Hg ----- PW, ED 0.9 cm 0.6 - 1.0 LVOT/AV, VTI ratio 0.25 ----- E', lat curtis, TDI (L) 6.3 cm/sec >=10.0 JEANINE, VTI 0.78 cm^2 --- -- E/e', lat curtis, 11 JEANINE, Vmax 0.82 cm^2 ----- TDI E', med curtis, TDI (L) 5.8 cm/sec >=7.0 Mitral valve Value Ref E/e', med curtis, 12 Peak E 0.71 m/sec ----- TDI Peak A 0.98 m/sec ----- E', avg, TDI 6.1 cm/sec Decel time 121 ms ----- E/e', avg, TDI 12 <=14 Peak grad, D 2.0 mm Hg --- -- Peak E/A ratio 0.7 ----- LVOT Value Ref Diam, S 2.00 cm Pulmonic valve Value Ref Area 3.1 cm^2 Peak v, S 0.66 m/sec ----- Peak brady, S 0.65 m/sec Peak grad, S 2.0 mm Hg ----- VTI, S 14.0 cm Mean grad, S 1 mm Hg Tricuspid valve Value Ref SV 42 ml TR peak v 2.6 m/sec <=2.8 SV/bsa 18 ml/m^2 Peak RV-RA grad, S 27 mm Hg ----- Ventricular septum Value Ref Aortic root Value Ref IVS, ED (H) 1.1 cm 0.6 - 1.0 Root diam 3.8 cm <4.4 Right ventricle Value Ref Ascending aorta Value Ref AW thickness, ED (H) 0.7 cm 0.1 - 0.5 AAo AP diam, S 4.1 cm ----- GIL, LAX 3.5 cm GIL minor ax, A4C (H) 5.2 cm 1.9 - 3.5 Aortic arch Value Ref mid Arch diam 1.7 cm ----- Pressure, S 35 mm Hg Decending aorta Value Ref Left atrium Value Ref Pippa peak brady 0.46 m/sec ----- AP dim, ES 3.10 cm 3.00 - 4.00 Pulmonary artery Value Ref ML dim, A4C 4.7 cm Pressure, S 33.0 mm Hg ----- SI dim, A4C 4.5 cm Vol/bsa, ES, 1-p 35 ml/m^2 12 - 37 A4C Vol/bsa, ES, A/L (H) 35 ml/m^2 16 - 34 Right atrium Value Ref SI dim, ES 5.2 cm 3.4 - 5.3 ML dim, ES, A4C 3.9 cm 2.6 - 4.4 Estimated RAP 8 mm Hg Legend: (L) and (H) kalie values outside specified reference range. Prepared and electronically signed by Rajeev Daniels MD 06/11/2019 11:12
--- NOTE | 2019-06-11 12:14 | PN ---
<Brandy Brian - Last Filed: 06/11/19 13:46> Date of Service: 06/11/19 Critical Care Services: 73 M with history of non-small cell lung cancer(currently on radiatiion therapy ; recently completed chemo), Atrial Fibrillation(recently cardioverted; on eliquis), DVT, CAD, COPD, CHEN(on CPAP), GERD presented on 06/10 from radiation oncology dept due to weakness and decreased responsiveness. Found to be hypotensive, neutropenic, sepsis and elevated troponin. EKG showing mild ST elevation on lead III and depression on V4 and V5 and QTc prolongation. On cefepime and doxycycline. Received IVF, heparin drip. Trop downtrended. Cardio following: recommends medical management with aspirin and eliquis. Hem/Onc following-ongoing radiation. Admitted to ICU for levophed( currently on 2mcg/hr ) for pressor support. 06/10: was septic with source unknown. Because of cough and neutropenia started on cefepime and doxycyline. trop peaked to 14; downtrended. Cardio following. admitted to ICU for pressor mx-on levophed CXR- Right lung mass, linear bilateral opacification-?ateletasis vs consolidation. Brain CT- No acute intracranial abnormality Chest CTA- NO pulmonary embolism. Stable right lung mass. Bilateral basilar atelectasis and bronchiectasis. 06/11: Patient has loss of appetite; chronic. Doesnot feel well but talking and cheerful. Denies chest pain. Wanting meds for appetite. Agreed to have some icecream. Informed family members. ECHO: Ejection fraction 50-55%. Hypokinesis of basal-midinferior and inferoseptal myocardium. Hypokinesis of basalinferolateral myocardium. RV systolic function severely reduced. Septal falttening of interventricular septum consistent with RV volume or pressure overload. Mild to moderate . Pulmonary srtery systolic pressure at upper limits. Vital Signs: Temp Pulse Resp BP SpO2 FiO2 97.0 F 80 21 91/61 96 06/11/19 11:32 06/11/19 11:46 06/11/19 11:46 06/11/19 11:46 06/11/19 11:46 Physical Exam: Gen: patient is resting on a bed with no acute distress HEENT: normocephalic and atraumatic Lungs: Good respiratory effort. scattered ronchi heard Cardiac: Normal in rate and rhythm Abdomen: soft, nondistended and nontender. Normal BS heard Extremities: warm and dry Neuro: Alert, oriented and copertive Fluid Balance (Past 24 Hours): I= O= Net Intake & Output 06/09/19 06/10/19 06/11/19 06/12/19 06:59 06:59 06:59 06:59 Intake Total 3838 831 Output Total 0 50 Balance 3838 781 Weight 111.303 kg Intake: IV Fluids 3100 458 NS (0.9%) 2100 458 IVPB 347 253 ABX - CEFEPIME 68 ABX - DOXYCYCLINE 279 253 Medicated IV 391 CC - Norepinephrine/ 167 Levophed Heparin 224 Oral 0 120 Output: Urine 0 50 Other: Estimated Void Large Medium # Bowel Movements 1 Estimated Stool Amount Large # Voids 3 1 Labs: Laboratory Results - last 24 hr 06/10/19 06/10/19 06/10/19 12:38 12:38 12:38 WBC 0.8 L RBC 3.43 L Hgb 10.5 L Hct 32 L MCV 93 MCH 31 MCHC 33 RDW 20 H Plt Count 130 L MPV 8.6 Neut % (Auto) 83.7 Lymph % (Auto) 10.7 [place] % (Auto) 4.8 Eos % (Auto) 0.5 Baso % (Auto) 0.3 Absolute Neuts (auto) 0.7 L* Absolute Lymphs (auto) 0.1 L Absolute Monos (auto) 0.0 Absolute Eos (auto) 0.0 Absolute Basos (auto) 0.0 Absolute Nucleated RBC 0.1 Immature Gran % 38.0 H Neutrophils % 36.0 Band Neutrophils % 25.0 H Lymphocytes % 14.0 Monocytes % 12.0 Metamyelocytes % 1.0 Myelocytes % 12.0 H Nucleated RBC % 6.1 Nucleated RBCs/100 WBC 5.0 H Normal RBC Morphology Not Reportable Anisocytosis 1+ Hem Pathologist Commnt INR (Anticoag Therapy) 2.07 H APTT Sodium 140 Potassium 5.6 H Chloride 101 Carbon Dioxide 29 Anion Gap 10 BUN 29 H Creatinine 1.08 Est GFR ( Amer) 80.9 Est GFR (Non-Af Amer) 66.8 BUN/Creatinine Ratio 26.9 H Glucose 183 H Lactic Acid Calcium 9.4 Total Bilirubin 0.90 AST 31 ALT 10 Alkaline Phosphatase 71 Troponin I 8.35 H* C-Reactive Protein 203.78 H Total Protein 6.8 Albumin 3.5 Globulin 3.3 Albumin/Globulin Ratio 1.1 Triglycerides Cholesterol LDL Cholesterol HDL Cholesterol Urine Color Urine Appearance Urine pH Ur Specific Rebuck Urine Protein Urine Ketones Urine Blood Urine Nitrate Urine Bilirubin Urine Urobilinogen Ur Leukocyte Esterase Urine WBC (Auto) Urine RBC (Auto) Urine Bacteria Urine Glucose Urine Ascorbic Acid 06/10/19 06/10/19 06/10/19 12:38 17:56 17:58 WBC RBC Hgb Hct MCV MCH MCHC RDW Plt Count MPV Neut % (Auto) Lymph % (Auto) [place] % (Auto) Eos % (Auto) Baso % (Auto) Absolute Neuts (auto) Absolute Lymphs (auto) Absolute Monos (auto) Absolute Eos (auto) Absolute Basos (auto) Absolute Nucleated RBC Immature Gran % Neutrophils % Band Neutrophils % Lymphocytes % Monocytes % Metamyelocytes % Myelocytes % Nucleated RBC % Nucleated RBCs/100 WBC Normal RBC Morphology Anisocytosis Hem Pathologist Commnt INR (Anticoag Therapy) APTT Sodium Potassium Chloride Carbon Dioxide Anion Gap BUN Creatinine Est GFR ( Amer) Est GFR (Non-Af Amer) BUN/Creatinine Ratio Glucose Lactic Acid 2.2 H* 1.4 Calcium Total Bilirubin AST ALT Alkaline Phosphatase Troponin I 14.14 H* C-Reactive Protein Total Protein Albumin Globulin Albumin/Globulin Ratio Triglycerides Cholesterol LDL Cholesterol HDL Cholesterol Urine Color Urine Appearance Urine pH Ur Specific Rebuck Urine Protein Urine Ketones Urine Blood Urine Nitrate Urine Bilirubin Urine Urobilinogen Ur Leukocyte Esterase Urine WBC (Auto) Urine RBC (Auto) Urine Bacteria Urine Glucose Urine Ascorbic Acid 06/10/19 06/10/19 06/11/19 17:58 21:10 00:20 WBC RBC Hgb Hct MCV MCH MCHC RDW Plt Count MPV Neut % (Auto) Lymph % (Auto) [place] % (Auto) Eos % (Auto) Baso % (Auto) Absolute Neuts (auto) Absolute Lymphs (auto) Absolute Monos (auto) Absolute Eos (auto) Absolute Basos (auto) Absolute Nucleated RBC Immature Gran % Neutrophils % Band Neutrophils % Lymphocytes % Monocytes % Metamyelocytes % Myelocytes % Nucleated RBC % Nucleated RBCs/100 WBC Normal RBC Morphology Anisocytosis Hem Pathologist Commnt INR (Anticoag Therapy) APTT 35.0 61.4 H Sodium Potassium Chloride Carbon Dioxide Anion Gap BUN Creatinine Est GFR ( Amer) Est GFR (Non-Af Amer) BUN/Creatinine Ratio Glucose Lactic Acid Calcium Total Bilirubin AST ALT Alkaline Phosphatase Troponin I 13.72 H* C-Reactive Protein Total Protein Albumin Globulin Albumin/Globulin Ratio Triglycerides Cholesterol LDL Cholesterol HDL Cholesterol Urine Color Urine Appearance Urine pH Ur Specific Rebuck Urine Protein Urine Ketones Urine Blood Urine Nitrate Urine Bilirubin Urine Urobilinogen Ur Leukocyte Esterase Urine WBC (Auto) Urine RBC (Auto) Urine Bacteria Urine Glucose Urine Ascorbic Acid 06/11/19 06/11/19 06/11/19 02:33 06:41 06:41 WBC RBC Hgb Hct MCV MCH MCHC RDW Plt Count MPV Neut % (Auto) Lymph % (Auto) [place] % (Auto) Eos % (Auto) Baso % (Auto) Absolute Neuts (auto) Absolute Lymphs (auto) Absolute Monos (auto) Absolute Eos (auto) Absolute Basos (auto) Absolute Nucleated RBC Immature Gran % Neutrophils % Band Neutrophils % Lymphocytes % Monocytes % Metamyelocytes % Myelocytes % Nucleated RBC % Nucleated RBCs/100 WBC Normal RBC Morphology Anisocytosis Hem Pathologist Commnt INR (Anticoag Therapy) APTT 70.5 H Sodium 143 Potassium 4.2 Chloride 112 H Carbon Dioxide 25 Anion Gap 6 BUN 22 Creatinine 0.69 Est GFR ( Amer) 135.6 Est GFR (Non-Af Amer) 112.1 BUN/Creatinine Ratio 31.9 H Glucose 128 H Lactic Acid Calcium 7.5 L Total Bilirubin AST ALT Alkaline Phosphatase Troponin I 10.50 H* 6.94 H* C-Reactive Protein Total Protein Albumin Globulin Albumin/Globulin Ratio Triglycerides 109 Cholesterol 118 LDL Cholesterol 65 HDL Cholesterol 30.9 Urine Color Urine Appearance Urine pH Ur Specific Rebuck Urine Protein Urine Ketones Urine Blood Urine Nitrate Urine Bilirubin Urine Urobilinogen Ur Leukocyte Esterase Urine WBC (Auto) Urine RBC (Auto) Urine Bacteria Urine Glucose Urine Ascorbic Acid 06/11/19 06/11/19 06/11/19 06:41 06:41 10:20 WBC 1.0 L RBC 2.23 L Hgb 7.0 L Hct 21 L MCV 93 MCH 31 MCHC 34 RDW 20 H Plt Count 92 L MPV 8.6 Neut % (Auto) 84.1 Lymph % (Auto) 9.6 [place] % (Auto) 4.8 Eos % (Auto) 1.2 Baso % (Auto) 0.3 Absolute Neuts (auto) 0.8 L* Absolute Lymphs (auto) 0.1 L Absolute Monos (auto) 0.0 Absolute Eos (auto) 0.0 Absolute Basos (auto) 0.0 Absolute Nucleated RBC 0.0 Immature Gran % Neutrophils % Band Neutrophils % Lymphocytes % Monocytes % Metamyelocytes % Myelocytes % Nucleated RBC % 1.2 Nucleated RBCs/100 WBC Normal RBC Morphology Anisocytosis Hem Pathologist Commnt INR (Anticoag Therapy) APTT Sodium Potassium Chloride Carbon Dioxide Anion Gap BUN Creatinine Est GFR ( Amer) Est GFR (Non-Af Amer) BUN/Creatinine Ratio Glucose Lactic Acid 0.9 Calcium Total Bilirubin AST ALT Alkaline Phosphatase Troponin I C-Reactive Protein Total Protein Albumin Globulin Albumin/Globulin Ratio Triglycerides Cholesterol LDL Cholesterol HDL Cholesterol Urine Color Yellow Urine Appearance Cloudy Urine pH 5.0 Ur Specific Rebuck 1.028 Urine Protein Negative Urine Ketones Negative Urine Blood Negative Urine Nitrate Negative Urine Bilirubin Negative Urine Urobilinogen Negative Ur Leukocyte Esterase Trace A Urine WBC (Auto) 2+(11-20/hpf) A Urine RBC (Auto) Trace(0-2/hpf) Urine Bacteria 2+ A Urine Glucose Negative Urine Ascorbic Acid * A Studies: 06/11 TTE: Ejection fraction 50-55%. Hypokinesis of basal-midinferior and inferoseptal myocardium. Hypokinesis of basalinferolateral myocardium. RV systolic function severely reduced. Septal falttening of interventricular septum consistent with RV volume or pressure overload. Mild to moderate . Pulmonary srtery systolic pressure at upper limits. 06/10 CXR- Right lung mass, linear bilateral opacification-?ateletasis vs consolidation. Brain CT- No acute intracranial abnormality Chest CTA- NO pulmonary embolism. Stable right lung mass. Bilateral basilar atelectasis and bronchiectasis. Nutrition: Regular unrestricted diet Impression: 73 M with history of non-small cell lung cancer(currently on radiatiion therapy ; recently completed chemo), Atrial Fibrillation(recently cardioverted; on eliquis), DVT, CAD, COPD, CHEN(on CPAP), GERD presented on 06/10 from radiation oncology dept due to weakness and decreased responsiveness. Found to be hypotensive, neutropenic, sepsis and elevated troponin. EKG showing mild ST elevation on lead III and depression on V4 and V5 and QTc prolongation. On cefepime and doxycycline. Received IVF, heparin drip. Trop downtrended. Cardio following: recommends medical management with aspirin and eliquis. Hem/Onc following-ongoing radiation. Admitted to ICU for levophed( currently on 2mcg/hr ) for pressor support. Plan: Hospital Diagnosis 1. Sepsis- source unknown- pending urine and blood culture 2. Elevated Troponin-NSTEMI 3. Non-small cell lung cancer 4. Ulceration on coccyx Cardiovascular: (1) Elevated troponin (2) Hx of Atrial Fibrillation on eliquis (3) Coronary artery disease (4) Moderate --HR: 69-105 --SBP: 82-129 --Trop max 14; downtrended --Echo as above --Received Heparin Drip --Seen by Dr. Daniels- recommends aspirin and eliquis --d/c heparin and restarted on eliquis --On aspirin, pravastatin and carvedilol --on levophed@2/hr for pressor support --Home meds: Aspirin, Pravastatin, Carvedilol, Eliquis, Dronedarone Pulmonary: (1) Non-small cell lung cancer (2) COPD (3) CHEN on CPAP --RR: 14-26; on 3L of oxygen --SpO2: 94-98% --Continue radiation therapy; Hem/Onc following --Continue nebs --CXR: right lung mass, linear bilateral opacification --CTA: stable right lung mass, bibasilar atelectasis and bronchiectasis. No PE --Has cough; low suspicion of pneumonia --pending urine legionella and strept pneumo Ag --Home meds: Dulera, robitussin, tessalon, duoneb Gastrointestinal: (1) GERD (2) Decreased appetite (3) Chronic diarrhea --Has decreased appetite; lost ~70lb in 3 months; secondary to malignancy and therapy --on dronabinol --On reglan- has QTc prolongation so stopped zofran --bowel regimen: NOne --PPX: pantoprazole --regular unrestriced diet --counselled on eating calorie dense diet --Home meds: Pantoprazole, loperamide, zofran Renal: No active issues --Urine output: 50 ml --Creatinine 0.69 --Electrolytes Na 143 K 4.2 Mg pending Ca 7.5; repleted Home Meds: KCL, mag oxide Endocrine: None --Monitor BG --Home meds: None Infectious: (1) Sepsis(tachycardia and tachypnea and lacctic acidosis) (2) Abnormal urinalysis (3) Ulceration in coccyx --Temp 97 --WBC-1.0; chemotherapy induced --source unknown-covering lungs because of cough with cefepime and doxycycline --lactic acid-2.2; resolved with IVF --CRP-203 --urinalysis: leucocyte esterase, WBC and bacteria positive; on cefepime(day 2) --pending urine culture --pending blood culture --has ulceration in coccyx- barrier cream, frequent turning and repositioning --Neutropenic precaution --Home meds: None Hematologic: (1)Neutropenia (2) Anemia (3) Thrombocytopenia (4)Hx of PE --Hb 7 from 10; hemodilutional; will trend --plt 92 from 130, trend --recently completed chemotherapy for lung cancer; causing pancytopenia --Home meds; None Neurologic: No acute issues --Home med; lorazepam 0.5 mg Metabolic: None Other: None DVT prophylaxis; therapeutic eliquis Condition: critical Prognosis: Guarded Diet: Regular Code: Full code Disposition: Continue ICU care and daughter updated at bedside regarding interval events and plan of care Cumulative time spent in the care of this patient (excluding any procedure time) : at least 50 minutes. Patient care included clinical interview (with patient and/or family), bedside exam of the patient, review of labs, x-rays, and other ancillary data, coordination of (respiratory, nursing care, review of patient's records, discussion regarding patients management with involved consultants, primary physician, pharmacists, and other healthcare personnel (dietary, case management , physical/occupational therapy etc.) Critical Care Time: 50 <Mario Germain - Last Filed: 06/11/19 13:57> Vital Signs: Temp Pulse Resp BP SpO2 FiO2 36.1 C 80 21 95/60 100 06/11/19 11:32 06/11/19 13:30 06/11/19 13:30 06/11/19 13:30 06/11/19 13:30 Physical Exam: Gen: HEENT: Lungs: Cardiac: Abdomen: Extremities: Neuro: Fluid Balance (Past 24 Hours): I= O= Net Intake & Output 06/09/19 06/10/19 06/11/19 06/12/19 06:59 06:59 06:59 06:59 Intake Total 3838 831 Output Total 0 200 Balance 3838 631 Weight 111.303 kg Intake: IV Fluids 3100 458 NS (0.9%) 2100 458 IVPB 347 253 ABX - CEFEPIME 68 ABX - DOXYCYCLINE 279 253 Medicated IV 391 CC - Norepinephrine/ 167 Levophed Heparin 224 Oral 0 120 Output: Urine 0 200 Other: Estimated Void Large Medium # Bowel Movements 1 Estimated Stool Amount Large # Voids 3 1 Labs: Laboratory Results - last 24 hr 06/10/19 06/10/19 06/10/19 12:38 12:38 17:56 WBC 0.8 L RBC 3.43 L Hgb 10.5 L Hct 32 L MCV 93 MCH 31 MCHC 33 RDW 20 H Plt Count 130 L MPV 8.6 Neut % (Auto) 83.7 Lymph % (Auto) 10.7 [place] % (Auto) 4.8 Eos % (Auto) 0.5 Baso % (Auto) 0.3 Absolute Neuts (auto) 0.7 L* Absolute Lymphs (auto) 0.1 L Absolute Monos (auto) 0.0 Absolute Eos (auto) 0.0 Absolute Basos (auto) 0.0 Absolute Nucleated RBC 0.1 Immature Gran % 38.0 H Neutrophils % 36.0 Band Neutrophils % 25.0 H Lymphocytes % 14.0 Monocytes % 12.0 Metamyelocytes % 1.0 Myelocytes % 12.0 H Nucleated RBC % 6.1 Nucleated RBCs/100 WBC 5.0 H Normal RBC Morphology Not Reportable Anisocytosis 1+ Hem Pathologist Commnt APTT Sodium 140 Potassium 5.6 H Chloride 101 Carbon Dioxide 29 Anion Gap 10 BUN 29 H Creatinine 1.08 Est GFR ( Amer) 80.9 Est GFR (Non-Af Amer) 66.8 BUN/Creatinine Ratio 26.9 H Glucose 183 H Lactic Acid 1.4 Calcium 9.4 Total Bilirubin 0.90 AST 31 ALT 10 Alkaline Phosphatase 71 Troponin I 8.35 H* C-Reactive Protein 203.78 H Total Protein 6.8 Albumin 3.5 Globulin 3.3 Albumin/Globulin Ratio 1.1 Triglycerides Cholesterol LDL Cholesterol HDL Cholesterol Urine Color Urine Appearance Urine pH Ur Specific Rebuck Urine Protein Urine Ketones Urine Blood Urine Nitrate Urine Bilirubin Urine Urobilinogen Ur Leukocyte Esterase Urine WBC (Auto) Urine RBC (Auto) Urine Bacteria Urine Glucose Urine Ascorbic Acid 06/10/19 06/10/19 06/10/19 17:58 17:58 21:10 WBC RBC Hgb Hct MCV MCH MCHC RDW Plt Count MPV Neut % (Auto) Lymph % (Auto) [place] % (Auto) Eos % (Auto) Baso % (Auto) Absolute Neuts (auto) Absolute Lymphs (auto) Absolute Monos (auto) Absolute Eos (auto) Absolute Basos (auto) Absolute Nucleated RBC Immature Gran % Neutrophils % Band Neutrophils % Lymphocytes % Monocytes % Metamyelocytes % Myelocytes % Nucleated RBC % Nucleated RBCs/100 WBC Normal RBC Morphology Anisocytosis Hem Pathologist Commnt APTT 35.0 Sodium Potassium Chloride Carbon Dioxide Anion Gap BUN Creatinine Est GFR ( Amer) Est GFR (Non-Af Amer) BUN/Creatinine Ratio Glucose Lactic Acid Calcium Total Bilirubin AST ALT Alkaline Phosphatase Troponin I 14.14 H* 13.72 H* C-Reactive Protein Total Protein Albumin Globulin Albumin/Globulin Ratio Triglycerides Cholesterol LDL Cholesterol HDL Cholesterol Urine Color Urine Appearance Urine pH Ur Specific Rebuck Urine Protein Urine Ketones Urine Blood Urine Nitrate Urine Bilirubin Urine Urobilinogen Ur Leukocyte Esterase Urine WBC (Auto) Urine RBC (Auto) Urine Bacteria Urine Glucose Urine Ascorbic Acid 06/11/19 06/11/19 06/11/19 00:20 02:33 06:41 WBC RBC Hgb Hct MCV MCH MCHC RDW Plt Count MPV Neut % (Auto) Lymph % (Auto) [place] % (Auto) Eos % (Auto) Baso % (Auto) Absolute Neuts (auto) Absolute Lymphs (auto) Absolute Monos (auto) Absolute Eos (auto) Absolute Basos (auto) Absolute Nucleated RBC Immature Gran % Neutrophils % Band Neutrophils % Lymphocytes % Monocytes % Metamyelocytes % Myelocytes % Nucleated RBC % Nucleated RBCs/100 WBC Normal RBC Morphology Anisocytosis Hem Pathologist Commnt APTT 61.4 H 70.5 H Sodium Potassium Chloride Carbon Dioxide Anion Gap BUN Creatinine Est GFR ( Amer) Est GFR (Non-Af Amer) BUN/Creatinine Ratio Glucose Lactic Acid Calcium Total Bilirubin AST ALT Alkaline Phosphatase Troponin I 10.50 H* C-Reactive Protein Total Protein Albumin Globulin Albumin/Globulin Ratio Triglycerides Cholesterol LDL Cholesterol HDL Cholesterol Urine Color Urine Appearance Urine pH Ur Specific Rebuck Urine Protein Urine Ketones Urine Blood Urine Nitrate Urine Bilirubin Urine Urobilinogen Ur Leukocyte Esterase Urine WBC (Auto) Urine RBC (Auto) Urine Bacteria Urine Glucose Urine Ascorbic Acid 06/11/19 06/11/19 06/11/19 06:41 06:41 06:41 WBC 1.0 L RBC 2.23 L Hgb 7.0 L Hct 21 L MCV 93 MCH 31 MCHC 34 RDW 20 H Plt Count 92 L MPV 8.6 Neut % (Auto) 84.1 Lymph % (Auto) 9.6 [place] % (Auto) 4.8 Eos % (Auto) 1.2 Baso % (Auto) 0.3 Absolute Neuts (auto) 0.8 L* Absolute Lymphs (auto) 0.1 L Absolute Monos (auto) 0.0 Absolute Eos (auto) 0.0 Absolute Basos (auto) 0.0 Absolute Nucleated RBC 0.0 Immature Gran % Neutrophils % Band Neutrophils % Lymphocytes % Monocytes % Metamyelocytes % Myelocytes % Nucleated RBC % 1.2 Nucleated RBCs/100 WBC Normal RBC Morphology Anisocytosis Hem Pathologist Commnt APTT Sodium 143 Potassium 4.2 Chloride 112 H Carbon Dioxide 25 Anion Gap 6 BUN 22 Creatinine 0.69 Est GFR ( Amer) 135.6 Est GFR (Non-Af Amer) 112.1 BUN/Creatinine Ratio 31.9 H Glucose 128 H Lactic Acid 0.9 Calcium 7.5 L Total Bilirubin AST ALT Alkaline Phosphatase Troponin I 6.94 H* C-Reactive Protein Total Protein Albumin Globulin Albumin/Globulin Ratio Triglycerides 109 Cholesterol 118 LDL Cholesterol 65 HDL Cholesterol 30.9 Urine Color Urine Appearance Urine pH Ur Specific Rebuck Urine Protein Urine Ketones Urine Blood Urine Nitrate Urine Bilirubin Urine Urobilinogen Ur Leukocyte Esterase Urine WBC (Auto) Urine RBC (Auto) Urine Bacteria Urine Glucose Urine Ascorbic Acid 06/11/19 10:20 WBC RBC Hgb Hct MCV MCH MCHC RDW Plt Count MPV Neut % (Auto) Lymph % (Auto) [place] % (Auto) Eos % (Auto) Baso % (Auto) Absolute Neuts (auto) Absolute Lymphs (auto) Absolute Monos (auto) Absolute Eos (auto) Absolute Basos (auto) Absolute Nucleated RBC Immature Gran % Neutrophils % Band Neutrophils % Lymphocytes % Monocytes % Metamyelocytes % Myelocytes % Nucleated RBC % Nucleated RBCs/100 WBC Normal RBC Morphology Anisocytosis Hem Pathologist Commnt APTT Sodium Potassium Chloride Carbon Dioxide Anion Gap BUN Creatinine Est GFR ( Amer) Est GFR (Non-Af Amer) BUN/Creatinine Ratio Glucose Lactic Acid Calcium Total Bilirubin AST ALT Alkaline Phosphatase Troponin I C-Reactive Protein Total Protein Albumin Globulin Albumin/Globulin Ratio Triglycerides Cholesterol LDL Cholesterol HDL Cholesterol Urine Color Yellow Urine Appearance Cloudy Urine pH 5.0 Ur Specific Rebuck 1.028 Urine Protein Negative Urine Ketones Negative Urine Blood Negative Urine Nitrate Negative Urine Bilirubin Negative Urine Urobilinogen Negative Ur Leukocyte Esterase Trace A Urine WBC (Auto) 2+(11-20/hpf) A Urine RBC (Auto) Trace(0-2/hpf) Urine Bacteria 2+ A Urine Glucose Negative Urine Ascorbic Acid * A Plan: Septic shock of undifferentiated origin was our working diagnosis earlier today. We added urine analysis and culture as well as respiratory pathogen screening. CT chest with basilar atelectasis vs infiltrate, I favor the former. Placed on broad spectrum Abx, no port and so held on Vanco today. Levophed at very low dose. ECHO showing progressive decrement in both RV and LV function though LVEF still remains near normal at 55% CTA negative for PE, significant demand ischemia in setting of likely otherwise stable CAD with new WMAs on ECHO. Plan is to continue antiplat and Eliquis. Clinically he appears well- perfused and his encephalopathy has largely cleared consistent with adeqaute bug coverage and resuscitation. Continue current. D/W pt and family as well as Dr. Meyers. This service has been performed in part by a resident under the direction of a teaching physician. I, Mario Germain, performed the service, or was physically present during the critical, or cohen portions of the service, furnished by the resident. I participated in the management of the patient. Critical Care Time: 50 minutes
[2019-06-11] MEDS ORDERED: Calcium Carbonate TAB* 1250 MG (CALCIUM 500 MG) PO ONE (13:22)
[2019-06-11 13:55] LABS: Magnesium 1.8 mg/dL (1.9-2.7)
[2019-06-11] MEDS: Benzonatate CAP* 100 MG PO PRN ×2 (14:06→21:10)
[2019-06-11] MEDS: Acetaminophen TAB* 325 MG PO PRN ×2 (15:05→19:57)
[2019-06-11] MEDS: Magnesium Oxide TAB* 400 MG PO SCH (17:47)
--- NOTE | 2019-06-11 18:11 | CONSULT ---
Subjective Date of Service: 06/11/19 Interval History: Mr. Barragan is a 73 yo male with PMH significant for A fib, hx PE on Eliquis, non- small cell lung cancer, COPD, CAD, HTN, CHEN, GERD, and HLD; who presented to the emergency room with complaints of weakness and hypotension. He was admitted to the hospital for sepsis of unclear cause, elevated troponin, hyperkalemia, and weakness. He presented to the hospital with 3 small open areas to the sacrum, documented as stage 2 pressure injures by the admitting hospitalist. There is no information in the medical record from [facility]. Patient seen and examined at bedside. Verbal consent obtained for wound consultation and photograph. Family History: Unchanged from Admission Social History: Unchanged from Admission Past Medical History: Unchanged from Admission Review of Systems - Measurements Intake and Output: Intake and Output Last 24 Hours 06/09/19 06/10/19 06/11/19 06/12/19 06:59 06:59 06:59 06:59 Intake Total 3838 1517.1 Output Total 0 200 Balance 3838 1317.1 Weight 245 lb 6.108 oz Intake: IV Fluids 3100 855 NS (0.9%) 2100 855 IVPB 347 319 ABX - CEFEPIME 68 66 ABX - DOXYCYCLINE 279 253 Medicated IV 391 163.1 CC - Norepinephrine/ 167 51.1 Levophed Heparin 224 112 Oral 0 180 Output: Urine 0 200 Other: Estimated Void Large Large # Bowel Movements 1 Estimated Stool Amount Large # Voids 3 1 - Review of Systems Constitutional Symptoms: Negative: Fever, Other - Chills Dermatology: Positive: Other - Open areas to buttocks, unknown length of time Objective Active Medications: Acetaminophen (Tylenol Tab*) 650 mg PO Q4H PRN Reason: MILD PAIN or TEMP > 100.4 Albuterol/Ipratropium (Duoneb (Albuterol 2.5 Mg/Ipratropium 0.5 Mg)) 1 neb INH [id number] AWAKE PRN Reason: sob/wheexing Apixaban (Eliquis*) 5 mg PO BID [facility] Aspirin (Aspirin Ec Tab*) 81 mg PO DAILY [facility] Benzonatate (Tessalon Cap*) 100 mg PO TID PRN Reason: COUGH Carvedilol (Coreg Tab*) 3.125 mg PO BID [facility] Dronabinol (Marinol Cap*) 2.5 mg PO BID [facility] Fentanyl (Duragesic Patch 25 Mcg/Hr*) 25 mcg TRANSDERM Q72H [facility] Cefepime HCl (Maxipime 2 Gm In Dextrose Duplex) 2 gm in 50 mls @ 100 mls/hr IV Q8H [facility] Doxycycline Hyclate 100 mg/ (Sodium Chloride) 250 mls @ 250 mls/hr IVPB Q12H [facility] Sodium Chloride (Ns 0.9% 1000 Ml) 1,000 mls @ 125 mls/hr IV PER RATE [facility] Norepinephrine Bitartrate (Levophed 16 Mcg/Ml Premix*) 4,000 mcg in 250 mls @ 18.75 mls/hr IV .INITIAL RATE [facility]; Protocol Magnesium Oxide (Magox 400 Tab*) 400 mg PO DAILY [facility] Metoclopramide HCl (Reglan Iv*) 5 mg IV Q6H PRN Reason: NAUSEA/VOMITING Mometasone Furoate/Formoterol Fumar (Dulera 200/5 Mdi*) 2 puff INH Q12HR [facility] Oxycodone/Acetaminophen (Percocet 5/325 Tab*) 1 tab PO Q8H PRN Reason: PAIN - MODERATE Pantoprazole Sodium (Protonix Tab*) 40 mg PO DAILY [facility] Pravastatin Sodium (Pravachol (Nf)) 10 mg PO DAILY [facility]; Protocol Scopolamine (Transderm-Scop 1.5 Mg Patch*) 1 patch TRANSDERM Q72H [facility] Vital Signs 06/11/19 06/11/19 06/11/19 11:30 11:31 11:32 Temperature 97.0 F Pulse Rate 75 73 Respiratory 19 26 Rate Blood Pressure 113/69 (mmHg) O2 Sat by Pulse 98 Oximetry 06/11/19 06/11/19 06/11/19 15:36 15:38 15:45 Temperature Pulse Rate 88 86 83 Respiratory 13 13 16 Rate Blood Pressure 95/60 102/66 (mmHg) O2 Sat by Pulse 92 92 95 Oximetry Oxygen Devices in Use Now: Nasal Cannula Appearance: NAD, laying in bed Ears/Nose/Mouth/Throat: Mucous Membranes Moist Respiratory: Symmetrical Chest Expansion and Respiratory Effort Skin: - - See skin note below Neurological: Alert and Oriented x 3 Result Diagrams: 06/16/19 09:30 06/16/19 09:30 Additional Lab and Data: Above labs were pulled into the note, when the note was edited prior to signing. Please see below for labs from the day of consultation. Laboratory Tests 06/10/19 06/11/19 06/11/19 12:38 06:41 19:07 WBC 1.0 L Hgb 7.0 L Hct 21 L Plt Count 92 L Sodium 143 Potassium 4.0 Chloride 112 H Carbon Dioxide 26 BUN 17 Creatinine 0.59 L Glucose 114 H Total Protein 6.8 Albumin 3.5 Skin Deviation Note - Skin Deviation Findings Sacrum - There are 3 open areas to the midline sacrum (elias cleft). The superior wound measures, 1.5 cm x 0.7 cm x 0.2 cm. The wound base is pink granulation tissue. The wound in the middle measures, 0.5 cm x 0.5 cm x 0.1 cm. The wound base is 90% yellow slough and 10 % red granulation tissue. The inferior wound, measures 1.5 cm x 0.4 cm x 0.1 cm. The wound base is red epithelial tissue. The surrounding tissue is intact. There is scant serous drainage. Wound Problem/Plan Assessment: Mr. Barragan is a 73 yo male with PMH significant for A fib, hx PE on Eliquis, non- small cell lung cancer, COPD, CAD, HTN, CHEN, GERD, and HLD; who presented to the emergency room with complaints of weakness and hypotension. He was admitted to the hospital for sepsis of unclear cause, elevated troponin, hyperkalemia, and weakness. He presented to the hospital with 3 small open areas to the sacrum , documented as stage 2 pressure injures by the admitting hospitalist. There is no information in the medical record from [facility]. 1. Elias cleft (sacrum). There are 3 wounds present, suspect these are multifactorial; pressure, stage 2 and 3, trauma (from pulling on the skin), and possibly friction. Recommend washing the area with soap and water. Apply barrier cream (orange top). Frequent turning and repositioning. Use a friction reduction device to move in bed. Will add a prealbumin to the last labs. 2. A fib and hx PE. Pt is on Eliquis, this can delay wound healing. 3. Nutrition. Recommend meeting nutrition requirements to assist with wound healing (protein 1.2-1.5 grams/kg per day and calories 30-35 kcal/kg per day). Regular diet. 4. Code Status. DNR. 5. Disposition. Inpatient, disposition per primary medicine team. TIME SPENT: Time for this wound consultation was 25 minutes and 15 minutes was spent with the patient discussing past medical history; assessing, measuring, and photographing the wounds; and repositioning the patient. Is Patient a Wound Clinic Patient: No Attending: Viviana Amor
[2019-06-11 18:34] LABS: Prealbumin 8 mg/dL (18-38)
[2019-06-11 19:31] LABS: BUN/Creatinine Ratio 28.8 (8-20); Calcium 7.5 mg/dL (8.6-10.3); EGFR African American 162.5 (>60); EGFR Non-African American 134.3 (>60)
[2019-06-11 19:38] LABS: Hematocrit 21 % (42-52); Hemoglobin 7.1 g/dL (14.0-18.0); Mean Corpuscular HGB Conc 34 g/dL (31-36); Mean Corpuscular Hemoglobin 31 pg (27-31); Mean Corpuscular Volume 92 fL (80-94); Mean Platelet Volume 8.3 fL (7.4-10.4); Platelet Count 81 10^3/uL (150-450); Red Blood Count 2.24 10^6 /uL (4.18-5.48); Red Cell Distribution Width 20 % (10-15); White Blood Count 0.9 10^3/uL (3.5-10.8)
[2019-06-11] MEDS: Metoclopramide IV* 5 MG/ML 2 ML VIAL IV PRN (19:57)
[2019-06-11 20:42] LABS: ABS Lymphocytes 0.1 10^3/ul (1.0-4.8); ABS Monocytes 0.1 10^3/ul (0-0.8); ABS Neutrophils 0.7 10^3/ul (1.5-7.7); Eosinophil % 0.9 %; Lymphocyte % 9.3 %; Nucleated Red Blood Cells % 1.5
[2019-06-11] MEDS: Apixaban* 5 MG TAB PO SCH (21:10)
[2019-06-12] MEDS: Cefepime 2 GM in Dextrose(*) 2 GM/50 ML BAG IV SCH ×3 (03:04→17:20)
[2019-06-12 05:21] LABS: ABS Lymphocytes 0.1 10^3/ul (1.0-4.8); ABS Monocytes 0.1 10^3/ul (0-0.8); ABS Neutrophils 0.7 10^3/ul (1.5-7.7); Eosinophil % 1.6 %; Hematocrit 21 % (42-52); Hemoglobin 6.6 g/dL (14.0-18.0); Lymphocyte % 9.6 %; Mean Corpuscular HGB Conc 32 g/dL (31-36); Mean Corpuscular Hemoglobin 31 pg (27-31); Mean Corpuscular Volume 96 fL (80-94); Mean Platelet Volume 8.3 fL (7.4-10.4); Nucleated Red Blood Cells % 0.8; Platelet Count 76 10^3/uL (150-450); Red Blood Count 2.15 10^6 /uL (4.18-5.48); Red Cell Distribution Width 21 % (10-15); White Blood Count 0.9 10^3/uL (3.5-10.8)
[2019-06-12 05:36] LABS: Calcium 7.2 mg/dL (8.6-10.3); Magnesium 1.5 mg/dL (1.9-2.7)
[2019-06-12 05:42] LABS: BUN/Creatinine Ratio 25.9 (8-20); EGFR Non-African American 148.7 (>60)
[2019-06-12 06:05] LABS: Potassium 3.9 mmol/L (3.5-5.0)
[2019-06-12] MEDS: DOXYcycline IV* 100 MG in NS 0.9% 250 ML* 250 ML IVPB SCH ×2 (06:13→19:20)
[2019-06-12] MEDS: fentaNYL Patch Check Q Shift 1 NOTE FOLLOW UP SCH ×3 (07:08→18:49)
[2019-06-12] MEDS: NS 0.9% 1000 ML** 1,000 ML IV SCH ×2 (07:31→17:20)
[2019-06-12] MEDS: Apixaban* 5 MG TAB PO SCH ×2 (08:26→20:42)
[2019-06-12] MEDS: Carvedilol TAB* 3.125 MG PO SCH ×2 (08:26→20:44)
[2019-06-12] MEDS ORDERED: Magnesium Sulf 4 GM/100 ML IV* 4,000 MG/100 ML BAG IVPB ONE (08:31)
[2019-06-12] MEDS: Magnesium Oxide TAB* 400 MG PO SCH (08:43)
[2019-06-12] MEDS: Dronabinol CAP* 2.5 MG PO SCH ×2 (08:43→20:44)
[2019-06-12] MEDS: Pantoprazole TAB * 40 MG TAB PO SCH (08:43)
[2019-06-12] MEDS: Aspirin EC TAB* 81 MG TAB.EC PO SCH (08:43)
[2019-06-12] MEDS: Mometasone/Formoter 200/5 MDI INH SCH ×2 (08:53→19:20)
[2019-06-12] MEDS: CMCS: Pravastatin (NF) 20 MG TAB PO SCH (08:57)
--- NOTE | 2019-06-12 10:31 | PN ---
<Brandy Brian - Last Filed: 06/12/19 10:25> Date of Service: 06/12/19 Critical Care Services: 73 M with history of non-small cell lung cancer(currently on radiatiion therapy ; recently completed chemo), Atrial Fibrillation(recently cardioverted; on eliquis), DVT, CAD, COPD, CHEN(on CPAP), GERD presented on 06/10 from radiation oncology dept due to weakness and decreased responsiveness. Found to be hypotensive, neutropenic, sepsis and elevated troponin. EKG showing mild ST elevation on lead III and depression on V4 and V5 and QTc prolongation. On cefepime and doxycycline. Received IVF, heparin drip. Trop downtrended. Cardio following: recommends medical management with aspirin and eliquis. Hem/Onc following-ongoing radiation. Admitted to ICU for levophed for pressor support. Levophed discontinued on 06/11 11 AM 06/10: was septic with source unknown. Because of cough and neutropenia started on cefepime and doxycyline. trop peaked to 14; downtrended. Cardio following. admitted to ICU for pressor mx-on levophed CXR- Right lung mass, linear bilateral opacification-?ateletasis vs consolidation. Brain CT- No acute intracranial abnormality Chest CTA- NO pulmonary embolism. Stable right lung mass. Bilateral basilar atelectasis and bronchiectasis. 06/11: Patient has loss of appetite; chronic. Doesnot feel well but talking and cheerful. Denies chest pain. Wanting meds for appetite. Agreed to have some icecream. Informed family members. ECHO: Ejection fraction 50-55%. Hypokinesis of basal-midinferior and inferoseptal myocardium. Hypokinesis of basalinferolateral myocardium. RV systolic function severely reduced. Septal falttening of interventricular septum consistent with RV volume or pressure overload. Mild to moderate . Pulmonary srtery systolic pressure at upper limits. Later in the day, case discussed with Dr. Daniels. Recommended Chemical stress test. 06/12: Patient still feeling same. Ate some icecream yesterday. Has cough. Hb of 6.6. Case discussed with Dr. Fitch; cancelled stress test. He is high risk so he will be managed medically. Vital Signs: Temp Pulse Resp BP SpO2 FiO2 96.8 F 98 33 82/56 95 06/12/19 07:29 06/12/19 10:00 06/12/19 10:00 06/12/19 10:00 06/12/19 10:00 Physical Exam: Gen: Resting on a bed with no acute distress. HEENT: Normocephaic and atraumatic Lungs: ronchi heard Cardiac: RRR Abdomen: soft, nondistended and nontender Extremities: warm and dry Neuro: Alert, oriented and coperative Fluid Balance (Past 24 Hours): I= O= Net Intake & Output 06/10/19 06/11/19 06/12/19 06/13/19 06:59 06:59 06:59 06:59 Intake Total 3838 3738.1 0 Output Total 0 200 Balance 3838 3538.1 0 Weight 111.303 kg 112.3 kg Intake: IV Fluids 3100 2599 NS (0.9%) 2100 2599 IVPB 347 796 ABX - CEFEPIME 68 193 ABX - DOXYCYCLINE 279 603 Medicated IV 391 163.1 CC - Norepinephrine/ 167 51.1 Levophed Heparin 224 112 Oral 0 180 0 Output: Urine 0 200 Other: Estimated Void Large Large # Bowel Movements 1 Estimated Stool Amount Large # Voids 3 3 Labs: Laboratory Results - last 24 hr 06/11/19 06/11/19 06/11/19 06:41 10:20 19:07 WBC RBC Hgb Hct MCV MCH MCHC RDW Plt Count MPV Neut % (Auto) Lymph % (Auto) Wolfe % (Auto) Eos % (Auto) Baso % (Auto) Absolute Neuts (auto) Absolute Lymphs (auto) Absolute Monos (auto) Absolute Eos (auto) Absolute Basos (auto) Absolute Nucleated RBC Nucleated RBC % Hypochromasia Anisocytosis APTT 33.8 Sodium 143 Potassium 4.2 Chloride 112 H Carbon Dioxide 25 Anion Gap 6 BUN 22 Creatinine 0.69 Est GFR ( Amer) 135.6 Est GFR (Non-Af Amer) 112.1 BUN/Creatinine Ratio 31.9 H Glucose 128 H Calcium 7.5 L Magnesium 1.8 L Troponin I 6.94 H* Prealbumin 8 L Triglycerides 109 Cholesterol 118 LDL Cholesterol 65 HDL Cholesterol 30.9 Urine Color Yellow Urine Appearance Cloudy Urine pH 5.0 Ur Specific [place] 1.028 Urine Protein Negative Urine Ketones Negative Urine Blood Negative Urine Nitrate Negative Urine Bilirubin Negative Urine Urobilinogen Negative Ur Leukocyte Esterase Trace A Urine WBC (Auto) 2+(11-20/hpf) A Urine RBC (Auto) Trace(0-2/hpf) Urine Bacteria 2+ A Urine Glucose Negative Urine Ascorbic Acid * A 06/11/19 06/11/19 06/12/19 19:07 19:07 04:59 WBC 0.9 L 0.9 L RBC 2.24 L 2.15 L Hgb 7.1 L 6.6 L Hct 21 L 21 L MCV 92 96 H MCH 31 31 MCHC 34 32 RDW 20 H 21 H Plt Count 81 L 76 L MPV 8.3 8.3 Neut % (Auto) 83.2 79.6 Lymph % (Auto) 9.3 9.6 Wolfe % (Auto) 6.1 8.1 Eos % (Auto) 0.9 1.6 Baso % (Auto) 0.5 1.1 Absolute Neuts (auto) 0.7 L* 0.7 L* Absolute Lymphs (auto) 0.1 L 0.1 L Absolute Monos (auto) 0.1 0.1 Absolute Eos (auto) 0.0 0.0 Absolute Basos (auto) 0.0 0.0 Absolute Nucleated RBC 0.0 0.0 Nucleated RBC % 1.5 0.8 Hypochromasia 2+ Anisocytosis 2+ APTT Sodium 143 Potassium 4.0 Chloride 112 H Carbon Dioxide 26 Anion Gap 5 BUN 17 Creatinine 0.59 L Est GFR ( Amer) 162.5 Est GFR (Non-Af Amer) 134.3 BUN/Creatinine Ratio 28.8 H Glucose 114 H Calcium 7.5 L Magnesium Troponin I Prealbumin Triglycerides Cholesterol LDL Cholesterol HDL Cholesterol Urine Color Urine Appearance Urine pH Ur Specific [place] Urine Protein Urine Ketones Urine Blood Urine Nitrate Urine Bilirubin Urine Urobilinogen Ur Leukocyte Esterase Urine WBC (Auto) Urine RBC (Auto) Urine Bacteria Urine Glucose Urine Ascorbic Acid 06/12/19 04:59 WBC RBC Hgb Hct MCV MCH MCHC RDW Plt Count MPV Neut % (Auto) Lymph % (Auto) Wolfe % (Auto) Eos % (Auto) Baso % (Auto) Absolute Neuts (auto) Absolute Lymphs (auto) Absolute Monos (auto) Absolute Eos (auto) Absolute Basos (auto) Absolute Nucleated RBC Nucleated RBC % Hypochromasia Anisocytosis APTT Sodium 143 Potassium 3.9 Chloride 114 H Carbon Dioxide 24 Anion Gap 5 BUN 14 Creatinine 0.54 L Est GFR ( Amer) 180.0 Est GFR (Non-Af Amer) 148.7 BUN/Creatinine Ratio 25.9 H Glucose 90 Calcium 7.2 L Magnesium 1.5 L Troponin I Prealbumin Triglycerides Cholesterol LDL Cholesterol HDL Cholesterol Urine Color Urine Appearance Urine pH Ur Specific [place] Urine Protein Urine Ketones Urine Blood Urine Nitrate Urine Bilirubin Urine Urobilinogen Ur Leukocyte Esterase Urine WBC (Auto) Urine RBC (Auto) Urine Bacteria Urine Glucose Urine Ascorbic Acid Studies: 06/11 TTE: Ejection fraction 50-55%. Hypokinesis of basal-midinferior and inferoseptal myocardium. Hypokinesis of basalinferolateral myocardium. RV systolic function severely reduced. Septal falttening of interventricular septum consistent with RV volume or pressure overload. Mild to moderate . Pulmonary srtery systolic pressure at upper limits. 06/10 CXR- Right lung mass, linear bilateral opacification-?ateletasis vs consolidation. Brain CT- No acute intracranial abnormality Chest CTA- NO pulmonary embolism. Stable right lung mass. Bilateral basilar atelectasis and bronchiectasis. Nutrition: Regular unrestricted diet. Impression: 73 M with history of non-small cell lung cancer(currently on radiatiion therapy ; recently completed chemo), Atrial Fibrillation(recently cardioverted; on eliquis), DVT, CAD, COPD, CHEN(on CPAP), GERD presented on 06/10 from radiation oncology dept due to weakness and decreased responsiveness. Found to be hypotensive, neutropenic, sepsis and elevated troponin. EKG showing mild ST elevation on lead III and depression on V4 and V5 and QTc prolongation. On cefepime and doxycycline(day 3). Received IVF, heparin drip. Trop downtrended. Cardio following: recommends medical management with aspirin and eliquis. Hem/ Onc following-ongoing radiation. Admitted to ICU for levophed. Not requiring levophed since yesterday 11 AM. BP on soft side; on albumin infusion. Plan: Hospital Diagnosis 1. Sepsis- source likely UTI 2. Elevated Troponin-NSTEMI 3. Non-small cell lung cancer 4. Ulceration on coccyx Cardiovascular: (1) Elevated troponin (2) Hx of Atrial Fibrillation on eliquis (3) Coronary artery disease (4) Moderate --HR: 78-98 --SBP: 82-108 --Trop max 14; downtrended --Echo as above --Received Heparin Drip --Seen by Dr. Daniels- recommends aspirin and eliquis --d/c heparin and restarted on eliquis; continue eliquis --On aspirin, pravastatin and carvedilol --d/c levophed --Discussed case with Dr. Fitch on 06/12 and recommends no stress test and medical management. --BP on soft side; will give 500 ml of 5% albumin; if BP improves then can be transferred to floor later afternoon. --Home meds: Aspirin, Pravastatin, Carvedilol, Eliquis, Dronedarone Pulmonary: (1) Non-small cell lung cancer (2) COPD --RR: 10-33; on 2L of oxygen --SpO2: 94-98% --Continue radiation therapy; Hem/Onc following --Continue nebs --CXR: right lung mass, linear bilateral opacification --CTA: stable right lung mass, bibasilar atelectasis and bronchiectasis. No PE --Has cough; low suspicion of pneumonia --urine legionella and strept pneumo Ag- negative --patient and her not aware about diagnosis of sleep apnea; denies CPAP use at home --Home meds: Dulera, robitussin, tessalon, duoneb Gastrointestinal: (1) GERD (2) Decreased appetite (3) Chronic diarrhea --Has decreased appetite; lost ~70lb in 3 months; secondary to malignancy and therapy --on dronabinol --On reglan- has QTc prolongation so stopped zofran --bowel regimen: NOne --PPX: pantoprazole --regular unrestriced diet --counselled on eating calorie dense diet --Home meds: Pantoprazole, loperamide, zofran Renal: No active issues --Urine output: 200 ml --Creatinine 0.69 --Electrolytes Na 143 K 3.9 Mg 1.5; repleting Ca 7.2; repleting Home Meds: KCL, mag oxide Endocrine: None --Monitor BG --Home meds: None Infectious: (1) Sepsis(tachycardia and tachypnea and lacctic acidosis) (2) UTI ( 3) Ulceration in coccyx --Temp 97 --WBC-0.9; chemotherapy induced --source- UTI --covering lungs because of cough with cefepime and doxycycline --lactic acid-2.2; resolved with IVF --CRP-203 --urinalysis: leucocyte esterase, WBC and bacteria positive; on cefepime(day 3) --pending urine culture --Blood culture- negative till date; processing --has ulceration in coccyx- barrier cream, frequent turning and repositioning; dressing as per wound consult --Neutropenic precaution --Home meds: None Hematologic: (1)Neutropenia (2) Anemia (3) Thrombocytopenia (4)Hx of PE --Hb 6.6 from 7.1; In the setting of sepsis, we are defferring blood trransfusion for now; will trend --plt 76, trend --recently completed chemotherapy for lung cancer; causing pancytopenia --Home meds; None Neurologic: No acute issues --Home med; lorazepam 0.5 mg Metabolic: None Other: None DVT prophylaxis; therapeutic eliquis Condition: critical Prognosis: Guarded Diet: Regular Code: Full code Disposition: Continue ICU care and daughter updated at bedside regarding interval events and plan of care Cumulative time spent in the care of this patient (excluding any procedure time) : at least 50 minutes. Patient care included clinical interview (with patient and/or family), bedside exam of the patient, review of labs, x-rays, and other ancillary data, coordination of (respiratory, nursing care, review of patient's records, discussion regarding patients management with involved consultants, primary physician, pharmacists, and other healthcare personnel (dietary, case management , physical/occupational therapy etc.) Critical Care Time: 50 <Mario Germain - Last Filed: 06/12/19 12:54> Vital Signs: Temp Pulse Resp BP SpO2 FiO2 36.7 C 90 31 109/76 95 06/12/19 11:41 06/12/19 12:30 06/12/19 12:30 06/12/19 12:00 06/12/19 12:30 Physical Exam: Gen: HEENT: Lungs: Cardiac: Abdomen: Extremities: Neuro: Fluid Balance (Past 24 Hours): I= O= Net Intake & Output 06/10/19 06/11/19 06/12/19 06/13/19 06:59 06:59 06:59 06:59 Intake Total 3838 3738.1 0 Output Total 0 200 Balance 3838 3538.1 0 Weight 111.303 kg 112.3 kg Intake: IV Fluids 3100 2599 NS (0.9%) 2100 2599 IVPB 347 796 ABX - CEFEPIME 68 193 ABX - DOXYCYCLINE 279 603 Medicated IV 391 163.1 CC - Norepinephrine/ 167 51.1 Levophed Heparin 224 112 Oral 0 180 0 Output: Urine 0 200 Other: Estimated Void Large Large Large # Bowel Movements 1 Estimated Stool Amount Large # Voids 3 3 Labs: Laboratory Results - last 24 hr 06/11/19 06/11/19 06/11/19 06:41 19:07 19:07 WBC RBC Hgb Hct MCV MCH MCHC RDW Plt Count MPV Neut % (Auto) Lymph % (Auto) Wolfe % (Auto) Eos % (Auto) Baso % (Auto) Absolute Neuts (auto) Absolute Lymphs (auto) Absolute Monos (auto) Absolute Eos (auto) Absolute Basos (auto) Absolute Nucleated RBC Nucleated RBC % Hypochromasia Anisocytosis APTT 33.8 Sodium 143 143 Potassium 4.2 4.0 Chloride 112 H 112 H Carbon Dioxide 25 26 Anion Gap 6 5 BUN 22 17 Creatinine 0.69 0.59 L Est GFR ( Amer) 135.6 162.5 Est GFR (Non-Af Amer) 112.1 134.3 BUN/Creatinine Ratio 31.9 H 28.8 H Glucose 128 H 114 H Calcium 7.5 L 7.5 L Magnesium 1.8 L Troponin I 6.94 H* Prealbumin 8 L Triglycerides 109 Cholesterol 118 LDL Cholesterol 65 HDL Cholesterol 30.9 06/11/19 06/12/19 06/12/19 19:07 04:59 04:59 WBC 0.9 L 0.9 L RBC 2.24 L 2.15 L Hgb 7.1 L 6.6 L Hct 21 L 21 L MCV 92 96 H MCH 31 31 MCHC 34 32 RDW 20 H 21 H Plt Count 81 L 76 L MPV 8.3 8.3 Neut % (Auto) 83.2 79.6 Lymph % (Auto) 9.3 9.6 Wolfe % (Auto) 6.1 8.1 Eos % (Auto) 0.9 1.6 Baso % (Auto) 0.5 1.1 Absolute Neuts (auto) 0.7 L* 0.7 L* Absolute Lymphs (auto) 0.1 L 0.1 L Absolute Monos (auto) 0.1 0.1 Absolute Eos (auto) 0.0 0.0 Absolute Basos (auto) 0.0 0.0 Absolute Nucleated RBC 0.0 0.0 Nucleated RBC % 1.5 0.8 Hypochromasia 2+ Anisocytosis 2+ APTT Sodium 143 Potassium 3.9 Chloride 114 H Carbon Dioxide 24 Anion Gap 5 BUN 14 Creatinine 0.54 L Est GFR ( Amer) 180.0 Est GFR (Non-Af Amer) 148.7 BUN/Creatinine Ratio 25.9 H Glucose 90 Calcium 7.2 L Magnesium 1.5 L Troponin I Prealbumin Triglycerides Cholesterol LDL Cholesterol HDL Cholesterol Plan: Septic shock secondary to UTI resolved. Levophed now off though still mild hypovolemia, giving some 5% albumin. Stress test D/W Dr. Molina, will hold on that investigation for now as not really a good elective cath candidate at this time...infection, pancytopenia, active Chemo/RT. Continue broad Abx pending urine C&S. Anemia noted, will not delgado to transfuse as yet but given his expected BM function he will likely get a unit in the next 24-48. D/W pt and in detail. This service has been performed in part by a resident under the direction of a teaching physician. I, Mario Germain, performed the service, or was physically present during the critical, or cohen portions of the service, furnished by the resident. I participated in the management of the patient.
[2019-06-12] MEDS ORDERED: Calcium Carbonate TAB* 1250 MG (CALCIUM 500 MG) PO ONE (10:42)
[2019-06-12] MEDS: Albumin Human 5%* 12.5 GM/250 ML BTL IV SCH ×2 (11:51→13:21)
[2019-06-12] MEDS: oxyCODONE/Acetamin 5/325 MG* TAB PO PRN (17:28)
[2019-06-13] MEDS: Cefepime 2 GM in Dextrose(*) 2 GM/50 ML BAG IV SCH ×3 (03:21→15:27)
[2019-06-13] MEDS: NS 0.9% 1000 ML** 1,000 ML IV SCH (03:21)
[2019-06-13] MEDS: DOXYcycline IV* 100 MG in NS 0.9% 250 ML* 250 ML IVPB SCH ×2 (06:03→23:45)
[2019-06-13 06:04] LABS: Anion Gap 5 mmol/L (2-11); Blood Urea Nitrogen 8 mg/dL (6-24); CO2 Carbon Dioxide 26 mmol/L (22-32); Calcium 7.8 mg/dL (8.6-10.3); Chloride 111 mmol/L (101-111); EGFR African American 211.2 (>60); EGFR Non-African American 174.6 (>60); Glucose 92 mg/dL (70-100); Magnesium 1.9 mg/dL (1.9-2.7); Potassium 3.5 mmol/L (3.5-5.0); Sodium 142 mmol/L (135-145)
[2019-06-13] MEDS: fentaNYL Patch Check Q Shift 1 NOTE FOLLOW UP SCH ×2 (06:34→19:28)
[2019-06-13 07:15] LABS: ABS Lymphocytes 0.1 10^3/ul (1.0-4.8); ABS Monocytes 0.1 10^3/ul (0-0.8); Eosinophil % 1.5 %; Hematocrit 21 % (42-52); Hemoglobin 6.9 g/dL (14.0-18.0); Lymphocyte % 6.6 %; Mean Corpuscular HGB Conc 33 g/dL (31-36); Mean Corpuscular Hemoglobin 31 pg (27-31); Mean Corpuscular Volume 93 fL (80-94); Mean Platelet Volume 8.5 fL (7.4-10.4); Nucleated Red Blood Cells % 1.8; Platelet Count 83 10^3/uL (150-450); Red Blood Count 2.25 10^6 /uL (4.18-5.48); Red Cell Distribution Width 21 % (10-15); White Blood Count 1.2 10^3/uL (3.5-10.8)
[2019-06-13] MEDS: Mometasone/Formoter 200/5 MDI INH SCH ×2 (07:32→19:57)
--- NOTE | 2019-06-13 08:45 | PN ---
Progress Note - Progress Note Date of Service: 06/13/19 SOAP: Subjective: []Feeling better today than yesterday. Anxious about IVs. Worried about ambulating. Does not want CPR or intubation, very on-board with this. Medications: Acetaminophen (Tylenol Tab*) 650 mg PO Q4H PRN PRN Reason: MILD PAIN or TEMP > 100.4 Last Admin: 06/11/19 19:57 Dose: 650 mg Albuterol/Ipratropium (Duoneb (Albuterol 2.5 Mg/Ipratropium 0.5 Mg)) 1 neb INH [id number] AWAKE PRN PRN Reason: sob/wheexing Apixaban (Eliquis*) 5 mg PO BID [facility] Last Admin: 06/12/19 20:42 Dose: Not Given Aspirin (Aspirin Ec Tab*) 81 mg PO DAILY [facility] Last Admin: 06/12/19 08:43 Dose: 81 mg Benzonatate (Tessalon Cap*) 100 mg PO TID PRN PRN Reason: COUGH Last Admin: 06/11/19 21:10 Dose: 100 mg Carvedilol (Coreg Tab*) 3.125 mg PO BID [facility] Last Admin: 06/12/19 20:44 Dose: 3.125 mg Dronabinol (Marinol Cap*) 2.5 mg PO BID [facility] Last Admin: 06/12/19 20:44 Dose: 2.5 mg Fentanyl (Duragesic Patch 25 Mcg/Hr*) 25 mcg TRANSDERM Q72H [facility] Last Admin: 06/10/19 22:23 Dose: 25 mcg Cefepime HCl (Maxipime 2 Gm In Dextrose Duplex (*)) 2 gm in 50 mls @ 100 mls/ hr IV Q8H [facility] Last Admin: 06/13/19 03:21 Dose: 100 mls/hr Doxycycline Hyclate 100 mg/ (Sodium Chloride) 250 mls @ 250 mls/hr IVPB Q12H [facility] Last Admin: 06/13/19 06:03 Dose: 250 mls/hr Sodium Chloride (Ns 0.9% 1000 Ml) 1,000 mls @ 125 mls/hr IV PER RATE [facility] Last Admin: 06/13/19 03:21 Dose: 125 mls/hr Magnesium Oxide (Magox 400 Tab*) 400 mg PO DAILY [facility] Last Admin: 06/12/19 08:43 Dose: 400 mg Metoclopramide HCl (Reglan Iv*) 5 mg IV Q6H PRN PRN Reason: NAUSEA/VOMITING Last Admin: 06/11/19 19:57 Dose: 5 mg Mometasone Furoate/Formoterol Fumar (Dulera 200/5 Mdi*) 2 puff INH Q12HR [facility] Last Admin: 06/13/19 07:32 Dose: 2 puff Oxycodone/Acetaminophen (Percocet 5/325 Tab*) 1 tab PO Q8H PRN PRN Reason: PAIN - MODERATE Last Admin: 06/12/19 17:28 Dose: 1 tab Pantoprazole Sodium (Protonix Tab*) 40 mg PO DAILY [facility] Last Admin: 06/12/19 08:43 Dose: 40 mg Pharmacy Profile Note (Fentanyl Patch Check Q Shift) 1 note FOLLOW UP 0700, 1900 [facility] Last Admin: 06/13/19 06:34 Dose: 1 note Pharmacy Profile Note (Scopolamine Patch Remove*) 1 note PATCH OFF Q72H [facility] Pravastatin Sodium (Pravachol (Nf)) 10 mg PO DAILY [facility]; Protocol Last Admin: 06/12/19 08:57 Dose: 10 mg Scopolamine (Transderm-Scop 1.5 Mg Patch*) 1 patch TRANSDERM Q72H [facility] Last Admin: 06/10/19 23:33 Dose: 1 patch Objective: [] Vital Signs Temp Pulse Resp BP Pulse Ox 97.7 F 89 20 129/81 99 06/13/19 03:26 06/13/19 03:26 06/13/19 07:58 06/13/19 03:26 06/13/19 03:26 A&O, involved in care, notably anxious. TEE HRR, S1S2, tele SR with occ. PVCs LS +crackles, L>R, resp. even and non-labored +BS, abd. soft, round, non-tender +PP=bilat, no edema, jose appearance Laboratory Results - last 24 hr 06/11/19 06/13/19 06/13/19 19:07 05:00 05:00 WBC 1.2 L RBC 2.25 L Hgb 6.9 L Hct 21 L MCV 93 MCH 31 MCHC 33 RDW 21 H Plt Count 83 L MPV 8.5 Neut % (Auto) 84.8 Lymph % (Auto) 6.6 [place] % (Auto) 6.5 Eos % (Auto) 1.5 Baso % (Auto) 0.6 Absolute Neuts (auto) 1.0 L Absolute Lymphs (auto) 0.1 L Absolute Monos (auto) 0.1 Absolute Eos (auto) 0.0 Absolute Basos (auto) 0.0 Absolute Nucleated RBC 0.0 Nucleated RBC % 1.8 Hem Pathologist Commnt Sodium 142 Potassium 3.5 Chloride 111 Carbon Dioxide 26 Anion Gap 5 BUN 8 Creatinine 0.47 L Est GFR ( Amer) 211.2 Est GFR (Non-Af Amer) 174.6 BUN/Creatinine Ratio 17.0 Glucose 92 Calcium 7.8 L Magnesium 1.9 06/10/19 06/10/19 06/10/19 12:38 17:58 21:10 Troponin I 8.35 H* 14.14 H* 13.72 H* 06/11/19 06/11/19 02:33 06:41 Troponin I 10.50 H* 6.94 H* 06/11/19 06:41 Prealbumin 8 L 06/11/19 06:41 Triglycerides 109 Cholesterol 118 LDL Cholesterol 65 HDL Cholesterol 30.9 Assessment: []73 yo male with locally advanced NSCLC s/p concurrent chemo/RT admitted with septic shock requiring pressors due to presumed pneumonia and concurrent ACS being managed medically. He has stabilized and is slowly improving. Plan: []1. Septic shock: resolved 2. Pneumonia: continue abx. until ANC >/= 1500 - check CRP tomorrow AM 3. ACS: appreciate cardiac input, cont. medical management - echo: LVEF 50-55% but with moderate to severe RV systolic dysfunction and moderate 4. Panctyopenia secondary to chemotherapy - transfuse 2 units PRBCs today, give 20 mg IV lasix between units, pt. states understanding of risks and benefits and is agreeable - expect ANC and plt. recovery over next week - with thrombocytopenia, anemia, and anti-coagulation check stool occult blood now prior to resuming full does anti-coagulation as currently in SR 5. A.Fib: recently cardioverted, currently in SR - resume eliquis once no GI bleed confirmed 6. NSCLC: therapy completed - unfortunately minimal response on imaging though symptomatically appears improved - plan repeat CT ~3mo. (September) 7. Severe protein-caloric malnutrition - nutrition consult, enc. protein drinks 8. Weakness: multi-factorial - PT/OT eval. and treat, will need rehab on d/c 9. GERD: cont. PPI Dispo: once ANC >1500 can d/c IV abx. and plan d/c to rehab - consult regarding senior housing
[2019-06-13] MEDS ORDERED: Furosemide IV* 10 MG/ML 2 ML VIAL (20 MG) IV SLOW PU ONE (09:13)
[2019-06-13 09:38] LABS: % Iron Saturation 52 % (15-55); Iron 55 ug/dL (50-212); Total Iron Binding Capacity 105 mcg/dL (250-450); Transferrin < 75 mg/dL (203-362)
[2019-06-13] MEDS: Aspirin EC TAB* 81 MG TAB.EC PO SCH (09:42)
[2019-06-13] MEDS: CMCS: Pravastatin (NF) 20 MG TAB PO SCH (09:42)
[2019-06-13] MEDS: Apixaban* 5 MG TAB PO SCH ×2 (09:42→20:44)
[2019-06-13] MEDS: Pantoprazole TAB * 40 MG TAB PO SCH (09:43)
[2019-06-13] MEDS: Magnesium Oxide TAB* 400 MG PO SCH (09:43)
[2019-06-13] MEDS: Dronabinol CAP* 2.5 MG PO SCH ×2 (09:43→20:45)
[2019-06-13] MEDS: Carvedilol TAB* 3.125 MG PO SCH ×2 (09:43→20:45)
[2019-06-13 10:04] LABS: Ferritin > 1500.0 ng/mL (24-336)
[2019-06-13] MEDS: KCL 20 MEQ/100 ML IVPREMIX* 20 MEQ/100 ML BAG IV SCH ×2 (18:16→21:02)
[2019-06-13] MEDS: fentaNYL PATCH 25 MCG/HR TRANSDERM SCH (20:37)
[2019-06-13] MEDS: Scopolamine PATCH Remove* 1 NOTE MISC PATCH OFF SCH (20:46)
[2019-06-13] MEDS: Scopolamine 1.5 mg* PATCH TRANSDERM SCH (20:47)
[2019-06-13] MEDS: oxyCODONE/Acetamin 5/325 MG* TAB PO PRN (21:07)
[2019-06-14] MEDS: Cefepime 2 GM in Dextrose(*) 2 GM/50 ML BAG IV SCH ×4 (01:10→23:26)
[2019-06-14] MEDS: NS 0.9% 1000 ML** 1,000 ML IV SCH (05:51)
[2019-06-14] MEDS: fentaNYL Patch Check Q Shift 1 NOTE FOLLOW UP SCH ×2 (06:18→18:58)
[2019-06-14] MEDS: DOXYcycline IV* 100 MG in NS 0.9% 250 ML* 250 ML IVPB SCH ×2 (06:42→17:39)
[2019-06-14] MEDS: Mometasone/Formoter 200/5 MDI INH SCH ×2 (07:15→20:47)
[2019-06-14] MEDS: Pantoprazole TAB * 40 MG TAB PO SCH (08:21)
[2019-06-14] MEDS: CMCS: Pravastatin (NF) 20 MG TAB PO SCH (08:21)
[2019-06-14] MEDS: Aspirin EC TAB* 81 MG TAB.EC PO SCH (08:21)
[2019-06-14] MEDS: Carvedilol TAB* 3.125 MG PO SCH ×2 (08:21→20:31)
[2019-06-14] MEDS: Magnesium Oxide TAB* 400 MG PO SCH (08:21)
[2019-06-14] MEDS: Apixaban* 5 MG TAB PO SCH ×2 (08:21→20:32)
[2019-06-14] MEDS: Dronabinol CAP* 2.5 MG PO SCH ×2 (08:22→20:30)
[2019-06-14 09:29] LABS: Hematocrit 24 % (42-52); Hemoglobin 8.1 g/dL (14.0-18.0); Mean Corpuscular HGB Conc 33 g/dL (31-36); Mean Corpuscular Hemoglobin 31 pg (27-31); Mean Corpuscular Volume 93 fL (80-94); Mean Platelet Volume 8.7 fL (7.4-10.4); Platelet Count 130 10^3/uL (150-450); Red Blood Count 2.64 10^6 /uL (4.18-5.48); Red Cell Distribution Width 20 % (10-15); White Blood Count 1.8 10^3/uL (3.5-10.8)
[2019-06-14 09:44] LABS: Albumin 2.3 g/dL (3.2-5.2); CO2 Carbon Dioxide 28 mmol/L (22-32); Calcium 7.9 mg/dL (8.6-10.3); Chloride 108 mmol/L (101-111); Sodium 140 mmol/L (135-145)
[2019-06-14 09:51] LABS: ALT 9 U/L (7-52); Albumin/Globulin Ratio 0.9 (1-3); Alkaline Phosphatase 48 U/L (34-104); Anion Gap 4 mmol/L (2-11); BUN/Creatinine Ratio 16.3 (8-20); Blood Urea Nitrogen 7 mg/dL (6-24); EGFR African American 234.1 (>60); EGFR Non-African American 193.4 (>60); Globulin 2.6 g/dL (2-4); Glucose 101 mg/dL (70-100); Total Protein 4.9 g/dL (6.4-8.9)
[2019-06-14 09:52] LABS: ABS Lymphocytes 0.2 10^3/ul (1.0-4.8); ABS Monocytes 0.2 10^3/ul (0-0.8); ABS Neutrophils 1.4 10^3/ul (1.5-7.7); Eosinophil % 1.3 %; Lymphocyte % 9.8 %; Nucleated Red Blood Cells % 2.5
[2019-06-14] MEDS ORDERED: Saline NASAL SPRAY 0.65%* BTL BOTH NARES PRN (09:54)
--- NOTE | 2019-06-14 10:14 | PN ---
Progress Note - Progress Note Date of Service: 06/14/19 SOAP: Subjective: [Doing ok. Feels like he is making some improvements. Coughing freq and very productive. No dyspnea at rest. Very weak, can not sit up without assistance and has not been up to a chair. Reports his appetite is still low and having freq diarrhea. Nursing notes reflect no BMs in 3d. Having minor nose bleeds and L nare feels clogged. Has some mid substernal pressure, which he reports is his "chronic" pain, nothing that is new. Remains afebrile.] Objective: [ Vital Signs: Temp Pulse Resp BP Pulse Ox 98.0 F 85 20 121/83 97 06/14/19 07:47 06/14/19 07:47 06/14/19 08:22 06/14/19 07:47 06/14/19 07:47 Acetaminophen (Tylenol Tab*) 650 mg PO Q4H PRN PRN Reason: MILD PAIN or TEMP > 100.4 Last Admin: 06/11/19 19:57 Dose: 650 mg Albuterol/Ipratropium (Duoneb (Albuterol 2.5 Mg/Ipratropium 0.5 Mg)) 1 neb INH [id number] AWAKE PRN PRN Reason: sob/wheexing Apixaban (Eliquis*) 5 mg PO BID [facility] Last Admin: 06/14/19 08:21 Dose: 5 mg Aspirin (Aspirin Ec Tab*) 81 mg PO DAILY [facility] Last Admin: 06/14/19 08:21 Dose: 81 mg Benzonatate (Tessalon Cap*) 100 mg PO TID PRN PRN Reason: COUGH Last Admin: 06/11/19 21:10 Dose: 100 mg Carvedilol (Coreg Tab*) 3.125 mg PO BID [facility] Last Admin: 06/14/19 08:21 Dose: 3.125 mg Dronabinol (Marinol Cap*) 2.5 mg PO BID [facility] Last Admin: 06/14/19 08:22 Dose: 2.5 mg Fentanyl (Duragesic Patch 25 Mcg/Hr*) 25 mcg TRANSDERM Q72H [facility] Last Admin: 06/13/19 20:37 Dose: 25 mcg Guaifenesin/Codeine Phosphate (Robitussin Ac 100mg/10mg In 5 Ml) 5 ml PO Q6H [facility] Heparin Sodium (Porcine) (Heparin Flush Picc/Ml/Cvc(*)) 1 - 3 ml FLUSH 0600, 1800 [facility]; Protocol Last Admin: 06/14/19 06:00 Dose: Not Given Doxycycline Hyclate 100 mg/ (Sodium Chloride) 250 mls @ 250 mls/hr IVPB Q12H [facility] Last Admin: 06/14/19 06:42 Dose: 250 mls/hr Sodium Chloride (Ns 0.9% 1000 Ml) 1,000 mls @ 75 mls/hr IV PER RATE [facility] Last Admin: 06/14/19 05:51 Dose: 75 mls/hr Cefepime HCl (Maxipime 2 Gm In Dextrose Duplex (*)) 2 gm in 50 mls @ 100 mls/ hr IV Q8H [facility] Last Admin: 06/14/19 08:22 Dose: 100 mls/hr Magnesium Oxide (Magox 400 Tab*) 400 mg PO DAILY [facility] Last Admin: 06/14/19 08:21 Dose: 400 mg Metoclopramide HCl (Reglan Iv*) 5 mg IV Q6H PRN PRN Reason: NAUSEA/VOMITING Last Admin: 06/11/19 19:57 Dose: 5 mg Mometasone Furoate/Formoterol Fumar (Dulera 200/5 Mdi*) 2 puff INH Q12HR [facility] Last Admin: 06/14/19 07:15 Dose: 2 puff Nystatin (Nystatin Suspension*) 500,000 units PO QID [facility] Stop: 06/21/19 09:56 Oxycodone/Acetaminophen (Percocet 5/325 Tab*) 1 tab PO Q8H PRN PRN Reason: PAIN - MODERATE Last Admin: 06/13/19 21:07 Dose: 1 tab Pantoprazole Sodium (Protonix Tab*) 40 mg PO DAILY [facility] Last Admin: 06/14/19 08:21 Dose: 40 mg Pharmacy Profile Note (Fentanyl Patch Check Q Shift) 1 note FOLLOW UP 0700, 1900 [facility] Last Admin: 06/14/19 06:18 Dose: 1 note Pharmacy Profile Note (Scopolamine Patch Remove*) 1 note PATCH OFF Q72H [facility] Last Admin: 06/13/19 20:46 Dose: 1 patch Pravastatin Sodium (Pravachol (Nf)) 10 mg PO DAILY [facility]; Protocol Last Admin: 06/14/19 08:21 Dose: 10 mg Scopolamine (Transderm-Scop 1.5 Mg Patch*) 1 patch TRANSDERM Q72H [facility] Last Admin: 06/13/19 20:47 Dose: 1 patch Sodium Chloride (Sodium Chloride 0.65% Nasal [place]*) 1 spray BOTH NARES Q1H PRN PRN Reason: nasal dryness Laboratory Results - last 24 hr 06/13/19 06/13/19 06/14/19 09:37 17:34 09:00 WBC 1.8 L RBC 2.64 L Hgb 8.1 L Hct 24 L MCV 93 MCH 31 MCHC 33 RDW 20 H Plt Count 130 L MPV 8.7 Neut % (Auto) 78.5 Lymph % (Auto) 9.8 [place] % (Auto) 10.1 Eos % (Auto) 1.3 Baso % (Auto) 0.3 Absolute Neuts (auto) 1.4 L Absolute Lymphs (auto) 0.2 L Absolute Monos (auto) 0.2 Absolute Eos (auto) 0.0 Absolute Basos (auto) 0.0 Absolute Nucleated RBC 0.0 Immature Gran % 4.0 Neutrophils % 82.0 Lymphocytes % 7.0 Monocytes % 6.0 Eosinophils % 1.0 Myelocytes % 4.0 H Nucleated RBC % 2.5 Nucleated RBCs/100 WBC 3.0 H Normal RBC Morphology Not Reportable Anisocytosis 2+ Sodium Potassium Chloride Carbon Dioxide Anion Gap BUN Creatinine Est GFR ( Amer) Est GFR (Non-Af Amer) BUN/Creatinine Ratio Glucose Calcium Magnesium Total Bilirubin AST ALT Alkaline Phosphatase C-Reactive Protein Total Protein Albumin Globulin Albumin/Globulin Ratio Blood Type O Positive Antibody Screen Negative Crossmatch See Detail Transfusion React Rpt Donor Unit # [id number] Post-Trans Blood Type O Positive Post-Trans KRISSY Negative 06/14/19 09:00 WBC RBC Hgb Hct MCV MCH MCHC RDW Plt Count MPV Neut % (Auto) Lymph % (Auto) [place] % (Auto) Eos % (Auto) Baso % (Auto) Absolute Neuts (auto) Absolute Lymphs (auto) Absolute Monos (auto) Absolute Eos (auto) Absolute Basos (auto) Absolute Nucleated RBC Immature Gran % Neutrophils % Lymphocytes % Monocytes % Eosinophils % Myelocytes % Nucleated RBC % Nucleated RBCs/100 WBC Normal RBC Morphology Anisocytosis Sodium 140 Potassium TNP Chloride 108 Carbon Dioxide 28 Anion Gap 4 BUN 7 Creatinine 0.43 L Est GFR ( Amer) 234.1 Est GFR (Non-Af Amer) 193.4 BUN/Creatinine Ratio 16.3 Glucose 101 H Calcium 7.9 L Magnesium TNP Total Bilirubin 0.60 AST TNP ALT 9 Alkaline Phosphatase 48 C-Reactive Protein 65.80 H Total Protein 4.9 L Albumin 2.3 L Globulin 2.6 Albumin/Globulin Ratio 0.9 L Blood Type Antibody Screen Crossmatch Transfusion React Rpt Donor Unit # Post-Trans Blood Type Post-Trans KRISSY Exam: Gen: chronically ill apppearing 73 yo gentleman in NAD, but mildly lethargic HEENT: white patches on soft palate CV: RRR, no m/r/g Resp: few crackles at lung bases, occasional wheeze at R lung base Abd: soft, diffusely TTP, normoactive BS Ext: no edema, chronic venous stasis changes Assessment: []73 yo male with locally advanced NSCLC s/p concurrent chemo/RT admitted with ACS and septic shock requiring pressors due to presumed pneumonia. He has stabilized and is slowly improving. Plan: []1. Septic shock: resolved - blood cx negative 2. Pneumonia: - continue IV abx. until ANC >/= 1500, then can transition to po to complete a total of 10d - trial cough suppression with Robitussin AC 3. ACS: appreciate cardiac input, cont. medical management - echo: LVEF 50-55% but with moderate to severe RV systolic dysfunction and moderate 4. Panctyopenia secondary to chemotherapy - received 2 units PRBCs yesterday - only gained a ~1 g improvement - ANC and plt counts cont to improve - stool for occult blood pending to further eval anemia, low suspicion for bleeding however 5. A.Fib: recently cardioverted, currently in SR - eliquis was resumed last night, no clinical evidence of bleeding 6. NSCLC: therapy completed - unfortunately minimal response on imaging though symptomatically appears improved - plan repeat CT ~3mo. (September) 7. Severe protein-caloric malnutrition - nutrition consult, enc. protein drinks - cont marinol for appetite stimulation 8. Weakness: multi-factorial - PT/OT eval. and treat, will need rehab on d/c 9. GERD: cont. PPI 10. Thrush - thrush noted on exam - start nystatin swish/swallow Dispo: plan dc to [facility] within the next several days, he remains fairly symptomatic at this time. CM helping with coordination.
[2019-06-14] MEDS: guaiFENesin/CODIENE 100mg/10mg 5 ML UDC PO SCH ×3 (10:26→22:08)
--- NOTE | 2019-06-14 10:33 | PN ---
Subjective Date of Service: 06/14/19 Interval History: f/u acute SC no chest pain pain or dyspnea at rest unable to sit up without assistance tele: intermittent rate controlled atrial fibrillation Medications Active Medications: Acetaminophen (Tylenol Tab*) 650 mg PO Q4H PRN PRN Reason: MILD PAIN or TEMP > 100.4 Last Admin: 06/11/19 19:57 Dose: 650 mg Albuterol/Ipratropium (Duoneb (Albuterol 2.5 Mg/Ipratropium 0.5 Mg)) 1 neb INH [id number] AWAKE PRN PRN Reason: sob/wheexing Apixaban (Eliquis*) 5 mg PO BID [facility] Last Admin: 06/14/19 08:21 Dose: 5 mg Aspirin (Aspirin Ec Tab*) 81 mg PO DAILY [facility] Last Admin: 06/14/19 08:21 Dose: 81 mg Benzonatate (Tessalon Cap*) 100 mg PO TID PRN PRN Reason: COUGH Last Admin: 06/11/19 21:10 Dose: 100 mg Carvedilol (Coreg Tab*) 3.125 mg PO BID [facility] Last Admin: 06/14/19 08:21 Dose: 3.125 mg Dronabinol (Marinol Cap*) 2.5 mg PO BID [facility] Last Admin: 06/14/19 08:22 Dose: 2.5 mg Fentanyl (Duragesic Patch 25 Mcg/Hr*) 25 mcg TRANSDERM Q72H [facility] Last Admin: 06/13/19 20:37 Dose: 25 mcg Guaifenesin/Codeine Phosphate (Robitussin Ac 100mg/10mg In 5 Ml) 5 ml PO Q6H [facility] Last Admin: 06/14/19 10:26 Dose: 5 ml Heparin Sodium (Porcine) (Heparin Flush Picc/Ml/Cvc(*)) 1 - 3 ml FLUSH 0600, 1800 [facility]; Protocol Last Admin: 06/14/19 06:00 Dose: Not Given Doxycycline Hyclate 100 mg/ (Sodium Chloride) 250 mls @ 250 mls/hr IVPB Q12H [facility] Last Admin: 06/14/19 06:42 Dose: 250 mls/hr Sodium Chloride (Ns 0.9% 1000 Ml) 1,000 mls @ 75 mls/hr IV PER RATE [facility] Last Admin: 06/14/19 05:51 Dose: 75 mls/hr Cefepime HCl (Maxipime 2 Gm In Dextrose Duplex (*)) 2 gm in 50 mls @ 100 mls/ hr IV Q8H [facility] Last Admin: 06/14/19 08:22 Dose: 100 mls/hr Magnesium Oxide (Magox 400 Tab*) 400 mg PO DAILY [facility] Last Admin: 06/14/19 08:21 Dose: 400 mg Metoclopramide HCl (Reglan Iv*) 5 mg IV Q6H PRN PRN Reason: NAUSEA/VOMITING Last Admin: 06/11/19 19:57 Dose: 5 mg Mometasone Furoate/Formoterol Fumar (Dulera 200/5 Mdi*) 2 puff INH Q12HR [facility] Last Admin: 06/14/19 07:15 Dose: 2 puff Nystatin (Nystatin Suspension*) 500,000 units PO QID [facility] Stop: 06/21/19 09:56 Oxycodone/Acetaminophen (Percocet 5/325 Tab*) 1 tab PO Q8H PRN PRN Reason: PAIN - MODERATE Last Admin: 06/13/19 21:07 Dose: 1 tab Pantoprazole Sodium (Protonix Tab*) 40 mg PO DAILY [facility] Last Admin: 06/14/19 08:21 Dose: 40 mg Pharmacy Profile Note (Fentanyl Patch Check Q Shift) 1 note FOLLOW UP 0700, 1900 [facility] Last Admin: 06/14/19 06:18 Dose: 1 note Pharmacy Profile Note (Scopolamine Patch Remove*) 1 note PATCH OFF Q72H [facility] Last Admin: 06/13/19 20:46 Dose: 1 patch Pravastatin Sodium (Pravachol (Nf)) 10 mg PO DAILY [facility]; Protocol Scopolamine (Transderm-Scop 1.5 Mg Patch*) 1 patch TRANSDERM Q72H [facility] Last Admin: 06/13/19 20:47 Dose: 1 patch Sodium Chloride (Sodium Chloride 0.65% Nasal [place]*) 1 spray BOTH NARES Q1H PRN PRN Reason: nasal dryness Objective Vital Signs: Temp Pulse Resp BP Pulse Ox 98.0 F 85 20 121/83 97 06/14/19 07:47 06/14/19 07:47 06/14/19 10:28 06/14/19 07:47 06/14/19 07:47 Oxygen Devices in Use Now: Nasal Cannula Appearance: nad, chronically ill appearing Ears/Nose/Mouth/Throat: Clear Oropharnyx, Mucous Membranes Moist Neck: Trachea Midline, - - uncertian jvp Respiratory: Symmetrical Chest Expansion and Respiratory Effort, - - coarse breath sounds throughout Cardiovascular: RRR, - - 2-3/6 systolic murmur Abdominal: NL Sounds; No Tenderness; No Distention Extremities: No Clubbing, Cyanosis, - - mild edema Skin: No Rash or Ulcers Neurological: Alert and Oriented x 3 Laboratory Results: 06/14/19 09:00 06/14/19 09:00 INR (Anticoag Therapy) 2.07 (0.82-1.09) H 06/10/19 12:38 APTT 33.8 seconds (26.0-38.0) 06/11/19 19:07 Total Bilirubin 0.60 mg/dL (0.2-1.0) 06/14/19 09:00 AST TNP 06/14/19 09:00 ALT 9 U/L (7-52) 06/14/19 09:00 Alkaline Phosphatase 48 U/L (34-104) 06/14/19 09:00 Total Protein 4.9 g/dL (6.4-8.9) L 06/14/19 09:00 Albumin 2.3 g/dL (3.2-5.2) L 06/14/19 09:00 Globulin 2.6 g/dL (2-4) 06/14/19 09:00 Albumin/Globulin Ratio 0.9 (1-3) L 06/14/19 09:00 Triglycerides 109 mg/dL 06/11/19 06:41 Cholesterol 118 mg/dL 06/11/19 06:41 LDL Cholesterol 65 mg/dL 06/11/19 06:41 HDL Cholesterol 30.9 mg/dL 06/11/19 06:41 06/10/19 06/10/19 06/10/19 12:38 17:58 21:10 Troponin I 8.35 H* 14.14 H* 13.72 H* 06/11/19 06/11/19 02:33 06:41 Troponin I 10.50 H* 6.94 H* Diagnostic Imaging: Transthoracic Echocardiogram Study Date: 06/11/2019 - Left ventricle: Systolic function is at the lower limits of normal. The estimated ejection fraction is 50-55%. Hypokinesis of the basal-midinferior and inferoseptal myocardium. Hypokinesis of the basalinferolateral myocardium. - Right ventricle: Systolic function is moderately to severely reduced. - Ventricular septum: There is septal flattening of the interventricular septum consistent with RV volume or pressure overload. - Aortic valve: The valve is trileaflet. The leaflets are mildly calcified. The findings are consistent with mild to moderate stenosis. Systolic pressure is at the upper limits of normal. - Compared to study of 04/30/19, the left ventricle function is lower and the regional wall motion abnormalities are new. Valve structures are the same. CTA CHEST 06/10/19 IMPRESSION: 1. NO PULMONARY ARTERIAL FILLING DEFECT TO SUGGEST PULMONARY EMBOLISM. 2. STABLE RIGHT UPPER LUNG MASS WITH EXTENSION TO THE POSTERIOR CHEST AND ASSOCIATED PRESUMABLY PATHOLOGICAL FRACTURE. 3. BILATERAL BASILAR ATELECTASIS AND BRONCHIECTASIS. EKG Data: ekg 05/06/2019 old inferior SC poor r wave progression 05/09/2019: rapid atrial flutter, inferior SC, given prior ekg's would call injury pattern, ivcd, poor r wave progression ekg 05/09/2019 NSr, old IWMI, qtc difficult to estimated given hr 96 bpm compared to 04/05/2019, new st/t changes 1/avL ekg 05/10/2019 NSR 66 bpm, noraml qtc, old IWMI, ivcd, poor r wave progression, t waves now upright 1 and avl ekg 06/10/2018 NSR, inferior SC, recent, precordial t wave inversions ekg 06/11/2018 nsr, old infeiror SC diffuse prominent inferior and precordial T wave inversion with long qt consistent with myocardial ischemia Assessment/Plan 1. Sepsis/pneumonia - improved - recurrent sepsis 2. Locally advanced NSCLC s/p chemo radiation therapy 3. Panctyopenia secondary to chemotherapy - s/p pRBC transfusions 4. Acute SC - Uncertain mechanism (type 1 vs. 2) - All available evidence suggests underlying epicardial atheroscerotic obstructive CAD - LVEF 50% - On aspirin (in addition to eliquis), 10 mg of pravastatin and 3.125 mg po bid of coreg 5. Paroxysmal Atrial flutter and fibrillation - On eliquis 5 mg po bid 6. Aortic stenosis - not severe 7. COPD 8. Hx DVT's - Hold off on AceI/ARB - Has tolerated 10 mg of pravastatin well, would increase to 40 mg po daily ( ordered) - Would keep Mg and K+ replaced - Discussed with patient and at bedside regarding patients presumed obstructive CAD in context of his significant co-morbidities. I do not think he would benefit from revascularization in addition to medical therapy at this time. - Will sign off, Please reconsult as needed
[2019-06-14 10:47] LABS: Magnesium 1.4 mg/dL (1.9-2.7); Potassium Redraw 3.6 mmol/L (3.5-5.0)
[2019-06-14] MEDS: Nystatin SUSPENSION* 100000 UNITS/ML 5 ML UDC PO SCH ×3 (11:54→21:25)
[2019-06-15] MEDS: guaiFENesin/CODIENE 100mg/10mg 5 ML UDC PO SCH ×4 (04:15→20:42)
[2019-06-15] MEDS: DOXYcycline IV* 100 MG in NS 0.9% 250 ML* 250 ML IVPB SCH ×2 (06:26→20:42)
[2019-06-15] MEDS: fentaNYL Patch Check Q Shift 1 NOTE FOLLOW UP SCH ×2 (06:58→18:33)
[2019-06-15] MEDS: Mometasone/Formoter 200/5 MDI INH SCH ×2 (08:15→20:31)
[2019-06-15] MEDS: Cefepime 2 GM in Dextrose(*) 2 GM/50 ML BAG IV SCH ×2 (08:18→15:05)
[2019-06-15] MEDS: Pantoprazole TAB * 40 MG TAB PO SCH (08:48)
[2019-06-15] MEDS: Aspirin EC TAB* 81 MG TAB.EC PO SCH (08:48)
[2019-06-15] MEDS: Apixaban* 5 MG TAB PO SCH ×2 (08:48→20:42)
[2019-06-15] MEDS: CMCS:Pravastatin (NF) 20 MG TAB PO SCH (08:48)
[2019-06-15] MEDS: Carvedilol TAB* 3.125 MG PO SCH ×2 (08:48→20:42)
[2019-06-15] MEDS: Magnesium Oxide TAB* 400 MG PO SCH ×2 (08:48→20:42)
[2019-06-15] MEDS: Nystatin SUSPENSION* 100000 UNITS/ML 5 ML UDC PO SCH ×4 (08:48→20:42)
[2019-06-15] MEDS: Dronabinol CAP* 2.5 MG PO SCH ×2 (08:48→20:43)
[2019-06-15] MEDS: NS 0.9% 1000 ML** 1,000 ML IV SCH (10:34)
[2019-06-15 11:44] LABS: Hematocrit 24 % (42-52); Hemoglobin 8.2 g/dL (14.0-18.0); Mean Corpuscular HGB Conc 34 g/dL (31-36); Mean Corpuscular Hemoglobin 31 pg (27-31); Mean Corpuscular Volume 92 fL (80-94); Mean Platelet Volume 7.7 fL (7.4-10.4); Platelet Count 102 10^3/uL (150-450); Red Blood Count 2.62 10^6 /uL (4.18-5.48); Red Cell Distribution Width 19 % (10-15); White Blood Count 1.5 10^3/uL (3.5-10.8)
[2019-06-15 12:00] LABS: BUN/Creatinine Ratio 17.8 (8-20); EGFR African American 222.1 (>60); EGFR Non-African American 183.6 (>60); Magnesium 1.3 mg/dL (1.9-2.7); Potassium 3.3 mmol/L (3.5-5.0)
[2019-06-15 12:11] LABS: ABS Lymphocytes 0.1 10^3/ul (1.0-4.8); ABS Monocytes 0.3 10^3/ul (0-0.8); ABS Neutrophils 1.1 10^3/ul (1.5-7.7); ABS Nucleated RBC 0.1 10^3/ul; Eosinophil % 0.5 %; Lymphocyte % 8.2 %; Nucleated Red Blood Cells % 5.3
[2019-06-15] MEDS ORDERED: Magnesium Sulf 4 GM/100 ML IV* 4,000 MG/100 ML BAG IVPB ONE (15:38)
[2019-06-15] MEDS: Potassium Chloride* LIQUID 20 MEQ/15 ML UDC PO SCH ×2 (16:22→20:42)
[2019-06-15] MEDS: Acetaminophen TAB* 325 MG PO PRN (23:31)
[2019-06-15] MEDS: LORazepam TAB(*) 0.5 MG PO PRN (23:33)
[2019-06-16] MEDS: Cefepime 2 GM in Dextrose(*) 2 GM/50 ML BAG IV SCH ×3 (00:20→15:04)
[2019-06-16] MEDS: guaiFENesin/CODIENE 100mg/10mg 5 ML UDC PO SCH ×4 (04:34→20:46)
[2019-06-16] MEDS: DOXYcycline IV* 100 MG in NS 0.9% 250 ML* 250 ML IVPB SCH ×2 (05:29→18:39)
[2019-06-16] MEDS: Mometasone/Formoter 200/5 MDI INH SCH ×2 (08:16→21:09)
[2019-06-16] MEDS: fentaNYL Patch Check Q Shift 1 NOTE FOLLOW UP SCH ×2 (09:43→18:47)
[2019-06-16 09:48] LABS: Hematocrit 27 % (42-52); Hemoglobin 8.8 g/dL (14.0-18.0); Mean Corpuscular HGB Conc 33 g/dL (31-36); Mean Corpuscular Hemoglobin 31 pg (27-31); Mean Corpuscular Volume 93 fL (80-94); Platelet Count 132 10^3/uL (150-450); Red Blood Count 2.89 10^6 /uL (4.18-5.48); Red Cell Distribution Width 21 % (10-15); White Blood Count 1.8 10^3/uL (3.5-10.8)
[2019-06-16 10:04] LABS: BUN/Creatinine Ratio 14.6 (8-20); Calcium 8.2 mg/dL (8.6-10.3); EGFR African American 206.2 (>60); EGFR Non-African American 170.4 (>60); Magnesium 1.8 mg/dL (1.9-2.7); Potassium 3.3 mmol/L (3.5-5.0)
[2019-06-16 10:14] LABS: ABS Lymphocytes 0.2 10^3/ul (1.0-4.8); ABS Monocytes 0.3 10^3/ul (0-0.8); ABS Neutrophils 1.3 10^3/ul (1.5-7.7); ABS Nucleated RBC 0.1 10^3/ul; Eosinophil % 0.6 %; Lymphocyte % 9.5 %
[2019-06-16] MEDS: Dronabinol CAP* 2.5 MG PO SCH ×2 (10:36→20:46)
[2019-06-16] MEDS: Magnesium Oxide TAB* 400 MG PO SCH ×2 (10:37→20:47)
[2019-06-16] MEDS: CMCS:Pravastatin (NF) 20 MG TAB PO SCH (10:38)
[2019-06-16] MEDS: Carvedilol TAB* 3.125 MG PO SCH ×2 (10:39→20:47)
[2019-06-16] MEDS: Apixaban* 5 MG TAB PO SCH ×2 (10:40→20:47)
[2019-06-16] MEDS: Pantoprazole TAB * 40 MG TAB PO SCH (10:40)
[2019-06-16] MEDS: Potassium Chloride* LIQUID 20 MEQ/15 ML UDC PO SCH ×2 (10:41→20:46)
[2019-06-16] MEDS: Nystatin SUSPENSION* 100000 UNITS/ML 5 ML UDC PO SCH ×4 (10:41→20:46)
[2019-06-16] MEDS: Aspirin EC TAB* 81 MG TAB.EC PO SCH (10:43)
[2019-06-16] MEDS: LORazepam TAB(*) 0.5 MG PO PRN (11:39)
[2019-06-16] MEDS: NS 0.9% 1000 ML** 1,000 ML IV SCH (18:39)
[2019-06-16] MEDS: fentaNYL PATCH 25 MCG/HR TRANSDERM SCH (20:47)
[2019-06-16] MEDS: Scopolamine 1.5 mg* PATCH TRANSDERM SCH (20:50)
[2019-06-16] MEDS: Scopolamine PATCH Remove* 1 NOTE MISC PATCH OFF SCH (20:52)
[2019-06-17] MEDS: Cefepime 2 GM in Dextrose(*) 2 GM/50 ML BAG IV SCH ×3 (00:43→15:37)
[2019-06-17] MEDS: Acetaminophen TAB* 325 MG PO PRN (02:34)
[2019-06-17] MEDS: guaiFENesin/CODIENE 100mg/10mg 5 ML UDC PO SCH ×3 (02:34→15:37)
[2019-06-17] MEDS: LORazepam TAB(*) 0.5 MG PO PRN (02:35)
[2019-06-17] MEDS: Benzonatate CAP* 100 MG PO PRN (02:35)
[2019-06-17] MEDS: DOXYcycline IV* 100 MG in NS 0.9% 250 ML* 250 ML IVPB SCH (05:17)
[2019-06-17] MEDS: fentaNYL Patch Check Q Shift 1 NOTE FOLLOW UP SCH (06:58)
[2019-06-17] MEDS: Mometasone/Formoter 200/5 MDI INH SCH (09:00)
[2019-06-17] MEDS: Nystatin SUSPENSION* 100000 UNITS/ML 5 ML UDC PO SCH ×2 (09:41→13:16)
[2019-06-17] MEDS: Potassium Chloride* LIQUID 20 MEQ/15 ML UDC PO SCH (09:41)
[2019-06-17] MEDS: Magnesium Oxide TAB* 400 MG PO SCH (09:42)
[2019-06-17] MEDS: Carvedilol TAB* 3.125 MG PO SCH (09:42)
[2019-06-17] MEDS: Pantoprazole TAB * 40 MG TAB PO SCH (09:42)
[2019-06-17] MEDS: Dronabinol CAP* 2.5 MG PO SCH (09:42)
[2019-06-17] MEDS: Aspirin EC TAB* 81 MG TAB.EC PO SCH (09:42)
[2019-06-17] MEDS: Apixaban* 5 MG TAB PO SCH (09:42)
[2019-06-17] MEDS: CMCS:Pravastatin (NF) 20 MG TAB PO SCH (09:45)
[2019-06-17] MEDS ORDERED: Magnesium Sulfate IV* 3 GM in NS 0.9% 100 ML* 100 ML IVPB ONE (10:44)
--- NOTE | 2019-06-17 13:31 | DS ---
DISCHARGE SUMMARY: DATE OF ADMISSION: 06/10/19 DATE OF DISCHARGE: 06/17/19 DISCHARGE DIAGNOSES: 1. Acute myocardial infarction. 2. Neutropenic fever and sepsis. 3. Squamous cell lung cancer, status post chemotherapy and radiation. 4. Pancytopenia. 5. Chronic obstructive pulmonary disease. 6. Chronic debilitation. HOSPITAL COURSE: Mr. Barragan is a 73-year-old male recently completing chemotherapy and radiation for T4N0M0, stage IIIA non-small cell lung cancer. He had squamous histology. Course had been complicated by episode of sepsis and radiation esophagitis causing a prolonged break in treatment. Ultimately, completed radiation with his last treatment being the day before hospital admission and last chemotherapy a weekly carboplatin and Taxol given on . He presented on 06/10/19 to Radiation Oncology and was found to be weak and confused with decreased blood pressure. He had a systolic of 80 over a diastolic of 59 in radiation office and was sent to the emergency room. On presentation, he was found to have a white blood cell count of 800, neutrophils of 700, hemoglobin 10.5, an INR of 2.07, and an elevated C-reactive protein of 203. He has longstanding atrial fibrillation, but had troponins that sent elevated at 8.35 on 06/10/19, then peaking at 14.4 later that day before dropping on 06/11/19. Seen by Cardiology who recommended medical management, he is now on daily aspirin. He was able to transfer to floor at the intensive care unit and has had stable blood pressure since that time near his baseline of 110/60. CT scan of the chest showed his existing lung cancer, minimal change from his pretreatment scan. No new areas of disease, no PE, no clear infiltrate. He has been severely debilitated during the admission. Even prior to the admission, he was only walking with a walker for several steps. At this point, he is essentially bedbound. Today, eating well, breathing near baseline , he has very mild epigastric pain, he remains afebrile. Plan will be to discharge to [facility] with rehabilitation. His blood counts are improved, ANC of 1400, we will stop antibiotics. His creatinine is stable, continued low potassium and low magnesium. We will give 3 g of magnesium today and then discharge on 400 mg b.i.d. magnesium and potassium 20 mEq daily. Recheck electrolytes in a week. DISCHARGE MEDICATIONS: 1. Eliquis 5 mg p.o. b.i.d. 2. Aspirin 81 mg daily. 3. Tessalon Perles 100 t.i.d. p.r.n. for cough. 4. Carvedilol 3.125 mg b.i.d. 5. Fentanyl patch 25 mcg. 6. Robitussin A-C q.6 p.r.n. 7. Ativan 0.5 mg q.6 p.r.n. 8. Magnesium oxide 400 mg p.o. b.i.d. 9. Dulera 200/5 two puffs q.12 hours. 10. Oxycodone/acetaminophen 5/35 one q.8 hours p.r.n. 11. Protonix 40 mg p.o. daily. 12. Potassium chloride 20 mEq p.o. b.i.d. 13. Pravachol 40 mg daily. 14. Scopolamine patch q.72 hours. FOLLOWUP PLAN: We will plan followup in clinic in 1 to 2 weeks to recheck electrolytes, and taper supportive medications. Continue to work with Physical Therapy. [id number]/[facility] #: [id number] ALEXANDRA
[2019-06-17 15:08] VITALS: BP 114/75
== END 2019-06-17 17:22 | DRG 871 ==
LOC: ED 12:26 → ICU 16:32 → MEDTELE 06-12 15:13
PROVIDERS: ADMIT Internal Medicine; ATTEND Internal Medicine Hematology & Oncology
PROC: 30233N1 Transfusion of Nonautologous Red Blood Cells into Peripheral Vein, Percutaneous Approach (ICD-10-PCS; principal; 2019-06-14)
DX: A41.9 Sepsis, unspecified organism (principal); I21.9 Acute myocardial infarction, unspecified; D61.810 Antineoplastic chemotherapy induced pancytopenia; J18.9 Pneumonia, unspecified organism; R65.21 Severe sepsis with septic shock; E43 Unspecified severe protein-calorie malnutrition; C34.90 Malignant neoplasm of unspecified part of unspecified bronchus or lung; J44.0 Chronic obstructive pulmonary disease with (acute) lower respiratory infection; I48.92 Unspecified atrial flutter; E87.2 Acidosis; N39.0 Urinary tract infection, site not specified; D70.1 Agranulocytosis secondary to cancer chemotherapy; T45.1X5A Adverse effect of antineoplastic and immunosuppressive drugs, initial encounter; R50.81 Fever presenting with conditions classified elsewhere; J44.9 Chronic obstructive pulmonary disease, unspecified; R53.81 Other malaise; K21.9 Gastro-esophageal reflux disease without esophagitis; I25.10 Atherosclerotic heart disease of native coronary artery without angina pectoris; G47.33 Obstructive sleep apnea (adult) (pediatric); E78.5 Hyperlipidemia, unspecified; L89.152 Pressure ulcer of sacral region, stage 2; I48.0 Paroxysmal atrial fibrillation; I35.0 Nonrheumatic aortic (valve) stenosis; B37.9 Candidiasis, unspecified; K52.9 Noninfective gastroenteritis and colitis, unspecified; Z66 Do not resuscitate; F41.9 Anxiety disorder, unspecified; E87.5 Hyperkalemia; E66.9 Obesity, unspecified; Z74.01 Bed confinement status; Z79.01 Long term (current) use of anticoagulants; Z79.82 Long term (current) use of aspirin; Z79.899 Other long term (current) drug therapy; Z86.711 Personal history of pulmonary embolism; Z85.828 Personal history of other malignant neoplasm of skin; Z88.8 Allergy status to other drugs, medicaments and biological substances; Z87.891 Personal history of nicotine dependence; Z86.718 Personal history of other venous thrombosis and embolism; I25.2 Old myocardial infarction; Z68.33 Body mass index [BMI] 33.0-33.9, adult; Z28.21 Immunization not carried out because of patient refusal
CPT/HCPCS: 36415; 70450; 71046; 71275; 80048; 80053; 80061; 81003; 81015; 82272; 82607; 82728; 83540; 83550; 83605; 83735; 84134; 84484; 85025; 85060; 85610; 85730; 86078; 86140; 86850; 86900; 86901; 86922; 87040; 87086; 87899; 93005; 93306; 94640; 99233; 99285; A9270-GY; C8929; J0692; J2765; J3475; J3480; P9040; P9045; Q9967